=== PATIENT | male | born 1940 | race Caucasian/White ===

== ENCOUNTER 2016-07-04 01:56 | Emergency (ER) | payer OTHER ==
[~2016-07-04] VITALS: Ht 157.5 cm; Wt 108.4 kg
[~2016-07-04 01:56] MED LIST: ACETAMINOPHEN/H1 TAB PO; CARDIZEM CD 12120 MG PO; CIPRO500 M1 PO; COLACE100 MG PO; ELIQUIS5 M1 PO; ELIQUIS5 MG PO; ESCITALOPRAM OX20 MG PO; FENTANYL1 EAC3 TOP; FLOMAX0.4 M1 PO; FUROSEMIDE40 M1 PO; GLUCOSAMINE &1 EACH PO; HYDROCODONE/ACE1 TAB PO; LASIX20 MG PO; LEG CRAMP PO; LOSARTAN POTAS100 M1 PO; MELOXICAM7.5 M1 PO; MIRALAX17 GM PO; OXYCODONE-ACET1 EACH PO; PROSCAR5 M1 PO; SENNA CON/DOCUS1 TAB PO; SENNA S TABLET1 EACH PO; SPECTAZOLE0.1 %/15 G TOP; SPECTRAVITE SE1 EACH PO; VALIUM2 M1 PO
[2016-07-04 02:09] VITALS: BP 146/72
--- NOTE | 2016-07-04 02:24 | ED GENERAL ADULT ---
History of Present Illness General Chief Complaint: General Adult Stated Complaint: PER PT TWITCHING Source: patient Exam Limitations: no limitations Vital Signs & Intake/Output Vital Signs & Intake/Output Vital Signs Date Time Temp Pulse Resp B/P Pulse O2 O2 Flow FiO2 Ox Delivery Rate 07/04 0209 97.4 96 18 146/72 95 Room Air Allergies Coded Allergies: NO KNOWN ALLERGIES (08/11/14) Reconcile Medications Apixaban (Eliquis) 5 MG TABLET 1 TAB PO BID AFIB (Reported) PLEASE STOP TAKING ON Monday09/05/14 FOR PROCEDURE ON MONDAY , THEN RESUME ONCE CLEARED BY DR. DICKERSON. Ciprofloxacin HCl (Cipro) 500 MG TABLET 1 TAB PO BID uti Diltiazem Cd (Diltiazem ER) 120 MG CAP.ER.DEG 1 TAB PO DAILY Heart Health Escitalopram Oxalate 20 MG TABLET 1 TAB PO DAILY MENTAL HEALTH (Reported) Fentanyl 50 MCG/HOUR PATCH.TD72 1 PAT TOP Q3D PAIN (Reported) Fentanyl 50 MCG/HOUR PATCH.TD72 1 PAT TOP Q3D chronic pain three patches.... [id number] Finasteride 5 MG TABLET 1 TAB PO DAILY BPH (Reported) Furosemide 40 MG TABLET 1 TAB PO DAILY DIURETIC (Reported) Losartan Potassium 100 MG TABLET 1 TAB PO DAILY BP (Reported) Meloxicam 7.5 MG TABLET 1 TAB PO BID PRN ARTHRITIS (Reported) AT NIGHT OR DURING DAY NEEDED Multivitamin W/Iron, Minerals (Spectravite Senior) 1 EACH TABLET 1 TAB PO DAILY SUPPLEMENT (Reported) [id number] (Glucosamine & Chondroitin Plus) 1 TAB TAB 1,500 MG PO DAILY ARTHRITIS (Reported) WITH MSM Oxycodone HCl/Acetaminophen (Oxycodone-Acetaminophen 5-325) 1 EACH TABLET 1 TAB PO Q6H PRN PAIN (Reported) Sennosides/Docusate Sodium (Senna S Tablet) 1 EACH TABLET 1 TAB PO QPM PRN GI (Reported) TAMSULOSIN HCL (Tamsulosin Hydrochloride) 0.4 MG CAP.ER.24H 1 CAP PO DAILY BPH (Reported) Triage Note: PT TO TRIAGE C/O TWITCHING IN THE L LEG. DENIES INJURY, DENIES NUMBNESS/TINGLING. Triage Nurses Notes Reviewed? yes Onset: Gradual Duration: day(s): Timing: recent history Injury Environment: home Severity: mild, moderate Modifying Factors: Worsens With: other. Associated Symptoms: "I feel shakey and I can't sleep." HPI: 76-year-old gentleman with multiple medical problems and chronic pain presents with tremors and, "shaking all over." He states that he had been on a fentanyl 50 g patch chronically. His last patch was placed on his skin one week ago. He notes that 4 days ago is when he began his symptoms. He has tried to get his primary care doctor to give him a refill. However, there have been complications with his insurance company and various paperwork needed to approve the prescription. He has no fever chills chest pain shortness of breath. He states that he has not slept for 4 days. He is otherwise well and has no other concerns. Past History Travel History Traveled to [place] past 21 day No Medical History Any Pertinent Medical History? see below for history Neurological: NONE EENT: NONE Cardiovascular: AFIB, chronic venous insuff Respiratory: COPD Gastrointestinal: NONE Hepatic: NONE Renal: benign prost hyperplasia, hematuria, KIDNEY STONES Musculoskeletal: osteoarthritis Psychiatric: NONE Endocrine: NONE Blood Disorders: NONE Cancer(s): NONE BEATER HEAD/Reproductive: NONE History of MRSA: No History of VRE: No History of CDIFF: No Surgical History Surgical History: non-contributory Psychosocial History Who do you live with Significant Other Services at Home Nursing, Physical Therapy What is your primary language Faroese Tobacco Use: Never used ETOH Use: denies use Family History Family History, If Any: FATHER FH: emphysema MOTHER Bone cancer FH: breast cancer Hx Contributory? No Review of Systems Review of Systems Constitutional: Reports: no symptoms. EENTM: Reports: no symptoms. Respiratory: Reports: no symptoms. Cardiovascular: Reports: no symptoms. GI: Reports: no symptoms. Genitourinary: Reports: no symptoms. Musculoskeletal: Reports: no symptoms. Skin: Reports: no symptoms. Neurological/Psychological: Reports: no symptoms. Hematologic/Endocrine: Reports: no symptoms. Immunologic/Allergic: Reports: no symptoms. All Other Systems: Reviewed and Negative Physical Exam Physical Exam General Appearance: well developed/nourished, no apparent distress Head: atraumatic, normal appearance Eyes: Bilateral: normal appearance. Ears, Nose, Throat: normal pharynx, normal ENT inspection Neck: normal inspection, supple, full range of motion Respiratory: normal breath sounds, chest non-tender, no respiratory distress, quiet respiration, lungs clear Cardiovascular: regular rate/rhythm Gastrointestinal: normal bowel sounds, soft, non-tender Back: normal inspection Extremities: normal inspection, normal capillary refill Neurologic/Psych: no motor/sensory deficits, awake, alert, oriented x 3, mild symmetrical resting tremor of his upper extremities. Skin: intact, normal color, warm/dry Core Measures ACS in differential dx? No CVA/TIA Diagnosis: No Severe Sepsis Present: No Septic Shock Present: No Progress Differential Diagnoses I considered the following diagnoses in my evaluation of the patient: opioid withdrawal syndrome is most likely essential tremor vs other is also a possibility Plan of Care: Current Medications Sig/Kacie Start time Last Medication Dose Stop Time Status Admin Fentanyl Citrate 50 MCG Q72H 07/04 0245 AC (Duragesic) Initial ED EKG: none Departure Departure Disposition: HOME OR SELF CARE Condition: Stable Clinical Impression Primary Impression: Tremor Secondary Impressions: Opioid withdrawal Referrals: KIMBER PEREZ MD (PCP/Family) Departure Forms: Customer Survey General Discharge Information Prescriptions: Current Visit Scripts Fentanyl 1 PAT TOP Q3D #3 PAT three patches.... [id number] Critical Care Note Critical Care Note Critical Care Time: non-applicable
[2016-07-04] MEDS ORDERED: FENTANYL1 EAC3 TOP (02:36)
== END 2016-07-04 02:59 ==
LOC: ERH 01:56
DX: R25.1 Tremor, unspecified (principal); F11.23 Opioid dependence with withdrawal

== ENCOUNTER 2016-07-12 15:39 | Emergency (ER) | payer OTHER ==
[~2016-07-12] VITALS: Ht 157.5 cm; Wt 102.1 kg
[2016-07-12 15:46] VITALS: BP 113/65
--- NOTE | 2016-07-12 16:06 | ED GI/GU/ABDOMINAL COMPLAINT ---
See Addendum History of Present Illness General Chief Complaint: Male Genitourinary Problems Stated Complaint: "I THINK I HAVE A UTI" Source: patient, family, old records Exam Limitations: no limitations Vital Signs & Intake/Output Vital Signs & Intake/Output Vital Signs Date Time Temp Pulse Resp B/P Pulse O2 O2 Flow FiO2 Ox Delivery Rate 07/12 1546 97.8 104 20 113/65 98 Room Air ED Intake and Output 07/13 0000 07/12 1200 Intake Total Output Total Balance Patient 225 lb Weight Allergies Coded Allergies: NO KNOWN ALLERGIES (08/11/14) Reconcile Medications Apixaban (Eliquis) 5 MG TABLET 1 TAB PO BID AFIB (Reported) PLEASE STOP TAKING ON Monday09/05/14 FOR PROCEDURE ON MONDAY , THEN RESUME ONCE CLEARED BY DR. SANTIAGO. Ciprofloxacin HCl (Cipro) 500 MG TABLET 1 TAB PO BID uti Ciprofloxacin HCl (Cipro) 500 MG TABLET 1 TAB PO BID infection Diltiazem Cd (Diltiazem ER) 120 MG CAP.ER.DEG 1 TAB PO DAILY Heart Health Escitalopram Oxalate 20 MG TABLET 1 TAB PO DAILY MENTAL HEALTH (Reported) Fentanyl 50 MCG/HOUR PATCH.TD72 1 PAT TOP Q3D PAIN (Reported) Fentanyl 50 MCG/HOUR PATCH.TD72 1 PAT TOP Q3D chronic pain three patches.... [id number] Finasteride 5 MG TABLET 1 TAB PO DAILY BPH (Reported) Furosemide 40 MG TABLET 1 TAB PO DAILY DIURETIC (Reported) Losartan Potassium 100 MG TABLET 1 TAB PO DAILY BP (Reported) Meloxicam 7.5 MG TABLET 1 TAB PO BID PRN ARTHRITIS (Reported) AT NIGHT OR DURING DAY NEEDED Multivitamin W/Iron, Minerals (Spectravite Senior) 1 EACH TABLET 1 TAB PO DAILY SUPPLEMENT (Reported) [id number] (Glucosamine & Chondroitin Plus) 1 TAB TAB 1,500 MG PO DAILY ARTHRITIS (Reported) WITH MSM Oxycodone HCl/Acetaminophen (Oxycodone-Acetaminophen 5-325) 1 EACH TABLET 1 TAB PO Q6H PRN PAIN (Reported) Sennosides/Docusate Sodium (Senna S Tablet) 1 EACH TABLET 1 TAB PO QPM PRN GI (Reported) TAMSULOSIN HCL (Tamsulosin Hydrochloride) 0.4 MG CAP.ER.24H 1 CAP PO DAILY BPH (Reported) Triage Note: RECEIVED 76 YO MALE WITH HX OF UTI, C/O "I THINK I HAVE A UTI BECAUSE I AM URINATING BLOOD". PT DENIES ANY OTHER SYMPTOMS. Triage Nurses Notes Reviewed? yes HPI: Patient is a 76-year-old male presents complaining of hematuria. Hematuria onset this afternoon. Patient reports pain is 0 out of 10. No difficulty initiating urine stream. Patient had similar symptoms previously, was diagnosed with a urinary tract infection, placed on antibiotics and his hematuria improved. Patient takes Eliquis. Denies dysuria, urgency, frequency, abdominal pain, nausea, vomiting. (SLOANE SHAVER) Past History Travel History Traveled to [place] past 21 day No Medical History Any Pertinent Medical History? see below for history Neurological: NONE EENT: NONE Cardiovascular: AFIB, chronic venous insuff Respiratory: COPD Gastrointestinal: NONE Hepatic: NONE Renal: benign prost hyperplasia, hematuria, KIDNEY STONES Musculoskeletal: osteoarthritis Psychiatric: NONE Endocrine: NONE Blood Disorders: NONE Cancer(s): NONE EMERGENCY DEPARTMENT RN/Reproductive: NONE History of MRSA: No History of VRE: No History of CDIFF: No Surgical History Surgical History: non-contributory Psychosocial History Who do you live with Significant Other Services at Home Nursing, Physical Therapy What is your primary language Kyrgyz Tobacco Use: Quit >30 days ago Family History Family History, If Any: FATHER FH: emphysema MOTHER Bone cancer FH: breast cancer Hx Contributory? No (SLOANE SHAVER) Review of Systems Review of Systems Constitutional: Denies: chills, fever. EENTM: Reports: no symptoms. Respiratory: Denies: cough, short of breath. Cardiovascular: Reports: peripheral edema (chronic, unchanged). Denies: chest pain. GI: Denies: abdominal pain, nausea, vomiting. Genitourinary: Reports: see HPI, hematuria. Denies: dysuria, frequency, pain, urgency. Skin: Reports: no symptoms. Neurological/Psychological: Reports: no symptoms. Hematologic/Endocrine: Reports: see HPI, bruising. Immunologic/Allergic: Reports: no symptoms. (SLOANE SHAVER) Physical Exam Physical Exam General Appearance: well developed/nourished, alert, awake Head: atraumatic, normal appearance Eyes: Bilateral: normal appearance, PERRL, EOMI. Ears, Nose, Throat, Mouth: hearing grossly normal, moist mucous membrane Neck: normal inspection, supple, full range of motion Respiratory: normal breath sounds, no respiratory distress, lungs clear Cardiovascular: irregularly irregular (rate controlled) Gastrointestinal: soft, non-tender Back: normal inspection, normal range of motion, no CVA tenderness Extremities: 1+ bilateral lower extremity edema Neurologic/Psych: awake, alert, oriented x 3 Skin: warm/dry Core Measures ACS in differential dx? No Severe Sepsis Present: No Septic Shock Present: No (SLOANE SHAVER) Progress Differential Diagnosis: urethritis, UTI/pyelo, bladder polyp, bladder malignancy , renal colic Plan of Care: Orders Procedure Date/time Status Add-on Test (ER Only) 07/12 1614 Active CULTURE,URINE 07/12 1607 Active URINALYSIS 07/12 160 Complete Laboratory Tests 07/12/16 1607: Urinalysis LIGHT H, Urine Color BROWN H, Urine Clarity CLDY H, Urine pH 6.5, Ur Specific Henderson 1.020, Urine Protein >=300 H, Urine Ketones TRACE H, Urine Nitrite POS H, Urine Bilirubin NEG@ICTO, Urine Urobilinogen 1.0, Ur Leukocyte Esterase MOD H, Ur Microscopic SEDIMENT EXAMINED, Urine RBC PACKD H, Urine WBC 25-50 H, Ur Epithelial Cells FEW, Urine Bacteria MANY H, Urine Mucus MOD H, Urine Hemoglobin LARGE H, Urine Glucose NEG Microbiology 07/12 1607 URINE ROUT: Urine Culture - RECD Discussed with and seen by Dr. Godoy. Patient resting comfortably, no difficulty urinating. Labs and imaging deferred. Discussed importance of follow-up with urology for further evaluation. Patient to return to the emergency department if he develops pain, difficulty urinating, fevers, or worsening of symptoms. (SLOANE SHAVER) Initial ED EKG: none (SLOANE SHAVER) Departure Departure Time of Disposition: 1649 Disposition: HOME OR SELF CARE Condition: Stable Clinical Impression Primary Impression: Urinary tract infection Qualifiers: Urinary tract infection type: acute cystitis Hematuria presence: with hematuria Qualified Code: N30.01 - Acute cystitis with hematuria Secondary Impressions: Hematuria Referrals: KIMBER PEREZ MD (PCP/Family) LINDSAY SANTIAGO MD Additional Instructions: Follow-up with Dr. Santiago (urologist) for further evaluation. Call in the morning for appointment. Return to emergency department if difficulty urinating , abdominal pain, fevers, nausea, vomiting, or worsening of symptoms. Departure Forms: Customer Survey General Discharge Information Prescriptions: Current Visit Scripts Ciprofloxacin HCl (Cipro) 1 TAB PO BID #20 TAB (SLOANE SHAVER) PA/GARAGE DOOR TECHNICIAN Co-Sign Statement Statement: ED Attending supervision documentation- [X] I saw and evaluated the patient. I have also reviewed all the pertinent lab results and diagnostic results. I agree with the findings and the plan of care as documented in the PA's/GARAGE DOOR TECHNICIAN's documentation. [X] I have reviewed the ED Record and agree with the PA's/GARAGE DOOR TECHNICIAN's documentation. [] Additions or exceptions (if any) to the PAs/GARAGE DOOR TECHNICIAN's note and plan are summarized below: [] (JESSICA ESCOBAR,NIKOS)
[2016-07-12] MEDS ORDERED: CIPRO500 M1 PO (16:51)
== END 2016-07-12 16:56 ==
LOC: ERH 15:39
DX: N39.0 Urinary tract infection, site not specified (principal); R31.9 Hematuria, unspecified
CPT/HCPCS: 87184; 81001; 87086; 87147

== ENCOUNTER 2016-09-15 13:35 | Inpatient (IN) | payer OTHER ==
[~2016-09-15] VITALS: Ht 157.5 cm; Wt 99.3 kg
--- NOTE | 2016-09-15 13:43 | NUR ---
PT TO ED FOR INCREASED WEAKNESS STARTING THREE DAYS AGO, AND YESTERDAY AFTER TAKING "WATER PILLS" PT BECAME INCONTINENT WHICH IS NOT HIS BASELINE. +L LEG REDNESS, SWELLING AND HOT IN TRIAGE. DENIES TRAUMA OR BITE TO AREA, STARTED ONLY LAST NIGHT. REPORTS CHILLS AT HOME. AREA IS PAINFUL. DECREASED APPETITE. DENIES CP OR SOB.
[2016-09-15 14:10] LABS: ABSOLUTE BASOPHIL COUNT 0 /CUMM (0.0-0.2); ABSOLUTE EOSINOPHIL COUNT 0 /CUMM (0.0-0.7); ABSOLUTE GRANULOCYTE CT 8.2 /CUMM (1.4-6.5); ABSOLUTE LYMPH COUNT 1.4 /CUMM (1.2-3.4); ABSOLUTE MONOCYTE COUNT 1.2 /CUMM (0.10-0.60); BASOPHIL % 0.2 % (0.0-2.0); EOSINOPHIL % 0.2 % (0-5); GRANULOCYTE % 75.7 % (42.2-75.2); HEMATOCRIT 38.9 % (42-52); MEAN CORPUSCULAR HGB 31.9 PG (27.0-31.0); MEAN CORPUSCULAR VOLUME 93.8 FL (80.0-94.0); MEAN PLATELET VOLUME 7.2 FL (7.4-10.4); PLATELET COUNT 194 /CUMM (130-400); RBC DISTRIBUTION WIDTH 14.4 % (11.5-14.5); RED BLOOD CELL CT 4.15 /CUMM (4.70-6.10); WHITE BLOOD CELL COUNT 10.8 /CUMM (4.8-10.8)
--- NOTE | 2016-09-15 14:10 | NUR ---
PT TO ROOM 19 ON [address] AT BEDSIDE FOR EVAL
--- NOTE | 2016-09-15 14:18 | ED AMS/SEIZURE/WEAK/DIZZY ---
History of Present Illness General Chief Complaint: Lower Extremity Problems Stated Complaint: LEG SWELLING,WEAKNESS Source: patient, family, old records Exam Limitations: poor historian Allergies Coded Allergies: No Known Allergies (09/15/16) Reconcile Medications Apixaban (Eliquis) 5 MG TABLET 1 TAB PO BID AFIB (Reported) Diltiazem HCl (Diltiazem 24HR ER) 120 MG CAP.ER.24H 1 CAP PO DAILY HEART ( Reported) Escitalopram Oxalate 20 MG TABLET 1 TAB PO DAILY MENTAL HEALTH (Reported) Finasteride (Proscar) 5 MG TABLET 1 TAB PO DAILY BPH (Reported) Furosemide 40 MG TABLET 1 TAB PO DAILY DIURETIC (Reported) Glucosa Llamas 2KCL/Chondroitin Llamas (Glucosamine & Chondroitin Cap) 500 MG-400 MG CAPSULE 3 TAB PO DAILY PAIN (Reported) Losartan Potassium 100 MG TABLET 1 TAB PO DAILY BP (Reported) Meloxicam 7.5 MG TABLET 1 TAB PO DAILY PRN PAIN (Reported) Multivitamin W/Iron, Minerals (Spectravite Senior) 1 EACH TABLET 1 TAB PO DAILY SUPPLEMENT (Reported) Oxycodone HCl/Acetaminophen (Oxycodone-Acetaminophen 5-325) 1 EACH TABLET 1 TAB PO Q6H PRN PAIN (Reported) Sennosides/Docusate Sodium (Senna S Tablet) 8.6 MG-50 MG TABLET 1 TAB PO QPM CONSTIPATION (Reported) Tamsulosin HCl (Flomax) 0.4 MG CAP.ER.24H 1 CAP PO DAILY BPH (Reported) Triage Note: PT TO ED FOR INCREASED WEAKNESS STARTING THREE DAYS AGO, AND YESTERDAY AFTER TAKING "WATER PILLS" PT BECAME INCONTINENT WHICH IS NOT HIS BASELINE. +L LEG REDNESS, SWELLING AND HOT IN TRIAGE. DENIES TRAUMA OR BITE TO AREA, STARTED ONLY LAST NIGHT. REPORTS CHILLS AT HOME. AREA IS PAINFUL. DECREASED APPETITE. DENIES CP OR SOB. Triage Nurses Notes Reviewed? yes Onset: Abrupt Duration: day(s):, constant, continues in ED Timing: recent history No Modifying Factors: none HPI: 76-year-old male presents emergency room for multiple complaints. Patient reports that he has been feeling increasingly weak and fatigued recently or in the past few days. Mild cough. Denies any chest pain shortness of breath abdominal pain. Denies any headache. Denies any recent falls or trauma. Patient reports that he does walk normally but has been increasingly weak recently affecting his walking. (EVENS WOODWARD) Vital Signs & Intake/Output Vital Signs & Intake/Output Vital Signs Date Time Temp Pulse Resp B/P B/P Pulse O2 O2 Flow FiO2 Mean Ox Delivery Rate 09/15 1610 88 18 100/55 95 Room Air 09/15 1354 97.3 100 15 102/63 93 Room Air Room Air Past History Travel History Traveled to [place] past 21 day No Medical History Any Pertinent Medical History? see below for history Neurological: NONE EENT: NONE Cardiovascular: AFIB, chronic venous insuff Respiratory: COPD Gastrointestinal: NONE Hepatic: NONE Renal: benign prost hyperplasia, hematuria, KIDNEY STONES Musculoskeletal: osteoarthritis Psychiatric: NONE Endocrine: NONE Blood Disorders: NONE Cancer(s): NONE STAFF READINESS OFFICER/Reproductive: NONE History of MRSA: No History of VRE: No History of CDIFF: No Surgical History Surgical History: non-contributory Psychosocial History Who do you live with Significant Other Services at Home Nursing, Physical Therapy What is your primary language Sinhala Tobacco Use: Quit >30 days ago ETOH Use: denies use Illicit Drug Use: denies illicit drug use Family History Family History, If Any: FATHER FH: emphysema MOTHER Bone cancer FH: breast cancer Hx Contributory? No (EVENS WOODWARD) Review of Systems Review of Systems Constitutional: Reports: see HPI. EENTM: Reports: no symptoms. Respiratory: Reports: no symptoms. Cardiovascular: Reports: no symptoms. GI: Reports: no symptoms. Genitourinary: Reports: no symptoms. Musculoskeletal: Reports: no symptoms. Skin: Reports: see HPI. Neurological/Psychological: Reports: no symptoms. Hematologic/Endocrine: Reports: no symptoms. Immunologic/Allergic: Reports: no symptoms. All Other Systems: Reviewed and Negative (EVENS WOODWARD) Physical Exam Physical Exam General Appearance: well developed/nourished, alert, awake Head: atraumatic, normal appearance Eyes: Bilateral: normal appearance, EOMI. Ears, Nose, Throat: normal pharynx, normal ENT inspection, hearing grossly normal Neck: normal inspection Respiratory: normal breath sounds, no respiratory distress Cardiovascular: irregularly irregular Gastrointestinal: soft, non-tender Back: normal inspection Extremities: normal range of motion, erythema and large red patch and warmth to the left lower extremity Neurologic/Psych: awake, alert, oriented x 3, normal mood/affect Skin: intact, rash (see above) Core Measures ACS in differential dx? No CVA/TIA Diagnosis: No Severe Sepsis Present: No Septic Shock Present: No (EVENS WOODWARD) Progress Differential Diagnosis: arrythmia, anemia, benign positional vertigo, CVA/stroke , drug intoxication, encephalitis, electrolyte imbalance, GI bleed, hypoxia, meningitis, pneumonia, postural hypotension, presyncope, post-traumatic vertigo, sepsis, subarachnoid Hem., UTI/pyelo, vertebrobasilar insuff Diagnostic Imaging: Viewed by Me: CT Scan. Discussed w/RAD: CT Scan. Radiology Impression: SERVICE DATE: 09/15/16 EXAM TYPE: CAT - CT HEAD WO IV CONTRAST EXAMINATION: CT HEAD WITHOUT CONTRAST CLINICAL INFORMATION: Weakness. Right facial droop. COMPARISON: None. TECHNIQUE: Contiguous axial imaging was performed from the skull base to vertex without intravenous contrast. DLP: 619 mGy-cm. FINDINGS: There is no evidence of acute intracranial hemorrhage or territorial infarction. No abnormal mass effect or midline shift is seen. Schmidt to white matter differentiation is well preserved. No extra-axial fluid collections are identified. No hydrocephalus. Proportional prominence of the ventricles and sulcal spaces is consistent with mild volume loss. Patchy periventricular and deep white matter hypoattenuation is consistent with mild small vessel ischemic changes. No acute osseous or soft tissue abnormality. Likely an empty sella. The mastoid air cells and visualized portions of the paranasal sinuses are well aerated. IMPRESSION: No acute intracranial pathology. Mild volume loss and small vessel ischemic change. DICTATED BY: LEN SPANGLER MD DATE/TIME DICTATED:09/15/161505 ELECTRO MECHANICAL ASSEMBLER:VALERIA DATE/TIME TRANSCRIBED:09/15/161505, SERVICE DATE: 09/15/16 EXAM TYPE: RAD - XRY- PORTABLE CHEST XRAY EXAMINATION: XR PORTABLE CHEST CLINICAL INFORMATION: Cough. COMPARISON: Chest x-ray 09/01/2014 TECHNIQUE: Portable frontal view of the chest was obtained. 2:23 PM FINDINGS: Asymmetric elevation of left diaphragm compared to right. Lungs are clear. No pulmonary vascular congestion. No pleural effusion or pneumothorax. Cardiac and mediastinal contours are normal. There are vascular wall calcifications of thoracic aortic arch. IMPRESSION: No acute abnormality the chest. DICTATED BY: GUZMAN NATARAJAN MD DATE/TIME DICTATED:09/15/161456 ELECTRO MECHANICAL ASSEMBLER:VALERIA DATE/TIME TRANSCRIBED:09/15/161456 Initial ED EKG: rate (96), AFIB, nonspecific ST T wave chg (EEVNS WOODWARD) Plan of Care: Orders Procedure Date/time Status CBC WITHOUT DIFFERENTIAL 09/16 06 Active BASIC ELECTROLYTES PLUS BUN&CR 09/16 06 Active Heart Healthy Diet 09/15 D Active Pathway - chart 09/15 1700 Active Code Status 09/15 1700 Active BLOOD CULTURE 09/15 1621 Active Add-on Test (ER Only) 09/15 1547 Active CULTURE,URINE 09/15 1520 Active Add-on Test (ER Only) 09/15 1418 Active URINALYSIS 09/15 1418 Complete C-REACTIVE PROTEIN 09/15 1359 Complete TROPONIN LEVEL 09/15 1344 Complete COMPREHENSIVE METABOLIC PANEL 09/15 1344 Complete CBC WITHOUT DIFFERENTIAL 09/15 1344 Complete EKG 09/15 1344 Active Saline Lock 09/15 UNK Active House Staff 09/15 UNK Active Wound Care/Dressing 09/15 UNK Active VTE Mechanical Prophylaxis 09/15 UNK Active Vital Signs 09/15 UNK Active Elevate 09/15 UNK Active Activity/Ambulation 09/15 UNK Active Current Medications Sig/Kacie Start time Last Medication Dose Stop Time Status Admin Enoxaparin Sodium 40 MG DAILY 09/16 1000 UNVr (Lovenox) Sodium Chloride 1,000 ML SEE RATE 09/15 1700 UNVr (Normal Saline 0.9%) 09/16 0619 Sodium Chloride 1,000 ML ONCE ONE 09/15 1630 AC (Normal Saline 0.9%) 09/16 0229 Laboratory Tests 09/15/16 1520: Urinalysis LIGHT H, Urine Color YEL, Urine Clarity CLEAR, Urine pH 6.5, Ur Specific Thornton 1.015, Urine Protein TRACE H, Urine Ketones NEG, Urine Nitrite POS H, Urine Bilirubin NEG, Urine Urobilinogen 0.2, Ur Leukocyte Esterase MOD H, Ur Microscopic SEDIMENT EXAMINED, Urine RBC RARE, Urine WBC 10-15 H, Ur Epithelial Cells RARE, Urine Bacteria MANY H, Hyaline Casts RARE H, Urine Mucus MOD H, Urine Hemoglobin TRACE-LYSED H, Urine Glucose NEG 09/15/16 1359: Anion Gap 10, Estimated GFR > 60, BUN/Creatinine Ratio 18.8, Glucose 108 H, Calcium 8.6, Total Bilirubin 1.3, AST 19, ALT 32, Alkaline Phosphatase 87, Troponin I < 0.01, C-Reactive Prot, Quant 6.6 H, Total Protein 6.1 L, Albumin 3.6, Globulin 2.5, Albumin/Globulin Ratio 1.4, CBC w Diff NO MAN DIFF REQ, RBC 4.15 L, MCV 93.8, MCH 31.9 H, RDW 14.4, MPV 7.2 L, Gran % 75.7 H, Lymphocytes % 12.6 L, Monocytes % 11.3 H, Eosinophils % 0.2, Basophils % 0.2, Absolute Granulocytes 8.2 H, Absolute Lymphocytes 1.4, Absolute Monocytes 1.2 H, Absolute Eosinophils 0, Absolute Basophils 0, PUBS MCHC 34.0 Microbiology 09/15 1700 BLOOD: Blood Culture - RECD 09/15 1621 BLOOD: Blood Culture - ORD 09/15 1520 URINE ROUT: Urine Culture - RECD Departure Departure Disposition: STILL A PATIENT Condition: Stable Clinical Impression Primary Impression: Cellulitis of left lower extremity Secondary Impressions: Candidiasis of scrotum, Urinary tract infection Referrals: KIMBER PEREZ MD (PCP/Family) Departure Forms: Customer Survey General Discharge Information Admission Note Spoke With: BARRY ESCOBAR,LAURA Documentation of Exam: Documentation of any treatments & extenuating circumstances including Concerns Regarding Discharge (functional status, medication knowledge or non-compliance, living conditions, etc.) that warrant an admission rather than observation: Patient has a combination infection of cellulitis and UTI. Patient will require IV antibiotics. Gentle IV hydration. Serial blood work. Wound care consultation for groin. Case management consultation. Patient would do poorly as an outpatient. Blood pressure is borderline low. Frequent vital sign checks. (EVENS WOODWARD) PA/MOLD CHANGER Co-Sign Statement Statement: ED Attending supervision documentation- [X] I saw and evaluated the patient. I have also reviewed all the pertinent lab results and diagnostic results. I agree with the findings and the plan of care as documented in the PA's/MOLD CHANGER's documentation. [] I have reviewed the ED Record and agree with the PA's/MOLD CHANGER's documentation. [] Additions or exceptions (if any) to the PAs/MOLD CHANGER's note and plan are summarized below: [] (LIEN ESCOBAR,MARY BETH Salas)
--- NOTE | 2016-09-15 15:02 | RADIOLOGY REPORT ---
EXAMINATION: XR PORTABLE CHEST CLINICAL INFORMATION: Cough. COMPARISON: Chest x-ray 09/01/2014 TECHNIQUE: Portable frontal view of the chest was obtained. 2:23 PM FINDINGS: Asymmetric elevation of left diaphragm compared to right. Lungs are clear. No pulmonary vascular congestion. No pleural effusion or pneumothorax. Cardiac and mediastinal contours are normal. There are vascular wall calcifications of thoracic aortic arch. IMPRESSION: No acute abnormality the chest.
[2016-09-15] MEDS ORDERED: DILTIAZEM 24HR120 MG PO (15:08)
--- NOTE | 2016-09-15 15:13 | NUR ---
PT LYING ON STRETCHER, FAMILY FEEDING PT COOKIES (OK PER PA). URINAL LEFT WITH PT WHO STATES HE CANNOT GIVE A URINE SAMPLE "I DRAINED IT ALL OUT LAST NIGHT." AWARE THAT UA IS ORDERED. AWAITING RADIOLOGY RESULTS.
--- NOTE | 2016-09-15 15:13 | CT SCAN REPORT ---
EXAMINATION: CT HEAD WITHOUT CONTRAST CLINICAL INFORMATION: Weakness. Right facial droop. COMPARISON: None. TECHNIQUE: Contiguous axial imaging was performed from the skull base to vertex without intravenous contrast. DLP: 619 mGy-cm. FINDINGS: There is no evidence of acute intracranial hemorrhage or territorial infarction. No abnormal mass effect or midline shift is seen. Schmidt to white matter differentiation is well preserved. No extra-axial fluid collections are identified. No hydrocephalus. Proportional prominence of the ventricles and sulcal spaces is consistent with mild volume loss. Patchy periventricular and deep white matter hypoattenuation is consistent with mild small vessel ischemic changes. No acute osseous or soft tissue abnormality. Likely an empty sella. The mastoid air cells and visualized portions of the paranasal sinuses are well aerated. IMPRESSION: No acute intracranial pathology. Mild volume loss and small vessel ischemic change.
--- NOTE | 2016-09-15 15:23 | ULTRASOUND REPORT ---
EXAMINATION: US TRIPLEX LOWER EXTREMITY, LEFT CLINICAL INFORMATION: Left leg swelling, redness. COMPARISON: None TECHNIQUE: Color-flow triplex imaging with spectral analysis and compression Doppler were performed on the lower extremity. FINDINGS: Respiratory variation, normal compression and augmented flow are noted throughout the left lower extremity. The visualized common femoral vein, superficial femoral vein, profunda femoral vein, popliteal vein and midcalf peroneal and posterior tibial venous segments show no evidence of deep venous thrombosis. There is a complex 5.1 x 1.5 x 2.0 cm fluid collection in the medial popliteal fossa compatible with a Virgen's cyst. Note was made of kidney edema in the lower extremity. IMPRESSION: Normal triplex scan without evidence of deep venous thrombosis involving the lower extremity. 5.1 x 1.5 x 2.0 cm complex Virgen's cyst.
--- NOTE | 2016-09-15 15:51 | NUR ---
PT AMBULATED USING CANE INDEPENDENTLY 50 FEET WITH STEADY GAIT WITHOUT DIFFICULTY. RETURNED TO [facility], AWAITING DISPO, REPORTS LEFT LEG TENDER BUT NO OTHER COMPLAINTS.
--- NOTE | 2016-09-15 16:53 | History & Physical ---
KIMBERLY ESCOBAR,NOAH 09/15/16 3981: General Information and HPI MD Statement: I have seen and personally examined LINDSAY WANG and documented this H&P. The patient is a 76 year old M who presented with a patient stated chief complaint of []. Source of Information: patient, family, old records Exam Limitations: poor historian History of Present Illness: Patient is a 76-year-old male presented with chief complaints of generalized weakness since last 2 days. He told that because of Lasix,he had increased frequency of urination with incontinence. He also told that yesterday he was having discomfort in the left leg and today morning he started seeing redness on it. Patient denies fever, chills, sore throat, runny nose, recent changes in number on the pillows, dysuria, back pain, tingling and numbness in the legs, incontinence of stool, back pain. He claims that he feels congested most of the time and have dry cough with whitish mucus. Past medical history- Obstructive sleep apnea / Pickwickian syndrome Atrial fibrillation with controlled ventricular rate on Eliquis History of obstructive nephrolithiasis with hydronephrosis and left ureteral stent (2014) Morbid obesity BPH with multiple bladder diverticula Right inguinal hernia Osteoarthritis History of multiple surgeries including left shoulder, right knee, hernia Personal history -can walk with can and rolling walker. According to the cannot walk independently. He quit smoking many years ago, and occasionally drink alcohol. Family History - Father - Emphysema Allergies -NKDA Allergies/Medications Allergies: Coded Allergies: No Known Allergies (09/15/16) Home Med list Apixaban (Eliquis) 5 MG TABLET 1 TAB PO BID AFIB (Reported) Diltiazem HCl (Diltiazem 24HR ER) 120 MG CAP.ER.24H 1 CAP PO DAILY HEART ( Reported) Escitalopram Oxalate 20 MG TABLET 1 TAB PO DAILY MENTAL HEALTH (Reported) Finasteride (Proscar) 5 MG TABLET 1 TAB PO DAILY BPH (Reported) Furosemide 40 MG TABLET 1 TAB PO DAILY DIURETIC (Reported) Glucosa Llamas 2KCL/Chondroitin Llamas (Glucosamine & Chondroitin Cap) 500 MG-400 MG CAPSULE 3 TAB PO DAILY PAIN (Reported) Losartan Potassium 100 MG TABLET 1 TAB PO DAILY BP (Reported) Meloxicam 7.5 MG TABLET 1 TAB PO DAILY PRN PAIN (Reported) Multivitamin W/Iron, Minerals (Spectravite Senior) 1 EACH TABLET 1 TAB PO DAILY SUPPLEMENT (Reported) Oxycodone HCl/Acetaminophen (Oxycodone-Acetaminophen 5-325) 1 EACH TABLET 1 TAB PO Q6H PRN PAIN (Reported) Sennosides/Docusate Sodium (Senna S Tablet) 8.6 MG-50 MG TABLET 1 TAB PO QPM CONSTIPATION (Reported) Tamsulosin HCl (Flomax) 0.4 MG CAP.ER.24H 1 CAP PO DAILY BPH (Reported) Past History Travel History Traveled to [place] past 21 day No Medical History Neurological: NONE EENT: NONE Cardiovascular: AFIB, chronic venous insuff Respiratory: COPD Gastrointestinal: NONE Hepatic: NONE Renal: benign prost hyperplasia, hematuria, KIDNEY STONES Musculoskeletal: osteoarthritis Psychiatric: NONE Endocrine: NONE Blood Disorders: NONE Cancer(s): NONE BINDING NICKER/Reproductive: NONE History of MRSA: No History of VRE: No History of CDIFF: No Surgical History Surgical History: non-contributory Past Family/Social History Family History Relations & Conditions if any FATHER FH: emphysema MOTHER Bone cancer FH: breast cancer Psychosocial History Services at Home: Nursing, Physical Therapy ETOH Use: denies use Illicit Drug Use: denies illicit drug use Review of Systems Review of Systems Constitutional: Reports: malaise, weakness. Denies: chills, fever. Cardiovascular: Reports: edema. Denies: chest pain, orthopena, palpitations, peripheral edema. Respiratory: Reports: cough. Denies: wheezing. GI: Denies: abdominal pain, bloating, constipation, diarrhea, distention. Genitourinary: Reports: frequency. Denies: discharge, dysuria, hematuria. Musculoskeletal: Denies: back pain. Neurological/Psychological: Denies: cognitive dysfunction, weakness. Exam & Diagnostic Data Last 24 Hrs of Vital Signs/I&O Vital Signs Date Time Temp Pulse Resp B/P B/P Pulse O2 O2 Flow FiO2 Mean Ox Delivery Rate 09/15 192 97.9 71 18 115/56 09/15 1910 97.9 71 18 115/56 94 Room Air 09/15 1610 88 18 100/55 95 Room Air 09/15 1544 98.0 74 18 106/58 95 Room Air 09/15 1354 97.3 100 15 102/63 93 Room Air Room Air Intake & Output 09/15 1600 09/15 0800 09/15 0000 Intake Total 240 Output Total Balance 240 Intake, Oral 240 Patient 99.337 kg Weight Weight Reported by Patient Measurement Method Physical Exam General Appearance Alert, Oriented X3, Cooperative Skin redness and discoloration Assessment/Plan Assessment: Patient is a 76-year-old male presented with chief complaints of generalized weakness since last 2 days. He told that because of Lasix,he had increased frequency of urination with incontinence. He also told that yesterday he was having discomfort in the left leg and today morning he started seeing redness on it. Vital signs at the time of admission, temperature 97.8, pulse 100, respiratory rate 15, blood pressure 102/63, SPO2 93% on room air Chest x-ray -Asymmetric elevation of left diaphragm compared to right. CT scan of the head-Mild volume loss and small vessel ischemic change. Venous Doppler study - Normal triplex scan without evidence of deep venous thrombosis involving the lower extremity. 5.1 x 1.5 x 2.0 cm complex Virgen's cyst. Pertinent CRP -6.6, total protein-6.1,UA -urine nitrite positive, leukocyte esterase moderate, WBC 10-15, many bacteria 2015- Mild mitral insufficiency, mild LAD,left atrial appendage is trilobed with no evidence of thrombus. mild concentric hypertrophy and a normal ejection fraction. The right heart chambers are upper normal in size with mild tricuspid and pulmonic insufficiency, Grade II to III atheromatous plaque is present in the thoracicaorta. Plan - Cellulitis LLE * We will send blood culture, urine culture * Start patient on injection Unasyn 1.5 gm IV Q6 * Elevate the left leg * We will watch for fever * We'll follow the blood cultures UTI * Patient is having episodes of incontinence of urine with past history of urinary infection, nephrolithiasis, BPH and urinary retention, UA -UA -urine nitrite positive, leukocyte esterase moderate, WBC 10-15, many bacteria * We will continue injection, Unasyn * We will follow urine culture AF with controlled ventricular rate - * We will continue Eliquis and Cardizem CD SANDI - * We'll keep the patient on CPAP overnight Fungal infection on the skin/ tenia * We will put topical nystatin powder into the groin * If needed, then dermatological consultation BPH * We will continue finasteride and tamsulosin Diet -heart healthy diet DVT prophylaxis- ALP S/Eliquis CODE STATUS-full code As Ranked By This Provider Problem List: 1. Sleep apnea 2. COPD (chronic obstructive pulmonary disease) 3. Benign prostatic hypertrophy 4. Atrial fibrillation 5. Cellulitis of left lower extremity 6. Tinea Core Measures/Miscellaneous Acute Coronary Syndrome ACS Diagnosis: No Cerebrovascular Accident CVA/TIA Diagnosis: No Congestive Heart Failure CHF Diagnosis: No Venous Thromboembolism VTE Risk Factors: Age > 40, Obesity [facility] prophylaxis d/t: No contraindications No VTE Pharm Prophylaxis d/t: No contraindications VTE Diagnosis: No VTE Type: NONE VTE Confirmed by (Test): DUPLEX SCAN LOWER EXT Severe Sepsis Severe Sepsis Present: No Septic Shock Septic Shock Present: No Miscellaneous Documentation Attending Case Discussed With: LAURA REDDY MD Primary Care Physician: KIMBER PEREZ MD Patient sees these Specialists cardiology - Dr Tyson Level of Patient Care: General Medicine LAURA REDDY MD 09/15/16 1716: Attending MD Review Statement Attending Statement Attending MD Statement: examined this patient, discuss w/resident/PA/WEB INTERFACE DEVELOPER, agreed w/resident/PA/WEB INTERFACE DEVELOPER, discussed with family, reviewed EMR data (avail), discussed with nursing, reviewed images, amended to note Attending Assessment/Plan: 76-year-old male with past medical history significant for A. fib on liquids, had been tried on cardioversion with no success, history of COPD, history of chronic venous insufficiency, history of nephrolithiasis, BPH, history of left ESWL in the past, history of UTI. Presenting with left lower extremities erythema, fatigue as well as frequent urination. Patient also has some erythema on his groins. He said that he was feeling congested and just overall not feeling well from last few days. Last night late in the night into this morning he noticed that his left lower extremities was getting red. He denies any trauma. He did mention that he took his water pills last night as he was scheduled to take and then was urinating more than usual. He denies having any fevers. In the emergency room his lower externally Doppler was negative. Vital Signs Date Time Temp Pulse Resp B/P B/P Pulse O2 O2 Flow FiO2 Mean Ox Delivery Rate 09/15 1610 88 18 100/55 95 Room Air 09/15 1354 97.3 100 15 102/63 93 Room Air Room Air on exam; aox2, nad. cv; s1,s2, irregular. resp; clear abd; soft, nt, bs+ ext; 1+ edema b/l skin: + erythema on lle and + erythema on groin. Laboratory Tests 09/15 09/15 1520 1359 Chemistry Sodium (137 - 145 mmol/L) 136 L Potassium (3.5 - 5.1 mmol/L) 3.6 Chloride (98 - 107 mmol/L) 98 Carbon Dioxide (22 - 30 mmol/L) 27 Anion Gap (5 - 16) 10 BUN (9 - 20 mg/dL) 15 Creatinine (0.7 - 1.2 mg/dL) 0.8 Estimated GFR (>60 ml/min) > 60 BUN/Creatinine Ratio (7 - 25 %) 18.8 Glucose (65 - 99 mg/dL) 108 H Calcium (8.4 - 10.2 mg/dL) 8.6 Total Bilirubin (0.2 - 1.3 mg/dL) 1.3 AST (17 - 59 U/L) 19 ALT (21 - 72 U/L) 32 Alkaline Phosphatase (< 127 U/L) 87 Troponin I (<0.11 ng/ml) < 0.01 C-Reactive Prot, Quant (<1.0 mg/dL) 6.6 H Total Protein (6.3 - 8.2 g/dL) 6.1 L Albumin (3.5 - 5.0 g/dL) 3.6 Globulin (1.9 - 4.2 gm/dL) 2.5 Albumin/Globulin Ratio (1.1 - 2.2 %) 1.4 Hematology CBC w Diff NO MAN DIFF REQ WBC (4.8 - 10.8 /CUMM) 10.8 RBC (4.70 - 6.10 /CUMM) 4.15 L Hgb (14.0 - 18.0 G/DL) 13.2 L Hct (42 - 52 %) 38.9 L MCV (80.0 - 94.0 FL) 93.8 MCH (27.0 - 31.0 PG) 31.9 H RDW (11.5 - 14.5 %) 14.4 Plt Count (130 - 400 /CUMM) 194 MPV (7.4 - 10.4 FL) 7.2 L Gran % (42.2 - 75.2 %) 75.7 H Lymphocytes % (20.5 - 51.1 %) 12.6 L Monocytes % (1.7 - 9.3 %) 11.3 H Eosinophils % (0 - 5 %) 0.2 Basophils % (0.0 - 2.0 %) 0.2 Absolute Granulocytes (1.4 - 6.5 /CUMM) 8.2 H Absolute Lymphocytes (1.2 - 3.4 /CUMM) 1.4 Absolute Monocytes (0.10 - 0.60 /CUMM) 1.2 H Absolute Eosinophils (0.0 - 0.7 /CUMM) 0 Absolute Basophils (0.0 - 0.2 /CUMM) 0 PUBS MCHC (33.0 - 37.0 G/DL) 34.0 Urines Urinalysis LIGHT H Urine Color (YEL,AMB,STR) YEL Urine Clarity (CLEAR) CLEAR Urine pH (5.0 - 8.0) 6.5 Ur Specific [place] (1.001 - 1.035) 1.015 Urine Protein (NEG,<30 MG/DL) TRACE H Urine Ketones (NEG) NEG Urine Nitrite (NEG) POS H Urine Bilirubin (NEG) NEG Urine Urobilinogen (0.1 - 1.0 EU/dl) 0.2 Ur Leukocyte Esterase (NEG) MOD H Ur Microscopic SEDIMENT EXAMINED Urine RBC (0 - 5 /HPF) RARE Urine WBC (0 - 2 /HPF) 10-15 H Ur Epithelial Cells (NONE,FEW) RARE Urine Bacteria (NEG/NONE) MANY H Hyaline Casts (0/LPF) RARE H Urine Mucus (FEW,NONE) MOD H Urine Hemoglobin (NEG) TRACE-LYSED H Urine Glucose (N MG/DL) NEG All imaging reviewed. EKg>>> afib. A/P; 76-year-old male with past medical history significant for A. fib on liquids, had been tried on cardioversion with no success, history of COPD, history of chronic venous insufficiency, history of nephrolithiasis, BPH, history of left ESWL in the past, history of UTI admitted with left lower extremities cellulitis, possible UTI as well as fungal skin infection on bilateral groins. Patient will be admitted to general medicine floor. Blood cultures will be drawn. Urinalysis shows possibility of urinary tract infection, urine cultures will be drawn. Patient has history of nephrolithiasis and stenting in the past. He also underwent left ESWL in 2014. He had grown coagulase negative staph in the urine previously. He was given Unasyn in the emergency room which we can continue. We'll follow- up on the cultures and adjust antibiotics. Use topical Nystatin for fungal skin infection. Please confirm all of his medications and continue them. DVT prophylaxis: Eliquis. Full code. TOBIAS ALICIA 09/15/161914: Resident Review Statement Resident Statement: examined this patient, discussed with regulatory affairs intern, agreed with regulatory affairs intern, discussed with family, reviewed EMR data (avail) Other Findings: Mr. Krishna is a 76 with history of obstructive sleep apnea/pickwickian syndrome, atrial fibrillation on anticoagulation with Eliquis, nephrolithiasis and arthritis presented to emergency department with a chief complaint of weakness for 2 days, urinary frequency, and right lower extremity pain and redness. Patient reported that he was not feeling well over the last 2 days, he feels generalized weakness, with some chest congestion, productive cough of white sputum with no blood, he feels he has sinusitis especially in this time of the year. He is on Lasix which she takes every 2 days either 1 or 2 pounds has recommended by his fitting room associate, yesterday he talk to pills of Lasix and that caused tremendous frequency, he couldn't control his urination, he denies any burning sensation or change in the color of the urine, however started to feel pain in his left lower extremity, colicky in nature, 7/10 in severity, located in left lower extremity and behind left knee, today he started to notice redness, swelling, and hotness over the area. At his baseline he use a walker. Patient denies any chest pain, fever, chills, heart racing, abdominal pain, back pain, and there is no change in bowel habits. Vitals stable Examination as above Labs pertinent to CRP of 6.6 Urinalysis positive for nitrates and esterase and multiple WBC Chest x-ray: Unremarkable, head CT: Was no acute pathology, mild volume loss and small vessel ischemic changes Assessment: #Left lower extremity cellulitis #UTI #Generalized weakness which could be secondary to the infection, dehydration #History of A. fib on Eliquis, rate controlled Plan: * We'll admit the patient to general medicine floor * Patient was given IV Unasyn at ED, will continue for uti, and cellulitis * Blood and urine cx. was sent please f/u * Gentle hydration with IV NS * CBC, BEP at am * Nystatin for fungal infection * Will continue lasix from tomorrow Pain management pathway Eliquis for DVT ppx Full code
--- NOTE | 2016-09-15 16:58 | NUR ---
2 UNSUCCESSFUL ATTEMPTS FOR IV ACCESS. PT SEEN BY HOSPITALIST. HEART HEALTHY DIET ENTERED PER VERBAL ORDER FROM ATTENDING, DINNER TRAY ORDERED.
--- NOTE | 2016-09-15 17:28 | NUR ---
DINNER TRAY GIVEN. HOUSE STAFF AT BEDSIDE. ORDER FOR WET TO DRY DRESSING DISCUSSED WITH HOUSE STAFF PT HAS CELLULITIS AND FUNGAL GROIN RASH BUT NO OPEN AREAS; HOUSE STAFF STATING THEY ARE UNABLE TO CLARIFY THIS ORDER THEY HAVE NOT SEEN THE PT, STATING NOT TO APPLY DRESSING AT THIS TIME
--- NOTE | 2016-09-15 17:28 | NUR ---
BLOOD CULTURES DRAWN AND SENT TO LAB 2 SETS
--- NOTE | 2016-09-15 18:43 | PN- Student ---
Subjective Subjective: Medical Student H&P: CC: LLE swelling and weakness Limitations: patient poor historian HPI: Roberto Carlos Moore is a 76yo M with PMH of atrial fibrillation on Eliquis 5mg, chronic venous insufficiency, COPD, SANDI on CPAP, BPH, obstructive nephrolithiasis s/p left ureteral stent, and OA, who presents to the ED today with a 3 day history of LLE weakness. The patient noted edema of the LLE beginning yesterday, and when he awoke this morning the LLE was erythematous and warm. He noted a few areas of circular scaly rashes, which he states he often has and has previously been evaluated and given anti-fungal creams for. He has significant pain, rating as a 7/10. Additionally, the patient is non-compliant with his Lasix 40mg PO daily, stating he takes "one to two pills every few days, just when I need it." After taking 2 pills of Lasix yesterday, the patient began experiencing increased urinary frequency and had multiple episodes of urinary incontinence. He also endorses fatigue, mild cough productive of whitish sputum, congestion, and sinusitis over the past few days. He denies fever, chills, falls, trauma, insect or animal bites, CP, SOB, insomnia, orthopnea, PND, abdominal pain, or change in bowel habits. PMH: atrial fibrillation, chronic venous insufficiency, COPD, SANDI on CPAP, BPH, hematuria, obstructive nephrolithiasis s/p left ureteral stent, OA PSH: left ureteral stent, right knee, left shoulder, right ulnar nerve, hernia repair (patient is poor historian) Home Meds: * Eliquis 5mg BID * Cardizem 24 HR ER 120mg daily * Lexapro 20mg daily * Finasteride 5mg daily * Lasix 40mg daily * Glucosamine/Chondroitin 500mg/400mg TID * Losartan 100mg * Meloxicam 7.5mg PRN * Multivitamin and Iron 1 tab daily * Oxycodone-Acetaminophen 5mg - 325mg q6h PRN * Senna S 8.6mg - 50mg daily * Tamsulosin 0.4mg daily Social History: lives at home with SO. Has 2 sons and 1 daughter. Former tobacco smoker, quit "many years ago." Occasionally drinks a single beer. Denies illicit drug use. Walks with cane at home, but is fairly independent. Has home nursing and PT help. Family History: * mother: . Stage 4 cancer (breast and bone) * Father: . Emphysema * Daughter: "many illnesses." ROS: General: endorses fatigue. Denies fever, chills. HEENT: endorses headache, nasal congestion, slightly sore throat. Denies vision changes, ear pain, nasal discharge Neck: reports no symptoms CV: reports no symptoms Pulmonary: endorses mild cough and white sputum. denies SOB, PND GI: endorses decreased appetite and poor PO intake. Denies change in bowel habits, N/V : endorses increased frequency, incontinence. MSK: endorses some arthralgias Integument: endorses multiple rashes Psych: reports no symptoms Current Medications Sig/Kacie Start time Last Medication Dose Route Stop Time Status Admin Ampicillin Sodium/ 1,500 MG Q6 09/15 2359 AC Sulbactam Sodium IV Sodium Chloride 100 ML Ampicillin Sodium/ 0 .STK-MED ONE 09/15 1738 DC Sulbactam Sodium .ROUTE Ampicillin Sodium/ 3,000 MG ONCE ONE 09/15 1630 DC 09/15 Sulbactam Sodium IV 09/15 1659 1738 Sodium Chloride 100 ML Apixaban 5 MG BID 09/15 2200 AC PO Diltiazem HCl 120 MG DAILY 09/16 1000 AC PO Enoxaparin Sodium 40 MG DAILY 09/16 1000 CAN SC Escitalopram Oxalate 10 MG DAILY 09/16 1000 AC PO Finasteride 5 MG DAILY 09/16 1000 AC PO Losartan Potassium 100 MG DAILY 09/15 1738 AC PO Multivitamins 1 TAB DAILY 09/16 1000 AC PO Oxycodone/ 1 TAB Q6H PRN 09/15 1745 AC Acetaminophen PO Senna/Docusate Sodium 1 TAB QPM 09/15 2200 AC PO Sodium Chloride 1,000 ML Q13H 09/15 1700 AC IV 09/16 0559 Sodium Chloride 1,000 ML ONCE ONE 09/15 1630 AC 09/15 IV 09/16 0229 1827 Tamsulosin HCl 0.4 MG DAILY 09/16 1000 AC PO Objective Objective: Vital Signs Date Time Temp Pulse Resp B/P B/P Pulse O2 O2 Flow FiO2 Mean Ox Delivery Rate 09/15 1610 88 18 100/55 95 Room Air 09/15 1544 98.0 74 18 106/58 95 Room Air 09/15 1354 97.3 100 15 102/63 93 Room Air Room Air Intake & Output 09/15 1600 09/15 0800 09/15 0000 Intake Total 240 Output Total Balance 240 Intake, Oral 240 Patient 219 lb Weight Weight Reported by Patient Measurement Method EKG: atrial fibrillation, no significant changes from previous EKG General: A&O x3, NAD. Obese elderly male HEENT: atraumatic. EOMI. moist mucosa Neck: supple without adenopathy CV: irregularly irregular rhythm, no murmurs Pulmonary: CTA GI: abdomen soft, non tender. bowel sounds positive Extremities: LLE is erythematous, warm, 1+ edema; multiple areas of scaly circular rashes within erythematous areas; areas of excoriation on posterior thigh. RLE with 1+ edema, normal color. Integument: Scaly circular rashes on LLE within areas of more acute erythema and edema. Scattered bruising over arms. Skin breakdown and probable yeast infection under abdominal panniculus and in groin folds. Psych: Pleasant and cooperative Results Results: Laboratory Tests 09/15/16 1520: Urinalysis LIGHT H, Urine Color YEL, Urine Clarity CLEAR, Urine pH 6.5, Ur Specific Equality 1.015, Urine Protein TRACE H, Urine Ketones NEG, Urine Nitrite POS H, Urine Bilirubin NEG, Urine Urobilinogen 0.2, Ur Leukocyte Esterase MOD H, Ur Microscopic SEDIMENT EXAMINED, Urine RBC RARE, Urine WBC 10-15 H, Ur Epithelial Cells RARE, Urine Bacteria MANY H, Hyaline Casts RARE H, Urine Mucus MOD H, Urine Hemoglobin TRACE-LYSED H, Urine Glucose NEG 09/15/16 1359: Anion Gap 10, Estimated GFR > 60, BUN/Creatinine Ratio 18.8, Glucose 108 H, Calcium 8.6, Total Bilirubin 1.3, AST 19, ALT 32, Alkaline Phosphatase 87, Troponin I < 0.01, C-Reactive Prot, Quant 6.6 H, Total Protein 6.1 L, Albumin 3.6, Globulin 2.5, Albumin/Globulin Ratio 1.4, CBC w Diff NO MAN DIFF REQ, RBC 4.15 L, MCV 93.8, MCH 31.9 H, RDW 14.4, MPV 7.2 L, Gran % 75.7 H, Lymphocytes % 12.6 L, Monocytes % 11.3 H, Eosinophils % 0.2, Basophils % 0.2, Absolute Granulocytes 8.2 H, Absolute Lymphocytes 1.4, Absolute Monocytes 1.2 H, Absolute Eosinophils 0, Absolute Basophils 0, PUBS MCHC 34.0 Microbiology 09/15 1718 BLOOD: Blood Culture - RECD 09/15 1700 BLOOD: Blood Culture - RECD 09/15 1520 URINE ROUT: Urine Culture - RECD 09/15/16 CXR: FINDINGS: Asymmetric elevation of left diaphragm compared to right. Lungs are clear. No pulmonary vascular congestion. No pleural effusion or pneumothorax. Cardiac and mediastinal contours are normal. There are vascular wall calcifications of thoracic aortic arch. IMPRESSION: No acute abnormality the chest. 09/15/[address]: IMPRESSION: No acute intracranial pathology. Mild volume loss and small vessel ischemic change. 09/15/16 Venous US of LLE: IMPRESSION: Normal triplex scan without evidence of deep venous thrombosis involving the lower extremity. 5.1 x 1.5 x 2.0 cm complex Virgen's cyst. Assessment/Plan Assessment: Roberto Carlos Moore is a 76yo M with PMH of atrial fibrillation on Eliquis 5mg, chronic venous insufficiency, COPD, SANDI on CPAP, BPH, obstructive nephrolithiasis s/p left ureteral stent, and OA, who presents to the ED today with a 3 day history of LLE weakness, and 1 day history of edema and erythema. Given presentation and exam findings, the patient most likely has an acute cellulitis. Problem List: 1. Cellulitis LLE 2. Probable Fungal infection 3. UA suggestive of UTI 4. Atrial Fibrillation 5. COPD 6. SANDI on nocturnal CPAP 7. BPH 8. Obstructive Nephrolithiasis s/p left ureteral stent 9. OA Plan: Cellulitis of LLE: LLE is edematous, erythematous, and warm without any obvious point of injury. Given rapid onsent and physical exam findings, combined with no evidence of DVT and normal appearance of RLE, most likely cellulitis. Is currently afebrile and without leukocytosis. * Admit to general medicine * Follow up Blood Cx x2 * Received Unasyn in ED, will continue pending further microbiology * Monitor for spread, fever, leukocytosis * Daily CBC while inpatient Fungal Infection: areas of scaly circular rashes throughout areas of erythema on LLE, as well as erythema and breakdown under abdominal panniculus and in groin. Patient states he sometimes gets these areas and has previously been evaluated for this. He has anti-fungal cream he occasionally uses. * Keep affected areas clean and dry at all times * Topical Nystatin powder to affected areas UA suggestive of UTI: many bacteria, positive nitrite, and moderate leukocyte esterase on UA suggesting UTI. Patient had noticed an increased urinary frequency recently. * Follow up Urine Cx * Continue antibiotic therapy as is, pending C&S * Rehydrate with NS at 75cc/hr Atrial Fibrillation: sees Dr. Tyson as outpatient. Is on Eliquis 5mg BID, Cardizem ER 120mg daily. * Continue outpatient regimen * Consider cardiology consult COPD: patient is a former smoker, states he has COPD. He states he has never seen a visual merchandising coordinator. SpO2 on room air is currently 93% * Supplemental oxygen as necessary to maintain SpO2 >92% * Consider pulmonology consult * Recommend pulmonology appointment as outpatient to maximize care SANDI on CPAP: patient had sleep study "several years ago." Uses CPAP at night without issue. * Continue CPAP at night * Pulmonology as outpatient as above BPH: has not followed with his urologist in several years. Is taking Finasteride 5mg daily, Tamsulosin 0.4mg daily. * Continue outpatient regimen * Encourage pt to follow up with urologist upon discharge Nephrolithiasis s/p left ureteral stent: Obstructive nephrolithiasis with failed ESWL in 2014, resulting in left ureteral stent. Is currently not following up with nephrology/urology as recommended. * Encourage pt to follow up with appropriate specialists upon discharge OA: has multiple arthralgias with history of multiple MSK surgeries. Has not seen a telecom specialist. Is taking Glucosamine/Chondroitin 500mg/400mg TID, Meloxicam 7.5mg PRN, Oxycodone-Acetaminophen 5mg- 325mg q6h PRN. * Continue outpatient regimen * Encourage followup with appropriate specialties upon discharge Other outpatient medicines to continue: Lexapro 20mg daily, Losartan 100mg daily with hold parameters, multivitamin and iron supplement 1 tab daily, Senna S 8.6mg-50mg daily. Code Status: Full DVT prophylaxis: Eliquis Diet: Hapara
--- NOTE | 2016-09-15 18:52 | NUR ---
PT HAS A BED 230-1
[2016-09-15 19:10] VITALS: BP 115/56
--- NOTE | 2016-09-15 20:26 | NUR ---
PT UPTO FLOOR AT 1999. PT A/O X3. PT ON RA. OOB W CANE W STEADY GAIT. LLE RED WARM AND OUTLINED WITH SKLIN MARKER. + PP. CALL EMMANUEL USE INSTRUCTED WILL MONITOR
[2016-09-15 22:29] VITALS: BP 110/60
[2016-09-16 06:59] VITALS: BP 118/62
[2016-09-16 08:10] LABS: ABSOLUTE BASOPHIL COUNT 0 /CUMM (0.0-0.2); ABSOLUTE EOSINOPHIL COUNT 0.1 /CUMM (0.0-0.7); ABSOLUTE GRANULOCYTE CT 5.2 /CUMM (1.4-6.5); ABSOLUTE MONOCYTE COUNT 1.3 /CUMM (0.10-0.60); BASOPHIL % 0.4 % (0.0-2.0); EOSINOPHIL % 1.4 % (0-5); GRANULOCYTE % 59.5 % (42.2-75.2); HEMATOCRIT 37.8 % (42-52); MEAN CORPUSCULAR HGB 31.6 PG (27.0-31.0); MEAN CORPUSCULAR HGB CONC 33.3 G/DL (33.0-37.0); MEAN CORPUSCULAR VOLUME 94.8 FL (80.0-94.0); PLATELET COUNT 166 /CUMM (130-400); RBC DISTRIBUTION WIDTH 15.3 % (11.5-14.5); RED BLOOD CELL CT 3.99 /CUMM (4.70-6.10); WHITE BLOOD CELL COUNT 8.7 /CUMM (4.8-10.8)
--- NOTE | 2016-09-16 08:17 | PN- Student ---
Subjective Subjective: Medical Student Daily Progress Note: Roberto Carlos Moore is a 76yoM with PMH significant for atrial fibrillation on Eliquis, COPD and SANDI on CPAP, obstructive nephrolithiasis s/p left ureteral stent, and OA who was admitted on 09/15/16 for cellulitis of LLE. Pain scores over the past 24 hours: 8, 7, 5, 5, 4, 3 There were no overnight events. The patient states he slept well with his CPAP. He has minimal resting LLE pain, while it is 5/10 severity when moving. He feels he is breathing well. His cough is unchanged. His appetite and PO intake have improved, and he is currently awaiting his breakfast. He feels that his groin/ abdominal panniculus are improved with Nystatin administration. He denies difficulty urinating and painful urination. He denies any headache, vision changes, CP, shortness of breath, abdominal pain, nausea or vomiting. His daughter is in the room with him and has many questions regarding his current condition and care. With the patient's permission, I briefly discussed reasons why the patient was admitted and how the attending will make care decisions during this hospital stay. Current Medications Sig/Kacie Start time Last Medication Dose Route Stop Time Status Admin Ampicillin Sodium/ 1,500 MG Q6 09/15 2359 AC 09/16 Sulbactam Sodium IV 0519 Sodium Chloride 100 ML Ampicillin Sodium/ 0 .STK-MED ONE 09/15 1738 DC Sulbactam Sodium .ROUTE Ampicillin Sodium/ 3,000 MG ONCE ONE 09/15 1630 DC 09/15 Sulbactam Sodium IV 09/15 1659 1738 Sodium Chloride 100 ML Apixaban 5 MG BID 09/15 2200 AC 09/15 PO 2114 Diltiazem HCl 120 MG DAILY 09/16 1000 AC PO Enoxaparin Sodium 40 MG DAILY 09/16 1000 CAN SC Escitalopram Oxalate 10 MG DAILY 09/16 1000 AC PO Finasteride 5 MG DAILY 09/16 1000 AC PO Furosemide 40 MG DAILY 09/16 1000 AC PO Ibuprofen 600 MG Q6P PRN 09/15 2000 AC PO Losartan Potassium 0 .STK-MED ONE 09/15 1921 DC PO Losartan Potassium 100 MG DAILY 09/15 1738 AC 09/15 PO 1927 Melatonin 5 MG AT BEDTIME 09/15 2330 AC 09/16 PO 0129 Multivitamins 1 TAB DAILY 09/16 1000 AC PO Nystatin 1 KERRI Q12 09/15 2200 CAN TOP Nystatin 1 KERRI BID 09/15 2200 AC 09/15 TOP 2115 Oxycodone/ 1 TAB Q6H PRN 09/15 1745 AC 09/15 Acetaminophen PO 2006 Senna/Docusate Sodium 1 TAB QPM 09/15 2200 AC PO Sodium Chloride 1,000 ML Q13H 09/15 1700 DC 09/15 IV 09/16 0559 1929 Sodium Chloride 1,000 ML ONCE ONE 09/15 1630 DC 09/15 IV 09/16 0229 1827 Tamsulosin HCl 0.4 MG DAILY 09/16 1000 AC PO Objective Objective: Vital Signs Date Time Temp Pulse Resp B/P B/P Pulse O2 O2 Flow FiO2 Mean Ox Delivery Rate 09/16 0659 98.9 80 22 118/62 91 Room Air 09/16 0016 76 95 09/15 2229 99.3 82 20 110/60 92 Room Air 09/15 1927 97.9 71 18 115/56 09/15 1910 97.9 71 18 115/56 94 Room Air 09/15 1610 88 18 100/55 95 Room Air 09/15 1544 98.0 74 18 106/58 95 Room Air 09/15 1354 97.3 100 15 102/63 93 Room Air Room Air Intake & Output 09/16 1600 09/16 0800 09/16 0000 Intake Total 325 Output Total 700 100 Balance -700 225 Intake, IV 75 Intake, Oral 250 Number 1 Bowel Movements Output, Urine 700 100 Patient 219 lb Weight Weight Reported by Patient Measurement Method General: A&O x3, comfortable, obese HEENT: atraumatic. moist mucosa. EOMI CV: irregularly irregular rhythm without murmur Pulmonary: normal breath sounds with rare, soft expiratory wheezing Abdomen: soft, non-tender. bowel sounds present Extremities: LLE appearance unchanged from yesterday. All distal pulses palpable Integument: area of breakdown under abdominal panniculus/groin improved since yesterday, is now dry. Nystatin powder evident. Results Results: Laboratory Tests 09/16/16 0640: Anion Gap 8, Estimated GFR > 60, BUN/Creatinine Ratio 27.1 H, CBC w Diff NO MAN DIFF REQ, RBC 3.99 L, MCV 94.8 H, MCH 31.6 H, RDW 15.3 H, MPV 8.0, Gran % 59.5, Lymphocytes % 23.3, Monocytes % 15.4 H, Eosinophils % 1.4, Basophils % 0.4, Absolute Granulocytes 5.2, Absolute Lymphocytes 2.0, Absolute Monocytes 1.3 H, Absolute Eosinophils 0.1, Absolute Basophils 0, PUBS MCHC 33.3 Microbiology 09/15 1718 BLOOD: Blood Culture - RECD 09/15 1700 BLOOD: Blood Culture - RECD 09/15 1520 URINE ROUT: Urine Culture - RECD Assessment/Plan Assessment: Roberto Carlos Moore is a 76yo M with PMH of atrial fibrillation on Eliquis, COPD and SANDI on CPAP, obstructive nephrolithiasis s/p left ureteral stent, and OA, who was admitted on 09/15/16 for cellulitis of LLE Problem List: 1. Cellulitis LLE 2. Probable Fungal infection 3. UA suggestive of UTI 4. Atrial Fibrillation 5. COPD 6. SANDI on nocturnal CPAP 7. BPH 8. Obstructive Nephrolithiasis s/p left ureteral stent 9. OA Plan: Cellulitis of LLE: Doppler US negative for DVT. Patient remains afebrile and without leukocytosis. Receiving Unasyn 1.5g IV q6h. Blood Cx pending * Follow up Blood Cx x2 * Continue Unasyn * Monitor for spread, fever, leukocytosis * Daily CBC while inpatient Fungal Infections: areas of scaly circular rashes consistent with Tinea throughout areas of erythema on LLE, as well as erythema and breakdown consistent with Candidiasis under abdominal panniculus and in groin. Patient states he sometimes gets these areas of Tinea and Candidiasis, and has previously been evaluated for this. He has anti-fungal cream he occasionally uses. * Keep affected areas clean and dry at all times * Topical Nystatin powder to areas of Candidiasis * Topical anti-fungal creams for areas of Tinea UA suggestive of UTI: many bacteria, positive nitrite, and moderate leukocyte esterase on UA suggesting UTI. Has PMH of recurrent UTI and obstructive nephrolithiasis. * Follow up Urine Cx * Continue antibiotic therapy as is, pending C&S * CT abdomen if urine cx is positive Atrial Fibrillation: sees Dr. Tyson as outpatient. Is on Eliquis 5mg BID, Cardizem ER 120mg daily. * Continue outpatient regimen * Follow with Dr. Tyson as scheduled COPD: patient is a former smoker, states he has COPD. He states he has never seen a labor arbitrator. * Supplemental oxygen as necessary to maintain SpO2 >90% * Consider pulmonology consult * Recommend pulmonology appointment as outpatient to maximize care SANDI on CPAP: patient had sleep study "several years ago." Uses CPAP at night without issue. * Continue CPAP at night * Pulmonology as outpatient as above BPH: has not followed with his urologist in several years. Is taking Finasteride 5mg daily, Tamsulosin 0.4mg daily. * Continue outpatient regimen * Encourage pt to follow up with urologist upon discharge Nephrolithiasis s/p left ureteral stent: Obstructive nephrolithiasis with failed ESWL in 2014, resulting in left ureteral stent. Is currently not following up with nephrology/urology as recommended. * Urine C&S pending * CT abdomen if urine cx is positive * Encourage pt to follow up with appropriate specialists upon discharge OA: has multiple arthralgias with history of multiple MSK surgeries. Has not seen a workshop manager. Is taking Glucosamine/Chondroitin 500mg/400mg TID, Meloxicam 7.5mg PRN, Oxycodone-Acetaminophen 5mg- 325mg q6h PRN. * Continue outpatient regimen * Encourage followup with appropriate specialties upon discharge Continue remaining outpatient regimen: Lexapro 20mg daily, Losartan 100mg daily, multivitamin and iron supplement 1 tab daily, Senna S 8.6mg-50mg daily. Code Status: Full DVT Prophylaxis: Eliquis 5mg BID Diet: [employer]
--- NOTE | 2016-09-16 11:03 | PN- Housestaff ---
KIMBERLY ESCOBAR,NOAH 09/16/16 1103: Subjective Follow-up For: Left leg cellulitis UTI Complaints: no complaints Subjective: Patient is seen and examined at the bedside. He has erythema on the left lower leg, which is similar, as before. Patient is feeling much improvement. Review of Systems Constitutional: Denies: no symptoms. Comments: Patient denies for any active complaints. Objective Last 24 Hrs of Vital Signs/I&O Vital Signs Date Time Temp Pulse Resp B/P B/P Pulse O2 O2 Flow FiO2 Mean Ox Delivery Rate 09/16 1513 99.3 83 18 112/64 94 Room Air 09/16 0914 80 120/64 09/16 0914 80 120/64 09/16 0851 Room Air Room Air 09/16 0849 95 Room Air Room Air 09/16 0659 98.9 80 22 118/62 91 Room Air 09/16 0016 76 95 09/15 2229 99.3 82 20 110/60 92 Room Air 09/15 1927 97.9 71 18 115/56 09/15 1910 97.9 71 18 115/56 94 Room Air Intake & Output 09/16 1600 09/16 0800 09/16 0000 Intake Total 160 325 Output Total 840 700 100 Balance -680 -700 225 Intake, IV 110 75 Intake, Oral 50 250 Number 1 Bowel Movements Output, Urine 840 700 100 Patient 99.337 kg Weight Weight Reported by Patient Measurement Method Physical Exam General Appearance: Alert, Oriented X3, Cooperative, No Acute Distress Cardiovascular: Normal S1, Normal S2 Lungs: Clear to Auscultation, Normal Air Movement Abdomen: Soft, distended Extremities: edema left side of the leg Current Medications: Current Medications Sig/Kacie Start time Last Medication Dose Route Stop Time Status Admin Ampicillin Sodium/ 1,500 MG Q6 09/15 2359 AC 09/16 Sulbactam Sodium IV 1154 Sodium Chloride 100 ML Ampicillin Sodium/ 0 .STK-MED ONE 09/15 1738 DC Sulbactam Sodium .ROUTE Apixaban 5 MG BID 09/15 2200 AC 09/16 PO 912 Diltiazem HCl 120 MG DAILY 09/16 1000 AC 09/16 PO 912 Enoxaparin Sodium 40 MG DAILY 09/16 1000 CAN SC Escitalopram Oxalate 10 MG DAILY 09/16 1000 AC 09/16 PO 912 Finasteride 5 MG DAILY 09/16 1000 AC 09/16 PO 0913 Furosemide 40 MG DAILY 09/16 1000 AC 09/16 PO 0913 Ibuprofen 600 MG Q6P PRN 09/15 2000 AC PO Losartan Potassium 0 .STK-MED ONE 09/15 1921 DC PO Losartan Potassium 100 MG DAILY 09/15 1738 AC 09/16 PO 0914 Melatonin 5 MG AT BEDTIME 09/15 2330 AC 09/16 PO 0129 Multivitamins 1 TAB DAILY 09/16 1000 AC 09/16 PO 0914 Nystatin 1 KERRI Q12 09/15 2200 CAN TOP Nystatin 1 KERRI BID 09/15 2200 AC 09/16 TOP 0915 Oxycodone/ 1 TAB Q6H PRN 09/15 1745 AC 09/16 Acetaminophen PO 1551 Patient Medication 1 ED .STK-MED ONE 09/16 1401 DC Teaching ED 09/16 1402 Senna/Docusate Sodium 1 TAB QPM 09/15 2200 AC PO Sodium Chloride 1,000 ML Q13H 09/15 1700 DC 09/15 IV 09/16 0559 1929 Sodium Chloride 1,000 ML ONCE ONE 09/15 1630 DC 09/15 IV 09/16 0229 1827 Tamsulosin HCl 0.4 MG DAILY 09/16 1000 AC 09/16 PO 0914 Last 24 Hrs of Lab/Joseph Results Last 24 Hrs of Labs/Mics: Laboratory Tests 09/16/16 0640: Anion Gap 8, Estimated GFR > 60, BUN/Creatinine Ratio 27.1 H, CBC w Diff NO MAN DIFF REQ, RBC 3.99 L, MCV 94.8 H, MCH 31.6 H, RDW 15.3 H, MPV 8.0, Gran % 59.5, Lymphocytes % 23.3, Monocytes % 15.4 H, Eosinophils % 1.4, Basophils % 0.4, Absolute Granulocytes 5.2, Absolute Lymphocytes 2.0, Absolute Monocytes 1.3 H, Absolute Eosinophils 0.1, Absolute Basophils 0, PUBS MCHC 33.3 Microbiology 09/15 1718 BLOOD: Blood Culture - RES Assessment/Plan Assessment: Patient is a 76-year-old male presented with chief complaints of generalized weakness since last 2 days. He told that because of Lasix,he had increased frequency of urination with incontinence. He also told that yesterday he was having discomfort in the left leg and today morning he started seeing redness on it. Vital signs at the time of admission - temperature 99.3, pulse 80, respiratory 18, blood pressure 112/64, SPO2 94% on room air. Plan - Cellulitis LLE * Follow-up blood culture, urine culture didn't show any growth of bacteria * Continue injection Unasyn 1.5 gm IV Q6 * Elevate the left leg * We will watch for fever * Physical therapy for STR placement. UTI * Patient is having episodes of incontinence of urine with past history of urinary infection, nephrolithiasis, BPH and urinary retention. UA - urine nitrite positive, leukocyte esterase moderate, WBC 10-15, many bacteria * We will continue inj Unasyn. * Till now urine culture does not show any growth of bacteria. AF with controlled ventricular rate * We will continue Eliquis and Cardizem CD SANDI * We'll keep the patient on CPAP overnight Fungal infection on the skin/ tenia * We will put topical nystatin powder into the groin * If needed, then dermatological consultation BPH * We will continue finasteride and tamsulosin Diet -heart healthy diet DVT prophylaxis- ALP S/Eliquis CODE STATUS-full code Problem List: 1. Sleep apnea 2. Benign prostatic hypertrophy 3. Atrial fibrillation 4. Urinary tract infection 5. Cellulitis of left lower extremity 6. Tinea Pain Ratin Pain Location: Left lower leg Pain Goal: Remain pain free Pain Plan: [id number] Tomorrow's Labs & Rationales: CBC, BEP DVT/Prophylaxis: mechanical, pharmacological JOSUE CARBAJAL 09/16/16 1112: Attending MD Review Statement Attending Statement Attending MD Statement: examined this patient, discuss w/resident/PA/ELECTRONIC DATA INTERCHANGE SPECIALIST, agreed w/resident/PA/ELECTRONIC DATA INTERCHANGE SPECIALIST, discussed with family, reviewed EMR data (avail), discussed with nursing, discussed with case mgmt, reviewed images, amended to note Attending Assessment/Plan: Assessment #Left lower extremity cellulitis #possible UTI #Generalized weakness which could be secondary to the infection, dehydration #History of A. fib on Eliquis, rate controlled #BPH #nephrolithiasis #SANDI with CPAP at night Plan: admitted to inpatient medical services c/w abx, will continue for possible uti, and cellulitis Blood and urine cx f/u. Gentle hydration with IV NS Nystatin for fungal infection Pain management pathway Eliquis for DVT ppx Full code
[2016-09-16 15:13] VITALS: BP 112/64
[2016-09-16 22:43] VITALS: BP 116/60
[2016-09-17 07:05] VITALS: BP 110/54
[2016-09-17 08:32] LABS: ABSOLUTE BASOPHIL COUNT 0 /CUMM (0.0-0.2); ABSOLUTE EOSINOPHIL COUNT 0.2 /CUMM (0.0-0.7); ABSOLUTE GRANULOCYTE CT 5.1 /CUMM (1.4-6.5); ABSOLUTE LYMPH COUNT 1.9 /CUMM (1.2-3.4); ABSOLUTE MONOCYTE COUNT 1.1 /CUMM (0.10-0.60); BASOPHIL % 0.2 % (0.0-2.0); EOSINOPHIL % 2.3 % (0-5); GRANULOCYTE % 61.8 % (42.2-75.2); HEMATOCRIT 35.5 % (42-52); MEAN CORPUSCULAR HGB 31.9 PG (27.0-31.0); MEAN CORPUSCULAR HGB CONC 33.4 G/DL (33.0-37.0); MEAN CORPUSCULAR VOLUME 95.6 FL (80.0-94.0); MEAN PLATELET VOLUME 7.8 FL (7.4-10.4); PLATELET COUNT 174 /CUMM (130-400); RBC DISTRIBUTION WIDTH 14.8 % (11.5-14.5); RED BLOOD CELL CT 3.72 /CUMM (4.70-6.10); WHITE BLOOD CELL COUNT 8.3 /CUMM (4.8-10.8)
--- NOTE | 2016-09-17 08:43 | PN- Housestaff ---
FILOMENA WANG 09/17/16 0843: Subjective Follow-up For: LEFT leg cellulitis Complaints: no complaints Subjective: Patient was seen and examined this morning. he is alert, awake and oriented to time place and person. No acute events noticed overnight. He reports his left leg swelling, redness, pain improved this morning. He is feeling much comfortable today. He offers no other complaints. He feels he is ready to go home. Vitals were stable this morning. Afebrile, heart rate 65, blood pressure 110/54 , saturating at 93 on room air. Review of Systems Constitutional: Denies: chills, diaphoresis, fever, malaise. Objective Last 24 Hrs of Vital Signs/I&O Vital Signs Date Time Temp Pulse Resp B/P B/P Pulse O2 O2 Flow FiO2 Mean Ox Delivery Rate 09/17 0905 65 110/54 09/17 0904 65 100/54 09/17 0705 97.8 65 20 110/54 93 Room Air 09/17 0000 CPAP 09/16 2311 76 96 09/16 2243 98.8 70 22 116/60 93 Room Air 09/16 1513 99.3 83 18 112/64 94 Room Air Intake & Output 09/17 1600 09/17 0800 09/17 0000 Intake Total 640 1620 Output Total 200 900 Balance 440 720 Intake, IV 280 120 Intake, Oral 360 1500 Output, Urine 200 900 Physical Exam General Appearance: Alert, Oriented X3, Cooperative, No Acute Distress Skin: No Rashes, No Breakdown, LLE SWELLING, REDNESS SUBSIDED HEENT: Atraumatic, PERRLA, EOMI Neck: Supple, No JVD Lymphatic: Cervical nl Cardiovascular: Regular Rate, Normal S1, Normal S2 Lungs: Normal Air Movement Abdomen: Normal Bowel Sounds, Soft, No Tenderness Neurological: Normal Speech, Strength at 5/5 X4 Ext, Sensation Intact Extremities: No Clubbing, No Cyanosis, No Edema Vascular: Pulses Symmetrical Current Medications: Current Medications Sig/Kacie Start time Last Medication Dose Route Stop Time Status Admin Ampicillin Sodium/ 1,500 MG Q6 09/15 2359 AC 09/17 Sulbactam Sodium IV 0457 Sodium Chloride 100 ML Apixaban 5 MG BID 09/15 2200 AC 09/17 PO 09 Diltiazem HCl 120 MG DAILY 09/16 1000 AC 09/17 PO 0904 Escitalopram Oxalate 10 MG DAILY 09/16 1000 AC 09/17 PO 0905 Finasteride 5 MG DAILY 09/16 1000 AC 09/17 PO 0905 Furosemide 40 MG DAILY 09/16 1000 AC 09/17 PO 0905 Ibuprofen 600 MG Q6P PRN 09/15 2000 AC PO Losartan Potassium 100 MG DAILY 09/15 1738 AC 09/17 PO 0904 Melatonin 5 MG AT BEDTIME 09/15 2330 AC 09/16 PO 2240 Multivitamins 1 TAB DAILY 09/16 1000 AC 09/17 PO 0905 Nystatin 1 KERRI BID 09/15 2200 AC 09/16 TOP 2109 Oxycodone/ 1 TAB Q6H PRN 09/15 1745 AC 09/17 Acetaminophen PO 0457 Patient Medication 1 ED .STK-MED ONE 09/16 1401 DC Teaching ED 09/16 1402 Ramelteon 8 MG ONCE ONE 09/17 0115 DC PO 09/17 0116 Senna/Docusate Sodium 1 TAB QPM 09/15 220 AC PO Tamsulosin HCl 0.4 MG DAILY 09/16 1000 AC 09/17 PO 0905 Last 24 Hrs of Lab/Joseph Results Last 24 Hrs of Labs/Mics: Laboratory Tests 09/17/16 0645: Anion Gap 8, Estimated GFR > 60, BUN/Creatinine Ratio 34.3 H, CBC w Diff NO MAN DIFF REQ, RBC 3.72 L, MCV 95.6 H, MCH 31.9 H, RDW 14.8 H, MPV 7.8, Gran % 61.8, Lymphocytes % 22.4, Monocytes % 13.3 H, Eosinophils % 2.3, Basophils % 0.2, Absolute Granulocytes 5.1, Absolute Lymphocytes 1.9, Absolute Monocytes 1.1 H, Absolute Eosinophils 0.2, Absolute Basophils 0, PUBS MCHC 33.4 Assessment/Plan Assessment: Patient is a 76-year-old male presented with chief complaints of generalized weakness since last 2 days. He told that because of Lasix,he had increased frequency of urination with incontinence. He also told that yesterday he was having discomfort in the left leg and today morning he started seeing redness on it. Vital signs at the time of admission - temperature 99.3, pulse 80, respiratory 18, blood pressure 112/64, SPO2 94% on room air. Plan - Cellulitis LLE * Follow-up blood culture, urine culture didn't show any growth of bacteria * ContinueD injection Unasyn 1.5 gm IV Q6 * Elevate the left leg * We will watch for fever * Physical therapy - HE CAN GO HOME, NO NEED OF STR * We will discharge him on Augmentin for 7 more days to complete course for cellulitis UTI * Patient is having episodes of incontinence of urine with past history of urinary infection, nephrolithiasis, BPH and urinary retention. UA - urine nitrite positive, leukocyte esterase moderate, WBC 10-15, many bacteria * We will continue inj Unasyn. * Till now urine culture does not show any growth of bacteria. AF with controlled ventricular rate * We will continue Eliquis and Cardizem CD SANDI * We'll keep the patient on CPAP overnight * Fungal infection on the skin/ tenia * We will put topical nystatin powder into the groin * If needed, then dermatological consultation BPH * We will continue finasteride and tamsulosin Diet -heart healthy diet DVT prophylaxis- ALP S/Eliquis CODE STATUS-full code Problem List: 1. Cellulitis of left lower extremity Pain Ratin Pain Location: NONE Pain Goal: Remain pain free Pain Plan: TYLINOL PERCOCTE Tomorrow's Labs & Rationales: NONE SOLOMON,JOSUE 09/17/16 1000: Attending MD Review Statement Attending Statement Attending MD Statement: examined this patient, discuss w/resident/PA/SURGICAL DEVICE SALES REPRESENTATIVE, agreed w/resident/PA/SURGICAL DEVICE SALES REPRESENTATIVE, discussed with family, reviewed EMR data (avail), discussed with nursing, discussed with case mgmt, reviewed images, amended to note Attending Assessment/Plan: Assessment #Left lower extremity cellulitis #possible UTI #Generalized weakness which could be secondary to the infection, dehydration #History of A. fib on Eliquis, rate controlled #BPH #nephrolithiasis #SANDI with CPAP at night Plan: admitted to inpatient medical services c/w abx, change to PO at d/c, will continue for possible uti, and cellulitis Blood and urine cx negative so far. Gentle hydration with IV NS Nystatin for fungal infection Pain management pathway PT eval for dc planning Eliquis for DVT ppx Full code anticipate dc soon at home with baseline funcitonal mobility
[2016-09-17 09:05] VITALS: BP 110/54
[2016-09-17] MEDS ORDERED: AUGMENTIN 875-1 EACH PO (10:42)
--- NOTE | 2016-09-17 10:44 | Patient Discharge Instructions ---
Discharge Instructions General Discharge Information You were seen/treated for: Left leg cellulitis You had these procedures: None Watch for these problems: Worsening redness, swelling, pain of right leg associated with fever, chills Special Instructions: Please follow-up with your primary care doctor in 1 week Diet Continue normal diet: Yes Activity Full Activity/No Limits: Yes Acute Coronary Syndrome Inclusion Criteria At DC or during hospital stay patient has or had the following: ACS DIAGNOSIS No Discharge Core Measures Meds if any: Prescribed or Continued at Discharge Meds if any: NOT Prescribed or Continued at Discharge Congestive Heart Failure Inclusion Criteria At DC or during hospital stay patient has or had the following: CHF DIAGNOSIS No Discharge Core Measures Meds if any: Prescribed or Continued at Discharge Meds if any: NOT Prescribed or Continued at Discharge Cerebrovascular accident Inclusion Criteria At DC or during hospital stay patient has or had the following: CVA/TIA Diagnosis No Discharge Core Measures Meds if any: Prescribed or Continued at Discharge Meds if any: NOT Prescribed or Continued at Discharge Venous thromboembolism Inclusion Criteria VTE Diagnosis No VTE Type NONE VTE Confirmed by (Test) NONE Discharge Core Measures - Per Current guidelines, there needs to be overlap - treatment for the first 5 days of Warfarin therapy. - If discharged on Warfarin prior to 5 days of - overlap therapy, the patient will need to be - assessed for post discharge needs including - *Post discharge parental anticoagulation - *Warfarin and/or parental anticoagulation education - *Follow up date to check INR post discharge At least 5 days overlap therapy as Inpatient No Meds if any: Prescribed or Continued at Discharge Note: Overlap Therapy is Warfarin and Anticoagulant Meds if any: NOT Prescribed or Continued at Discharge
--- NOTE | 2016-10-04 18:33 | Discharge Summary ---
Visit Information Visit Dates Admission Date: 09/15/16 Discharge Date: 09/17/16 Hospital Course Course Attending Physician: JOSUE CARBAJAL MD Primary Care Physician: ANA ESCOBAR,[facility] Course: Patient is a 76-year-old male was presented with chief complaints of generalized weakness for 2 days, increased frequency of urination, redness, swelling and tenderness in the left leg. Vital signs at the time of admission, temperature 97.8, pulse 100, respiratory rate 15, blood pressure 102/63, SPO2 93% on room air Pertinent labs CRP -6.6, total protein-6.1,UA -urine nitrite positive, leukocyteesterase moderate, WBC 10-15, many bacteria Cellulitis LLE We admitted the patient to general medical floor and started him on injection Unasyn 1.5 gm IV Q6. Venous Doppler study was negative for evidence of DVT.Follow-up blood cultures and urine cultures were negative. Patient responded well to antibiotic. So we discharged him on Augmentin 875 milligrams by mouth twice a day for total 10 days. We also advised him to elevate the leg, and follow-up with the PCP within a week of discharge. UTI Patient was complaining of urinary frequency, an episode of urinary incontinence. UA showed urine nitrite positive, leukocyte esterase moderate, WBC 10-15, many bacteria We treated with antibiotics. Follow-up urine culture was negative. We advised him to follow-up with PCP. Allergies: Coded Allergies: No Known Allergies (09/15/16) Significant Procedures: Chest x-ray -Asymmetric elevation of left diaphragm compared to right. CT scan of the head-Mild volume loss and small vessel ischemic change. Venous Doppler study - Normal triplex scan without evidence of deep venous thrombosis involving the lower extremity. 5.1 x 1.5 x 2.0 cm complex Virgen's cys Disposition Summary Disposition Principal Diagnosis: Left lower extremity cellulitis UTI Additional Diagnosis: Obstructive sleep apnea / Pickwickian syndrome Atrial fibrillation with controlled ventricular rate on Eliquis History of obstructive nephrolithiasis with hydronephrosis and left ureteral stent (2014) Morbid obesity BPH with multiple bladder diverticula Right inguinal hernia Osteoarthritis History of multiple surgeries including left shoulder, right knee, hernia Discharge Disposition: home or self care Discharge Instructions General Discharge Information Code Status: Full Code Patient's Diet: Heart healthy diet Patient's Activity: As tolerated Follow-Up Instructions/Appts: Please follow-up with your primary care provider within a week of discharge. Medications at Discharge Discharge Medications: Continue taking these medications: Meloxicam (Meloxicam) 7.5 MG TABLET 1 Tablet ORAL DAILY as needed for PAIN Comments: NOT GIVEN IN HOSPITAL Finasteride (Proscar) 5 MG TABLET 1 Tablet ORAL DAILY Comments: Last Taken:09/17/16 Time:0905 AM Tamsulosin HCl (Flomax) 0.4 MG CAP.ER.24H 1 Capsule ORAL DAILY Comments: Last Taken: 09/17/16 Time:0905 AM Glucosa Llamas 2KCL/Chondroitin Llamas (Glucosamine & Chondroitin Cap) 500 MG-400 MG CAPSULE 3 Tablet ORAL DAILY Comments: NOT GIVEN IN HOSPITAL Apixaban (Eliquis) 5 MG TABLET 1 Tablet ORAL TWICE DAILY Comments: Last Taken:09/17/16 Time:0905 AM Sennosides/Docusate Sodium (Senna S Tablet) 8.6 MG-50 MG TABLET 1 Tablet ORAL Every night Comments: PER PT NOT GIVEN IN HOSPITAL Furosemide (Furosemide) 40 MG TABLET 1 Tablet ORAL DAILY Qty = 90 Comments: PER PT Last Taken:09/17/16 Time:0905 AM Escitalopram Oxalate (Escitalopram Oxalate) 20 MG TABLET 1 Tablet ORAL DAILY Qty = 90 Comments: PER PT Last Taken: 09/17/16 Time:0905AM Oxycodone HCl/Acetaminophen (Oxycodone-Acetaminophen 5-325) 1 EACH TABLET 1 Tablet ORAL Q6H as needed for PAIN Qty = 120 Comments: PER PT Last Taken:09/17/16 Time:1108 AM Multivitamin W/Iron, Minerals (Spectravite Senior) 1 EACH TABLET 1 Tablet ORAL DAILY Comments: PER PT Last Taken:09/17/16 Time:0905 AM Losartan Potassium (Losartan Potassium) 100 MG TABLET 1 Tablet ORAL DAILY Qty = 90 Comments: PER PT Last Taken:09/17/16 Time:0904 AM Diltiazem HCl (Diltiazem 24HR ER) 120 MG CAP.ER.24H 1 Capsule ORAL DAILY Comments: Last Taken:09/17/16 Time:0904 AM Start taking the following new medications: Amoxicillin/Potassium Clav (Augmentin 875-125 Tablet) 875 MG-125 MG TABLET 1 Tablet ORAL TWICE DAILY Qty = 14 No Refills Copies To: ANA ESCOBAR,KIMBER Attending MD Review Statement Documenting Attending: SOLOMON ESCOBAR,JOSUE
== END 2016-09-17 14:58 | DRG 603 ==
LOC: ERH 13:35 → ERHI 17:32 → 2NA 17:32 → ENRESERV 18:43 → ENTRNSPT 19:38 → 2NA 20:00 → CMPTRNSPT 09-16 07:29 → ENPENDDIS 09-17 11:48 → 2NA 09-17 14:58
PROVIDERS: Emergency Medicine; Student in an Organized Health Care Education/Training Program; ADMIT Hospitalist
DX: L03.116 Cellulitis of left lower limb (principal); B37.89 Other sites of candidiasis; I48.91 Unspecified atrial fibrillation; Z68.41 Body mass index [BMI] 40.0-44.9, adult; E66.01 Morbid (severe) obesity due to excess calories; N39.0 Urinary tract infection, site not specified; N40.0 Benign prostatic hyperplasia without lower urinary tract symptoms; G47.33 Obstructive sleep apnea (adult) (pediatric); B35.9 Dermatophytosis, unspecified; Z79.01 Long term (current) use of anticoagulants
CPT/HCPCS: 2NASP; 81001; 82436; 87040; 87086; 93005; 93010; 97161-GP; 97530-GO; J3490

== ENCOUNTER → 2017-04-19 | Day surgery (SDC) | payer OTHER ==
[~2017-04-19] VITALS: Ht 157.5 cm; Wt 107.0 kg
[~2017-04-19] MED LIST changes: +ACETAMINOPHEN500 M4 PO; +AUGMENTIN 875-1 EACH PO; +BUMETANIDE2 M1 PO; +DILTIAZEM 24HR120 MG PO; +IBUPROFEN400 M1 PO; +NYSTOP60 GM; +OXYCODONE HCL5 M1 PO; +OXYCODONE HCL5 M2 PO; +SULFAMETHOXAZO1 EAC1 PO; +VICODIN 5-3001 EACH PO
--- NOTE | 2017-04-19 11:18 | Operative Report ---
Operative/Inv Procedure Report Surgery Date: 04/19/17 Name of Procedure: Incision and drainage and washout of left leg wound Pre-Operative Diagnosis: infected left leg wound Post-Operative Diagnosis: same Estimated Blood Loss: scant Surgeon/Brine Purifier: Eyal Haley MD Anesthesia: moderate sedation Operative/Procedure Note Note: patient is a 77-year-old man with history of chronic venous insufficiency and nonhealing left leg wound. He was followed at the wound center yesterday at which time he reported high fever. A small pinhole was found on his left leg away from his own 2 wounds. This pinhole was draining purulent material. The patient was scheduled for an I&D and washout in the OR. Patient was taken to the operating room and placed supine on the table. A timeout was called according to protocol. After satisfactory induction of sedation, the patient was prepped and draped in standard surgical fashion. Using 1% lidocaine, the skin around the drainage site at on the left leg was infiltrated. An elliptical incision was made with 15 blade. The incision was carried down through the subcutaneous tissue and fascia. The opening of this track was dilated. Using a pulse lavage, all wounds were copiously irrigated with sterile solution. A packing gauze was then placed and tracked up in the 3 wounds. Sterile dressing was applied. The count at the end of the case was correct. After awakening, the patient was taken to the PACU in stable condition.
== END ==
LOC: STS 04:41
DX: L97.929 Non-pressure chronic ulcer of unspecified part of left lower leg with unspecified severity (principal); I87.2 Venous insufficiency (chronic) (peripheral); I48.2 Chronic atrial fibrillation; I10 Essential (primary) hypertension; J44.9 Chronic obstructive pulmonary disease, unspecified; Z87.891 Personal history of nicotine dependence; Z79.01 Long term (current) use of anticoagulants
CPT/HCPCS: 87070; 87075; 87184; 87147; J2250

== ENCOUNTER 2017-04-21 11:03 | Inpatient (IN) | payer OTHER ==
[~2017-04-21] VITALS: Ht 157.5 cm; Wt 101.6 kg
[~2017-04-21 11:03] MED LIST changes: -NYSTOP60 GM; -SULFAMETHOXAZO1 EAC1 PO; -VICODIN 5-3001 EACH PO
--- NOTE | 2017-04-21 11:14 | ED GENERAL ADULT ---
History of Present Illness General Chief Complaint: Nausea, Vomiting, Diarrhea Stated Complaint: SIRIA DIARRHEA Source: patient, family, old records Exam Limitations: no limitations Allergies Coded Allergies: No Known Allergies (03/11/17) Reconcile Medications Apixaban (Eliquis) 5 MG TABLET 1 TAB PO BID AFIB (Reported) Bumetanide 2 MG TABLET 1 TAB PO DAILY fluid (Reported) Diltiazem HCl (Diltiazem 24HR ER) 120 MG CAP.ER.24H 1 CAP PO DAILY HEART ( Reported) Escitalopram Oxalate 20 MG TABLET 1 TAB PO DAILY MENTAL HEALTH (Reported) Finasteride (Proscar) 5 MG TABLET 1 TAB PO DAILY BPH (Reported) Glucosa Llamas 2KCL/Chondroitin Llamas (Glucosamine & Chondroitin Cap) 500 MG-400 MG CAPSULE 3 TAB PO DAILY PAIN (Reported) Hydrocodone/Acetaminophen (Vicodin 5-300 MG Tablet) 5 MG-300 MG TABLET 1 TAB PO Q4-6 PRN PAIN (Reported) Losartan Potassium 100 MG TABLET 1 TAB PO DAILY BP (Reported) Meloxicam 7.5 MG TABLET 1 TAB PO DAILY PRN PAIN (Reported) Multivitamin W/Iron, Minerals (Spectravite Senior) 1 EACH TABLET 1 TAB PO DAILY SUPPLEMENT (Reported) Nystatin (Nystop) 100,000 UNIT/GRAM POWDER RASH (Reported) Oxycodone HCl 5 MG CAPSULE 1 CAP PO Q6P pain (Reported) Sulfamethoxazole/Trimethoprim (Sulfamethoxazole-Tmp Ds Tablet) 800 MG-160 MG TABLET 1 TAB PO BID BACTERIAL WOULD INFECTION (Reported) Triage Note: 77 Y/O MALE SIRIA FROM HOME FOR EVAL OF DIARRHEA SINCE APPROX 9PM LAST EVENING. PER EMS, PT RECENTLY HAD "WOUNDS DRAINED ON L LOWER EXTREMITY". STATE HE WAS PLACED ON BACTRIM "YESTERDAY AND THEN STARTED WITH DIARRHEA". PT STATES THE VISITING NURSES RE DRESSED HIS WOUND TODAY AND ADVISED HIM TO GO TO ED FOR EVAL. CALEB BLACK INTO EVAL ON ARRIVAL TO ED Triage Nurses Notes Reviewed? yes Onset: Abrupt Duration: day(s): (2), changing over time, continues in ED Timing: single episode today Injury Environment: home Severity: moderate, severe No Modifying Factors: none HPI: 77-year-old male past medical history of COPD, CHF, atrial fibrillation, chronic left lower extremity wound brought in by ambulance for evaluation of weakness, dizziness, diarrhea and redness pain and rash in his groin and skin folds. Patient states that he had a washout of his left lower extremity wound several days ago. The cultures came back with staph and strep and patient was placed on Bactrim. He took his first dose yesterday and immediately afterward started having diarrhea. He states that he had several episodes of diarrhea and began feeling weak dizzy had decreased appetite. He states that he became incontinent of urine. He states that because of all the wetness in his groin and skin folds he started noticing a painful red rash. The rash is located in his groin skin folds and is very painful. He has been taking Vicodin for this without significant improvement. He has not been eating or drinking much. No chest pain shortness of breath or fevers. He did not take any Bactrim today. No melena or bright red blood per rectum. (Jose Luis Zavala) Vital Signs & Intake/Output Vital Signs & Intake/Output Vital Signs Date Time Temp Pulse Resp B/P B/P Pulse O2 O2 Flow FiO2 Mean Ox Delivery Rate 04/21 1339 98.1 105 18 109/59 93 Room Air 04/21 1110 99.2 121 18 108/58 95 Room Air (Cecille ESCOBAR,Rl Odell) Past History Travel History Traveled to [place] past 21 day No Medical History Any Pertinent Medical History? see below for history Neurological: NONE EENT: NONE Cardiovascular: AFIB, CHF, chronic venous insuff, hypertension Respiratory: COPD, obstructive sleep apnea Gastrointestinal: NONE Hepatic: NONE Renal: benign prost hyperplasia, hematuria, KIDNEY STONES Musculoskeletal: osteoarthritis Psychiatric: NONE Endocrine: NONE Blood Disorders: NONE Cancer(s): NONE CONSTRUCTION EXECUTIVE/Reproductive: NONE History of MRSA: No History of VRE: No History of CDIFF: No Surgical History Surgical History: RT KNEE SX HERNIA REPAIR ROTATOR CUFF LEFT KIDNEY STONE REMOVED LIGAMENT REPAIR BILAT ARM ULNAR NERVE SX Psychosocial History Who do you live with Significant Other What is your primary language Frisian Tobacco Use: Quit >30 days ago Family History Family History, If Any: FATHER FH: emphysema MOTHER Bone cancer FH: breast cancer Hx Contributory? No (Jose Luis Zavala) Review of Systems Review of Systems Constitutional: Reports: malaise, weakness. EENTM: Reports: no symptoms. Respiratory: Reports: no symptoms. Cardiovascular: Reports: no symptoms. GI: Reports: see HPI, diarrhea. Genitourinary: Reports: no symptoms. Musculoskeletal: Reports: no symptoms. Skin: Reports: see HPI, erythema, rash. Neurological/Psychological: Reports: no symptoms. Hematologic/Endocrine: Reports: no symptoms. Immunologic/Allergic: Reports: no symptoms. All Other Systems: Reviewed and Negative (Jose Luis Zavala) Physical Exam Physical Exam General Appearance: well developed/nourished, no apparent distress, alert, awake , lethargic Head: atraumatic, normal appearance Eyes: Bilateral: normal appearance, PERRL, EOMI. Ears, Nose, Throat: normal pharynx, normal ENT inspection, hearing grossly normal Neck: normal inspection, supple, full range of motion, NO jvd Respiratory: normal breath sounds, chest non-tender, no respiratory distress, lungs clear Cardiovascular: normal peripheral pulses, tachycardia Peripheral Pulses: 2+ radial (R), 2+ radial (L) Gastrointestinal: normal bowel sounds, soft, non-tender, no organomegaly, THERE IS A BEEFY RED WELL DEMARCATED RASH IN THE SKIN FOLDS OF THE PANNUS AND GROIN. tHERE IS THICK WHITE DISCHARGE PRESENT. tHE AREA IS VERY TENDER TO PALPATION AND MOIST. Rectal: THERE IS BEEFY RED ERYTHEMATOUS RASH IN THE SKIN FOLDS OF THE PERIANAL AREA Back: normal inspection, normal range of motion, no vertebral tenderness Extremities: normal range of motion, THE LEFT LOWER EXTREMITY IS SWOLLEN WHEN COMPARED TO THE RIGHT. tHERE IS A CHRONIC WOUND ON THE LEFT LOWER EXTREMITY WITH 3 ULCERATED LESIONS. tHERE IS REALLY DISCHARGE COMING FROM THESE PACKING IS IN PLACE. tHERE IS SOME SURROUNDING ERYTHEMA AND WARMTH. nEUROVASCULAR SUPPLY IS INTACT. pATIENT IS ABLE TO MOVE it IS EQUALLY Neurologic/Psych: no motor/sensory deficits, awake, alert, oriented x 3 Skin: intact, normal color, warm/dry, rash (SEE ABDOMINAL EXAM) Lymphatic: no anterior cervical ashli Core Measures ACS in differential dx? No CVA/TIA Diagnosis: No Sepsis Present: No Sepsis Focused Exam Completed? No (Jose Luis Zavala) Progress Differential Diagnoses I considered the following diagnoses in my evaluation of the patient: [ Cellulitis, tinea, C. difficile, medication reaction, electrolyte abnormality, dehydration, sepsis, pneumonia, UTI] Diagnostic Imaging: Viewed by Me: Radiology Read. Discussed w/RAD: Radiology Read. CXR Impression: PATIENT: LINDSAY WANG PRESENT AGE : 77 PATIENT ACCOUNT NO: [id number] : 38 LOCATION: [facility] ORDERING PHYSICIAN: Jose Luis ELLIS SERVICE DATE: 04/21/17-1252 EXAM TYPE: RAD - XRY- PORTABLE CHEST XRAY EXAMINATION: XR PORTABLE CHEST CLINICAL INFORMATION: Weakness and leukocytosis. COMPARISON: 03/11/2017. TECHNIQUE: Portable frontal view of the chest was obtained. FINDINGS: The cardiomediastinal silhouette is stable. There is tortuosity of the thoracic aorta with mild calcification at the knob. The heart size is top normal for technique. There is stable mild elevation of the left hemidiaphragm and stable mild blunting of the left costophrenic angle. The lungs are clear accounting for poor visualization of the left retrocardiac region due to technique. There is no evidence of pulmonary edema. No developing consolidation. No new pleural effusion or pneumothorax. The spine is not well visualized due to technique. No acute osseous abnormalities are depicted. IMPRESSION: No convincing interval change from 03/11/2017, accounting for differences in technique. There is mild blunting of the left costophrenic angle. DICTATED BY: Abelardo Bradford MD DATE/TIME DICTATED:04/21/171439 TOOLMAKER GRADE THREE:VALERIA DATE/TIME TRANSCRIBED:04/21/171439 CONFIDENTIAL, DO NOT COPY WITHOUT APPROPRIATE AUTHORIZATION. Initial ED EKG: ATRIAL FIBRILLATION RATE 98, PREMATURE VENTRICULAR CONTRACTION, LOW VOLTAGE THROUGHOUT, CONSIDER ANTERIOR SEPTAL INFARCT Comments: Ultrasound of the lower extremities done last month PATIENT: LINDSAY WANG PRESENT AGE: 76 PATIENT ACCOUNT NO: [id number] : 38 LOCATION: B ORDERING PHYSICIAN: Stacy Becker MD SERVICE DATE: 03/13/17- EXAM TYPE: US - US-EXT BILAT VENOUS DOPPLER EXAMINATION: US TRIPLEX OF LOWER EXTREMITIES, BILATERAL CLINICAL INFORMATION: Bilateral lower extremity pain and left lower extremity edema, swelling, tenderness and erythema. COMPARISON: Venous ultrasound dated 09/15/2016. TECHNIQUE: Color-flow triplex imaging with spectral analysis and compression Doppler were performed on the lower extremities. FINDINGS: Respiratory variation, normal compression and augmented flow are noted throughout the lower extremities. The visualized common femoral vein, proximal greater saphenous vein, femoral vein, profunda femoral vein, popliteal vein and midcalf peroneal and posterior tibial venous segments show no evidence of deep venous thrombosis. There is a right popliteal fossa 4.1 x 2.3 x 3.7 cm Virgen's cyst. IMPRESSION: 1. No ultrasound evidence of deep venous thrombosis involving the lower extremities. 2. A right popliteal fossa Virgen's cyst is seen. DICTATED BY: Marcus Lee MD DATE/TIME DICTATED:03/13/171725 TOOLMAKER GRADE THREE:VALERIA DATE/TIME TRANSCRIBED:03/13/171725 CONFIDENTIAL, DO NOT COPY WITHOUT APPROPRIATE AUTHORIZATION. (Yung ELLIS,Jose Luis) Differential Diagnoses I considered the following diagnoses in my evaluation of the patient: Plan of Care: Orders Procedure Date/time Status Heart Healthy Diet 04/21 D Active Add-on Test (ER Only) 04/21 1410 Active CULTURE,URINE 04/21 1315 Active PARTIAL THROMBOPLASTIN TIME 04/21 1120 Active PROTHROMBIN TIME 04/21 1120 Active CULTURE,STOOL 04/21 1115 Active OVA AND PARASITE ANTIGENS 04/21 111 Active C.DIFFICILE 04/21 1115 Active BLOOD CULTURE 04/21 1114 Active URINALYSIS 04/21 1114 Complete TROPONIN LEVEL 04/21 1114 Complete MAGNESIUM 04/21 1114 Complete LACTIC ACID 04/21 1114 Complete COMPREHENSIVE METABOLIC PANEL 04/21 1114 Complete CBC WITHOUT DIFFERENTIAL 04/21 1114 Complete EKG 04/21 1114 Active Current Medications Sig/Kacie Start time Last Medication Dose Stop Time Status Admin Vancomycin HCl 1,000 MG ONCE ONE 04/21 1545 UNir Sodium Chloride 250 ML 04/21 1644 (Normal Saline 0.9%) Laboratory Tests 04/21/17 1414: Lactic Acid Cancelled 04/21/17 1315: Urinalysis LIGHT H, Urine Color MARY, Urine Clarity HAZY H, Urine pH 6.0, Ur Specific [place] 1.020, Urine Protein 30 H, Urine Ketones TRACE H, Urine Nitrite NEG, Urine Bilirubin NEG@ICTO, Urine Urobilinogen 1.0, Ur Leukocyte Esterase SMALL H, Ur Microscopic SEDIMENT EXAMINED, Urine RBC 50-75 H, Urine WBC 10-15 H, Ur Epithelial Cells FEW, Urine Bacteria MOD H, Hyaline Casts 5-10 H, Granular Casts FEW H, Urine Mucus FEW, Urine Hemoglobin MOD H, Urine Glucose NEG 04/21/17 1125: Anion Gap 10, Estimated GFR > 60, BUN/Creatinine Ratio 15.0, Glucose 142 H, Lactic Acid 1.4, Calcium 8.5, Magnesium 1.7, Total Bilirubin 0.9, AST 19, ALT 27 , Alkaline Phosphatase 80, Troponin I < 0.01, Total Protein 5.6 L, Albumin 2.9 L, Globulin 2.7, Albumin/Globulin Ratio 1.1, CBC w Diff MAN DIFF ORDERED, RBC 3.67 L, MCV 92.8, MCH 31.5 H, RDW 14.5, MPV 7.4, Gran % 87.7 H, Lymphocytes % 6.0 L, Monocytes % 6.0, Eosinophils % 0.2, Basophils % 0.1, Absolute Granulocytes 20.0 H, Segmented Neutrophils 80 H, Band Neutrophils 5, Absolute Lymphocytes 1.4, Lymphocytes 9 L, Monocytes 6, Absolute Monocytes 1.4 H, Absolute Eosinophils 0, Absolute Basophils 0, Platelet Estimate ADEQUATE, Normocytic RBCs VERIFIED, Polychromasia 1+, Hypochromic-Microcytic 1+, PUBS MCHC 34.0, Fld Total RBCs Counted 100 Microbiology 04/21 1315 URINE ROUT: Urine Culture - RECD 04/21 1225 BLOOD: Blood Culture - CAN Cancelled: Quantity not sufficient for Aerobic blood culture bottle. 04/21 1215 BLOOD: Blood Culture - RECD 04/21 1115 STOOL: Cryptosporidium Antigen - ORD 04/21 111 STOOL: Giardia Antigen (LORNEE) - ORD 04/21 111 STOOL: Clostridium difficile Toxin A & B - ORD 04/21 111 STOOL: Stool Culture - ORD Patient seen and evaluated. He was started on Bactrim yesterday and then immediately started having diarrhea weakness fatigue decreased appetite. He also appears to have a fungal infection in the skin folds of his groin and abdomen. There may also be a secondary bacterial infection here. He has a chronic nonhealing wound on the left lower extremity which appears worse from the previous exam. Patient initially was tachycardic to the 120s and per EMS was hypotensive to 90s over 50s. He was given a fluid bolus and his tachycardia and blood pressure improved significantly. Patient has an elevated white blood cell count of 22,000. This may be due to cellulitis versus tinea versus C. difficile. Stool cultures and blood cultures ordered. Patient had a negative ultrasound of the left lower extremity last month. Spoke with patient's vascular surgeon at. He recommends admitting the patient for IV antibiotics stool cultures. Spoke with case management and patient is cleared for observation. Patient will require gentle IV hydration, IV antibiotics, wound care consult, serial white blood counts (Jose Luis Zavala) (Rl Oden MD) Departure Departure Disposition: STILL A PATIENT Condition: Stable Clinical Impression Primary Impression: Leukocytosis Qualifiers: Leukocytosis type: unspecified Qualified Code: D72.829 - Elevated white blood cell count, unspecified Secondary Impressions: Tinea cruris, Weakness Referrals: Addie Arrington MD (PCP/Family) Departure Forms: Customer Survey General Discharge Information Observation Note Spoke With: Suly ESCOBAR,Robin Physician Advisor Notified: RENA ESCOBAR,JOSH Saab Place Patient In: Non-ED OBS Care Area Rationale for Observation: My rational for observation is as follows [patient was hypotensive and tachycardic and dehydrated on arrival. He did respond to fluids. He is having diarrhea after antibiotics she needs to be ruled out for C. difficile. He has an elevated white blood count of 22,000. He will require IV antibiotics, gentle IV hydration, serial labs, wound care consult, vascular consult, telemetry monitoring and follow-up cultures]. (Jose Luis Zavala) PA/IN STORE BANKER Co-Sign Statement Statement: ED Attending supervision documentation- [X] I saw and evaluated the patient. I have also reviewed all the pertinent lab results and diagnostic results. I agree with the findings and the plan of care as documented in the PA's/IN STORE BANKER's documentation. Patient presents for evaluation of a pressure ulcer of the leg. During her ED evaluation it was also noted the patient has a rash in the intertriginous folds of the abdomen. The patient's leg ulceration appears chronic without secondary cellulitis and the abdominal rash is consistent with tenia corpora. [] I have reviewed the ED Record and agree with the PA's/IN STORE BANKER's documentation. [] Additions or exceptions (if any) to the PAs/IN STORE BANKER's note and plan are summarized below: [] (Cecille ESCOBAR,Rl Odell) Critical Care Note Critical Care Note Critical Care Time: non-applicable (Jose Luis Zavala)
[2017-04-21 11:36] LABS: ABSOLUTE BASOPHIL COUNT 0 /CUMM (0.0-0.2); ABSOLUTE EOSINOPHIL COUNT 0 /CUMM (0.0-0.7); ABSOLUTE LYMPH COUNT 1.4 /CUMM (1.2-3.4); ABSOLUTE MONOCYTE COUNT 1.4 /CUMM (0.10-0.60); BASOPHIL % 0.1 % (0.0-2.0); EOSINOPHIL % 0.2 % (0-5); GRANULOCYTE % 87.7 % (42.2-75.2); MEAN CORPUSCULAR HGB 31.5 PG (27.0-31.0); MEAN CORPUSCULAR VOLUME 92.8 FL (80.0-94.0); MEAN PLATELET VOLUME 7.4 FL (7.4-10.4); PLATELET COUNT 269 /CUMM (130-400); RBC DISTRIBUTION WIDTH 14.5 % (11.5-14.5); RED BLOOD CELL CT 3.67 /CUMM (4.70-6.10); WHITE BLOOD CELL COUNT 22.8 /CUMM (4.8-10.8)
[2017-04-21] MEDS ORDERED: NYSTOP60 GM (12:04)
[2017-04-21] MEDS ORDERED: VICODIN 5-3001 EACH PO (12:05)
--- NOTE | 2017-04-21 14:47 | RADIOLOGY REPORT ---
EXAMINATION: XR PORTABLE CHEST CLINICAL INFORMATION: Weakness and leukocytosis. COMPARISON: 03/11/2017. TECHNIQUE: Portable frontal view of the chest was obtained. FINDINGS: The cardiomediastinal silhouette is stable. There is tortuosity of the thoracic aorta with mild calcification at the knob. The heart size is top normal for technique. There is stable mild elevation of the left hemidiaphragm and stable mild blunting of the left costophrenic angle. The lungs are clear accounting for poor visualization of the left retrocardiac region due to technique. There is no evidence of pulmonary edema. No developing consolidation. No new pleural effusion or pneumothorax. The spine is not well visualized due to technique. No acute osseous abnormalities are depicted. IMPRESSION: No convincing interval change from 03/11/2017, accounting for differences in technique. There is mild blunting of the left costophrenic angle.
--- NOTE | 2017-04-21 16:44 | History & Physical ---
Kassandra Green MD 04/21/17 8008: General Information and HPI MD Statement: I have seen and personally examined LINDSAY WANG and documented this H&P. The patient is a 77 year old M who presented with a patient stated chief complaint of left leg wound and diarrhea/loss of appetite of one day duration. Source of Information: patient, family, old records Exam Limitations: no limitations History of Present Illness: This is a 77-year-old man with a past medical history of SANDI on CPAP, CHF, A. fib, osteoarthritis, chronic bilateral lower extremity edema that presents to us by ambulance for evaluation and treatment of a recurrent cellulitis of the left leg and 1 days history of diarrhea, weakness, dizziness, and anorexia. According to the patient his lower extremity wound began about 2 months ago. At that time he was admitted to [facility] for cellulitis and was treated with antibiotic therapy. He was ultimately found to have an abscess which was drained at the bedside by Dr. Lockwood and then was discharged on a 10 day course of Augmentin. He states that about 6 days later the pain in the leg returned and worsened which required another visit to the ED. The patient states that he has a visiting nurse that changes dressing of the wound daily and visits to the wound center where he saw Dr. Haley for treatment. However the patient had persistent drainage from the wound and required incision and drainage in the OR 2 days ago. Cultures were positive for staph aureus and strep to the patient was started on Bactrim. He states that last night he took his first dose. Soon after the patient had 2 bouts of diarrhea that continued into today. He also notes that he had chills and a fever of 102. The patient's said that she gave him an unknown pain medicine at that time. The patient has had the leg bandages changed every day since the surgery. The patient also states that he has groin redness that is non-itchy but does sting for the past 2 weeks. His said that they put nystatin powder on it before coming in. The patient is usually independent in his activities of daily living and normally walks with either a walker or cane. He has no recent falls, loss of consciousness, injuries. The patient has no known allergies. The daughter states that she has an allergy to sulfa drugs so questions if the patient's diarrhea was in response to the Bactrim. The patient has a history of cigar and cigarette smoking for "many years". He denies alcohol or drug use. The patient sees Yonatan Arrington MD as his PCP and Dr. Tyson as his copra sampler. Surgical history aside from the incision and drainage is noncontributory. Allergies/Medications Allergies: Coded Allergies: No Known Allergies (03/11/17) Home Med list Apixaban (Eliquis) 5 MG TABLET 1 TAB PO BID AFIB (Reported) Bumetanide 2 MG TABLET 1 TAB PO DAILY fluid (Reported) Diltiazem HCl (Diltiazem 24HR ER) 120 MG CAP.ER.24H 1 CAP PO DAILY HEART ( Reported) Escitalopram Oxalate 20 MG TABLET 1 TAB PO DAILY MENTAL HEALTH (Reported) Finasteride (Proscar) 5 MG TABLET 1 TAB PO DAILY BPH (Reported) Glucosa Llam[place] 2KCL/Chondroitin Llamas (Glucosamine & Chondroitin Cap) 500 MG-400 MG CAPSULE 3 TAB PO DAILY PAIN (Reported) Hydrocodone/Acetaminophen (Vicodin 5-300 MG Tablet) 5 MG-300 MG TABLET 1 TAB PO Q4-6 PRN PAIN (Reported) Losartan Potassium 100 MG TABLET 1 TAB PO DAILY BP (Reported) Meloxicam 7.5 MG TABLET 1 TAB PO DAILY PRN PAIN (Reported) Multivitamin W/Iron, Minerals (Spectravite Senior) 1 EACH TABLET 1 TAB PO DAILY SUPPLEMENT (Reported) Nystatin (Nystop) 100,000 UNIT/GRAM POWDER RASH (Reported) Oxycodone HCl 5 MG CAPSULE 1 CAP PO Q6P pain (Reported) Sulfamethoxazole/Trimethoprim (Sulfamethoxazole-Tmp Ds Tablet) 800 MG-160 MG TABLET 1 TAB PO BID BACTERIAL WOULD INFECTION (Reported) Past History Travel History Traveled to [place] past 21 day No Medical History Neurological: NONE EENT: NONE Cardiovascular: AFIB, CHF, chronic venous insuff, hypertension Respiratory: COPD, obstructive sleep apnea Gastrointestinal: NONE Hepatic: NONE Renal: benign prost hyperplasia, hematuria, KIDNEY STONES Musculoskeletal: osteoarthritis Psychiatric: NONE Endocrine: NONE Blood Disorders: NONE Cancer(s): NONE HYDRAULIC TECHNICIAN/Reproductive: NONE History of MRSA: No History of VRE: No History of CDIFF: No Influenza Vaccine: 03/23/17 Surgical History Surgical History: RT KNEE SX HERNIA REPAIR ROTATOR CUFF LEFT KIDNEY STONE REMOVED LIGAMENT REPAIR BILAT ARM ULNAR NERVE SX Past Family/Social History Family History Relations & Conditions if any FATHER FH: emphysema MOTHER Bone cancer FH: breast cancer Review of Systems Review of Systems Constitutional: Reports: weakness. EENTM: Reports: no symptoms. Cardiovascular: Reports: no symptoms. Respiratory: Reports: no symptoms. GI: Reports: see HPI, diarrhea, nausea. Genitourinary: Reports: no symptoms. Musculoskeletal: Reports: see HPI. Skin: Reports: see HPI. Neurological/Psychological: Reports: no symptoms. Hematologic/Endocrine: Reports: no symptoms. Immunologic/Allergic: Reports: no symptoms. All Other Systems: Reviewed and Negative Exam & Diagnostic Data Last 24 Hrs of Vital Signs/I&O Vital Signs Date Time Temp Pulse Resp B/P B/P Pulse O2 O2 Flow FiO2 Mean Ox Delivery Rate 04/21 1339 98.1 105 18 109/59 93 Room Air 04/21 1110 99.2 121 18 108/58 95 Room Air Intake & Output 04/21 1600 04/21 0800 04/21 0000 Intake Total Output Total Balance Patient 226 lb Weight Weight Reported by Patient Measurement Method Physical Exam General Appearance Alert, Oriented X3, Cooperative, No Acute Distress Skin Patient has left lower leg lesions with purulent drainage. There are 3 1- centimeter wounds with surrounding erythema, edema, chronic venous stasis changes. The wounds are packed yet still draining. Skin Temp/Moisture Exam: Warm/Dry Sepsis Skin Exam (color): Normal for Ethnicity HEENT Atraumatic, PERRLA, EOMI, Mucous Membr. moist/pink Neck Supple, No JVD Cardiovascular Normal S1, Normal S2, No Murmurs Lungs Clear to Auscultation, Normal Air Movement Abdomen Normal Bowel Sounds, Soft, No Tenderness Neurological Normal Speech Extremities No Clubbing, No Cyanosis, Normal Pulses Vascular Normal Pulses, Pulses Symmetrical Sepsis Peripheral Pulse Location: Radial Sepsis Peripheral Pulse Exam: Normal Sepsis Cap Refill Exam: <2 Sec Reproductive (MALE) red groin rash Last 24 Hrs of Labs/Joseph: Laboratory Tests 04/21/17 1414: Lactic Acid Cancelled 04/21/17 1315: Urinalysis LIGHT H, Urine Color MARY, Urine Clarity HAZY H, Urine pH 6.0, Ur Specific [place] 1.020, Urine Protein 30 H, Urine Ketones TRACE H, Urine Nitrite NEG, Urine Bilirubin NEG@ICTO, Urine Urobilinogen 1.0, Ur Leukocyte Esterase SMALL H, Ur Microscopic SEDIMENT EXAMINED, Urine RBC 50-75 H, Urine WBC 10-15 H, Ur Epithelial Cells FEW, Urine Bacteria MOD H, Hyaline Casts 5-10 H, Granular Casts FEW H, Urine Mucus FEW, Urine Hemoglobin MOD H, Urine Glucose NEG 04/21/17 1125: Anion Gap 10, Estimated GFR > 60, BUN/Creatinine Ratio 15.0, Glucose 142 H, Lactic Acid 1.4, Calcium 8.5, Magnesium 1.7, Total Bilirubin 0.9, AST 19, ALT 27 , Alkaline Phosphatase 80, Troponin I < 0.01, Total Protein 5.6 L, Albumin 2.9 L, Globulin 2.7, Albumin/Globulin Ratio 1.1, CBC w Diff MAN DIFF ORDERED, RBC 3.67 L, MCV 92.8, MCH 31.5 H, RDW 14.5, MPV 7.4, Gran % 87.7 H, Lymphocytes % 6.0 L, Monocytes % 6.0, Eosinophils % 0.2, Basophils % 0.1, Absolute Granulocytes 20.0 H, Segmented Neutrophils 80 H, Band Neutrophils 5, Absolute Lymphocytes 1.4, Lymphocytes 9 L, Monocytes 6, Absolute Monocytes 1.4 H, Absolute Eosinophils 0, Absolute Basophils 0, Platelet Estimate ADEQUATE, Normocytic RBCs VERIFIED, Polychromasia 1+, Hypochromic-Microcytic 1+, PUBS MCHC 34.0, Fld Total RBCs Counted 100 Microbiology 04/21 1315 URINE ROUT: Urine Culture - RECD 04/21 1225 BLOOD: Blood Culture - CAN Cancelled: Quantity not sufficient for Aerobic blood culture bottle. 04/21 1215 BLOOD: Blood Culture - RECD 04/21 111 STOOL: Cryptosporidium Antigen - ORD 04/21 111 STOOL: Giardia Antigen (JOSEPH) - ORD 04/21 111 STOOL: Clostridium difficile Toxin A & B - ORD 04/21 111 STOOL: Stool Culture - ORD Assessment/Plan Assessment: Assessment This is a 77-year-old male with a past medical history of SANDI on CPAP, CHF, A. fib, peripheral vascular disease, recurring left extremity cellulitis that presents to us with 1 days history of weakness, nausea, diarrhea and left leg open wound with purulent drainage. The patient recently had incision and drainage and was started on Bactrim after OR cultures returned positive for strep and staph. The patient took his first dose of Bactrim last night. Following this he had 2 bouts of diarrhea that continued into the morning, weakness, dizziness, nausea. The patient has also had a two-week history of burning groin rash. According to the patient's , he also had chills and a fever of 102 last night. ED temperature was 99.2, street of 121, respiratory rate 18, blood pressure 108/ 58, 95% oxygen saturation on room air. EKG showed a rate of 98 with atrial fibrillation and QTC of 476. WBC count was 22.8, hemoglobin 11.6, lactic acid 1.4. Urinalysis was positive for moderate bacteria, 10-15 WBCs, 50-75 RBCs, small leukocyte esterase. Patient's urine was noted to be very dark. His physical exam revealed erythematous groin rash, left lower extremity edema, venous stasis changes, and 31 cm open wounds with purulent drainage. Chest x- ray was clear. Anselmo Macdonald MD from infectious disease and Dr. Haley from vascular surgery were made aware. He believes that this is stemming from cellulitis and is less likely a vascular issue. We will admit the patient to telemetry for evaluation and treatment with monitoring of his atrial fibrillation. Plan Lower extremity draining wounds -Surgical PA to see the patient -Wound consult with Dr. Osuna -Doppler lower extremities -Start patient on vancomycin -Isolate for potential MRSA -Wound cultures and blood cultures -If cultures negative can switch to Unasyn -Podiatry consult A. fib -Continue patient on Eliquis -Continue patient on diltiazem Obstructive sleep apnea -Start patient on CPAP -Pulse ox Groin erythema -Start patient on clotrimazole Evidence of urinary tract infection on UA -Urine culture -Patient has no symptoms so monitor off antibiotics Hypotension secondary to diarrhea and decreased by mouth intake -Start patient on IV fluids at a rate of 100 mL per hour Diarrhea -Stool culture, C. difficile, Giardia, cryptosporidium antigen DVT prophylaxis with Eliquis Pain pathway Full code Heart Healthy diet As Ranked By This Provider Problem List: 1. Atrial fibrillation 2. Open wound of left lower extremity 3. PVD (peripheral vascular disease) 4. Cellulitis 5. Candidiasis of scrotum Core Measures/Misc (01/08) Acute Coronary Syndrome ACS Diagnosis: No Congestive Heart Failure Congestive Heart Failure Diagnosis No Cerebrovascular Accident CVA/TIA Diagnosis: No VTE (View Protocol) VTE Risk Factors Acute Medical Illness No Mechanical VTE Prophylaxis d/t Surgical Contraindication No VTE Pharm Prophylaxis d/t NA PharmProphylax ordered Sepsis (View protocol) Sepsis Present: Yes Robin Tubbs 04/21/17 1646: Attending MD Review Statement Attending Statement Attending MD Statement: examined this patient, discuss w/resident/PA/BOAT CANVAS MAKER AND INSTALLER, agreed w/resident/PA/BOAT CANVAS MAKER AND INSTALLER, discussed with family, reviewed EMR data (avail), discussed with nursing, discussed with case mgmt, reviewed images, amended to note Attending Assessment/Plan: 77-year-old male past medical history of COPD, CHF, atrial fibrillation, chronic left lower extremity wound brought in by ambulance for evaluation of weakness, dizziness, diarrhea and redness pain and rash in his groin and skin folds after recently started on bactrim and had wash out on his left lower extremity. Labs wbc 22.8 hb 11.6 Na 135 Cr 0.6 Glu 142 VITALS on arrival temp 99.2 HR 121 BP 108/58 95 RA. Imaging Chest xray no acute abnormality. Patient placed in observation telemetry monitoring for sepsis 2/2 left lower extremity cellulitis and uncontrolled afib with initial epsiode of hypotension responsive to fluids. Patient to be started on iv vancomycin, IVF, obtain blood cultures x 2 sets, LA normal on admission. Consult ID, Podiatry. MRI if ok with ID. c/w eliquis and cardizem. Monitor CBC and bmp. Hold bp meds/diuretics. Resume when able. gi/dvt prophyalxis full code. Sugar ESCOBAR,Heather 04/21/17 8430: Resident Review Statement Resident Statement: examined this patient, discussed with project internship, agreed with project internship, discussed with family, discussed with nursing Other Findings: Patient is a 77-year-old male presented with chief complaints of recurrent cellulitis x 6 months, pain, redness, rash in the groin since last 2 weeks, with generalized weakness, dizziness, diarrhea, since one day. According to the patient, he is having history of cellulitis in his left leg since last 5-6 months. He was admitted off and on for it. Around 3-4 weeks ago ( Mar) he had incision and drainage of LLE wound in the hospital followed by treatment with antibiotic for total 10 days. despite of that, his wound was draining puslike secretions. So he again had debridement and drainage on April 19. Afterwards he started feeling generalized weakness, anorexia and nausea. He also had episodes of high-grade fever, in between which was measured one time as around 103 at home. He discuss it with Dr. Haley and with Dr Renae MD any he was advised to have tab Bactrim because his cultures were growing staph/strep. After taking the Bactrim (2 doses) he started having diarrhea. He had 2 episodes of diarrhea today, but denies for any blood in the stool. He felt very weak, so daughter called 911 and brought to [place] ED. Past medical history - Atrial fibrillation on Eliquis Hypertension ?COPD, SANDI on CPAP Chronic venous insufficiency CHF on bumetanide BPH Nephrolithiasis with hematuria (2014) Osteoarthritis Family history- father with emphysema, mother with breast and bone cancer. ED course -vital signs temperature 99.2, pulse 121, respiratory rate 18, blood pressure 108/58, SPO2 95% on room air. His initial blood pressure was 90/50 and he was given IV fluid boluses , which improved his blood pressure and tachycardia. Blood workup showed hemoglobin 11.6, hematocrit 34.0, platelet count 269, WBC of 22,800, granulocyte 87.7, band cells 5, sodium 135, potassium 3.5, BUN 9, creatinine 0.6, glucose 142, lactic acid 1.4, calcium 8.5, magnesium 1.7, AST 19, ALT 27, troponin less than 0.01, albumin 2.9, urinalysis shows RBC 50-75, WBC 10-15, bacteria moderate, hyaline casts 5-10. Chest x-ray showed mild elevation of left hemidiaphragm and is stable mild blunting of left costophrenic angle. He was given 1 gram of vancomycin. Assessment and plan - Patient is a 77-year-old male with past medical history of atrial fibrillation, on Eliquis, obstructive sleep apnea on CPAP, nephrolithiasis, BPH, osteoarthritis, history of CHF on diuretics, presented with chief complaints of chronic left lower extremity edema, complicated by recurrent cellulitis since last 4 or 5 months. Last admission was 03/27/2017, CT of left lower extremity did not show any collection. Treated by I&D and Unasyn and discharged on Augmentin for 10 days. His wound was having continuous drainage. So patient underwent I&D by Dr. bains on April 19. Afterwards he started having nausea, anorexia, and mild grade fever. So he was given tablet Bactrim on 04/20/2017. After using the antibiotic, he started having abdominal cramps and diarrhea, but denies for any bloody bowel movement, so he is here. On examination, he had left lower leg edema, erythema along with 3 sinus tract on left front, medial and backside of the laguna, which were draining purulent secretions. Pulses were palpable. He also had bilateral groin erythema. On ED, initially had low blood pressure but responded to IV fluids. Blood count showed WBC 22,800 with [address] Macdonald advised for effective drainage and cover for MRSA and group A strept by giving IV vancomycin. Discussed with Dr. Houston, advised for conservative management including wound care. He does not think it is a vascular insufficiency. Patient also had diarrhea after taking the Bactrim so we'll follow the C. difficile culture.For Bilateral groin infection, we will use topical antifungal therapy. Sepsis secondary to left lower extremity cellulitis - * We will admit the patient to telemetry floor * Continue cardiac monitoring * Normal saline 100 mL per hour * Strict intake output charting * Follow-up as cultures/urine culture/C. difficile/Giardia and Cryptosporidium mention * Discussed with Dr. Macdonald, advised to start patient on inj vancomycin and follow the culture and sensitivity results. If culture showed MRSA, then continue vancomycin if cultures show MSSA than start the patient on Unasyn and stop the vancomycin. * We'll start patient on injection vancomycin 1.5 milligrams per day. * Follow-up with Dopplers of both lower extremity * Follow-up with vascular surgery - discussed with Dr. Bains over the over the phone, he advised for daily wound dressing, wound care consult, conservative management. * Follow podiatry consult * Follow wound care notes Tinea cruris * We will use topical clotrimazole Atrial fibrillation with controlled ventricular rate on Eliquis * We'll continue tab Eliquis 5 mgs twice a day * We'll continue tab diltiazem 30 mgs 6 hourly. * Watch for the bleeding SANDI - CPAP DVT prophylaxis -Eliquis Diet-heart healthy diet CODE STATUS-full code
--- NOTE | 2017-04-21 17:56 | Cons- Infect Disease ---
General Information and HPI Consulting Request Date of Consult: 04/21/17 Requested By: Robin Tubbs MD Reason for Consult: Cellulitis/abscess left leg Source of Information: patient, family, old records History of Present Illness: This is a 77-year-old man with a history of atrial fibrillation, maintained on Eliquis, COPD, obstructive sleep apnea, nephrolithiasis, BPH, osteoarthritis, chronic bilateral lower extremity edema, with recurrent cellulitis of the left leg over the past 6 months, most recently 3-1/2 weeks prior to admission, at which time he was found to have a leukocytosis, with a CT of the left lower extremity negative for any collection but with an I&D of an abscess at the bedside by Vascular surgery, with no culture sent, treated with Unasyn with overall improvement and with a decrease in his white blood cell count, discharged on Augmentin to complete a 10 day course of antibiotics, with persistent drainage from the wound, but with minimal pain, edema and erythema, status post an I&D in the OR 2 days prior to admission, begun on Bactrim one day prior to admission based on the preliminary OR cultures positive for Staph aureus and Group A strep, admitted today after presenting to the emergency room with diarrhea after taking the Bactrim, left groin erythema and rash, generalized weakness and persistent purulent drainage from the left leg. On arrival in the emergency room he was afebrile. Laboratory data revealed a white blood cell count of 23,000 with 80 segs and 5 bands, BUN/creatinine 9 and 0.6, with normal liver enzymes. Urinalysis 50-75 RBCs/10-15 WBCs. Chest x-ray was negative for any acute process. He was given 1 dose of Vancomycin in the emergency room. Allergies/Medications Allergies: Coded Allergies: No Known Allergies (03/11/17) Home Med List: Apixaban (Eliquis) 5 MG TABLET 1 TAB PO BID AFIB (Reported) Bumetanide 2 MG TABLET 1 TAB PO DAILY fluid (Reported) Diltiazem HCl (Diltiazem 24HR ER) 120 MG CAP.ER.24H 1 CAP PO DAILY HEART ( Reported) Escitalopram Oxalate 20 MG TABLET 1 TAB PO DAILY MENTAL HEALTH (Reported) Finasteride (Proscar) 5 MG TABLET 1 TAB PO DAILY BPH (Reported) Glucosa Llamas 2KCL/Chondroitin Llamas (Glucosamine & Chondroitin Cap) 500 MG-400 MG CAPSULE 3 TAB PO DAILY PAIN (Reported) Hydrocodone/Acetaminophen (Vicodin 5-300 MG Tablet) 5 MG-300 MG TABLET 1 TAB PO Q4-6 PRN PAIN (Reported) Losartan Potassium 100 MG TABLET 1 TAB PO DAILY BP (Reported) Meloxicam 7.5 MG TABLET 1 TAB PO DAILY PRN PAIN (Reported) Multivitamin W/Iron, Minerals (Spectravite Senior) 1 EACH TABLET 1 TAB PO DAILY SUPPLEMENT (Reported) Nystatin (Nystop) 100,000 UNIT/GRAM POWDER RASH (Reported) Oxycodone HCl 5 MG CAPSULE 1 CAP PO Q6P pain (Reported) Sulfamethoxazole/Trimethoprim (Sulfamethoxazole-Tmp Ds Tablet) 800 MG-160 MG TABLET 1 TAB PO BID BACTERIAL WOULD INFECTION (Reported) Past History Travel History Traveled to [place] past 21 day No Medical History Neurological: NONE EENT: NONE Cardiovascular: AFIB, CHF, chronic venous insuff, hypertension Respiratory: COPD, obstructive sleep apnea Gastrointestinal: NONE Hepatic: NONE Renal: benign prost hyperplasia, nephrolithiasis, KIDNEY STONES Musculoskeletal: osteoarthritis Psychiatric: NONE Endocrine: NONE Blood Disorders: NONE Cancer(s): NONE 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 Respiratory: Reports: cough. Denies: short of breath. GI: Reports: diarrhea. Denies: abdominal pain, nausea. Genitourinary: Denies: no symptoms (incontinence). All Other Systems: Reviewed and Negative Exam & Diagnostic Data Last 24 Hrs of Vital Signs/I&O Vital Signs Date Time Temp Pulse Resp B/P B/P Pulse O2 O2 Flow FiO2 Mean Ox Delivery Rate 04/21 1339 98.1 105 18 109/59 93 Room Air 04/21 1110 99.2 121 18 108/58 95 Room Air Intake & Output 04/21 1600 04/21 0800 04/21 0000 Intake Total Output Total Balance Patient 226 lb Weight Weight Reported by Patient Measurement Method Physical Exam Other Physical Findings: Afebrile. He is awake and alert, weak appearing, but in no acute distress. Skin reveals candidal rash in the groin, left greater than right. HEENT dry oral mucosa. Neck is supple with no adenopathy. Lungs decreased breath sounds bilaterally. Heart regular rhythm with no murmur. Abdomen is soft, nontender with positive bowel sounds. Back no CVA tenderness. Extremities left leg with mild erythema and edema, mildly tender to palpation, with purulent drainage from several of his wounds; right leg mild tenderness on palpation. Neuro is without focality. candidal rash in the groin, left greater than right, and involving the penile shaft. Last 24 Hours of Lab Results: Laboratory Tests 04/21 04/21 1414 1315 Chemistry Lactic Acid Cancelled Urines Urinalysis LIGHT H Urine Color (YEL,AMB,STR) MARY Urine Clarity (CLEAR) HAZY H Urine pH (5.0 - 8.0) 6.0 Ur Specific [place] (1.001 - 1.035) 1.020 Urine Protein (NEG,<30 MG/DL) 30 H Urine Ketones (NEG) TRACE H Urine Nitrite (NEG) NEG Urine Bilirubin (NEG) NEG@ICTO Urine Urobilinogen (0.1 - 1.0 EU/dl) 1.0 Ur Leukocyte Esterase (NEG) SMALL H Ur Microscopic SEDIMENT EXAMINED Urine RBC (0 - 5 /HPF) 50-75 H Urine WBC (0 - 2 /HPF) 10-15 H Ur Epithelial Cells (NONE,FEW) FEW Urine Bacteria (NEG/NONE) MOD H Hyaline Casts (0/LPF) 5-10 H Granular Casts (NONE /LPF) FEW H Urine Mucus (FEW,NONE) FEW Urine Hemoglobin (NEG) MOD H Urine Glucose (N MG/DL) NEG 04/21 1125 Chemistry Sodium (137 - 145 mmol/L) 135 L Potassium (3.5 - 5.1 mmol/L) 3.5 Chloride (98 - 107 mmol/L) 98 Carbon Dioxide (22 - 30 mmol/L) 27 Anion Gap (5 - 16) 10 BUN (9 - 20 mg/dL) 9 Creatinine (0.7 - 1.2 mg/dL) 0.6 L Estimated GFR (>60 ml/min) > 60 BUN/Creatinine Ratio (7 - 25 %) 15.0 Glucose (65 - 99 mg/dL) 142 H Lactic Acid (0.7 - 2.1 mmol/L) 1.4 Calcium (8.4 - 10.2 mg/dL) 8.5 Magnesium (1.6 - 2.3 mg/dL) 1.7 Total Bilirubin (0.2 - 1.3 mg/dL) 0.9 AST (17 - 59 U/L) 19 ALT (21 - 72 U/L) 27 Alkaline Phosphatase (< 127 U/L) 80 Troponin I (<0.11 ng/ml) < 0.01 Total Protein (6.3 - 8.2 g/dL) 5.6 L Albumin (3.5 - 5.0 g/dL) 2.9 L Globulin (1.9 - 4.2 gm/dL) 2.7 Albumin/Globulin Ratio (1.1 - 2.2 %) 1.1 Hematology CBC w Diff MAN DIFF ORDERED WBC (4.8 - 10.8 /CUMM) 22.8 H RBC (4.70 - 6.10 /CUMM) 3.67 L Hgb (14.0 - 18.0 G/DL) 11.6 L Hct (42 - 52 %) 34.0 L MCV (80.0 - 94.0 FL) 92.8 MCH (27.0 - 31.0 PG) 31.5 H RDW (11.5 - 14.5 %) 14.5 Plt Count (130 - 400 /CUMM) 269 MPV (7.4 - 10.4 FL) 7.4 Gran % (42.2 - 75.2 %) 87.7 H Lymphocytes % (20.5 - 51.1 %) 6.0 L Monocytes % (1.7 - 9.3 %) 6.0 Eosinophils % (0 - 5 %) 0.2 Basophils % (0.0 - 2.0 %) 0.1 Absolute Granulocytes (1.4 - 6.5 /CUMM) 20.0 H Segmented Neutrophils (42.2 - 75.2 %) 80 H Band Neutrophils (0.0 - 5.0 %) 5 Absolute Lymphocytes (1.2 - 3.4 /CUMM) 1.4 Lymphocytes (20.5 - 51.1 %) 9 L Monocytes (1.7 - 9.3 %) 6 Absolute Monocytes (0.10 - 0.60 /CUMM) 1.4 H Absolute Eosinophils (0.0 - 0.7 /CUMM) 0 Absolute Basophils (0.0 - 0.2 /CUMM) 0 Platelet Estimate (ADEQUATE) ADEQUATE Normocytic RBCs VERIFIED Polychromasia 1+ Hypochromic-Microcytic 1+ PUBS MCHC (33.0 - 37.0 G/DL) 34.0 Other Body Source Fld Total RBCs Counted (%) 100 Last 24 Hours of Joseph Results: Blood culture April 21 pending Urine culture April 21 pending Diagnostic Data Recent Imaging Findings: Chest x-ray April 21 negative for any acute process Assessment/Plan Assessment/Plan Impression: This is a 77-year-old man with a history of atrial fibrillation, maintained on Eliquis, COPD, obstructive sleep apnea, nephrolithiasis, BPH, osteoarthritis, chronic bilateral lower extremity edema, with recurrent cellulitis of the left leg over the past 6 months, most recently 3-1/2 weeks prior to admission, at which time he was found to have an abscess that was I&D'ed at the bedside, discharged on Augmentin to complete a 10 day course of antibiotics, with persistent drainage from the left leg wounds, status post an I&D in the OR 2 days prior to admission, with preliminary cultures positive for Staph aureus and Group A strep, for which he was begun on Bactrim one day prior to admission, admitted today after presenting to the emergency room with diarrhea after taking the Bactrim, left groin erythema and rash, generalized weakness and persistent purulent drainage from the left leg wounds, found to be afebrile with a leukocytosis and with purulent drainage expressed from his left leg wounds. It appears that he has a residual collection within the left leg and feel that he will require more effective drainage in order to resolve this infection. He will need to be covered for possible MRSA and Group A strep pending final cultures. The left groin and penile rash is suggestive of Emperatriz and this will also need to be treated. The diarrhea could be secondary to C. difficile, given his recent antibiotics, and this will need to be ruled out. Of note he does complain of urinary incontinence, which has been a chronic problem, and he will require further evaluation for this at some point. Suggestion: 1. Contact isolation for possible MRSA 2. Vascular Surgery evaluation for more effective drainage of his left leg wounds 3. Consider ultrasound or CT of the left leg pending above 4. Blood cultures 2 5. Stool for C. difficile 6. Consider Dopplers of both lower extremities 7. Follow-up final OR cultures from April 19 8. Topical antifungal therapy to his groin and penile shaft 9. Continue Vancomycin at a dose of 1.5 grams IV every 24 hours pending above Jannet Fish MD will be covering until April 25 Consult Acknowledgment - Thank you for your consult request.
--- NOTE | 2017-04-21 20:54 | Cons- Vascular Surgery ---
General Information and HPI Consulting Request Date of Consult: 04/21/17 Requested By: Reason for Consult: left lower extremity draining wounds, leukocytosis Source of Information: patient, old records Exam Limitations: confusion, poor historian History of Present Illness: This 77-year-old man with hx of afib on eliquis, copd, cayden, nephrolithiasis, bph , osteoarthritis, chronic venous stasis of bilateral legs, with presents with recurrent cellulitis of the left leg with ongoing drainage from multiple open wounds of his left lower leg s/p I&D by in the OR 04/19/17 (2 days ago) for infected left leg wounds, with OR cultures growing staph aureus and beta strep group A. He started taking bactrim one day prior to admission based on the OR cultures, and has since developed diarrhea. He also reports generalized weakness and ongoing drainage of his lower extremity wounds. VNA has been doing packing changes daily. He was given 1 dose of Vancomycin in the emergency room. has been made aware of the patient's presentation, and pictures were sent to him as well. Allergies/Medications Allergies: Coded Allergies: No Known Allergies (03/11/17) Home Med List: Apixaban (Eliquis) 5 MG TABLET 1 TAB PO BID AFIB (Reported) Bumetanide 2 MG TABLET 1 TAB PO DAILY fluid (Reported) Diltiazem HCl (Diltiazem 24HR ER) 120 MG CAP.ER.24H 1 CAP PO DAILY HEART ( Reported) Escitalopram Oxalate 20 MG TABLET 1 TAB PO DAILY MENTAL HEALTH (Reported) Finasteride (Proscar) 5 MG TABLET 1 TAB PO DAILY BPH (Reported) Glucosa Llamas 2KCL/Chondroitin Llamas (Glucosamine & Chondroitin Cap) 500 MG-400 MG CAPSULE 3 TAB PO DAILY PAIN (Reported) Hydrocodone/Acetaminophen (Vicodin 5-300 MG Tablet) 5 MG-300 MG TABLET 1 TAB PO Q4-6 PRN PAIN (Reported) Losartan Potassium 100 MG TABLET 1 TAB PO DAILY BP (Reported) Meloxicam 7.5 MG TABLET 1 TAB PO DAILY PRN PAIN (Reported) Multivitamin W/Iron, Minerals (Spectravite Senior) 1 EACH TABLET 1 TAB PO DAILY SUPPLEMENT (Reported) Nystatin (Nystop) 100,000 UNIT/GRAM POWDER RASH (Reported) Oxycodone HCl 5 MG CAPSULE 1 CAP PO Q6P pain (Reported) Sulfamethoxazole/Trimethoprim (Sulfamethoxazole-Tmp Ds Tablet) 800 MG-160 MG TABLET 1 TAB PO BID BACTERIAL WOULD INFECTION (Reported) Current Medications: Current Medications Sig/Kacie Start time Last Medication Dose Route Stop Time Status Admin Acetaminophen 0 .STK-MED ONE 04/21 1139 DC IV Acetaminophen 1,000 MG ONCE ONE 04/21 1115 DC 04/21 N/A 1 UNIT IV 04/21 1129 1150 Apixaban 5 MG BID 04/21 2200 AC PO Clotrimazole 1 KERRI BID 04/21 2200 AC TOP Diltiazem HCl 30 MG Q6 04/21 1800 AC 04/21 PO 1953 Finasteride 5 MG DAILY 04/21 1714 AC 04/21 PO 1953 Nystatin 1 KERRI ONCE ONE 04/21 1115 DC 04/21 TOP 04/21 1116 1150 Oxycodone HCl 0 .STK-MED ONE 04/21 1801 DC PO Oxycodone HCl 5 MG ONCE ONE 04/21 1730 DC 04/21 PO 04/21 1731 1810 Sodium Chloride 1,000 ML Q10H 04/21 1715 AC IV Sodium Chloride 1,000 ML BOLUS ONE 04/21 1115 DC 04/21 IV 04/21 1214 1130 Vancomycin HCl 1,500 MG DAILY@1800 04/22 1800 AC Sodium Chloride 250 ML IV Vancomycin HCl 1,000 MG DAILY 04/22 1000 CAN Sodium Chloride 250 ML IV Vancomycin HCl 500 MG ONE ONE 04/21 1930 DC Sodium Chloride 250 ML IV 04/21 2029 Vancomycin HCl 1,000 MG ONCE ONE 04/21 1545 DC 04/21 Sodium Chloride 250 ML IV 04/21 1644 1810 Past History Medical History Neurological: NONE EENT: NONE Cardiovascular: AFIB, CHF, chronic venous insuff, hypertension Respiratory: COPD, obstructive sleep apnea Gastrointestinal: NONE Hepatic: NONE Renal: benign prost hyperplasia, nephrolithiasis, KIDNEY STONES Musculoskeletal: osteoarthritis Psychiatric: NONE Endocrine: NONE Blood Disorders: NONE Cancer(s): NONE 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 Surgical History Pertinent Surgical History: RT KNEE SX HERNIA REPAIR ROTATOR CUFF LEFT KIDNEY STONE REMOVED LIGAMENT REPAIR BILAT ARM ULNAR NERVE SX Family History Relations & Conditions If Any: FATHER FH: emphysema MOTHER Bone cancer FH: breast cancer Review of Systems Review of Systems: admits: generalized weakness, diarrhea, ongoing drainage from left lower extremity wounds Exam & Diagnostic Data Vital Signs and I&O Vital Signs Date Time Temp Pulse Resp B/P B/P Pulse O2 O2 Flow FiO2 Mean Ox Delivery Rate 04/21 2024 97.8 95 18 127/67 96 Room Air Room Air 04/21 195 98.8 102 18 127/67 04/21 1550 98.8 102 18 112/60 95 Room Air Room Air 04/21 1339 98.1 105 18 109/59 93 Room Air 04/21 1110 99.2 121 18 108/58 95 Room Air Intake & Output 04/21 1600 04/21 0800 04/21 0000 04/20 1600 04/20 0800 04/20 0000 Intake Total Output Total Balance Patient 226 lb Weight Weight Reported by Patient Measurement Method Physical Exam: General - alert & oriented. comfortable. no acute distress. Extremities - left lower extremity dressing removed. pitting edema present, left lower leg. erythema and induration present surrounding the three open draining areas. 1/4" packing removed, with evidence of a pooling yellow fluid. no air appreciated in the subcutaneous tissue. the two open wounds on the anterior surface of the leg was repacked, both tracking several centimeters. lower extremities warm bilaterally. with palpable pulses b/l. Last 24 Hours of Labs: Laboratory Tests 04/21 04/21 1414 1315 Chemistry Lactic Acid Cancelled Urines Urinalysis LIGHT H Urine Color (YEL,AMB,STR) MARY Urine Clarity (CLEAR) HAZY H Urine pH (5.0 - 8.0) 6.0 Ur Specific [place] (1.001 - 1.035) 1.020 Urine Protein (NEG,<30 MG/DL) 30 H Urine Ketones (NEG) TRACE H Urine Nitrite (NEG) NEG Urine Bilirubin (NEG) NEG@ICTO Urine Urobilinogen (0.1 - 1.0 EU/dl) 1.0 Ur Leukocyte Esterase (NEG) SMALL H Ur Microscopic SEDIMENT EXAMINED Urine RBC (0 - 5 /HPF) 50-75 H Urine WBC (0 - 2 /HPF) 10-15 H Ur Epithelial Cells (NONE,FEW) FEW Urine Bacteria (NEG/NONE) MOD H Hyaline Casts (0/LPF) 5-10 H Granular Casts (NONE /LPF) FEW H Urine Mucus (FEW,NONE) FEW Urine Hemoglobin (NEG) MOD H Urine Glucose (N MG/DL) NEG 12/29 1125 Chemistry Sodium (137 - 145 mmol/L) 135 L Potassium (3.5 - 5.1 mmol/L) 3.5 Chloride (98 - 107 mmol/L) 98 Carbon Dioxide (22 - 30 mmol/L) 27 Anion Gap (5 - 16) 10 BUN (9 - 20 mg/dL) 9 Creatinine (0.7 - 1.2 mg/dL) 0.6 L Estimated GFR (>60 ml/min) > 60 BUN/Creatinine Ratio (7 - 25 %) 15.0 Glucose (65 - 99 mg/dL) 142 H Lactic Acid (0.7 - 2.1 mmol/L) 1.4 Calcium (8.4 - 10.2 mg/dL) 8.5 Magnesium (1.6 - 2.3 mg/dL) 1.7 Total Bilirubin (0.2 - 1.3 mg/dL) 0.9 AST (17 - 59 U/L) 19 ALT (21 - 72 U/L) 27 Alkaline Phosphatase (< 127 U/L) 80 Troponin I (<0.11 ng/ml) < 0.01 Total Protein (6.3 - 8.2 g/dL) 5.6 L Albumin (3.5 - 5.0 g/dL) 2.9 L Globulin (1.9 - 4.2 gm/dL) 2.7 Albumin/Globulin Ratio (1.1 - 2.2 %) 1.1 Hematology CBC w Diff MAN DIFF ORDERED WBC (4.8 - 10.8 /CUMM) 22.8 H RBC (4.70 - 6.10 /CUMM) 3.67 L Hgb (14.0 - 18.0 G/DL) 11.6 L Hct (42 - 52 %) 34.0 L MCV (80.0 - 94.0 FL) 92.8 MCH (27.0 - 31.0 PG) 31.5 H RDW (11.5 - 14.5 %) 14.5 Plt Count (130 - 400 /CUMM) 269 MPV (7.4 - 10.4 FL) 7.4 Gran % (42.2 - 75.2 %) 87.7 H Lymphocytes % (20.5 - 51.1 %) 6.0 L Monocytes % (1.7 - 9.3 %) 6.0 Eosinophils % (0 - 5 %) 0.2 Basophils % (0.0 - 2.0 %) 0.1 Absolute Granulocytes (1.4 - 6.5 /CUMM) 20.0 H Segmented Neutrophils (42.2 - 75.2 %) 80 H Band Neutrophils (0.0 - 5.0 %) 5 Absolute Lymphocytes (1.2 - 3.4 /CUMM) 1.4 Lymphocytes (20.5 - 51.1 %) 9 L Monocytes (1.7 - 9.3 %) 6 Absolute Monocytes (0.10 - 0.60 /CUMM) 1.4 H Absolute Eosinophils (0.0 - 0.7 /CUMM) 0 Absolute Basophils (0.0 - 0.2 /CUMM) 0 Platelet Estimate (ADEQUATE) ADEQUATE Normocytic RBCs VERIFIED Polychromasia 1+ Hypochromic-Microcytic 1+ PUBS MCHC (33.0 - 37.0 G/DL) 34.0 Other Body Source Fld Total RBCs Counted (%) 100 Assessment/Plan Assessment/Plan This 77-year-old man with hx of afib on eliquis, copd, cayden, nephrolithiasis, bph , osteoarthritis, chronic venous stasis of bilateral legs, with presents with recurrent cellulitis of the left leg with ongoing drainage from multiple open wounds of his left lower leg s/p I&D by 2 days ago (04/19/17), who presents with generalized weakness, diarrhea since starting bactrim, and ongoing draining wounds requiring daily packing, left lower leg recommend CT without contrast of the left leg to rule out collection requiring further I&D f/u OR cxs, and obtain blood cxs x 2 send stool for cdiff iv vanco as per ID recommendations daily wound care, with packing of the open areas along the left lower anterior [place] continue elevation of the leg avoid compression stocking of the left leg currently. possible future unna boot discussed above with Consult Acknowledgment - Thank you for your consult request.
[2017-04-21 21:28] VITALS: BP 120/68
--- NOTE | 2017-04-21 23:17 | ULTRASOUND REPORT ---
US TRIPLEX OF LOWER EXTREMITIES, BILATERAL CLINICAL INFORMATION: Recurrent cellulitis. COMPARISON: Lower extremity Doppler ultrasound March 13, 2017. TECHNIQUE: Color-flow triplex imaging with spectral analysis and compression Doppler were performed on the lower extremities. FINDINGS: Respiratory variation, normal compression and augmented flow are noted throughout the lower extremities. The visualized common femoral vein, superficial femoral vein, profunda femoral vein, popliteal vein and midcalf peroneal and posterior tibial venous segments show no evidence of deep venous thrombosis. There is a right popliteal fossa Virgen's cyst measuring up to 3.7 x 1.9 x 2.4 cm, slightly smaller than on the March 13, 2017 exam. IMPRESSION: - There is no evidence of deep venous thrombosis involving the lower extremities. - There is a right popliteal fossa Virgen's cyst measuring up to 3.7 x 1.9 x 2.4 cm, slightly smaller than on the March 13, 2017 exam.
[2017-04-22 06:33] VITALS: BP 150/90
--- NOTE | 2017-04-22 10:07 | PN- Housestaff ---
Darcie ESCOBAR,Rafiq 04/22/17 1006: Subjective Follow-up For: Left leg cellulitis Complaints: CHRONIC KNEE PAIN Tele-Events Since Last Visit: Atrial fibrillation, heart rate ranging from 79-115, PVCs/couplet at 0600, 3 beats V. tach at 0244. Subjective: I followed up and examined the patient today. Is resting comfortably in bed, not in distress, and had an uneventful night. His only complaint is his chronic knee pain for which he takes oxycodone every 4-6 hours. His leg is just the same, except that it is not causing him any more distress. Review of Systems Constitutional: Reports: no symptoms. Objective Last 24 Hrs of Vital Signs/I&O Vital Signs Date Time Temp Pulse Resp B/P B/P Pulse O2 O2 Flow FiO2 Mean Ox Delivery Rate 04/22 0633 97.6 93 20 150/90 97 CPAP 04/22 0550 97.6 122 140/92 04/22 0117 81 94 04/22 0005 93 120/68 04/22 0000 CPAP 04/21 2321 93 96 04/21 2128 98.2 112 20 120/68 95 Room Air 04/21 2024 97.8 95 18 127/67 96 Room Air Room Air 04/21 1954 98.8 102 18 127/67 04/21 1550 98.8 102 18 112/60 95 Room Air Room Air 04/21 1339 98.1 105 18 109/59 93 Room Air 04/21 1110 99.2 121 18 108/58 95 Room Air Intake & Output 04/22 1600 04/22 0800 04/22 0000 Intake Total 900 160 Output Total 80 200 Balance 820 -40 Intake, IV 800 Intake, Oral 100 160 Output, Urine 80 200 Patient 102.058 kg Weight Weight Reported by Patient Measurement Method Physical Exam General Appearance: Alert, Oriented X3, Cooperative, No Acute Distress Other Physical Findings: Head: Normocephalic, atraumatic Eyes: Pupils normal in size, regular, reacting to light and accommodation, EOM normal Ears: B/l normal on inspection Throat/mouth: Moist mucosa Neck: Supple, full range of motion Heart: Irregular rate, irregular rhythm Lung: Normal breath sound bilaterally Added sound not heard Abd: Soft, non-tender, no distention appreciated Back: Normal range of motion Extremities: Normal knee exam bilaterally, no pedal edema, Distal neurovascular intact Neurologic: Alert, oriented x3, Cranial exam grossly intact, Speech is clear and coherent Skin: Warm and weeping lesions as mentioned yesterday, well dressed today. Chronic venous static changes noted. Current Medications: Current Medications Sig/Kacie Start time Last Medication Dose Route Stop Time Status Admin Acetaminophen 975 MG Q8P PRN 04/21 2230 AC 04/21 PO 2238 Acetaminophen 0 .STK-MED ONE 04/21 1139 DC IV Acetaminophen 1,000 MG ONCE ONE 04/21 1115 DC 04/21 N/A 1 UNIT IV 04/21 1129 1150 Apixaban 5 MG BID 04/21 2200 AC 04/21 PO 2235 Clotrimazole 1 KERRI BID 04/21 2200 AC 04/21 TOP 2235 Diltiazem HCl 30 MG Q6 04/21 1800 AC 04/22 PO 0550 Finasteride 5 MG DAILY 04/21 1714 AC 04/21 PO 1954 Melatonin 10 MG AT BEDTIME 04/21 2230 AC 04/21 PO 2238 Nystatin 1 KERRI ONCE ONE 04/21 1115 DC 04/21 TOP 04/21 1116 1150 Oxycodone HCl 0 .STK-MED ONE 04/21 1801 DC PO Oxycodone HCl 5 MG ONCE ONE 04/21 1730 DC 04/21 PO 04/21 1731 1810 Sodium Chloride 1,000 ML Q10H 04/21 1715 AC 04/21 IV 2229 Sodium Chloride 1,000 ML BOLUS ONE 04/21 1115 DC 04/21 IV 04/21 1214 1130 Vancomycin HCl 1,500 MG DAILY@1800 04/22 1800 AC Sodium Chloride 250 ML IV Vancomycin HCl 1,000 MG DAILY 04/22 1000 CAN Sodium Chloride 250 ML IV Vancomycin HCl 500 MG ONE ONE 04/21 1930 DC 04/21 Sodium Chloride 250 ML IV 04/21 2029 2237 Vancomycin HCl 1,000 MG ONCE ONE 04/21 1545 DC 04/21 Sodium Chloride 250 ML IV 04/21 1644 1810 Last 24 Hrs of Lab/Joseph Results Last 24 Hrs of Labs/Mics: Laboratory Tests 04/21/17 1414: Lactic Acid Cancelled 04/21/17 1315: Urinalysis LIGHT H, Urine Color MARY, Urine Clarity HAZY H, Urine pH 6.0, Ur Specific [place] 1.020, Urine Protein 30 H, Urine Ketones TRACE H, Urine Nitrite NEG, Urine Bilirubin NEG@ICTO, Urine Urobilinogen 1.0, Ur Leukocyte Esterase SMALL H, Ur Microscopic SEDIMENT EXAMINED, Urine RBC 50-75 H, Urine WBC 10-15 H, Ur Epithelial Cells FEW, Urine Bacteria MOD H, Hyaline Casts 5-10 H, Granular Casts FEW H, Urine Mucus FEW, Urine Hemoglobin MOD H, Urine Glucose NEG 04/21/17 1125: Anion Gap 10, Estimated GFR > 60, BUN/Creatinine Ratio 15.0, Glucose 142 H, Lactic Acid 1.4, Calcium 8.5, Magnesium 1.7, Total Bilirubin 0.9, AST 19, ALT 27 , Alkaline Phosphatase 80, Troponin I < 0.01, Total Protein 5.6 L, Albumin 2.9 L, Globulin 2.7, Albumin/Globulin Ratio 1.1, PT Cancelled, INR Cancelled, APTT Cancelled, CBC w Diff MAN DIFF ORDERED, RBC 3.67 L, MCV 92.8, MCH 31.5 H, RDW 14.5, MPV 7.4, Gran % 87.7 H, Lymphocytes % 6.0 L, Monocytes % 6.0, Eosinophils % 0.2, Basophils % 0.1, Absolute Granulocytes 20.0 H, Segmented Neutrophils 80 H, Band Neutrophils 5, Absolute Lymphocytes 1.4, Lymphocytes 9 L, Monocytes 6, Absolute Monocytes 1.4 H, Absolute Eosinophils 0, Absolute Basophils 0, Platelet Estimate ADEQUATE, Normocytic RBCs VERIFIED, Polychromasia 1+, Hypochromic-Microcytic 1+, PUBS MCHC 34.0, Fld Total RBCs Counted 100 Microbiology 04/21 2045 STOOL: Cryptosporidium Antigen - ORD 04/21 2045 STOOL: Giardia Antigen (JOSEPH) - ORD 04/21 2045 STOOL: Clostridium difficile Toxin A & B - RECD 04/21 2045 STOOL: Stool Culture - RECD 04/21 1315 URINE ROUT: Urine Culture - RECD 04/21 1225 BLOOD: Blood Culture - CAN Cancelled: Quantity not sufficient for Aerobic blood culture bottle. 04/21 121 BLOOD: Blood Culture - RECD Assessment/Plan Assessment: 77-year-old male with pmh of CHF, A. fib, SANDI on CPAP, osteoarthritis, chronic bilateral lower extremity edema presented with chief complaints of recurrent cellulitis, with generalized weakness, dizziness and diarrhea following a recent antibiotic exposure. He is currently being managed in the telemetry unit for the following issues: - Left leg cellulitis: He had a recent I&D, and culture is growing Staph aureus. Currently awaiting final culture report: MRSA (vancomycin) vs MSSA (unasyn) for abx. - CT left leg for possible more collection. In case of collection, he will need further debridement. - Possibility of osteomyelitis is also there, thus will be checking ESR too, beside the CT scan. - Pain management: oxycodone changed to q4-6P from q6P hr - holding off bumex due to low BP for now, need tor estart christin - continued escitalopram - Tinea cruris treatment with antifungal. - Continue Diltiazem and Eliquis for afib. - Continue CPAP for SANDI. Full code. Heart heathy diet. DVT ppx: Eliquis. Problem List: 1. Cellulitis 2. Tinea cruris Pain Ratin Pain Location: knees b/l Pain Goal: Pain 4 or less Pain Plan: oxycodone freq changed today, prn Tomorrow's Labs & Rationales: CBC, BEP, ESR Asha ESCOBAR,Radha 04/22/17 1243: Attending MD Review Statement Attending Statement Attending MD Statement: examined this patient, discuss w/resident/PA/SEASONER HAND, agreed w/resident/PA/SEASONER HAND, reviewed EMR data (avail), discussed with nursing, reviewed images Attending Assessment/Plan: 77-year-old male multiple medical problems including COPD, obstructive sleep apnea, A. fib on Eliquis who is here status post IND of his lower extremity lesion and the cultures are growing staph. He has a purulent cellulitis and we have him on IV Vanco per ID. Surgical notes are noted and will get a CT without contrast to make sure there is no residual fluid collection to drain. His Bumex is on hold and we hydrated him overnight for sepsis given his white count of 22, 000 and his borderline blood pressure. We'll follow that closely.
--- NOTE | 2017-04-22 12:21 | PN- Infect Dx ---
Subjective Subjective: No fever; mild discomfort L LE. Less diarrhea (2 BM today). Review of Systems Comments: 12 points reviewed as noted, otherwise negative. Objective Last 24 Hrs of Vital Signs/I&O Vital Signs Date Time Temp Pulse Resp B/P B/P Pulse O2 O2 Flow FiO2 Mean Ox Delivery Rate 04/22 0633 97.6 93 20 150/90 97 CPAP 04/22 0550 97.6 122 140/92 04/22 0117 81 94 04/22 0005 93 120/68 04/22 0000 CPAP 04/21 2321 93 96 04/21 2128 98.2 112 20 120/68 95 Room Air 04/21 2024 97.8 95 18 127/67 96 Room Air Room Air 04/21 1954 98.8 102 18 127/67 04/21 1550 98.8 102 18 112/60 95 Room Air Room Air 04/21 1339 98.1 105 18 109/59 93 Room Air Intake & Output 04/22 1600 04/22 0800 04/22 0000 Intake Total 900 160 Output Total 80 200 Balance 820 -40 Intake, IV 800 Intake, Oral 100 160 Output, Urine 80 200 Patient 225 lb Weight Weight Reported by Patient Measurement Method Physical Exam Other Physical Findings: Afebrile. He is awake and alert, weak appearing, but in no acute distress. Skin reveals candidal rash in the groin, left greater than right. HEENT dry oral mucosa. Neck is supple with no adenopathy. Lungs decreased breath sounds bilateral bases. Heart regular rhythm. Abdomen is soft, nontender with positive bowel sounds. Back no CVA tenderness. Extremities left leg with mild erythema and edema, mildly tender to palpation, with purulent drainage from several of his wounds; right leg mild tenderness on palpation. Neuro is without focality. candidal rash in the groin, left greater than right. Results Last 24 Hours of Lab Results: Laboratory Tests 04/22 04/21 1013 1414 Chemistry Sodium Cancelled Potassium Cancelled Chloride Cancelled Carbon Dioxide Cancelled Anion Gap Cancelled BUN Cancelled Creatinine Cancelled BUN/Creatinine Ratio Cancelled Lactic Acid Cancelled Hematology CBC w Diff Cancelled WBC Cancelled RBC Cancelled Hgb Cancelled Hct Cancelled MCV Cancelled MCH Cancelled RDW Cancelled Plt Count Cancelled MPV Cancelled PUBS MCHC Cancelled 04/21 1315 Urines Urinalysis LIGHT H Urine Color (YEL,AMB,STR) MARY Urine Clarity (CLEAR) HAZY H Urine pH (5.0 - 8.0) 6.0 Ur Specific [place] (1.001 - 1.035) 1.020 Urine Protein (NEG,<30 MG/DL) 30 H Urine Ketones (NEG) TRACE H Urine Nitrite (NEG) NEG Urine Bilirubin (NEG) NEG@ICTO Urine Urobilinogen (0.1 - 1.0 EU/dl) 1.0 Ur Leukocyte Esterase (NEG) SMALL H Ur Microscopic SEDIMENT EXAMINED Urine RBC (0 - 5 /HPF) 50-75 H Urine WBC (0 - 2 /HPF) 10-15 H Ur Epithelial Cells (NONE,FEW) FEW Urine Bacteria (NEG/NONE) MOD H Hyaline Casts (0/LPF) 5-10 H Granular Casts (NONE /LPF) FEW H Urine Mucus (FEW,NONE) FEW Urine Hemoglobin (NEG) MOD H Urine Glucose (N MG/DL) NEG Last 24 Hours of Joseph Results: SPEC #: [id number] HU: 04/21/17 STATUS: WKST RECD: 04/21/[address]: Jose Luis Zavala SOURCE: BLOOD ENTR: 04/21/[address] [facility] [address]: Addie Arrington MD SPDESC: 1ST/VENOUS ORDERED: BLOOD CULTURE Procedure Result BLOOD CULTURE PENDING Recent Imaging Studies: CLINICAL INFORMATION: Weakness and leukocytosis. COMPARISON: 03/11/2017. TECHNIQUE: Portable frontal view of the chest was obtained. FINDINGS: The cardiomediastinal silhouette is stable. There is tortuosity of the thoracic aorta with mild calcification at the knob. The heart size is top normal for technique. There is stable mild elevation of the left hemidiaphragm and stable mild blunting of the left costophrenic angle. The lungs are clear accounting for poor visualization of the left retrocardiac region due to technique. There is no evidence of pulmonary edema. No developing consolidation. No new pleural effusion or pneumothorax. The spine is not well visualized due to technique. No acute osseous abnormalities are depicted. IMPRESSION: No convincing interval change from 03/11/2017, accounting for differences in technique. There is mild blunting of the left costophrenic angle. DICTATED BY: Abelardo Bradford MD DATE/TIME DICTATED:04/21/171439 PURCHASER:VALERIA DATE/TIME TRANSCRIBED:04/21/171439 CONFIDENTIAL, DO NOT COPY WITHOUT APPROPRIATE AUTHORIZATION. Assessment/Plan Impression: 77-year-old man with a history of atrial fibrillation, COPD, obstructive sleep apnea, nephrolithiasis, BPH, osteoarthritis, chronic bilateral lower extremity edema, with recurrent cellulitis of the left leg over the past 6 months, L LE abscess s/p I&D in the OR, most recently 2 days prior to admission, with preliminary cultures positive for Staph aureus and Strep group A, admitted 04/21 after presenting to the emergency room with weakness/diarrhea after taking the Bactrim. Currently diarrhea improving; remains afebrile. Severe leukocytosis on admission. L LE skin and soft tissue infection (CT L LE to r/o residual collection per vasc sx). As wound cx form 04/19 + s. aureus (possible MRSA and Group A strep) pending final cultures treated empirically w/ iv vancomycin D #2. The left groin and penile rash is suggestive of Emperatriz intertrigo. Abx associated diarrhea; r/o C. difficile infection. Suggestion: 1. Contact isolation for possible MRSA; local wound care per sx 2. Stool for C. difficile. Trend CBC, BMP, call if fever/hypotension. 3. Follow-up final OR cultures from April 19 4. Topical antifungal therapy to his groin and penile shaft x 14-21 d 5. Continue Vancomycin at a dose of 1.5 grams IV every 24 hours pending above; vancomycin trough 04/24.
[2017-04-22 14:06] VITALS: BP 146/82
[2017-04-22 15:13] LABS: ABSOLUTE BASOPHIL COUNT 0 /CUMM (0.0-0.2); ABSOLUTE EOSINOPHIL COUNT 0.3 /CUMM (0.0-0.7); ABSOLUTE GRANULOCYTE CT 14.9 /CUMM (1.4-6.5); ABSOLUTE MONOCYTE COUNT 0.8 /CUMM (0.10-0.60); BASOPHIL % 0 % (0.0-2.0); EOSINOPHIL % 1.4 % (0-5); GRANULOCYTE % 82.7 % (42.2-75.2); MEAN CORPUSCULAR HGB 31.5 PG (27.0-31.0); MEAN CORPUSCULAR HGB CONC 33.3 G/DL (33.0-37.0); MEAN CORPUSCULAR VOLUME 94.7 FL (80.0-94.0); PLATELET COUNT 288 /CUMM (130-400); RBC DISTRIBUTION WIDTH 15.1 % (11.5-14.5); RED BLOOD CELL CT 3.49 /CUMM (4.70-6.10)
--- NOTE | 2017-04-22 18:55 | PN- Vascular Surgery ---
Subjective Subjective: pt with some pain in LLE, feeling a bit better. no infectious symptoms. Objective Vital Signs and I&Os Vital Signs Date Time Temp Pulse Resp B/P B/P Pulse O2 O2 Flow FiO2 Mean Ox Delivery Rate 04/22 1714 98 130/72 04/22 1406 98.8 113 20 146/82 96 Room Air 04/22 1337 146/82 04/22 1336 113 146/82 04/22 0633 97.6 93 20 150/90 97 CPAP 04/22 0550 97.6 122 140/92 04/22 0117 81 94 04/22 0005 93 120/68 04/22 0000 CPAP 04/21 2321 93 96 04/21 2128 98.2 112 20 120/68 95 Room Air 04/21 2024 97.8 95 18 127/67 96 Room Air Room Air 04/21 195 98.8 102 18 127/67 Intake & Output 04/22 1600 04/22 0800 04/22 0000 04/21 1600 04/21 0800 04/21 0000 Intake Total 1200 900 160 Output Total 350 80 200 Balance 850 820 -40 Intake, IV 600 800 Intake, Oral 600 100 160 Number 5 Bowel Movements Output, Urine 350 80 200 Patient 225 lb 226 lb Weight Weight Reported by Patient Reported by Patient Measurement Method Physical Exam: wdwn, aox3, nad LLE- dressing changed, packing removed. small amount of thin purulent dc able to be expressed from the most anterior lower leg wounds. erythema and warmth and swelling has improved. no collection noted on exam, no abscess. no gas, no crepitus most posterior wound healing by secondary intent with granulation tissue present , no discharge. wound was repacked with iodaform gauze, kerlex, christel wrap. leg/foot:nvi. Results Last 48 Hours of Labs: Laboratory Tests 04/22 04/22 04/21 1440 1013 1414 Chemistry Sodium (137 - 145 mmol/L) 140 Cancelled Potassium (3.5 - 5.1 mmol/L) 3.3 L Cancelled Chloride (98 - 107 mmol/L) 104 Cancelled Carbon Dioxide (22 - 30 mmol/L) 23 Cancelled Anion Gap (5 - 16) 12 Cancelled BUN (9 - 20 mg/dL) 12 Cancelled Creatinine (0.7 - 1.2 mg/dL) 0.6 L Cancelled Estimated GFR (>60 ml/min) > 60 BUN/Creatinine Ratio (7 - 25 %) 20.0 Cancelled Lactic Acid Cancelled Hematology CBC w Diff NO MAN DIFF REQ Cancelled WBC (4.8 - 10.8 /CUMM) 18.0 H Cancelled RBC (4.70 - 6.10 /CUMM) 3.49 L Cancelled Hgb (14.0 - 18.0 G/DL) 11.0 L Cancelled Hct (42 - 52 %) 33.0 L Cancelled MCV (80.0 - 94.0 FL) 94.7 H Cancelled MCH (27.0 - 31.0 PG) 31.5 H Cancelled RDW (11.5 - 14.5 %) 15.1 H Cancelled Plt Count (130 - 400 /CUMM) 288 Cancelled MPV (7.4 - 10.4 FL) 8.0 Cancelled Gran % (42.2 - 75.2 %) 82.7 H Lymphocytes % (20.5 - 51.1 %) 11.4 L Monocytes % (1.7 - 9.3 %) 4.5 Eosinophils % (0 - 5 %) 1.4 Basophils % (0.0 - 2.0 %) 0 Absolute Granulocytes (1.4 - 6.5 /CUMM) 14.9 H Absolute Lymphocytes (1.2 - 3.4 /CUMM) 2.0 Absolute Monocytes (0.10 - 0.60 /CUMM) 0.8 H Absolute Eosinophils (0.0 - 0.7 /CUMM) 0.3 Absolute Basophils (0.0 - 0.2 /CUMM) 0 PUBS MCHC (33.0 - 37.0 G/DL) 33.3 Cancelled 04/21 04/21 1315 1125 Chemistry Sodium (137 - 145 mmol/L) 135 L Potassium (3.5 - 5.1 mmol/L) 3.5 Chloride (98 - 107 mmol/L) 98 Carbon Dioxide (22 - 30 mmol/L) 27 Anion Gap (5 - 16) 10 BUN (9 - 20 mg/dL) 9 Creatinine (0.7 - 1.2 mg/dL) 0.6 L Estimated GFR (>60 ml/min) > 60 BUN/Creatinine Ratio (7 - 25 %) 15.0 Glucose (65 - 99 mg/dL) 142 H Lactic Acid (0.7 - 2.1 mmol/L) 1.4 Calcium (8.4 - 10.2 mg/dL) 8.5 Magnesium (1.6 - 2.3 mg/dL) 1.7 Total Bilirubin (0.2 - 1.3 mg/dL) 0.9 AST (17 - 59 U/L) 19 ALT (21 - 72 U/L) 27 Alkaline Phosphatase (< 127 U/L) 80 Troponin I (<0.11 ng/ml) < 0.01 Total Protein (6.3 - 8.2 g/dL) 5.6 L Albumin (3.5 - 5.0 g/dL) 2.9 L Globulin (1.9 - 4.2 gm/dL) 2.7 Albumin/Globulin Ratio (1.1 - 2.2 %) 1.1 Coagulation PT Cancelled INR Cancelled APTT Cancelled Hematology CBC w Diff MAN DIFF ORDERED WBC (4.8 - 10.8 /CUMM) 22.8 H RBC (4.70 - 6.10 /CUMM) 3.67 L Hgb (14.0 - 18.0 G/DL) 11.6 L Hct (42 - 52 %) 34.0 L MCV (80.0 - 94.0 FL) 92.8 MCH (27.0 - 31.0 PG) 31.5 H RDW (11.5 - 14.5 %) 14.5 Plt Count (130 - 400 /CUMM) 269 MPV (7.4 - 10.4 FL) 7.4 Gran % (42.2 - 75.2 %) 87.7 H Lymphocytes % (20.5 - 51.1 %) 6.0 L Monocytes % (1.7 - 9.3 %) 6.0 Eosinophils % (0 - 5 %) 0.2 Basophils % (0.0 - 2.0 %) 0.1 Absolute Granulocytes (1.4 - 6.5 /CUMM) 20.0 H Segmented Neutrophils (42.2 - 75.2 %) 80 H Band Neutrophils (0.0 - 5.0 %) 5 Absolute Lymphocytes (1.2 - 3.4 /CUMM) 1.4 Lymphocytes (20.5 - 51.1 %) 9 L Monocytes (1.7 - 9.3 %) 6 Absolute Monocytes (0.10 - 0.60 /CUMM) 1.4 H Absolute Eosinophils (0.0 - 0.7 /CUMM) 0 Absolute Basophils (0.0 - 0.2 /CUMM) 0 Platelet Estimate (ADEQUATE) ADEQUATE Normocytic RBCs VERIFIED Polychromasia 1+ Hypochromic-Microcytic 1+ PUBS MCHC (33.0 - 37.0 G/DL) 34.0 Other Body Source Fld Total RBCs Counted (%) 100 Urines Urinalysis LIGHT H Urine Color (YEL,AMB,STR) MARY Urine Clarity (CLEAR) HAZY H Urine pH (5.0 - 8.0) 6.0 Ur Specific [place] (1.001 - 1.035) 1.020 Urine Protein (NEG,<30 MG/DL) 30 H Urine Ketones (NEG) TRACE H Urine Nitrite (NEG) NEG Urine Bilirubin (NEG) NEG@ICTO Urine Urobilinogen (0.1 - 1.0 EU/dl) 1.0 Ur Leukocyte Esterase (NEG) SMALL H Ur Microscopic SEDIMENT EXAMINED Urine RBC (0 - 5 /HPF) 50-75 H Urine WBC (0 - 2 /HPF) 10-15 H Ur Epithelial Cells (NONE,FEW) FEW Urine Bacteria (NEG/NONE) MOD H Hyaline Casts (0/LPF) 5-10 H Granular Casts (NONE /LPF) FEW H Urine Mucus (FEW,NONE) FEW Urine Hemoglobin (NEG) MOD H Urine Glucose (N MG/DL) NEG Assessment/Plan Assessment/Plan LLE cellulitis, abscess sp multiple site I and D's cont packing daily to 2 anterior lower leg wounds compression wrap, elevate abx per primary team. awaiting official CT results of the LLE however, no further surgical debridement needed at this point based on clinical exam. norris Velasquez will follow.
[2017-04-22 22:40] VITALS: BP 128/76
[2017-04-23 06:43] VITALS: BP 120/60
--- NOTE | 2017-04-23 08:23 | PN- Housestaff ---
Sandy ESCOBAR,[facility] 04/23/17 0822: Subjective Follow-up For: Left leg cellulitis Tele-Events Since Last Visit: atrial fibrilliation with heart rate 64-97. No overnight events. Subjective: Patient was seen and examined at bedside. He reports doing well, no active complaints. He feels upset as he does not know the results of his CAT scan. He was told the results are pending and he will be informed once they are available. Review of Systems Constitutional: Reports: no symptoms. Objective Last 24 Hrs of Vital Signs/I&O Vital Signs Date Time Temp Pulse Resp B/P B/P Pulse O2 O2 Flow FiO2 Mean Ox Delivery Rate 04/23 0643 98.3 83 20 120/60 94 Room Air 04/23 0515 101 120/78 04/23 0032 77 96 04/23 0007 88 110/80 04/22 2240 98.6 93 20 128/76 96 Room Air 04/22 1714 98 130/72 04/22 1406 98.8 113 20 146/82 96 Room Air 04/22 1337 146/82 04/22 1336 113 146/82 Intake & Output 04/23 1600 04/23 0800 04/23 0000 Intake Total 120 680 Output Total 450 Balance -330 680 Intake, Oral 120 680 Number 1 Bowel Movements Output, Urine 450 Physical Exam General Appearance: Alert, Oriented X3, Cooperative, No Acute Distress Skin: No Rashes, No Breakdown Skin Temp/Moisture Exam: Warm/Dry Sepsis Skin Exam (color): Normal for Ethnicity HEENT: Atraumatic Cardiovascular: Normal S1, Normal S2, No Murmurs, irregular Lungs: Clear to Auscultation, Normal Air Movement Abdomen: Soft, No Tenderness Neurological: Normal Speech Extremities: left leg wrapped with christel bandages. b/l lower extremity edema Assessment/Plan Assessment: 77-year-old male with pmh of CHF, A. fib, SANDI on CPAP, osteoarthritis, chronic bilateral lower extremity edema presented with chief complaints of recurrent cellulitis, with generalized weakness, dizziness and diarrhea following a recent antibiotic exposure. He is currently being managed in the telemetry unit for the following issues: - Left leg cellulitis: He had a recent I&D, and culture is growing Staph aureus. - Vancomycin has been discontinued - started on IV Cefazolin 1g q8. - New skin ulcerations in the medial and posteromedial mid to lower calf. - CT scan does not show any radiographic evidence of osteomyelitis. - Pain management: oxycodone changed to q4-6P from q6P hr - Bumex has been restarted as blood pressure has been stable. - continued escitalopram - Tinea cruris treatment with antifungal. - Continue Diltiazem and Eliquis for afib. - Continue CPAP for SANDI. Full code. Heart heathy diet. DVT ppx: Eliquis. Problem List: 1. Weakness Pain Ratin Pain Location: none Pain Goal: Remain pain free Pain Plan: none Tomorrow's Labs & Rationales: CBC, BEP Asha ESCOBAR,Radha 04/23/17 1126: Attending MD Review Statement Attending Statement Attending MD Statement: examined this patient, discuss w/resident/PA/PRODUCT SUPPORT CONSULTANT, agreed w/resident/PA/PRODUCT SUPPORT CONSULTANT, reviewed EMR data (avail), discussed with nursing, reviewed images Attending Assessment/Plan: CT of the lower extremity was done, results are pending. 77-year-old with multiple medical problems including A. fib, chronic congestive heart failure, obstructive sleep apnea who is here with an acute purulent cellulitis of the left lower extremity with staph. We have him on IV vancomycin per ID and we are making sure there is no more abscess left to drain. White count has come down from 22-14. We'll need to restart his diuretic and follow up on the CT.
[2017-04-23 08:34] LABS: ABSOLUTE BASOPHIL COUNT 0 /CUMM (0.0-0.2); ABSOLUTE EOSINOPHIL COUNT 0.4 /CUMM (0.0-0.7); ABSOLUTE GRANULOCYTE CT 10.8 /CUMM (1.4-6.5); ABSOLUTE LYMPH COUNT 2.2 /CUMM (1.2-3.4); ABSOLUTE MONOCYTE COUNT 0.9 /CUMM (0.10-0.60); BASOPHIL % 0.3 % (0.0-2.0); EOSINOPHIL % 3.1 % (0-5); HEMATOCRIT 31.1 % (42-52); MEAN CORPUSCULAR HGB 31.2 PG (27.0-31.0); MEAN CORPUSCULAR HGB CONC 33.1 G/DL (33.0-37.0); MEAN CORPUSCULAR VOLUME 94.3 FL (80.0-94.0); MEAN PLATELET VOLUME 7.9 FL (7.4-10.4); PLATELET COUNT 306 /CUMM (130-400); RBC DISTRIBUTION WIDTH 14.7 % (11.5-14.5); WHITE BLOOD CELL COUNT 14.4 /CUMM (4.8-10.8)
--- NOTE | 2017-04-23 10:05 | Event Note ---
Event Note Event Note: I was consulted yesterday evening to evaluate this patient for her left lower extremity cellulitis and possible osteomyelitis. After review of the chart and discussion with the patient and his family, it appears the patient already has surgical follow-up the infection in his left leg, and has documented follow-up from a physician's assistance during this admission. I recommend for the purposes of continuity of care, and because tibial osteomyelitis is outside of the legal scope of practice for podiatry and this state, that the patient continue follow-up with vascular surgery team. I had available for further discussion on the matter via cell phone at [phone].
--- NOTE | 2017-04-23 11:12 | CT SCAN REPORT ---
EXAMINATION: CT LOWER EXTREMITY WITHOUT CONTRAST, LEFT CLINICAL INFORMATION: Left lower limb cellulitis. Presumptive diagnosis: Purulent cellulitis. COMPARISON: CT of the left lower leg 03/27/2017. TECHNIQUE: Helical scanning was performed of the left lower leg from knee to ankle with submillimeter collimation in the axial plane with multiplanar 2-D reconstructions. DLP: 1326.42 mGy-cm FINDINGS: Diffuse subcutaneous edema is again noted. There are 2 new areas of skin ulceration in the medial and posteromedial aspect of the mid lower leg extending toward the distal lower leg. These measure 0.9 cm AP and 0.8 cm craniocaudal medially, and 0.9 cm AP and 1.1 cm craniocaudal posteromedially. These ulcers appear to communicate with a tract of bubbles of air and some higher density material measuring 2.5 x 0.8 x 4.1 cm (CC x TRV x AP). It is unclear what this represents but could represent gauze material packed into a wound. Clinical correlation is recommended. There is a small amount of fluid surrounding this air and higher density material. Some air extends more posteriorly to a third area of skin irregularity and possible ulceration. Moderate to severe tricompartmental osteoarthritis of the left knee is again noted. A small to moderate joint effusion is not significantly changed. 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 IMPRESSION: 1. New skin ulcerations in the medial and posteromedial mid to lower calf. This communicates with a subcutaneous tract that contains air and some higher density material. The higher density material is of uncertain etiology but could represent packing material. Correlate clinically. 2. Diffuse subcutaneous edema. 3. No radiographic evidence of osteomyelitis. 4. Unchanged moderate to severe osteoarthritis of the left knee and Virgen's cyst with multiple loose bodies.
--- NOTE | 2017-04-23 11:56 | PN- Infect Dx ---
Subjective Subjective: No fever, abd pain or diarrhea today. Decreased discomfort L LE. Review of Systems Comments: 12 points reviewed as noted, otherwise negative. Objective Last 24 Hrs of Vital Signs/I&O Vital Signs Date Time Temp Pulse Resp B/P B/P Pulse O2 O2 Flow FiO2 Mean Ox Delivery Rate 04/23 0643 98.3 83 20 120/60 94 Room Air 04/23 0515 101 120/78 04/23 0032 77 96 04/23 0007 88 110/80 04/22 2240 98.6 93 20 128/76 96 Room Air 04/22 1714 98 130/72 04/22 1406 98.8 113 20 146/82 96 Room Air 04/22 1337 146/82 04/22 1336 113 146/82 Intake & Output 04/23 1600 04/23 0800 04/23 0000 Intake Total 120 680 Output Total 450 Balance -330 680 Intake, Oral 120 680 Number 1 Bowel Movements Output, Urine 450 Physical Exam Other Physical Findings: Afebrile. He is awake and alert, weak appearing, but in no acute distress. Skin reveals candidal rash in the groin, left greater than right. HEENT dry oral mucosa. Neck is supple with no adenopathy. Lungs decreased breath sounds bilateral bases. Heart regular rhythm. Abdomen is soft, nontender with positive bowel sounds. Back no CVA tenderness. Extremities left leg with mild erythema and edema, mildly tender to palpation, with packing/dressing in place. Neuro is without focality, A&O x3. candidal rash in the groin Results Last 24 Hours of Lab Results: Laboratory Tests 04/23 04/22 0644 1440 Chemistry Sodium (137 - 145 mmol/L) 138 140 Potassium (3.5 - 5.1 mmol/L) 3.5 3.3 L Chloride (98 - 107 mmol/L) 105 104 Carbon Dioxide (22 - 30 mmol/L) 25 23 Anion Gap (5 - 16) 8 12 BUN (9 - 20 mg/dL) 11 12 Creatinine (0.7 - 1.2 mg/dL) 0.6 L 0.6 L Estimated GFR (>60 ml/min) > 60 > 60 BUN/Creatinine Ratio (7 - 25 %) 18.3 20.0 Magnesium (1.6 - 2.3 mg/dL) 1.8 Hematology CBC w Diff NO MAN DIFF REQ NO MAN DIFF REQ WBC (4.8 - 10.8 /CUMM) 14.4 H 18.0 H RBC (4.70 - 6.10 /CUMM) 3.30 L 3.49 L Hgb (14.0 - 18.0 G/DL) 10.3 L 11.0 L Hct (42 - 52 %) 31.1 L 33.0 L MCV (80.0 - 94.0 FL) 94.3 H 94.7 H MCH (27.0 - 31.0 PG) 31.2 H 31.5 H RDW (11.5 - 14.5 %) 14.7 H 15.1 H Plt Count (130 - 400 /CUMM) 306 288 MPV (7.4 - 10.4 FL) 7.9 8.0 Gran % (42.2 - 75.2 %) 75.0 82.7 H Lymphocytes % (20.5 - 51.1 %) 15.6 L 11.4 L Monocytes % (1.7 - 9.3 %) 6.0 4.5 Eosinophils % (0 - 5 %) 3.1 1.4 Basophils % (0.0 - 2.0 %) 0.3 0 Absolute Granulocytes (1.4 - 6.5 /CUMM) 10.8 H 14.9 H Absolute Lymphocytes (1.2 - 3.4 /CUMM) 2.2 2.0 Absolute Monocytes (0.10 - 0.60 /CUMM) 0.9 H 0.8 H Absolute Eosinophils (0.0 - 0.7 /CUMM) 0.4 0.3 Absolute Basophils (0.0 - 0.2 /CUMM) 0 0 PUBS MCHC (33.0 - 37.0 G/DL) 33.1 33.3 ESR Westergren (0 - 10 MM) 74 H Last 24 Hours of Joseph Results: SPEC #: [id number] HU: 04/21/17 STATUS: RES RECD: 04/22/[address]: Jose Luis Zavala SOURCE: STOOL ENTR: 04/21/[address] [facility] [address]: Murphy ESCOBAR, Addie SPDESC: ORDERED: STOOL CULTURE, C.DIFFICILE EIA COMMENT: Has pt had antimicrobial/antineoplastic rx in past 4-6wks? Y Has pt had abd pain, fever, or constipation? Y Procedure Result > STOOL CULTURE Preliminary 04/23/17-0902 Mixed jaquan after 1 day > C. DIFFICILE TOXIN A & B EIA Final 04/22/17-1246 NEGATIVE FOR CLOSTRIDIUM DIFFICILE TOXINS A & B BY EIA SHIGA TOXIN 1 AKA EHEC - PENDING SHIGA TOXIN 2 AKA EHEC - PENDING Recent Imaging Studies: SERVICE DATE: 04/22/17- EXAM TYPE: CAT - CT LOWER EXT WO IV CONTRAST EXAMINATION: CT LOWER EXTREMITY WITHOUT CONTRAST, LEFT CLINICAL INFORMATION: Left lower limb cellulitis. Presumptive diagnosis: Purulent cellulitis. COMPARISON: CT of the left lower leg 03/27/2017. TECHNIQUE: Helical scanning was performed of the left lower leg from knee to ankle with submillimeter collimation in the axial plane with multiplanar 2-D reconstructions. DLP: 1326.42 mGy-cm FINDINGS: Diffuse subcutaneous edema is again noted. There are 2 new areas of skin ulceration in the medial and posteromedial aspect of the mid lower leg extending toward the distal lower leg. These measure 0.9 cm AP and 0.8 cm craniocaudal medially, and 0.9 cm AP and 1.1 cm craniocaudal posteromedially. These ulcers appear to communicate with a tract of bubbles of air and some higher density material measuring 2.5 x 0.8 x 4.1 cm (CC x TRV x AP). It is unclear what this represents but could represent gauze material packed into a wound. Clinical correlation is recommended. There is a small amount of fluid surrounding this air and higher density material. Some air extends more posteriorly to a third area of skin irregularity and possible ulceration. Moderate to severe tricompartmental osteoarthritis of the left knee is again noted. A small to moderate joint effusion is not significantly changed. 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 IMPRESSION: 1. New skin ulcerations in the medial and posteromedial mid to lower calf. This communicates with a subcutaneous tract that contains air and some higher density material. The higher density material is of uncertain etiology but could represent packing material. Correlate clinically. 2. Diffuse subcutaneous edema. 3. No radiographic evidence of osteomyelitis. 4. Unchanged moderate to severe osteoarthritis of the left knee and Virgen's cyst with multiple loose bodies. DICTATED BY: Glen Rodriguez MD DATE/TIME DICTATED:12/31/17 / 1013 CORNICE UPHOLSTERER:VALERIA DATE/TIME TRANSCRIBED:04/23/171012 Assessment/Plan Impression: 77-year-old man with a history of atrial fibrillation, COPD, obstructive sleep apnea, nephrolithiasis, BPH, osteoarthritis, chronic bilateral lower extremity edema, with recurrent cellulitis of the left leg over the past 6 months, L LE abscess s/p I&D in the OR, most recently 2 days prior to admission, with preliminary cultures positive for Staph aureus and Strep group A, admitted 04/21 after presenting to the emergency room with weakness/diarrhea after taking the Bactrim. Currently diarrhea improving; remains afebrile. Severe leukocytosis on admission; WBC trending down. L LE skin and soft tissue infection (CT L LE on 04/22; results as noted + skin ulcerations in the medial and posteromedial mid to lower calf ). As wound cx form 04/19 + MSSA and Group A strep) currently treated empirically w / iv vancomycin D #3. The left groin and penile rash is suggestive of Emperatriz intertrigo. Abx associated diarrhea; r/o C. difficile infection. Suggestion: 1. D/C contact isolation; local wound care per sx 2. Trend CBC, BMP, call if fever/hypotension. 3. Start Cefazolin 1 gm q 8 h; discontinue Vancomycin 4. Topical antifungal therapy to his groin and penile shaft x 14-21 d
[2017-04-23 14:30] VITALS: BP 108/82
--- NOTE | 2017-04-23 19:44 | PN- Vascular Surgery ---
Subjective Subjective: DRESSING CHANGE (LATE ENTRY) minimal leg pain, no other complaints Objective Vital Signs and I&Os Vital Signs Date Time Temp Pulse Resp B/P B/P Pulse O2 O2 Flow FiO2 Mean Ox Delivery Rate 04/23 1718 102 112/80 04/23 1430 98.2 87 18 108/82 95 04/23 0643 98.3 83 20 120/60 94 Room Air 04/23 0515 101 120/78 04/23 0032 77 96 04/23 0007 88 110/80 04/22 2240 98.6 93 20 128/76 96 Room Air Intake & Output 04/23 1600 04/23 0800 04/23 0000 04/22 1600 04/22 0800 04/22 0000 Intake Total 680 160 824 1207 900 160 Output Total 400 450 350 80 200 Balance 280 -330 680 850 820 -40 Intake, IV 0 600 800 Intake, Oral 680 120 680 600 100 160 Number 0 1 5 Bowel Movements Output, Urine 400 450 350 80 200 Patient 225 lb Weight Weight Reported by Patient Measurement Method Physical Exam: gen- nad card- s1s2 pulm- no audible wheeze EXT: LLE christel removed, +edema, dry peeling skin, 3 open areas of anterior & medial laguna- packing removed. flushed w NS, priobed w sterile cotton swab- all 3 wounds tunnel and communicate with each other. surrounding tissue milked- no additional purlence noted. some fibrin at wound edges. no surrounding erythema , no foul smell. repacked w iodoform and wraped foot to knee w kerlix and christel. pt doron well Assessment/Plan Assessment/Plan A- POD4 sp I&D LLE anterior laguna wounds, with improving leukocytosis on vanco, with wounds improving. P- -medical care per primary team, abx per id -trend wbc -daily packing changes by surgical team- ?eventual wv placement -will dw attending
[2017-04-24 06:00] VITALS: BP 132/68
--- NOTE | 2017-04-24 09:26 | PN- Housestaff ---
Norma ESCOBAR,Kassandra 04/24/17 0926: Subjective Follow-up For: Cellulitis A. fib Complaints: no complaints Tele-Events Since Last Visit: Atrial fibrillation rate 75-100 events Subjective: Patient has no active complaints. No pain and discomfort in his left leg. Review of Systems Constitutional: Reports: no symptoms. EENTM: Reports: no symptoms. Cardiovascular: Reports: no symptoms. Respiratory: Reports: no symptoms. Gastrointestinal: Reports: no symptoms. Genitourinary: Reports: no symptoms. Musculoskeletal: Reports: no symptoms. Skin: Reports: lesions. Neurological/Psychological: Reports: no symptoms. Hematologic/Endocrine: Reports: no symptoms. Immunologic/Allergic: Reports: no symptoms. Objective Last 24 Hrs of Vital Signs/I&O Vital Signs Date Time Temp Pulse Resp B/P B/P Pulse O2 O2 Flow FiO2 Mean Ox Delivery Rate 04/24 1600 Room Air 04/24 1531 98.1 78 20 138/80 96 Room Air 04/24 1218 142/76 04/24 0902 140/74 04/24 0655 84 136/70 04/24 0600 98.2 73 20 132/68 96 04/24 0113 74 98 04/24 0016 89 102/60 Intake & Output 04/24 1600 04/24 0800 04/24 0000 Intake Total 420 200 660 Output Total 1300 200 Balance -880 200 460 Intake, IV 20 20 Intake, Oral 400 200 640 Number 2 0 Bowel Movements Output, Urine 1300 200 Physical Exam General Appearance: Alert, Oriented X3, Cooperative, No Acute Distress Skin: No Rashes Skin Temp/Moisture Exam: Warm/Dry Sepsis Skin Exam (color): Normal for Ethnicity HEENT: Atraumatic, PERRLA Neck: Supple, No JVD Cardiovascular: Normal S1, Normal S2, No Murmurs Lungs: Clear to Auscultation, Normal Air Movement Abdomen: Normal Bowel Sounds, Soft, No Tenderness Neurological: Normal Speech Extremities: No Clubbing, No Cyanosis, Normal Pulses, LEFT EXTREMITY CELLULITIC CHANGES, 3-1 CM WOUNDS WITH PURULENT DRAINAGE. Current Medications: Current Medications Sig/Kacie Start time Last Medication Dose Route Stop Time Status Admin Acetaminophen 975 MG Q8P PRN 04/21 2230 AC 04/23 PO 1708 Apixaban 5 MG BID 04/21 2200 AC 04/24 PO 0902 Bumetanide 2 MG DAILY 04/23 1130 AC 04/24 PO 0902 Cefazolin Sodium 1,000 MG IQ8 04/23 1600 AC 04/24 IV 1628 Clotrimazole 1 KERRI BID 04/21 2200 AC 04/24 TOP 0903 Diltiazem HCl 30 MG Q6 04/21 1800 AC 04/24 PO 1628 Escitalopram Oxalate 20 MG DAILY 04/22 1036 AC 04/24 PO 0902 Finasteride 5 MG DAILY 04/21 1714 AC 04/24 PO 0902 Losartan Potassium 100 MG DAILY 04/22 1011 AC 04/24 PO 0902 Melatonin 10 MG AT BEDTIME 04/21 2230 AC 04/24 PO 0016 Nystatin 1 KERRI BID 04/22 2200 AC 04/24 TOP 0903 Oxycodone HCl 5 MG Q4-6 PRN PRN 04/22 1045 AC 04/24 PO 1632 Oxycodone/ 1 TAB Q4P PRN 04/22 1015 AC Acetaminophen PO Last 24 Hrs of Lab/Joseph Results Last 24 Hrs of Labs/Mics: Laboratory Tests 04/24/17 1730: Vancomycin Trough < 5.0 L 04/24/17 1146: Anion Gap 11, Estimated GFR > 60, BUN/Creatinine Ratio 25.7 H, CBC w Diff NO MAN DIFF REQ, RBC 3.82 L, MCV 94.4 H, MCH 31.3 H, RDW 14.8 H, MPV 7.5, Gran % 68.0, Lymphocytes % 20.2 L, Monocytes % 7.1, Eosinophils % 4.1, Basophils % 0.6, Absolute Granulocytes 9.3 H, Absolute Lymphocytes 2.8, Absolute Monocytes 1.0 H, Absolute Eosinophils 0.6, Absolute Basophils 0.1, PUBS MCHC 33.1 Assessment/Plan Assessment: 77-year-old male with pmh of CHF, A. fib, SANDI on CPAP, osteoarthritis, chronic bilateral lower extremity edema presented with chief complaints of recurrent cellulitis, with generalized weakness, dizziness and diarrhea following a recent antibiotic exposure. He is currently being managed in the telemetry unit for the following issues: - Left leg cellulitis: He had a recent I&D, and culture is growing Staph aureus. - Vancomycin has been discontinued - started on IV Cefazolin 1g q8. - New skin ulcerations in the medial and posteromedial mid to lower calf. - CT scan does not show any radiographic evidence of osteomyelitis, no evidence of collection -Wound culture from OR cultures 04/19 show staph, beta strep group A, no evidence thus yet of MRSA. - Pain management: oxycodone changed to q4-6P from q6P hr -Podiatry will not follow the patient as vascular surgery already is -Questionable need for wound VAC in the future Hypertension - Bumex has been restarted as blood pressure has been stable. Anxiety - continued escitalopram Fungal infection - Tinea cruris treatment with antifungal. A. fib - Continue Diltiazem and Eliquis for afib. SANDI - Continue CPAP for SANDI. Diarrhea UTI No symptoms Cultures positive for Proteus and gram-positive cocci with low colony counts. Continue to watch off antibiotics Full code. Heart heathy diet. DVT ppx: Eliquis. Problem List: 1. Open wound of left lower extremity 2. PVD (peripheral vascular disease) 3. Atrial fibrillation Pain Ratin Pain Location: None Pain Goal: Remain pain free Pain Plan: Pathway [facility] Labs & Rationales: CBC and BEP Radha Barry MD 04/24/17 1128: Attending MD Review Statement Attending Statement Attending MD Statement: examined this patient, discuss w/resident/PA/PROJECT DEVELOPMENT LEADER, agreed w/resident/PA/PROJECT DEVELOPMENT LEADER, reviewed EMR data (avail), reviewed images Attending Assessment/Plan: Appreciate ID follow-up. Given MSSA and strep the antibiotic been changed IV Ancef. CT shows diffuse subcutaneous edema. Surgery is following him and questionable eventual need for wound VAC. Underlying A. fib on Eliquis, chronic congestive heart failure and will follow-up on the white count.
--- NOTE | 2017-04-24 10:07 | PN- Infect Dx ---
Subjective Subjective: No fever; decreased swelling/discomfort L LE. Wound dressing changed this am. No diarrhea. Review of Systems Comments: 12 points reviewed as noted, otherwise negative. Objective Last 24 Hrs of Vital Signs/I&O Vital Signs Date Time Temp Pulse Resp B/P B/P Pulse O2 O2 Flow FiO2 Mean Ox Delivery Rate 04/24 0902 140/74 04/24 0655 84 136/70 04/24 0600 98.2 73 20 132/68 96 04/24 0113 74 98 04/24 0016 89 102/60 04/23 1718 102 112/80 04/23 1430 98.2 87 18 108/82 95 Intake & Output 04/24 1600 04/24 0800 04/24 0000 Intake Total 200 660 Output Total 200 Balance 200 460 Intake, IV 20 Intake, Oral 200 640 Number 0 Bowel Movements Output, Urine 200 Physical Exam Other Physical Findings: Afebrile. He is awake and alert, weak appearing, but in no acute distress. Skin reveals improved candidal rash in the groin, left greater than right. HEENT dry oral mucosa. Neck is supple with no adenopathy. Lungs decreased breath sounds bilateral bases. Heart regular rhythm. Abdomen is soft, nontender with positive bowel sounds. Back no CVA tenderness. Extremities left leg with mild erythema and edema, mildly tender to palpation, with packing/ dressing in place. Neuro is without focality, A&O x3. Results Last 24 Hours of Lab Results: reviewed Last 24 Hours of Joseph Results: SPEC #: [id number] HU: 04/21/17 STATUS: RES RECD: 04/21/[address]: Jose Luis Zavala SOURCE: URINE ROUT ENTR: 04/21/17 [facility] DR: Murphy ESCOBAR, Addie SPDC: UNK URINE ORDERED: URINE CULTURE COMMENT: UC ADDED AT 1413 KD Procedure Result > URINE CULTURE Preliminary 04/23/17 Approx. 10,000 colonies per ml of: PROTEUS MIRABILIS Approx. 20,000 colonies per ml of: GRAM POSITIVE COCCI Identification to follow 1. PROTEUS MIRABILIS RX AB ------ -- AMPICILLIN S CEFAZOLIN S AMOXICILLIN/CLAVULINIC ACID S AMPICILLIN/SULBACTAM S CIPROFLOXACIN S GENTAMICIN S NITROFURANTOIN R TRIMETHOPRIM/SULFAMETHOXAZOLE S Note: Infectious Diseases Society of [place] Guidelines state that asymptomatic bacteriuria is not associated with any increase in morbidity or mortality in most patients and therefore treatment is usually not indicated unless patients are less than five years old, or about to undergo urological procedures. Recent Imaging Studies: CT L LE 04/22 IMPRESSION: 1. New skin ulcerations in the medial and posteromedial mid to lower calf. This communicates with a subcutaneous tract that contains air and some higher density material. The higher density material is of uncertain etiology but could represent packing material. Correlate clinically. 2. Diffuse subcutaneous edema. 3. No radiographic evidence of osteomyelitis. 4. Unchanged moderate to severe osteoarthritis of the left knee and Virgen's cyst with multiple loose bodies. DICTATED BY: Glen Rodriguez MD DATE/TIME DICTATED:04/23/171012 DESKTOP SUPPORT TECHNICIAN:VALERIA DATE/TIME TRANSCRIBED:04/23/171012 Assessment/Plan Impression: 77-year-old man with a history of atrial fibrillation, COPD, obstructive sleep apnea, nephrolithiasis, BPH, osteoarthritis, chronic bilateral lower extremity edema, with recurrent cellulitis of the left leg over the past 6 months, L LE abscess s/p I&D in the OR, most recently 2 days prior to admission, with preliminary cultures positive for Staph aureus and Strep group A, admitted 04/21 after presenting to the emergency room with weakness/diarrhea after taking the Bactrim. Currently diarrhea improving; remains afebrile. Severe leukocytosis on admission; WBC trending down. L LE skin and soft tissue infection (CT L LE on 04/22; results as noted + skin ulcerations in the medial and posteromedial mid to lower calf ). As wound cx form 04/19 + MSSA and Group A strep) treated empirically w/ iv vancomycin until 04/23; abx deescalatedto Cefazolin previous day. L UE swelling The left groin and penile rash is suggestive of Emperatriz intertrigo. Abx associated diarrhea; r/o C. difficile infection. Proteus UTI Suggestion: 1. Local wound care per sx. Keep L UE elevated; consider US r/o DVT 2. CBC, BMP 04/25/17; call if fever/hypotension. 3. Continue D #2 Cefazolin 1 gm q 8 h; once ready for discharge oral Keflex 750 mg po bid in order to complete toal of 10-14 d abx course. 4. Topical antifungal therapy to his groin and penile shaft x 14-21 d
[2017-04-24 12:07] LABS: ABSOLUTE BASOPHIL COUNT 0.1 /CUMM (0.0-0.2); ABSOLUTE EOSINOPHIL COUNT 0.6 /CUMM (0.0-0.7); ABSOLUTE GRANULOCYTE CT 9.3 /CUMM (1.4-6.5); ABSOLUTE LYMPH COUNT 2.8 /CUMM (1.2-3.4); BASOPHIL % 0.6 % (0.0-2.0); EOSINOPHIL % 4.1 % (0-5); MEAN CORPUSCULAR HGB 31.3 PG (27.0-31.0); MEAN CORPUSCULAR HGB CONC 33.1 G/DL (33.0-37.0); MEAN CORPUSCULAR VOLUME 94.4 FL (80.0-94.0); MEAN PLATELET VOLUME 7.5 FL (7.4-10.4); RBC DISTRIBUTION WIDTH 14.8 % (11.5-14.5); RED BLOOD CELL CT 3.82 /CUMM (4.70-6.10); WHITE BLOOD CELL COUNT 13.6 /CUMM (4.8-10.8)
[2017-04-24 12:35] LABS: PLATELET COUNT 380 /CUMM (130-400)
[2017-04-24 15:31] VITALS: BP 138/80
[2017-04-24 22:16] VITALS: BP 106/70
[2017-04-25 06:58] VITALS: BP 150/84
--- NOTE | 2017-04-25 08:02 | PN- Vascular Surgery ---
Subjective Subjective: leg is feeling better, pain is less. no systemic symptoms of infection. Objective Vital Signs and I&Os Vital Signs Date Time Temp Pulse Resp B/P B/P Pulse O2 O2 Flow FiO2 Mean Ox Delivery Rate 04/25 0658 97.9 84 20 150/84 97 CPAP 04/25 0630 100 134/80 04/25 0042 88 112/88 04/25 0015 79 97 04/25 0000 CPAP 04/24 2216 98.3 92 20 106/70 93 04/24 1600 Room Air 04/24 1531 98.1 78 20 138/80 96 Room Air 04/24 1218 142/76 04/24 0902 140/74 Intake & Output 04/25 1600 04/25 0800 04/25 0000 04/24 1600 04/24 0800 04/24 0000 Intake Total 120 480 420 200 660 Output Total 564 417 2795 200 Balance -280 -220 -880 200 460 Intake, IV 20 20 Intake, Oral 120 480 400 200 640 Number 2 0 Bowel Movements Output, Urine 357 417 5080 200 Physical Exam: gen- nad no resp distress aox3 EXT: LLE christel removed, swelling less, erythema less. dry peeling skin, 3 open areas of anterior & medial laguna- packing removed. no additional purlence noted. some fibrin at wound edges. no surrounding erythema, no foul smell. repacked w iodoform and wraped foot to knee w kerlix and christel. pt doron well Assessment/Plan Assessment/Plan A- POD6 sp I&D LLE anterior laguna wounds, on ancef, with wounds improving. P- -medical care per primary team, abx per id -daily packing changes by surgical team, wound healing, less packing needed -elevate
[2017-04-25 08:08] LABS: ABSOLUTE BASOPHIL COUNT 0.1 /CUMM (0.0-0.2); ABSOLUTE EOSINOPHIL COUNT 0.6 /CUMM (0.0-0.7); ABSOLUTE GRANULOCYTE CT 9.9 /CUMM (1.4-6.5); ABSOLUTE LYMPH COUNT 3.8 /CUMM (1.2-3.4); ABSOLUTE MONOCYTE COUNT 1.5 /CUMM (0.10-0.60); BASOPHIL % 0.3 % (0.0-2.0); GRANULOCYTE % 62.4 % (42.2-75.2); HEMATOCRIT 35.9 % (42-52); MEAN CORPUSCULAR HGB 31.2 PG (27.0-31.0); MEAN CORPUSCULAR HGB CONC 33.2 G/DL (33.0-37.0); MEAN CORPUSCULAR VOLUME 94.1 FL (80.0-94.0); MEAN PLATELET VOLUME 7.8 FL (7.4-10.4); PLATELET COUNT 402 /CUMM (130-400); RBC DISTRIBUTION WIDTH 14.8 % (11.5-14.5); RED BLOOD CELL CT 3.81 /CUMM (4.70-6.10); WHITE BLOOD CELL COUNT 15.9 /CUMM (4.8-10.8)
--- NOTE | 2017-04-25 10:33 | PN- Housestaff ---
Norma ESCOBAR,Kassandra 04/25/17 1017: Subjective Follow-up For: left leg cellulitis Tele-Events Since Last Visit: afib 71-84 with pvcs. Subjective: patient states that he is feeling "ok". he still has some pain in the left lower leg, wound is bandaged tightly at the time of interview. She complains of left arm swelling, associated with IV. Review of Systems Constitutional: Reports: no symptoms. EENTM: Reports: no symptoms. Cardiovascular: Reports: no symptoms. Respiratory: Reports: no symptoms. Gastrointestinal: Reports: no symptoms. Genitourinary: Reports: no symptoms. Musculoskeletal: Reports: muscle pain. Skin: Reports: lesions. Neurological/Psychological: Reports: no symptoms. Hematologic/Endocrine: Reports: no symptoms. Immunologic/Allergic: Reports: no symptoms. Objective Last 24 Hrs of Vital Signs/I&O Vital Signs Date Time Temp Pulse Resp B/P B/P Pulse O2 O2 Flow FiO2 Mean Ox Delivery Rate 04/25 0827 94 154/80 04/25 0800 Room Air 04/25 0658 97.9 84 20 150/84 97 CPAP 04/25 0630 100 134/80 04/25 0042 88 112/88 04/25 0015 79 97 04/25 0000 CPAP 04/24 2216 98.3 92 20 106/70 93 04/24 1600 Room Air 04/24 1531 98.1 78 20 138/80 96 Room Air 04/24 1218 142/76 Intake & Output 04/25 1600 04/25 0800 04/25 0000 Intake Total 120 480 Output Total 400 700 Balance -280 -220 Intake, Oral 120 480 Output, Urine 400 700 Physical Exam General Appearance: Alert, Oriented X3, Cooperative, No Acute Distress Skin: No Rashes, left leg purulent draining wounds bandaged tightly Skin Temp/Moisture Exam: Warm/Dry Sepsis Skin Exam (color): Normal for Ethnicity HEENT: Atraumatic, PERRLA Cardiovascular: Normal S1, Normal S2, No Murmurs Lungs: Clear to Auscultation, Normal Air Movement Abdomen: Normal Bowel Sounds, Soft Extremities: No Clubbing, No Cyanosis, Normal Pulses, edema and chronic venous stasis changes bilaterally, increased left side Current Medications: Current Medications Sig/Kacie Start time Last Medication Dose Route Stop Time Status Admin Acetaminophen 975 MG Q8P PRN 04/21 2230 AC 04/23 PO 1708 Apixaban 5 MG BID 04/21 2200 AC 04/25 PO 0827 Bumetanide 2 MG DAILY 04/23 1130 AC 04/25 PO 0827 Cefazolin Sodium 1,000 MG IQ8 04/23 1600 AC 04/25 IV 0823 Clotrimazole 1 KERRI BID 04/21 2200 AC 04/25 TOP 0828 Diltiazem HCl 30 MG Q6 04/21 1800 AC 04/25 PO 0630 Escitalopram Oxalate 20 MG DAILY 04/22 1036 AC 04/25 PO 0827 Finasteride 5 MG DAILY 04/21 1714 AC 04/25 PO 0827 Losartan Potassium 100 MG DAILY 04/22 1011 AC 04/25 PO 0827 Melatonin 10 MG AT BEDTIME 04/21 2230 AC 04/24 PO 2156 Nystatin 1 KERRI BID 04/22 2200 AC 04/25 TOP 0828 Oxycodone HCl 5 MG Q4-6 PRN PRN 04/22 1045 AC 04/24 PO 2156 Oxycodone/ 1 TAB Q4P PRN 04/22 1015 AC 04/25 [place]etaminophen PO 0833 Last 24 Hrs of Lab/Joseph Results Last 24 Hrs of Labs/Mics: Laboratory Tests 04/25/17 0630: Anion Gap 10, Estimated GFR > 60, BUN/Creatinine Ratio 24.3, CBC w Diff NO MAN DIFF REQ, RBC 3.81 L, MCV 94.1 H, MCH 31.2 H, RDW 14.8 H, MPV 7.8, Gran % 62.4, Lymphocytes % 23.7, Monocytes % 9.6 H, Eosinophils % 4.0, Basophils % 0.3 , Absolute Granulocytes 9.9 H, Absolute Lymphocytes 3.8 H, Absolute Monocytes 1.5 H, Absolute Eosinophils 0.6, Absolute Basophils 0.1, PUBS MCHC 33.2 04/24/17 1730: Vancomycin Trough < 5.0 L 04/24/17 1146: Anion Gap 11, Estimated GFR > 60, BUN/Creatinine Ratio 25.7 H, CBC w Diff NO MAN DIFF REQ, RBC 3.82 L, MCV 94.4 H, MCH 31.3 H, RDW 14.8 H, MPV 7.5, Gran % 68.0, Lymphocytes % 20.2 L, Monocytes % 7.1, Eosinophils % 4.1, Basophils % 0.6, Absolute Granulocytes 9.3 H, Absolute Lymphocytes 2.8, Absolute Monocytes 1.0 H, Absolute Eosinophils 0.6, Absolute Basophils 0.1, PUBS MCHC 33.1 Assessment/Plan Assessment: Assessment 77-year-old male with pmh of CHF, A. fib, SANDI on CPAP, osteoarthritis, chronic bilateral lower extremity edema presented with chief complaints of recurrent cellulitis, with generalized weakness, dizziness and diarrhea following a recent antibiotic exposure. As per the sister, she herself is allergic to Bactrim and other sulfa drugs. He is currently being managed in the telemetry unit for the following issues: -Left leg cellulitis: -He had a recent I&D on April 19, and culture is growing Staph aureus and strep, no evidence of MRSA -Patient's WBC count increased overnight from 13.6-15.9. -Vancomycin has been discontinued -As per ID, discontinue Cefazolin and began Unasyn 3 g IV every 6 hours -Ultrasound of the leg shows no evidence of clot -CT scan does not show any radiographic evidence of osteomyelitis, no evidence of collection -Pain management: oxycodone changed to q4-6P from q6P hr -Podiatry will not follow the patient as vascular surgery already is -Questionable need for wound VAC in the future -Follow up wound care notes Left arm swelling -Likely associated with IV line -Most likely represents a thrombophlebitis associated with the line -May be the cause of his increased white blood cell count today -Patient is on Eliquis and thus we will not do ultrasound to rule out DVT Hypertension -Bumex has been restarted as blood pressure has been stable. Anxiety -Continued escitalopram Fungal infection -Tinea cruris treatment with antifungal. A. fib -Continue Diltiazem and Eliquis for afib. SANDI -Continue CPAP for SANDI. Disposition -Patient will go home with home health services UTI -No symptoms -Cultures positive for Proteus and gram-positive cocci with low colony counts. -Ancef given for the patient's cellulitis likely cover UTI although patient is asymptomatic (thus we would not treat) Full code. Heart heathy diet. DVT ppx: Eliquis. Problem List: 1. Open wound of left lower extremity 2. PVD (peripheral vascular disease) 3. CHF (congestive heart failure) 4. Atrial fibrillation Pain Ratin Pain Location: Left lower extremity Pain Goal: Pain 4 or less Pain Plan: Pain pathway Tomorrow's Labs & Rationales: cbc bep Yon Madrigal 04/25/17 1340: Attending MD Review Statement Attending Statement Attending MD Statement: examined this patient, discuss w/resident/PA/BRAND MARKETING SPECIALIST, agreed w/resident/PA/BRAND MARKETING SPECIALIST, reviewed EMR data (avail), discussed with nursing, discussed with case mgmt Attending Assessment/Plan: Pt seen and examined at bedside. Pt had increase in wbc count today so ID has switched his cefazolin to iv unasyn. will monitor on unasyn and repeat wbc tomorrow. D/w pt the care plan.
--- NOTE | 2017-04-25 11:18 | PN- Infect Dx ---
Subjective Subjective: Afebrile. He feels improved with no complaints Objective Last 24 Hrs of Vital Signs/I&O Vital Signs Date Time Temp Pulse Resp B/P B/P Pulse O2 O2 Flow FiO2 Mean Ox Delivery Rate 04/25 08 94 154/80 04/25 0800 Room Air 04/25 0658 97.9 84 20 150/84 97 CPAP 04/25 0630 100 134/80 04/25 0042 88 112/88 04/25 0015 79 97 04/25 0000 CPAP 04/24 2216 98.3 92 20 106/70 93 04/24 1600 Room Air 04/24 1531 98.1 78 20 138/80 96 Room Air 04/24 1218 142/76 Intake & Output 04/25 1600 04/25 0800 04/25 0000 Intake Total 120 480 Output Total 100 400 700 Balance -100 -280 -220 Intake, Oral 120 480 Output, Urine 100 400 700 Physical Exam Other Physical Findings: He appears comfortable in no acute distress Lungs are clear Heart regular rhythm with no murmur Abdomen is soft, nontender with positive bowel sounds Back no CVA tenderness Extremities left leg decreased erythema and edema, with no purulent drainage expressed from any of his incisions; mild erythema and edema of the left forearm , with no tenderness to palpation; marked improvement in his left groin candidal rash improvement in his penile candidal rash Results Last 24 Hours of Lab Results: Laboratory Tests 04/25 04/24 0630 1730 Chemistry Sodium (137 - 145 mmol/L) 140 Potassium (3.5 - 5.1 mmol/L) 4.4 Chloride (98 - 107 mmol/L) 102 Carbon Dioxide (22 - 30 mmol/L) 28 Anion Gap (5 - 16) 10 BUN (9 - 20 mg/dL) 17 Creatinine (0.7 - 1.2 mg/dL) 0.7 Estimated GFR (>60 ml/min) > 60 BUN/Creatinine Ratio (7 - 25 %) 24.3 Hematology CBC w Diff NO MAN DIFF REQ WBC (4.8 - 10.8 /CUMM) 15.9 H RBC (4.70 - 6.10 /CUMM) 3.81 L Hgb (14.0 - 18.0 G/DL) 11.9 L Hct (42 - 52 %) 35.9 L MCV (80.0 - 94.0 FL) 94.1 H MCH (27.0 - 31.0 PG) 31.2 H RDW (11.5 - 14.5 %) 14.8 H Plt Count (130 - 400 /CUMM) 402 H MPV (7.4 - 10.4 FL) 7.8 Gran % (42.2 - 75.2 %) 62.4 Lymphocytes % (20.5 - 51.1 %) 23.7 Monocytes % (1.7 - 9.3 %) 9.6 H Eosinophils % (0 - 5 %) 4.0 Basophils % (0.0 - 2.0 %) 0.3 Absolute Granulocytes (1.4 - 6.5 /CUMM) 9.9 H Absolute Lymphocytes (1.2 - 3.4 /CUMM) 3.8 H Absolute Monocytes (0.10 - 0.60 /CUMM) 1.5 H Absolute Eosinophils (0.0 - 0.7 /CUMM) 0.6 Absolute Basophils (0.0 - 0.2 /CUMM) 0.1 PUBS MCHC (33.0 - 37.0 G/DL) 33.2 Toxicology Vancomycin Trough (10.0 - 20.0 ug/mL) < 5.0 L 04/24 1146 Chemistry Sodium (137 - 145 mmol/L) 140 Potassium (3.5 - 5.1 mmol/L) 4.3 Chloride (98 - 107 mmol/L) 103 Carbon Dioxide (22 - 30 mmol/L) 25 Anion Gap (5 - 16) 11 BUN (9 - 20 mg/dL) 18 Creatinine (0.7 - 1.2 mg/dL) 0.7 Estimated GFR (>60 ml/min) > 60 BUN/Creatinine Ratio (7 - 25 %) 25.7 H Hematology CBC w Diff NO MAN DIFF REQ WBC (4.8 - 10.8 /CUMM) 13.6 H RBC (4.70 - 6.10 /CUMM) 3.82 L Hgb (14.0 - 18.0 G/DL) 11.9 L Hct (42 - 52 %) 36.0 L MCV (80.0 - 94.0 FL) 94.4 H MCH (27.0 - 31.0 PG) 31.3 H RDW (11.5 - 14.5 %) 14.8 H Plt Count (130 - 400 /CUMM) 380 MPV (7.4 - 10.4 FL) 7.5 Gran % (42.2 - 75.2 %) 68.0 Lymphocytes % (20.5 - 51.1 %) 20.2 L Monocytes % (1.7 - 9.3 %) 7.1 Eosinophils % (0 - 5 %) 4.1 Basophils % (0.0 - 2.0 %) 0.6 Absolute Granulocytes (1.4 - 6.5 /CUMM) 9.3 H Absolute Lymphocytes (1.2 - 3.4 /CUMM) 2.8 Absolute Monocytes (0.10 - 0.60 /CUMM) 1.0 H Absolute Eosinophils (0.0 - 0.7 /CUMM) 0.6 Absolute Basophils (0.0 - 0.2 /CUMM) 0.1 PUBS MCHC (33.0 - 37.0 G/DL) 33.1 Last 24 Hours of Joseph Results: Urine culture April 21 approximately 10,000 colonies of Proteus resistant to Nitrofurantoin and approximately 20,000 colonies of Enterococcus sensitive to Ampicillin Assessment/Plan Impression: Overall improved with temperatures remaining normal and white blood cell count decreased, though slightly elevated today, for unclear reasons, now on Cefazolin Day 4 of treatment for a left leg soft tissue infection, with improvement in his left leg inflammation, with no further purulent drainage expressed. He does report some mild left upper extremity inflammation at the site of a recent IV, which has improved, and this could potentially explain the recent increase in his white blood cell count. The positive urine culture is of unclear significance with no urinary symptoms. Suggestion: 1. Further management of his left leg wounds per Vascular Surgery 2. Discontinue Cefazolin 3. Begin Unasyn 3 g IV every 6 hours 4. Continue topical antifungal therapy to his groin and penile shaft
[2017-04-25 14:38] VITALS: BP 110/60
--- NOTE | 2017-04-25 15:16 | PN- Vascular Surgery ---
Surgical Brief Attending Note Brief Attending Note: Left leg wounds healing well. No purulence. CT did not show any evidence of collection Wounds are closing. Now superficial I don't think he'll need wound vac. Adelina from wound center will be changing his daily dressing during the week.
[2017-04-25 22:08] VITALS: BP 152/70
[2017-04-26 07:11] VITALS: BP 140/80
[2017-04-26 08:06] LABS: ABSOLUTE BASOPHIL COUNT 0.1 /CUMM (0.0-0.2); ABSOLUTE EOSINOPHIL COUNT 0.6 /CUMM (0.0-0.7); ABSOLUTE GRANULOCYTE CT 10.7 /CUMM (1.4-6.5); ABSOLUTE LYMPH COUNT 3.1 /CUMM (1.2-3.4); ABSOLUTE MONOCYTE COUNT 1.5 /CUMM (0.10-0.60); BASOPHIL % 0.3 % (0.0-2.0); EOSINOPHIL % 3.5 % (0-5); GRANULOCYTE % 67.2 % (42.2-75.2); HEMATOCRIT 34.5 % (42-52); MEAN CORPUSCULAR HGB 31.3 PG (27.0-31.0); MEAN CORPUSCULAR HGB CONC 33.5 G/DL (33.0-37.0); MEAN CORPUSCULAR VOLUME 93.6 FL (80.0-94.0); MEAN PLATELET VOLUME 7.8 FL (7.4-10.4); PLATELET COUNT 421 /CUMM (130-400); RBC DISTRIBUTION WIDTH 15.2 % (11.5-14.5); RED BLOOD CELL CT 3.69 /CUMM (4.70-6.10); WHITE BLOOD CELL COUNT 15.9 /CUMM (4.8-10.8)
--- NOTE | 2017-04-26 11:18 | PN- Housestaff ---
Norma ESCOBAR,Kassandra 04/26/17 1117: Subjective Follow-up For: left leg skin/ soft tissue infection Subjective: Patient states he is feeling good, has mild pain of the leg, no drainage from wound, wound clean. Review of Systems Constitutional: Reports: no symptoms. EENTM: Reports: no symptoms. Cardiovascular: Reports: no symptoms. Respiratory: Reports: no symptoms. Gastrointestinal: Reports: no symptoms. Genitourinary: Reports: no symptoms. Musculoskeletal: Reports: no symptoms. Skin: Reports: lesions. Neurological/Psychological: Reports: no symptoms. Hematologic/Endocrine: Reports: no symptoms. Immunologic/Allergic: Reports: no symptoms. Objective Last 24 Hrs of Vital Signs/I&O Vital Signs Date Time Temp Pulse Resp B/P B/P Pulse O2 O2 Flow FiO2 Mean Ox Delivery Rate 04/26 1447 98.0 87 20 124/68 97 Room Air 04/26 1209 146/70 04/26 0951 140/82 04/26 0711 98.4 92 20 140/80 96 Room Air 04/26 0549 90 114/78 04/26 0005 98 110/89 04/26 0000 CPAP 04/25 2208 98.0 81 20 152/70 96 Room Air 04/25 1734 86 Intake & Output 04/26 1600 04/26 0800 04/26 0000 Intake Total 500 360 120 Output Total 750 500 700 Balance -250 -140 -580 Intake, IV 100 240 Intake, Oral 400 120 120 Number 2 Bowel Movements Output, Urine 750 500 700 Patient 224 lb Weight Physical Exam General Appearance: Alert, Oriented X3, Cooperative, No Acute Distress Skin: No Rashes, 3 wounds on lower left leg, clean and dry Skin Temp/Moisture Exam: Warm/Dry Sepsis Skin Exam (color): Normal for Ethnicity HEENT: Atraumatic Neck: Supple Cardiovascular: Regular Rate, Normal S1, Normal S2, No Murmurs Abdomen: Normal Bowel Sounds, Soft, No Tenderness Neurological: Normal Speech Extremities: No Clubbing, No Cyanosis, Normal Pulses Current Medications: Current Medications Sig/Kacie Start time Last Medication Dose Route Stop Time Status Admin Acetaminophen 975 MG Q8P PRN 04/21 2230 AC 04/23 PO 1708 Ampicillin Sodium/ 3,000 MG Q6H 04/25 1500 AC 04/26 Sulbactam Sodium IV 1605 Sodium Chloride 100 ML Apixaban 5 MG BID 04/21 2200 AC 04/26 PO 0950 Bumetanide 2 MG DAILY 04/23 1130 AC 04/26 PO 0950 Clotrimazole 1 KERRI BID 04/21 2200 DC 04/25 TOP 2136 Diltiazem HCl 30 MG Q6 04/21 1800 AC 04/26 PO 1606 Escitalopram Oxalate 20 MG DAILY 04/22 1036 AC 04/26 PO 0950 Finasteride 5 MG DAILY 04/21 1714 AC 04/26 PO 0951 Losartan Potassium 100 MG DAILY 04/22 1011 AC 04/26 PO 0951 Melatonin 10 MG AT BEDTIME 04/21 2230 AC 04/25 PO 2136 Nystatin 1 KERRI BID 04/22 2200 AC 04/26 TOP 0951 Oxycodone HCl 5 MG Q4-6 PRN PRN 04/22 1045 AC 04/24 PO 2156 Oxycodone/ 1 TAB Q4P PRN 04/22 1015 AC 04/26 Acetaminophen PO 0950 Last 24 Hrs of Lab/Joseph Results Last 24 Hrs of Labs/Mics: Laboratory Tests 04/26/17 0650: Anion Gap 9, Estimated GFR > 60, BUN/Creatinine Ratio 32.9 H, CBC w Diff NO MAN DIFF REQ, RBC 3.69 L, MCV 93.6, MCH 31.3 H, RDW 15.2 H, MPV 7.8, Gran % 67.2, Lymphocytes % 19.4 L, Monocytes % 9.6 H, Eosinophils % 3.5, Basophils % 0.3, Absolute Granulocytes 10.7 H, Absolute Lymphocytes 3.1, Absolute Monocytes 1.5 H, Absolute Eosinophils 0.6, Absolute Basophils 0.1, PUBS MCHC 33.5 Assessment/Plan Assessment: Assessment 77-year-old male with pmh of CHF, A. fib, SANDI on CPAP, osteoarthritis, chronic venous stasis changes, chronic bilateral lower extremity edema presented with chief complaints of recurrent cellulitis, with generalized weakness, dizziness and diarrhea following a recent antibiotic exposure. As per the sister, she herself is allergic to Bactrim and other sulfa drugs. Patient is feeling good. Wounds are clean and dry and bandaged. Patient had a glucose of 142 on admission. He states that he has no history of diabetes. He is currently being managed in the telemetry unit for the following issues: -Left leg cellulitis: -He had a recent I&D on April 19, and culture is growing Staph aureus and strep, no evidence of MRSA -Patient's WBC count is the same from yesterday, 15.9. -Vancomycin has been discontinued -As per ID, continue Unasyn 3 g IV every 6 hours -Ultrasound of the leg shows no evidence of clot -CT scan does not show any radiographic evidence of osteomyelitis, no evidence of collection -Pain management: oxycodone changed to q4-6P from q6P hr -Podiatry will not follow the patient as vascular surgery already is -Questionable need for wound VAC in the future -Follow up wound care notes Left arm swelling -Likely associated with IV line -Most likely represents a thrombophlebitis associated with the line -May be the cause of his increased white blood cell count today -Patient is on Eliquis and thus we will not do ultrasound to rule out DVT Hypertension -Bumex has been restarted as blood pressure has been stable. Anxiety -Continued escitalopram Fungal infection -Tinea cruris treatment with antifungal. A. fib -Continue Diltiazem and Eliquis for afib. SANDI -Continue CPAP for SANDI. Disposition -Patient will go home with home health services UTI -No symptoms -Cultures positive for Proteus and gram-positive cocci with low colony counts. -Ancef given for the patient's cellulitis likely cover UTI although patient is asymptomatic (thus we would not treat) Elevated glucose -Patient had elevated glucose on intake -Check glucose level tomorrow and from there decide if we will test HbA1c Full code. Heart heathy diet. DVT ppx: Eliquis. Problem List: 1. Open wound of left lower extremity 2. Tinea cruris 3. PVD (peripheral vascular disease) 4. Atrial fibrillation Pain Ratin Pain Location: Left lower leg Pain Goal: Pain 4 or less Pain Plan: As needed Tomorrow's Labs & Rationales: CBC and glucose Yon Madrigal 04/26/17 1510: Attending MD Review Statement Attending Statement Attending MD Statement: examined this patient, discuss w/resident/PA/MUNITIONS HANDLER, agreed w/resident/PA/MUNITIONS HANDLER, reviewed EMR data (avail), discussed with nursing, discussed with case mgmt Attending Assessment/Plan: d/w ID attending the care plan. Will cont on unasyn for now given the persistent elevated wbc. will need to f/u on wbc tomorrow and if staying up will do further workup to evaluate for increased wbc.
--- NOTE | 2017-04-26 13:14 | PN- Infect Dx ---
Subjective Subjective: Afebrile without complaints. He does not report pain in the left leg. Objective Last 24 Hrs of Vital Signs/I&O Vital Signs Date Time Temp Pulse Resp B/P B/P Pulse O2 O2 Flow FiO2 Mean Ox Delivery Rate 04/26 1209 146/70 04/26 0951 140/82 04/26 0711 98.4 92 20 140/80 96 Room Air 04/26 0549 90 114/78 04/26 0005 98 110/89 04/26 0000 CPAP 04/25 2208 98.0 81 20 152/70 96 Room Air 04/25 1734 86 04/25 1600 94 Room Air 04/25 1438 97.2 75 18 110/60 97 Intake & Output 04/26 1600 04/26 0800 04/26 0000 Intake Total 360 120 Output Total 500 700 Balance -140 -580 Intake, IV 240 Intake, Oral 120 120 Output, Urine 500 700 Physical Exam Other Physical Findings: He appears comfortable in no acute distress Skin candidal rash in the groin and penis improved Lungs are clear Heart regular rhythm with no murmur Abdomen is soft, nontender with positive bowel sounds Back no CVA tenderness Extremities left leg dressing intact Results Last 24 Hours of Lab Results: Laboratory Tests 04/26 0650 Chemistry Sodium (137 - 145 mmol/L) 139 Potassium (3.5 - 5.1 mmol/L) 4.3 Chloride (98 - 107 mmol/L) 103 Carbon Dioxide (22 - 30 mmol/L) 27 Anion Gap (5 - 16) 9 BUN (9 - 20 mg/dL) 23 H Creatinine (0.7 - 1.2 mg/dL) 0.7 Estimated GFR (>60 ml/min) > 60 BUN/Creatinine Ratio (7 - 25 %) 32.9 H Hematology CBC w Diff NO MAN DIFF REQ WBC (4.8 - 10.8 /CUMM) 15.9 H RBC (4.70 - 6.10 /CUMM) 3.69 L Hgb (14.0 - 18.0 G/DL) 11.6 L Hct (42 - 52 %) 34.5 L MCV (80.0 - 94.0 FL) 93.6 MCH (27.0 - 31.0 PG) 31.3 H RDW (11.5 - 14.5 %) 15.2 H Plt Count (130 - 400 /CUMM) 421 H MPV (7.4 - 10.4 FL) 7.8 Gran % (42.2 - 75.2 %) 67.2 Lymphocytes % (20.5 - 51.1 %) 19.4 L Monocytes % (1.7 - 9.3 %) 9.6 H Eosinophils % (0 - 5 %) 3.5 Basophils % (0.0 - 2.0 %) 0.3 Absolute Granulocytes (1.4 - 6.5 /CUMM) 10.7 H Absolute Lymphocytes (1.2 - 3.4 /CUMM) 3.1 Absolute Monocytes (0.10 - 0.60 /CUMM) 1.5 H Absolute Eosinophils (0.0 - 0.7 /CUMM) 0.6 Absolute Basophils (0.0 - 0.2 /CUMM) 0.1 PUBS MCHC (33.0 - 37.0 G/DL) 33.5 Last 24 Hours of Joseph Results: No new cultures Assessment/Plan Impression: Doing well, with temperatures remaining normal but with his white blood cell count still elevated, now on Unasyn, Day 5 of treatment for a left leg skin/ soft tissue infection, with improvement in his left leg inflammation. He has no other obvious source of infection but, if his white blood cell count remains elevated, further evaluation may be necessary. Suggestion: 1. Further management of his left leg wounds per Vascular Surgery 2. Continue Unasyn 3. Continue topical antifungal therapy
--- NOTE | 2017-04-26 13:39 | Discharge Summary ---
Hospital Course Allergies: Coded Allergies: No Known Allergies (03/11/17) Discharge Instructions Medications at Discharge Discharge Medications: Stop taking the following medications: Sulfamethoxazole/Trimethoprim (Sulfamethoxazole-Tmp Ds Tablet) 800 MG-160 MG TABLET ORAL TWICE DAILY Qty = 28
[2017-04-26 14:47] VITALS: BP 124/68
[2017-04-26 22:16] VITALS: BP 124/64
[2017-04-27 06:56] VITALS: BP 130/70
[2017-04-27 08:14] LABS: ABSOLUTE BASOPHIL COUNT 0 /CUMM (0.0-0.2); ABSOLUTE EOSINOPHIL COUNT 0.5 /CUMM (0.0-0.7); ABSOLUTE LYMPH COUNT 3.2 /CUMM (1.2-3.4); ABSOLUTE MONOCYTE COUNT 1.3 /CUMM (0.10-0.60); BASOPHIL % 0.3 % (0.0-2.0); EOSINOPHIL % 3.4 % (0-5); GRANULOCYTE % 64.3 % (42.2-75.2); HEMATOCRIT 35.6 % (42-52); MEAN CORPUSCULAR HGB 31.2 PG (27.0-31.0); MEAN CORPUSCULAR HGB CONC 33.2 G/DL (33.0-37.0); MEAN CORPUSCULAR VOLUME 93.9 FL (80.0-94.0); MEAN PLATELET VOLUME 7.6 FL (7.4-10.4); PLATELET COUNT 452 /CUMM (130-400); RBC DISTRIBUTION WIDTH 15.4 % (11.5-14.5); RED BLOOD CELL CT 3.79 /CUMM (4.70-6.10); WHITE BLOOD CELL COUNT 14.1 /CUMM (4.8-10.8)
--- NOTE | 2017-04-27 11:33 | PN- Housestaff ---
Norma ESCOBAR,Kassandra 04/27/17 1132: Subjective Follow-up For: left lower leg cellulitis Tele-Events Since Last Visit: afib 71-85 Subjective: patient feels "ok". has no complaints other than mild pain of the left lower leg. wound is clean and dry. patient also concerned that certain medications that he takes outpatient were not started here. Review of Systems Constitutional: Reports: no symptoms. EENTM: Reports: no symptoms. Cardiovascular: Reports: no symptoms. Respiratory: Reports: no symptoms. Gastrointestinal: Reports: no symptoms. Genitourinary: Reports: no symptoms. Musculoskeletal: Reports: no symptoms. Skin: Reports: lesions. Neurological/Psychological: Reports: no symptoms. Hematologic/Endocrine: Reports: no symptoms. Immunologic/Allergic: Reports: no symptoms. Objective Last 24 Hrs of Vital Signs/I&O Vital Signs Date Time Temp Pulse Resp B/P B/P Pulse O2 O2 Flow FiO2 Mean Ox Delivery Rate 04/27 1128 118/70 04/27 1128 118/70 04/27 0656 97.6 66 20 130/70 95 Room Air 04/27 0010 87 95 04/27 0000 CPAP 04/26 2216 99.0 89 20 124/64 95 04/26 1447 98.0 87 20 124/68 97 Room Air 04/26 1209 146/70 Intake & Output 04/27 1600 04/27 0800 04/27 0000 Intake Total 150 200 Output Total 275 150 Balance -275 150 50 Intake, Oral 150 200 Number 1 Bowel Movements Output, Urine 275 150 Physical Exam General Appearance: Alert, Oriented X3, Cooperative, No Acute Distress Skin: No Rashes, No Breakdown, wound is clean and dry no longer purulent drainage Skin Temp/Moisture Exam: Warm/Dry HEENT: Atraumatic Cardiovascular: Normal S1, Normal S2, No Murmurs Lungs: Clear to Auscultation, Normal Air Movement Abdomen: Normal Bowel Sounds, Soft, No Tenderness Extremities: No Clubbing, No Cyanosis Current Medications: Current Medications Sig/Kacie Start time Last Medication Dose Route Stop Time Status Admin Acetaminophen 975 MG Q8P PRN 04/21 2230 AC 04/23 PO 1708 Ampicillin Sodium/ 3,000 MG Q6H 04/25 1500 AC 04/27 Sulbactam Sodium IV 1124 Sodium Chloride 100 ML Apixaban 5 MG BID 04/21 2200 AC 04/27 PO 1125 Bumetanide 2 MG DAILY 04/23 1130 AC 04/27 PO 1125 Diltiazem HCl 30 MG Q6 04/21 1800 AC 04/27 PO 1128 Escitalopram Oxalate 20 MG DAILY 04/22 1036 AC 04/27 PO 1124 Finasteride 5 MG DAILY 04/21 1714 AC 04/27 PO 1124 Losartan Potassium 100 MG DAILY 04/22 1011 AC 04/27 PO 1128 Melatonin 10 MG AT BEDTIME 04/21 2230 AC 04/26 PO 2157 Nystatin 1 KERRI BID 04/22 2200 DC 04/26 TOP 215 Oxycodone HCl 5 MG Q4-6 PRN PRN 04/22 1045 AC 04/27 PO 113 Oxycodone/ 1 TAB Q4P PRN 04/22 1015 AC 04/26 Acetaminophen PO 220 Patient Medication 1 ED ONE ONE 04/27 1145 Teaching ED 04/27 1146 Last 24 Hrs of Lab/Joseph Results Last 24 Hrs of Labs/Mics: Laboratory Tests 04/27/17 0627: Glucose 105 H, CBC w Diff NO MAN DIFF REQ, RBC 3.79 L, MCV 93.9, MCH 31.2 H, RDW 15.4 H, MPV 7.6, Gran % 64.3, Lymphocytes % 22.9, Monocytes % 9.1, Eosinophils % 3.4, Basophils % 0.3, Absolute Granulocytes 9.0 H, Absolute Lymphocytes 3.2, Absolute Monocytes 1.3 H, Absolute Eosinophils 0.5, Absolute Basophils 0, PUBS MCHC 33.2 Assessment/Plan Assessment: Assessment 77-year-old male with pmh of CHF, A. fib, SANDI on CPAP, osteoarthritis, chronic venous stasis changes, chronic bilateral lower extremity edema presented with chief complaints of recurrent cellulitis, with generalized weakness, dizziness and diarrhea following a recent antibiotic exposure. As per the sister, she herself is allergic to Bactrim and other sulfa drugs. Patient is feeling good. Wounds are clean and dry and bandaged. He is currently being managed in the telemetry unit for the following issues: -Left leg cellulitis: -He had a recent I&D on April 19, and culture is growing Staph aureus and strep, no evidence of MRSA -Patient's WBC count has slightly decreased to 14.1. As it is still high we will keep the antibiotics going for one more day and monitor WBC count tomorrow. -As per ID, continue Unasyn 3 g IV every 6 hours -Ultrasound of the leg shows no evidence of clot -CT scan does not show any radiographic evidence of osteomyelitis, no evidence of collection -Pain management: oxycodone changed to q4-6P from q6P hr -Podiatry will not follow the patient as vascular surgery already is -Questionable need for wound VAC in the future -Follow up wound care notes Left arm swelling persistent. -Likely associated with IV line -Most likely represents a thrombophlebitis associated with the line -May be the cause of his increased white blood cell count today -Patient is on Eliquis and thus we will not do ultrasound to rule out DVT Hypertension -Bumex has been restarted as blood pressure has been stable. Anxiety -Continued escitalopram Fungal infection -Tinea cruris treatment with antifungal. A. fib -Continue Diltiazem and Eliquis for afib. SANDI -Continue CPAP for SANDI. Disposition -Patient will go home with home health services BPH -Patient was not started on Tamsulosin .4mg at admission. Will start now. -Finasteride 5mg UTI -No symptoms -Cultures positive for Proteus and gram-positive cocci with low colony counts. -Unasyn given for the patient's cellulitis likely cover UTI although patient is asymptomatic (thus we would not treat) Elevated glucose -Patient had elevated glucose on intake -Glucose not grossly elevated. Will not follow [facility] HbA1c. Full code. Heart heathy diet. DVT ppx: Eliquis. Problem List: 1. Tinea cruris 2. Open wound of left lower extremity 3. PVD (peripheral vascular disease) Pain Ratin Pain Location: left lower leg Pain Goal: Pain 4 or less Pain Plan: prn Tomorrow's Labs & Rationales: Yon Mcallister 04/27/17 1420: Attending MD Review Statement Attending Statement Attending MD Statement: examined this patient, discuss w/resident/PA/COOPER HELPER, agreed w/resident/PA/COOPER HELPER, reviewed EMR data (avail), discussed with nursing Attending Assessment/Plan: pt seen and examined. d/w him the care plan. spoke with ID and we will keep the patient here for another day and will see how he does as his wbc are trending down. having difficulty urinating, will start back on his home dose of tamsulosin will also restart his lexapro.
[2017-04-27 15:11] VITALS: BP 112/62
[2017-04-27 22:50] VITALS: BP 124/84
[2017-04-28 06:35] VITALS: BP 170/100
[2017-04-28 08:59] LABS: ABSOLUTE BASOPHIL COUNT 0 /CUMM (0.0-0.2); ABSOLUTE EOSINOPHIL COUNT 0.5 /CUMM (0.0-0.7); ABSOLUTE GRANULOCYTE CT 8.3 /CUMM (1.4-6.5); ABSOLUTE LYMPH COUNT 2.9 /CUMM (1.2-3.4); ABSOLUTE MONOCYTE COUNT 1.4 /CUMM (0.10-0.60); BASOPHIL % 0.3 % (0.0-2.0); EOSINOPHIL % 3.5 % (0-5); GRANULOCYTE % 63.4 % (42.2-75.2); MEAN CORPUSCULAR HGB 31.5 PG (27.0-31.0); MEAN CORPUSCULAR HGB CONC 33.6 G/DL (33.0-37.0); MEAN CORPUSCULAR VOLUME 93.8 FL (80.0-94.0); MEAN PLATELET VOLUME 7.5 FL (7.4-10.4); PLATELET COUNT 454 /CUMM (130-400); RBC DISTRIBUTION WIDTH 15.6 % (11.5-14.5); RED BLOOD CELL CT 3.52 /CUMM (4.70-6.10); WHITE BLOOD CELL COUNT 13.1 /CUMM (4.8-10.8)
--- NOTE | 2017-04-28 11:50 | PN- Housestaff ---
Norma ESCOBAR,Kassandra 04/28/17 1150: Subjective Follow-up For: Left leg recurrent cellulitis Fluctuant left foot swelling Subjective: Patient was seen today. He states that he feels okay but notes some increased pain on the dorsum of his left foot where there is a fluctuant swelling. Otherwise the patient is fine and eating breakfast. Review of Systems Constitutional: Reports: no symptoms. Cardiovascular: Reports: no symptoms. Respiratory: Reports: no symptoms. Skin: Reports: lesions. Objective Last 24 Hrs of Vital Signs/I&O Vital Signs Date Time Temp Pulse Resp B/P B/P Pulse O2 O2 Flow FiO2 Mean Ox Delivery Rate 04/28 1733 102 102/62 04/28 1459 97.9 72 20 94/54 94 Room Air 04/28 1257 103 98/52 04/28 0957 65 108/56 04/28 0957 65 108/56 04/28 0635 97.6 104 20 170/100 95 Room Air 04/28 0609 92 170/100 04/28 0000 94 CPAP 04/27 2250 98.4 93 18 124/84 93 Room Air Intake & Output 04/28 1600 04/28 0800 04/28 0000 Intake Total 700 520 520 Output Total 200 450 500 Balance 500 70 20 Intake, IV 100 120 220 Intake, Oral 600 400 300 Number 2 Bowel Movements Output, Urine 200 450 500 Physical Exam General Appearance: Alert, Oriented X3, Cooperative, No Acute Distress Skin: No Rashes, No Breakdown, Left leg clean and dry wounds with no purulent drainage. Left foot dorsum fluctuant swelling. Skin Temp/Moisture Exam: Warm/Dry Cardiovascular: Normal S1, Normal S2, No Murmurs Lungs: Clear to Auscultation, Normal Air Movement Abdomen: Normal Bowel Sounds, Soft, No Tenderness Neurological: Normal Speech Vascular: Normal Pulses, Pulses Symmetrical Current Medications: Current Medications Sig/Kacie Start time Last Medication Dose Route Stop Time Status Admin Acetaminophen 975 MG Q8P PRN 04/21 2230 AC 04/23 PO 1708 Ampicillin Sodium/ 3,000 MG Q6H 04/25 1500 AC 04/28 Sulbactam Sodium IV 1732 Sodium Chloride 100 ML Apixaban 5 MG BID 04/21 2200 AC 04/28 PO 0957 Bumetanide 2 MG DAILY 04/23 1130 AC 04/28 PO 0956 Diltiazem HCl 30 MG Q6 04/21 1800 AC 04/28 PO 1733 Escitalopram Oxalate 20 MG DAILY 04/22 1036 AC 04/28 PO 0957 Finasteride 5 MG DAILY 04/21 1714 AC 04/28 PO 0957 Losartan Potassium 100 MG DAILY 04/22 1011 AC 04/28 PO 0957 Melatonin 10 MG AT BEDTIME 04/21 2230 AC 04/27 PO 1922 Nystatin 1 KERRI BID 04/28 2200 AC TOP Oxycodone HCl 5 MG Q4-6 PRN PRN 04/22 1045 AC 04/28 PO 0945 Oxycodone/ 1 TAB Q4P PRN 04/22 1015 AC 04/28 Acetaminophen PO 1253 Tamsulosin HCl 0.4 MG DAILY 04/27 1253 AC 04/28 PO 0957 Last 24 Hrs of Lab/Joseph Results Last 24 Hrs of Labs/Mics: Laboratory Tests 04/28/17628: CBC w Diff NO MAN DIFF REQ, RBC 3.52 L, MCV 93.8, MCH 31.5 H, RDW 15.6 H, MPV 7.5, Gran % 63.4, Lymphocytes % 22.0, Monocytes % 10.8 H, Eosinophils % 3.5, Basophils % 0.3, Absolute Granulocytes 8.3 H, Absolute Lymphocytes 2.9, Absolute Monocytes 1.4 H, Absolute Eosinophils 0.5, Absolute Basophils 0, PUBS MCHC 33.6 Microbiology 04/28 1649 EXTREMITIE: Culture & Sensitivity - RECD 04/28 1649 EXTREMITIE: Gram Stain - RECD 04/28 1649 BODY FLUID: Body Fluid Culture - CAN Cancelled: WRONG SOURCE ORDER 04/28 1649 BODY FLUID: Gram Stain - CAN Cancelled: WRONG SOURCE ORDER Assessment/Plan Assessment: Assessment 77-year-old male with pmh of CHF, A. fib, SANDI on CPAP, osteoarthritis, chronic venous stasis changes, chronic bilateral lower extremity edema presented with chief complaints of recurrent cellulitis, with generalized weakness, dizziness and diarrhea following a recent antibiotic exposure. As per the sister, she herself is allergic to Bactrim and other sulfa drugs. Patient is feeling good. Wounds are clean and dry and bandaged. However a left foot dorsum fluctuant swelling was noted. The patient states that he has increased pain there when walking and also on rest. He is currently being managed in the telemetry unit for the following issues: -Left leg cellulitis: -He had a recent I&D on April 19, and culture is growing Staph aureus and strep, no evidence of MRSA -Patient's WBC count has decreased to 13.1 from 14.1. As it is still high we will keep the antibiotics going for one more day and monitor WBC count tomorrow. -As per ID, continue Unasyn 3 g IV every 6 hours -Ultrasound of the leg shows no evidence of clot -CT scan does not show any radiographic evidence of osteomyelitis, no evidence of collection -Pain management: oxycodone changed to q4-6P from q6P hr -Vascular surgery today called podiatry for the swelling on the left foot and podiatry has lysed the lesion and removed pertinent material that was sent for culture. -Follow up wound care notes Left arm swelling persistent. -Likely associated with IV line -Most likely represents a thrombophlebitis associated with the line -May be the cause of his increased white blood cell count today -Patient is on Eliquis and thus we will not do ultrasound to rule out DVT Hypertension -Bumex has been restarted as blood pressure has been stable. Anxiety -Continued escitalopram Fungal infection -Tinea cruris treatment with antifungal. A. fib -Continue Diltiazem and Eliquis for afib. SANDI -Continue CPAP for SANDI. Disposition -Patient will go home with home health services BPH -Patient was not started on Tamsulosin .4mg at admission. Will start now. -Finasteride 5mg UTI -No symptoms -Cultures positive for Proteus and gram-positive cocci with low colony counts. -Unasyn given for the patient's cellulitis likely cover UTI although patient is asymptomatic (thus we would not treat) Elevated glucose -Patient had elevated glucose on intake -Glucose not grossly elevated. Will not follow [facility] HbA1c. Full code. Heart heathy diet. DVT ppx: Eliquis. Problem List: 1. Abscess of left foot excluding toes 2. Open wound of left lower extremity 3. PVD (peripheral vascular disease) Pain Ratin Pain Location: Left foot Pain Goal: Pain 4 or less Pain Plan: Pathway Tomorrow's Labs & Rationales: Yon Howard 04/28/17 1643: Attending MD Review Statement Attending Statement Attending MD Statement: examined this patient, discuss w/resident/PA/HUNTER SKIN DIVER, agreed w/resident/PA/HUNTER SKIN DIVER, reviewed EMR data (avail), discussed with nursing, discussed with case mgmt Attending Assessment/Plan: Pt seen and examined at bedside. D/w pt the care plan. Flucutuating area noticed on left foot dorsum. leg wounds healing. Wbc improving 13.1 d/w vascular surgery- no further workup from their side as of now. WOuld get podiatry consult and see if he will need drainage. d/w pt the care plan. ID following. cont on unasyn.
--- NOTE | 2017-04-28 13:14 | PN- Infect Dx ---
Subjective Subjective: Afebrile. He complains of pain in the left foot. Objective Last 24 Hrs of Vital Signs/I&O Vital Signs Date Time Temp Pulse Resp B/P B/P Pulse O2 O2 Flow FiO2 Mean Ox Delivery Rate 04/28 1257 103 98/52 04/28 0957 65 108/56 04/28 0957 65 108/56 04/28 0635 97.6 104 20 170/100 95 Room Air 04/28 0609 92 170/100 04/28 0000 94 CPAP 04/27 2250 98.4 93 18 124/84 93 Room Air 04/27 1722 88 114/68 04/27 1722 87 114/68 04/27 1511 99.3 86 20 112/62 97 Room Air Intake & Output 04/28 1600 04/28 0800 04/28 0000 Intake Total 520 520 Output Total 450 500 Balance 70 20 Intake, IV 120 220 Intake, Oral 400 300 Output, Urine 450 500 Physical Exam Other Physical Findings: He appears comfortable in no acute distress Extremities left foot swelling, erythema and tenderness, with possible fluctuance; left leg with no erythema or tenderness and with no further drainage from the wounds, which are packed Results Last 24 Hours of Lab Results: Laboratory Tests 04/28 628 Hematology CBC w Diff NO MAN DIFF REQ WBC (4.8 - 10.8 /CUMM) 13.1 H RBC (4.70 - 6.10 /CUMM) 3.52 L Hgb (14.0 - 18.0 G/DL) 11.1 L Hct (42 - 52 %) 33.0 L MCV (80.0 - 94.0 FL) 93.8 MCH (27.0 - 31.0 PG) 31.5 H RDW (11.5 - 14.5 %) 15.6 H Plt Count (130 - 400 /CUMM) 454 H MPV (7.4 - 10.4 FL) 7.5 Gran % (42.2 - 75.2 %) 63.4 Lymphocytes % (20.5 - 51.1 %) 22.0 Monocytes % (1.7 - 9.3 %) 10.8 H Eosinophils % (0 - 5 %) 3.5 Basophils % (0.0 - 2.0 %) 0.3 Absolute Granulocytes (1.4 - 6.5 /CUMM) 8.3 H Absolute Lymphocytes (1.2 - 3.4 /CUMM) 2.9 Absolute Monocytes (0.10 - 0.60 /CUMM) 1.4 H Absolute Eosinophils (0.0 - 0.7 /CUMM) 0.5 Absolute Basophils (0.0 - 0.2 /CUMM) 0 PUBS MCHC (33.0 - 37.0 G/DL) 33.6 Last 24 Hours of Joseph Results: No new cultures Assessment/Plan Impression: Left foot inflammation, which was not noted previously and which may explain his persistent, though decreasing, leukocytosis, particularly as his left leg inflammation appears to have resolved, now Day 7 of Unasyn for a purulent cellulitis of the left leg secondary to MSSA and Group A strep, with temperatures remaining normal. Suggestion: 1. Vascular Surgery or Podiatry evaluation of his left foot for possible I&D 2. Continue Unasyn pending above 3. Continue topical antifungal therapy
[2017-04-28 14:59] VITALS: BP 94/54
--- NOTE | 2017-04-28 17:29 | Cons- Podiatry ---
General Information and HPI Consulting Request Date of Consult: 04/28/17 Requested By: Yon Madrigal MD Reason for Consult: Abscess, left foot Source of Information: patient Exam Limitations: no limitations History of Present Illness: This is a 77-year-old male with multiple medical problems who is admitted for generalized weakness of internal medicine team. He is also a patient of Dr. Haley from the vascular surgery service, who recently performed incision and drainage with additional debridements subsequently on multiple deep wounds of the left leg. Dr. Haley contacted me earlier this afternoon requesting consultation on what appears to be a newly developed collection on the dorsum of the left foot during this admission. The patient was seen and evaluated at bedside, in no apparent distress, afebrile, vital signs stable, and he denied fever, chills, nausea, vomiting, diaphoresis, shortness of breath, and chest pain at the time of my examination. He reported 4 out of 10 pain on the dorsum of the left foot. Allergies/Medications Allergies: Coded Allergies: No Known Allergies (03/11/17) Home Med List: Apixaban (Eliquis) 5 MG TABLET 1 TAB PO BID AFIB (Reported) Bumetanide 2 MG TABLET 1 TAB PO DAILY fluid (Reported) Diltiazem HCl (Diltiazem 24HR ER) 120 MG CAP.ER.24H 1 CAP PO DAILY HEART ( Reported) Escitalopram Oxalate 20 MG TABLET 1 TAB PO DAILY MENTAL HEALTH (Reported) Finasteride (Proscar) 5 MG TABLET 1 TAB PO DAILY BPH (Reported) Glucosa Llamas 2KCL/Chondroitin Llamas (Glucosamine & Chondroitin Cap) 500 MG-400 MG CAPSULE 3 TAB PO DAILY PAIN (Reported) Hydrocodone/Acetaminophen (Vicodin 5-300 MG Tablet) 5 MG-300 MG TABLET 1 TAB PO Q4-6 PRN PAIN (Reported) Losartan Potassium 100 MG TABLET 1 TAB PO DAILY BP (Reported) Meloxicam 7.5 MG TABLET 1 TAB PO DAILY PRN PAIN (Reported) Multivitamin W/Iron, Minerals (Spectravite Senior) 1 EACH TABLET 1 TAB PO DAILY SUPPLEMENT (Reported) Nystatin (Nystop) 100,000 UNIT/GRAM POWDER RASH (Reported) Oxycodone HCl 5 MG CAPSULE 1 CAP PO Q6P pain (Reported) Current Medications: Current Medications Sig/Kacie Start time Last Medication Dose Route Stop Time Status Admin Acetaminophen 975 MG Q8P PRN 04/21 2230 AC 04/23 PO 1708 Ampicillin Sodium/ 3,000 MG Q6H 04/25 1500 AC 04/28 Sulbactam Sodium IV 0956 Sodium Chloride 100 ML Apixaban 5 MG BID 04/21 2200 AC 04/28 PO 0957 Bumetanide 2 MG DAILY 04/23 1130 AC 04/28 PO 0956 Diltiazem HCl 30 MG Q6 04/21 1800 AC 04/28 PO 1257 Escitalopram Oxalate 20 MG DAILY 04/22 1036 AC 04/28 PO 0957 Finasteride 5 MG DAILY 04/21 1714 AC 04/28 PO 0957 Losartan Potassium 100 MG DAILY 04/22 1011 AC 04/28 PO 0957 Melatonin 10 MG AT BEDTIME 04/21 2230 AC 04/27 PO 1922 Nystatin 1 KERRI BID 04/28 2200 AC TOP Oxycodone HCl 5 MG Q4-6 PRN PRN 04/22 1045 AC 04/28 PO 0945 Oxycodone/ 1 TAB Q4P PRN 04/22 1015 AC 04/28 Acetaminophen PO 1253 Tamsulosin HCl 0.4 MG DAILY 04/27 1253 AC 04/28 PO 0957 Past History Medical History Blood Transfusion Hx: No Neurological: NONE EENT: NONE Cardiovascular: AFIB, CHF, chronic venous insuff, hypertension Respiratory: COPD, obstructive sleep apnea Gastrointestinal: NONE Hepatic: NONE Renal: benign prost hyperplasia, nephrolithiasis, KIDNEY STONES Musculoskeletal: osteoarthritis Psychiatric: NONE Endocrine: NONE Blood Disorders: NONE Cancer(s): NONE COMMERCIAL ANALYST/Reproductive: NONE Surgical History Pertinent Surgical History: RT KNEE SX HERNIA REPAIR ROTATOR CUFF LEFT KIDNEY STONE REMOVED LIGAMENT REPAIR BILAT ARM ULNAR NERVE SX Family History Relations & Conditions If Any: FATHER FH: emphysema MOTHER Bone cancer FH: breast cancer Psychosocial History Where Do You Live? Home Smoking Status: Former Smoker Review of Systems Review of Systems: A 14 point review of systems was performed, and was found to be negative apart from the patient's complaints described above in the history of present illness. Review of Systems Constitutional: Denies: see HPI. EENTM: Denies: see HPI. Cardiovascular: Denies: see HPI. Respiratory: Denies: see HPI. GI: Denies: see HPI. Genitourinary: Denies: see HPI. Musculoskeletal: Denies: see HPI. Skin: Denies: see HPI. Neurological/Psychological: Denies: see HPI. Hematologic/Endocrine: Denies: see HPI. Immunologic/Allergic: Denies: see HPI. All Other Systems: Reviewed and Negative Exam & Diagnostic Data Vital Signs and I&O Vital Signs Date Time Temp Pulse Resp B/P B/P Pulse O2 O2 Flow FiO2 Mean Ox Delivery Rate 04/28 1459 97.9 72 20 94/54 94 Room Air 04/28 1257 103 98/52 04/28 0957 65 108/56 04/28 0957 65 108/56 04/28 0635 97.6 104 20 170/100 95 Room Air 04/28 0609 92 170/100 / 0000 94 CPAP 04/27 2250 98.4 93 18 124/84 93 Room Air 04/27 1722 88 114/68 04/27 1722 87 114/68 Intake & Output 04/28 1600 04/28 0800 04/28 0000 04/27 1600 04/27 0800 04/27 0000 Intake Total 520 520 840 150 200 Output Total 176 848 3516 150 Balance 70 20 -910 150 50 Intake, IV 120 220 Intake, Oral 400 300 840 150 200 Number 2 Bowel Movements Output, Urine 682 010 9213 150 Physical Exam: The patient is generalized lymphedema of the entire left side of his body, with +3 pitting edema of the left lower extremity, +1 on the right side. His dorsalis pedis and posterior tibial pulses are weakly palpable, there is total loss of hair growth on both lower extremities, loss of skin turgor on both lower extremities, normal temperature gradient in the right lower extremity, and a decreased temperature gradient of the left lower extremity with diffuse calor from the distal tips of the toes to a few centimeters above the ankle. Capillary refill time is 3 seconds in all 10 toes. Patient has grossly intact sensation. The patient has semirigid hammertoe deformities of the second third fourth and fifth toes bilaterally. The patient has extensive xerosis of both feet. Upon examination there are multiple small surgical wounds on the anterior aspect of the left leg with intact packing and no active drainage upon examination. Upon palpation of the dorsum of the left forefoot at the level of the third and fourth rays near the metatarsal heads, there is a 1.5 cm x 1.3 cm fluctuant mass that is exquisitely painful upon palpation causing the patient to withdraw. Assessment/Plan Assessment/Plan 77-year-old male with multiple medical problems and mixed vascular insufficiency status post incision and drainage of multiple soft tissue abscesses of the left leg, with a new small superficial abscess of the dorsal left forefoot. The patient was seen and evaluated at bedside. A bedside incision and drainage was performed on the new abscess on the dorsum of the left foot, and this will be described in detail and a minor procedure note to be dictated separately. Continue directed antibiotic therapy as before, at this may simply be a manifestation of localization with successful antibiotic therapy. Cultures were taken from the collection after it was drained, and these will be sent for Gram stain and culture and sensitivity. Management of his peripheral vascular conditions will be deferred to the vascular surgery team already on board. And I will follow up on this patient on a daily basis for irrigation and packing until he is no longer draining, at which point outpatient wound care instructions will be formulated. Problem List: 1. Cellulitis of left lower extremity 2. Abscess of left foot excluding toes Other Findings/Comments: Copies To: Eyal Haley MD Consult Acknowledgment - Thank you for your consult request.
--- NOTE | 2017-04-28 17:38 | Procedure ---
Minor Surgical Procedure Note Date of Procedure: 04/28/17 Procedure Note: Bedside procedure note Surgeon: Marcus Pacheco DPM Preprocedure diagnosis: Abscess of left foot Postprocedure diagnosis: Abscess of left foot Procedure: Incision and drainage of left foot under local anesthesia Specimens: Culture and sensitivity and Gram stain taken from left foot using a swab Anesthesia: 12 mL 1% lidocaine plain Hemostasis: None Estimated blood loss: 5 mL Materials: Half-inch plain packing implanted into the stab incision Complications: None Upon signing informed consent at bedside with a witness from the nursing staff, and after proper procedural timeout, the left foot was prepped with a Betadine scrub obtained from the operating room, and using sterile technique 12 mL of 1% lidocaine plain was injected in the form of a V block around the point of maximal tenderness and maximal fluctuance of the abscess on palpation. Using several chucks, the leg was draped out of the field to protect the surgical bandage. Using an 11 blade, a 1 cm stab incision was made parallel to the skin lines over the area of maximal fluctuance, an approximately 6 mL of purulent drainage was found. This was cultured using a swab and sent for culture and sensitivity as well as Gram stain. The connective tissue planes were then expressed in the direction of the stab wounds and an additional 1-2 mL of purulence was also found. A sterile hemostat was also used to spread the incision, and the stab wound was then irrigated with 200 mL of normal saline using a 10 mL syringe and a 20-gauge Angiocath. The wound was impacted using half-inch plain packing. Any associated bleeding during the procedure was easily ceased with manual compression and some sponge gauze. The surgical wound was dressed with sponge gauze, and AVD pad, a roll of Kerlix, and the foot and ankle were dressed gently with a 6 inch Jan bandage. The patient tolerated the procedure well and reported no pain.
--- NOTE | 2017-04-28 18:51 | Patient Discharge Instructions ---
Discharge Instructions General Discharge Information You were seen/treated for: cellulitis groin rash Special Instructions: 1. please follow up with your primary care doctor in 1 week. 2. please follow up in the [facility] wound care center where podiatry/ vascular will follow the wounds. Diet Continue normal diet: Yes Activity Full Activity/No Limits: Yes (as tolerated) Acute Coronary Syndrome Inclusion Criteria At DC or during hospital stay patient has or had the following: ACS DIAGNOSIS No Discharge Core Measures Meds if any: Prescribed or Continued at Discharge Meds if any: NOT Prescribed or Continued at Discharge Congestive Heart Failure Inclusion Criteria At DC or during hospital stay patient has or had the following: CHF DIAGNOSIS No Discharge Core Measures Meds if any: Prescribed or Continued at Discharge Meds if any: NOT Prescribed or Continued at Discharge Cerebrovascular accident Inclusion Criteria At DC or during hospital stay patient has or had the following: CVA/TIA Diagnosis No Discharge Core Measures Meds if any: Prescribed or Continued at Discharge Meds if any: NOT Prescribed or Continued at Discharge Venous thromboembolism Inclusion Criteria VTE Diagnosis No VTE Type NONE VTE Confirmed by (Test) NONE Discharge Core Measures - Per Current guidelines, there needs to be overlap - treatment for the first 5 days of Warfarin therapy. - If discharged on Warfarin prior to 5 days of - overlap therapy, the patient will need to be - assessed for post discharge needs including - *Post discharge parental anticoagulation - *Warfarin and/or parental anticoagulation education - *Follow up date to check INR post discharge At least 5 days overlap therapy as Inpatient No Meds if any: Prescribed or Continued at Discharge Note: Overlap Therapy is Warfarin and Anticoagulant Meds if any: NOT Prescribed or Continued at Discharge
[2017-04-28 22:34] VITALS: BP 110/70
[2017-04-29 07:42] VITALS: BP 102/70
[2017-04-29 08:13] LABS: ABSOLUTE BASOPHIL COUNT 0 /CUMM (0.0-0.2); ABSOLUTE EOSINOPHIL COUNT 0.3 /CUMM (0.0-0.7); ABSOLUTE GRANULOCYTE CT 7.1 /CUMM (1.4-6.5); ABSOLUTE LYMPH COUNT 2.9 /CUMM (1.2-3.4); ABSOLUTE MONOCYTE COUNT 1.5 /CUMM (0.10-0.60); BASOPHIL % 0.4 % (0.0-2.0); EOSINOPHIL % 2.5 % (0-5); GRANULOCYTE % 60.1 % (42.2-75.2); HEMATOCRIT 32.2 % (42-52); MEAN CORPUSCULAR HGB CONC 33.2 G/DL (33.0-37.0); MEAN CORPUSCULAR VOLUME 93.2 FL (80.0-94.0); MEAN PLATELET VOLUME 7.5 FL (7.4-10.4); PLATELET COUNT 418 /CUMM (130-400); RBC DISTRIBUTION WIDTH 14.9 % (11.5-14.5); RED BLOOD CELL CT 3.46 /CUMM (4.70-6.10); WHITE BLOOD CELL COUNT 11.8 /CUMM (4.8-10.8)
--- NOTE | 2017-04-29 08:36 | PN- Housestaff ---
See Addendum Subjective Follow-up For: Left leg recurrent cellulitis Fluctuant left foot swelling Tele-Events Since Last Visit: No overnight acute events. Subjective: Patient is seen and examined. Resting comfortably. Offers no complaints. Denies pain, shortness of breath chest pain fevers and chills. Review of Systems Constitutional: Reports: see HPI. Objective Last 24 Hrs of Vital Signs/I&O Vital Signs Date Time Temp Pulse Resp B/P B/P Pulse O2 O2 Flow FiO2 Mean Ox Delivery Rate 04/29 1126 110/62 / 0935 76 102/70 / 0742 97.6 76 20 102/70 93 / 0623 86 110/78 / 0043 97 134/76 04/29 0000 CPAP 04/28 2234 98.7 88 20 110/70 95 04/28 1733 102 102/62 04/28 1459 97.9 72 20 94/54 94 Room Air 04/28 1257 103 98/52 Intake & Output 04/29 1600 04/29 0800 04/29 0000 Intake Total 320 860 Output Total 500 400 Balance -180 460 Intake, IV 200 Intake, Oral 120 860 Number 1 Bowel Movements Output, Urine 500 400 Physical Exam General Appearance: Alert, Oriented X3 Extremities: left leg wrapped in dressing, s/p i&D Current Medications: Current Medications Sig/Kacie Start time Last Medication Dose Route Stop Time Status Admin Acetaminophen 975 MG Q8P PRN 04/21 2230 AC 04/23 PO 1708 Ampicillin Sodium/ 3,000 MG Q6H 04/25 1500 AC 04/29 Sulbactam Sodium IV 0936 Sodium Chloride 100 ML Apixaban 5 MG BID 04/21 2200 AC 04/29 PO 0934 Bumetanide 2 MG DAILY 04/23 1130 AC 04/29 PO 0935 Diltiazem HCl 30 MG Q6 04/21 1800 AC 04/29 PO 0623 Escitalopram Oxalate 20 MG DAILY 04/22 1036 AC 04/29 PO 0934 Finasteride 5 MG DAILY 04/21 1714 AC 04/29 PO 0934 Losartan Potassium 100 MG DAILY 04/22 1011 AC 04/28 PO 0957 Melatonin 10 MG AT BEDTIME 04/21 2230 AC 04/29 PO 0042 Nystatin 1 KERRI BID 04/28 2200 AC 04/29 TOP 0935 Oxycodone HCl 5 MG Q4-6 PRN PRN 04/22 1045 AC 04/29 PO 0935 Oxycodone/ 1 TAB Q4P PRN 04/22 1015 AC 04/29 Acetaminophen PO 0225 Tamsulosin HCl 0.4 MG DAILY 04/27 1253 AC 04/29 PO 0935 Last 24 Hrs of Lab/Joseph Results Last 24 Hrs of Labs/Mics: Laboratory Tests 04/29/17626: CBC w Diff NO MAN DIFF REQ, RBC 3.46 L, MCV 93.2, MCH 31.0, RDW 14.9 H, MPV 7.5, Gran % 60.1, Lymphocytes % 24.6, Monocytes % 12.4 H, Eosinophils % 2.5, Basophils % 0.4, Absolute Granulocytes 7.1 H, Absolute Lymphocytes 2.9, Absolute Monocytes 1.5 H, Absolute Eosinophils 0.3, Absolute Basophils 0, PUBS MCHC 33.2 Microbiology 04/28 1649 EXTREMITIE: Culture & Sensitivity - RES 04/28 1649 EXTREMITIE: Gram Stain - RES 04/28 1649 BODY FLUID: Body Fluid Culture - CAN Cancelled: WRONG SOURCE ORDER 04/28 1649 BODY FLUID: Gram Stain - CAN Cancelled: WRONG SOURCE ORDER Assessment/Plan Assessment: Assessment 77-year-old male with pmh of CHF, A. fib, SANDI on CPAP, osteoarthritis, chronic venous stasis changes, chronic bilateral lower extremity edema presented with chief complaints of recurrent cellulitis, with generalized weakness, dizziness and diarrhea following a recent antibiotic exposure. As per the sister, she herself is allergic to Bactrim and other sulfa drugs. Patient is feeling good. Wounds are clean and dry and bandaged. However a left foot dorsum fluctuant swelling was noted. The patient states that he has increased pain there when walking and also on rest. He is currently being managed in the telemetry unit for the following issues: -Left leg cellulitis: Patient remained afebrile with white count trending down. Patient is status post incision and drainage performed on the new abscess on the dorsum of the left foot Cultures were taken from the collection * Follow up cultures no growth so far * Continue Unasyn * Irrigation and packing until no drainge as per podiatry * Pain management: oxycodone changed to q4-6P from q6P hr Left arm swelling persistent. -Likely associated with IV line -Most likely represents a thrombophlebitis associated with the line -May be the cause of his increased white blood cell count today -Patient is on Eliquis and thus we will not do ultrasound to rule out DVT Hypertension -Bumex has been restarted as blood pressure has been stable. Anxiety -Continued escitalopram Fungal infection -Tinea cruris treatment with antifungal. A. fib -Continue Diltiazem and Eliquis for afib. SANDI -Continue CPAP for SANDI. Disposition -Patient will go home with home health services BPH -Patient was not started on Tamsulosin .4mg at admission. Will start now. -Finasteride 5mg UTI -No symptoms -Cultures positive for Proteus and gram-positive cocci with low colony counts. -Unasyn given for the patient's cellulitis likely cover UTI although patient is asymptomatic (thus we would not treat) Elevated glucose -Patient had elevated glucose on intake -Glucose not grossly elevated. Will not follow [facility] HbA1c. Full code. Heart heathy diet. DVT ppx: Eliquis. Problem List: 1. Abscess of left foot excluding toes Pain Ratin Pain Location: left foot Pain Goal: Pain 4 or less Pain Plan: prn Tomorrow's Labs & Rationales: cbc bep
[2017-04-29 11:26] VITALS: BP 110/62
[2017-04-29 15:26] VITALS: BP 102/60
--- NOTE | 2017-04-29 17:49 | PN- Podiatry ---
Subjective Subjective: 77-year-old male with multiple medical problems seen and evaluated at bedside postprocedure day 1 bedside incision and drainage of the left foot to drain an abscess. Patient reports moderate pain at the site, but only intermittently and reports that his current pain medication alleviates it without incident. Patient denies fever, chills, nausea, vomiting, diaphoresis, shortness of breath , and chest pain at the time of my examination. Review of Systems: A 14 point review of systems was performed, and was found to be negative apart from the patient's complaints described above in the history of present illness. Objective Vital Signs and I&Os Vital Signs Date Time Temp Pulse Resp B/P B/P Pulse O2 O2 Flow FiO2 Mean Ox Delivery Rate 04/29 1530 95 102/60 04/29 1526 98.1 86 20 102/60 94 Room Air 04/29 1126 110/62 04/29 1000 76 102/70 04/29 0935 76 102/70 04/29 0742 97.6 76 20 102/70 93 04/29 0623 86 110/78 04/29 0043 97 134/76 04/29 0000 CPAP 04/28 2234 98.7 88 20 110/70 95 Intake & Output 04/29 1600 04/29 0800 04/29 0000 04/28 1600 04/28 0800 04/28 0000 Intake Total 1160 320 860 700 520 520 Output Total 1500 500 400 200 450 500 Balance -340 -180 460 500 70 20 Intake, IV 200 200 100 120 220 Intake, Oral 960 120 860 600 400 300 Number 4 2 Bowel Movements Output, Urine 1500 500 400 200 450 500 Physical Exam: The procedure site is clean dry and intact, with scant purulence and serous drainage upon expression. The surrounding erythema has significantly decreased, and the focal edema is nearly resolved with return of skin lines. The remainder of his foot examination is unchanged from yesterday's initial exam. Assessment/Plan Assessment/Plan 77-year-old male with multiple medical problems doing well status post bedside incision and drainage of the left foot to drain a superficial abscess. The patient was seen and evaluated at bedside. The procedure site was irrigated with 100 mL of normal saline and a sterile syringe, and packed again with half- inch plain packing. The patient tolerated this with mild transient pain and no complaints. We will follow-up the cultures taken during yesterday's procedure. He has no weightbearing restrictions from a podiatry standpoint, and I see no need to alter his antibiotic therapy at this time. Patient appears to be incrementally improving both with the surgical management by the vascular surgery team as well as my own beginning yesterday. I will visit the patient again Monday, and if he is no longer draining I will cease packing the wound and formulate final wound care recommendations upon discharge. I'm available for further discussion on this consultation at .
[2017-04-29 22:17] VITALS: BP 110/60
[2017-04-30 07:06] VITALS: BP 116/74
--- NOTE | 2017-04-30 07:10 | RADIOLOGY REPORT ---
EXAMINATION: XR FOOT, LEFT CLINICAL INFORMATION: Superficial abscess. Question osteomyelitis. COMPARISON: July 22, 2014 TECHNIQUE: AP, lateral, and oblique views of the left foot. FINDINGS: There is soft tissue swelling about the dorsum of the metatarsals with some gas within the soft tissues. No radiopaque foreign body. No acute fracture is evident. There is some degree of osteopenia about the lateral aspect of the fourth metatarsal head with ill-defined cortex. The joint space is maintained. There is also question of osteopenia with poorly seen cortex involving the medial head of the distal fifth metatarsal. Metatarsophalangeal joint is maintained. No definite periostitis is appreciated. There is questionable old healed distal fifth metatarsal fracture. Vascular calcifications are present. Calcaneal plantar spur seen. IMPRESSION: No acute fracture identified. Large amount of soft tissue swelling seen overlying the dorsum of the metatarsals. Osteopenia with some erosive change involving the fourth and fifth metatarsal heads. Osteomyelitis not excluded. MRI may be of help in further evaluation if clinically indicated.
[2017-04-30 07:48] LABS: ABSOLUTE BASOPHIL COUNT 0 /CUMM (0.0-0.2); ABSOLUTE EOSINOPHIL COUNT 0.2 /CUMM (0.0-0.7); ABSOLUTE GRANULOCYTE CT 8.4 /CUMM (1.4-6.5); ABSOLUTE LYMPH COUNT 2.8 /CUMM (1.2-3.4); ABSOLUTE MONOCYTE COUNT 1.7 /CUMM (0.10-0.60); BASOPHIL % 0.4 % (0.0-2.0); EOSINOPHIL % 1.5 % (0-5); HEMATOCRIT 32.7 % (42-52); MEAN CORPUSCULAR HGB 31.5 PG (27.0-31.0); MEAN CORPUSCULAR HGB CONC 33.7 G/DL (33.0-37.0); MEAN CORPUSCULAR VOLUME 93.5 FL (80.0-94.0); MEAN PLATELET VOLUME 7.5 FL (7.4-10.4); PLATELET COUNT 410 /CUMM (130-400); RBC DISTRIBUTION WIDTH 14.8 % (11.5-14.5); WHITE BLOOD CELL COUNT 13.2 /CUMM (4.8-10.8)
--- NOTE | 2017-04-30 09:11 | PN- Infect Dx ---
Subjective Subjective: Afebrile. He feels improved with no complaints of pain in the left foot or left leg. Objective Last 24 Hrs of Vital Signs/I&O Vital Signs Date Time Temp Pulse Resp B/P B/P Pulse O2 O2 Flow FiO2 Mean Ox Delivery Rate 04/30 07 98.0 91 18 116/74 95 Room Air 04/30 0639 110 110/60 04/30 0118 103 92 04/30 0107 86 110/60 04/30 0000 Room Air 04/29 2330 114 96 04/29 2217 98.0 74 18 110/60 95 04/29 1530 95 102/60 04/29 1526 98.1 86 20 102/60 94 Room Air 04/29 1126 110/62 04/29 1000 76 102/70 04/29 0935 76 102/70 Intake & Output 04/30 1600 04/30 0800 04/30 0000 Intake Total 440 700 Output Total 650 1275 Balance -210 -575 Intake, IV 140 100 Intake, Oral 300 600 Output, Urine 650 1275 Physical Exam Other Physical Findings: He appears comfortable in no acute distress Extremities left foot and leg dressing intact Results Last 24 Hours of Lab Results: Laboratory Tests 04/30 639 Chemistry Sodium (137 - 145 mmol/L) 134 L Potassium (3.5 - 5.1 mmol/L) 4.1 Chloride (98 - 107 mmol/L) 98 Carbon Dioxide (22 - 30 mmol/L) 28 Anion Gap (5 - 16) 8 BUN (9 - 20 mg/dL) 20 Creatinine (0.7 - 1.2 mg/dL) 0.8 Estimated GFR (>60 ml/min) > 60 BUN/Creatinine Ratio (7 - 25 %) 25.0 Hematology CBC w Diff NO MAN DIFF REQ WBC (4.8 - 10.8 /CUMM) 13.2 H RBC (4.70 - 6.10 /CUMM) 3.50 L Hgb (14.0 - 18.0 G/DL) 11.0 L Hct (42 - 52 %) 32.7 L MCV (80.0 - 94.0 FL) 93.5 MCH (27.0 - 31.0 PG) 31.5 H RDW (11.5 - 14.5 %) 14.8 H Plt Count (130 - 400 /CUMM) 410 H MPV (7.4 - 10.4 FL) 7.5 Gran % (42.2 - 75.2 %) 64.0 Lymphocytes % (20.5 - 51.1 %) 21.5 Monocytes % (1.7 - 9.3 %) 12.6 H Eosinophils % (0 - 5 %) 1.5 Basophils % (0.0 - 2.0 %) 0.4 Absolute Granulocytes (1.4 - 6.5 /CUMM) 8.4 H Absolute Lymphocytes (1.2 - 3.4 /CUMM) 2.8 Absolute Monocytes (0.10 - 0.60 /CUMM) 1.7 H Absolute Eosinophils (0.0 - 0.7 /CUMM) 0.2 Absolute Basophils (0.0 - 0.2 /CUMM) 0 PUBS MCHC (33.0 - 37.0 G/DL) 33.7 Last 24 Hours of Jospeh Results: Left foot culture April 28 no growth, with gram stain revealing many white blood cells and few gram-positive cocci Recent Imaging Studies: X-ray of the left foot April 29 reveals a large amount of soft tissue swelling; osteopenia with some erosive changes involving the fourth and fifth metatarsal heads Assessment/Plan Impression: Improved, with temperatures remaining normal and with decreased pain in the left foot and leg status post I&D of an abscess over the dorsum of the left foot 2 days ago, but his white blood cell count has increased compared to yesterday for unclear reasons. He remains on Unasyn now Day 9 of treatment for a purulent cellulitis of the left leg secondary to MSSA and Group A strep. The x-ray changes involving the fourth and fifth metatarsal heads are of unclear significance, with osteomyelitis possible but unlikely. Suggestion: 1. Further management of his left foot wound per Podiatry 2. Continue Unasyn
--- NOTE | 2017-04-30 11:18 | PN- Housestaff ---
Norma ESCOBAR,Kassandra 04/30/17 1118: Subjective Follow-up For: Left leg recurrent cellulitis Subjective: Patient was seen and examined. He states that his left leg pain has decreased. He is eager to go home. He notes a mild occipital headache. Review of Systems Constitutional: Reports: no symptoms. Cardiovascular: Reports: no symptoms. Respiratory: Reports: no symptoms. Gastrointestinal: Reports: no symptoms. Musculoskeletal: Reports: back pain. Objective Last 24 Hrs of Vital Signs/I&O Vital Signs Date Time Temp Pulse Resp B/P B/P Pulse O2 O2 Flow FiO2 Mean Ox Delivery Rate 04/30 1415 90 98/60 04/30 1400 98.8 110 20 100/60 94 04/30 0950 90 116/74 04/30 0950 90 116/74 04/30 0918 Room Air 04/30 0706 98.0 91 18 116/74 95 Room Air 04/30 0639 110 110/60 04/30 0118 103 92 04/30 0107 86 110/60 04/30 0000 Room Air 04/29 2330 114 96 04/29 2217 98.0 74 18 110/60 95 Intake & Output 04/30 1600 04/30 0800 04/30 0000 Intake Total 500 440 700 Output Total 650 1275 Balance 500 -210 -575 Intake, IV 140 100 Intake, Oral 500 300 600 Number 1 Bowel Movements Output, Urine 650 1275 Physical Exam General Appearance: Alert, Oriented X3, Cooperative, No Acute Distress Skin: No Rashes Skin Temp/Moisture Exam: Warm/Dry Cardiovascular: Normal S1, Normal S2, No Murmurs Lungs: Clear to Auscultation, Normal Air Movement Abdomen: Normal Bowel Sounds, Soft, No Tenderness Neurological: Normal Speech Extremities: No Clubbing, No Cyanosis, Normal Pulses Current Medications: Current Medications Sig/Kacie Start time Last Medication Dose Route Stop Time Status Admin Acetaminophen 975 MG Q8P PRN 04/21 2230 AC 04/23 PO 1708 Ampicillin Sodium/ 3,000 MG Q6H 04/25 1500 AC 04/30 Sulbactam Sodium IV 1628 Sodium Chloride 100 ML Apixaban 5 MG BID 04/21 2200 AC 04/30 PO 0950 Bumetanide 2 MG DAILY 04/23 1130 AC 04/30 PO 0949 Diltiazem HCl 30 MG Q6 04/21 1800 AC 04/30 PO 1415 Escitalopram Oxalate 20 MG DAILY 04/22 1036 AC 04/30 PO 0950 Finasteride 5 MG DAILY 04/21 1714 AC 04/30 PO 0950 Losartan Potassium 100 MG DAILY 04/22 1011 AC 04/30 PO 0950 Melatonin 10 MG AT BEDTIME 04/21 2230 AC 04/29 PO 2113 Nystatin 1 KERRI BID 04/28 2200 AC 04/30 TOP 0950 Oxycodone HCl 5 MG Q4-6 PRN PRN 04/22 1045 AC 04/30 PO 1628 Oxycodone/ 1 TAB Q4P PRN 04/22 1015 AC 04/30 Acetaminophen PO 1423 Tamsulosin HCl 0.4 MG DAILY 04/27 1253 AC 04/30 PO 0950 Last 24 Hrs of Lab/Joseph Results Last 24 Hrs of Labs/Mics: Laboratory Tests 04/30/17 0640: Anion Gap 8, Estimated GFR > 60, BUN/Creatinine Ratio 25.0, CBC w Diff NO MAN DIFF REQ, RBC 3.50 L, MCV 93.5, MCH 31.5 H, RDW 14.8 H, MPV 7.5, Gran % 64.0, Lymphocytes % 21.5, Monocytes % 12.6 H, Eosinophils % 1.5, Basophils % 0.4, Absolute Granulocytes 8.4 H, Absolute Lymphocytes 2.8, Absolute Monocytes 1.7 H, Absolute Eosinophils 0.2, Absolute Basophils 0, PUBS MCHC 33.7 Assessment/Plan Assessment: Assessment 77-year-old male with pmh of CHF, A. fib, SANDI on CPAP, osteoarthritis, chronic venous stasis changes, chronic bilateral lower extremity edema presented with chief complaints of recurrent cellulitis, with generalized weakness, dizziness and diarrhea following a recent antibiotic exposure. As per the sister, she herself is allergic to Bactrim and other sulfa drugs. Patient is feeling good. Wounds are clean and dry and bandaged. Patient is status post incision and drainage performed on the new abscess on the dorsum of the left foot Cultures were taken from the collection. He is currently being managed in the telemetry unit for the following issues: -Left leg cellulitis: Patient remained afebrile with white count trending down. Patient is status post incision and drainage performed on the new abscess on the dorsum of the left foot Cultures were taken from the collection. * Follow up cultures no growth so far * Continue Unasyn * Continue wound care * White blood cell count increased from 11.8-13.2 today. We will continue to follow. * Pain management: oxycodone changed to q4-6P from q6P hr Left arm swelling persistent. -Likely associated with IV line -Most likely represents a thrombophlebitis associated with the line -May be the cause of his increased white blood cell count today -Patient is on Eliquis and thus we will not do ultrasound to rule out DVT Hypertension -Bumex has been restarted as blood pressure has been stable. Anxiety -Continued escitalopram Fungal infection -Tinea cruris treatment with antifungal. A. fib -Continue Diltiazem and Eliquis for afib. SANDI -Continue CPAP for SANDI. Disposition -Patient will go home with home health services BPH -Patient was not started on Tamsulosin .4mg at admission. Will start now. -Finasteride 5mg UTI -No symptoms -Cultures positive for Proteus and gram-positive cocci with low colony counts. -Unasyn given for the patient's cellulitis likely cover UTI although patient is asymptomatic (thus we would not treat) Elevated glucose -Patient had elevated glucose on intake -Glucose not grossly elevated. Will not follow [facility] HbA1c. Full code. Heart heathy diet. DVT ppx: Eliquis. Problem List: 1. Abscess of left foot excluding toes 2. Weakness 3. Tinea cruris 4. Open wound of left lower extremity 5. PVD (peripheral vascular disease) 6. CHF (congestive heart failure) 7. Atrial fibrillation Pain Ratin Pain Location: Lower left foot Pain Goal: Pain 4 or less Pain Plan: Pathway Tomorrow's Labs & Rationales: ELIZABETH Robin Tubbs 04/30/17 1347: Attending MD Review Statement Attending Statement Attending MD Statement: examined this patient, discuss w/resident/PA/TELECOMMUNICATIONS ADMINISTRATOR, agreed w/resident/PA/TELECOMMUNICATIONS ADMINISTRATOR, discussed with family, reviewed EMR data (avail), discussed with nursing, discussed with case mgmt, reviewed images, amended to note Attending Assessment/Plan: Pt seen and examined at bedside. No new complaints, patient had bedside incision and drainage by podiatry. leg wounds healing. Wbc noted. d/w vascular surgery- no further workup from their side as of now. d/w pt the care plan. ID following. cont on unasyn. f/u podiatry and wound cultures. cont current care.. follow podiatry and ID for dc planning.
[2017-04-30 14:00] VITALS: BP 100/60
[2017-04-30 22:38] VITALS: BP 94/58
[2017-05-01 06:26] VITALS: BP 100/70
[2017-05-01 08:04] LABS: ABSOLUTE BASOPHIL COUNT 0.1 /CUMM (0.0-0.2); ABSOLUTE EOSINOPHIL COUNT 0.3 /CUMM (0.0-0.7); ABSOLUTE GRANULOCYTE CT 9.4 /CUMM (1.4-6.5); ABSOLUTE LYMPH COUNT 3.1 /CUMM (1.2-3.4); ABSOLUTE MONOCYTE COUNT 1.6 /CUMM (0.10-0.60); BASOPHIL % 0.4 % (0.0-2.0); EOSINOPHIL % 1.8 % (0-5); GRANULOCYTE % 65.2 % (42.2-75.2); MEAN CORPUSCULAR HGB 31.2 PG (27.0-31.0); MEAN CORPUSCULAR HGB CONC 33.5 G/DL (33.0-37.0); MEAN CORPUSCULAR VOLUME 93.3 FL (80.0-94.0); MEAN PLATELET VOLUME 7.5 FL (7.4-10.4); PLATELET COUNT 430 /CUMM (130-400); RBC DISTRIBUTION WIDTH 15.3 % (11.5-14.5); RED BLOOD CELL CT 3.53 /CUMM (4.70-6.10); WHITE BLOOD CELL COUNT 14.4 /CUMM (4.8-10.8)
--- NOTE | 2017-05-01 10:24 | PN- Housestaff ---
Kassandra Green MD 05/01/17 1024: Subjective Follow-up For: Left leg recurrent cellulitis Tele-Events Since Last Visit: Lon bridges/Jovita flutter -88 Subjective: Patient seen and examined. He states that he is feeling the same as yesterday. He continues to have pain in his left foot. He had abscess drainage on Monday. Review of Systems Constitutional: Reports: weakness. EENTM: Reports: no symptoms. Cardiovascular: Reports: no symptoms. Respiratory: Reports: no symptoms. Gastrointestinal: Reports: no symptoms. Genitourinary: Reports: no symptoms. Musculoskeletal: Reports: no symptoms. Skin: Reports: lesions. Neurological/Psychological: Reports: no symptoms. Hematologic/Endocrine: Reports: no symptoms. Immunologic/Allergic: Reports: no symptoms. Objective Last 24 Hrs of Vital Signs/I&O Vital Signs Date Time Temp Pulse Resp B/P B/P Pulse O2 O2 Flow FiO2 Mean Ox Delivery Rate 05/01 1501 98.8 80 20 104/66 93 Room Air 05/01 1204 89 100/70 05/01 0900 Room Air 05/01 0856 89 100/70 05/01 0854 89 100/70 05/01 0626 98.3 89 20 100/70 93 Room Air 05/01 0539 81 100/70 05/01 0232 81 93 05/01 0000 Room Air 04/30 2345 88 102/60 04/30 2238 99.3 80 20 94/58 94 Room Air 04/30 2203 96 95 04/30 1910 81 100/68 Intake & Output 05/01 1600 08 0800 05/01 0000 Intake Total 700 370 370 Output Total 1000 300 150 Balance -300 70 220 Intake, IV 100 130 130 Intake, Oral 600 240 240 Number 2 0 1 Bowel Movements Output, Urine 1000 300 150 Physical Exam General Appearance: Alert, Oriented X3, Cooperative, No Acute Distress Skin: No Rashes, left foot and laguna wounds, clean and dry and bandaged Skin Temp/Moisture Exam: Warm/Dry Sepsis Skin Exam (color): Normal for Ethnicity HEENT: Atraumatic Neck: Supple, No JVD Cardiovascular: Normal S1, Normal S2, No Murmurs Lungs: Clear to Auscultation, Normal Air Movement Abdomen: Normal Bowel Sounds Neurological: Normal Speech Extremities: No Clubbing, No Cyanosis, Normal Pulses Vascular: Normal Pulses, Pulses Symmetrical Current Medications: Current Medications Sig/Kacie Start time Last Medication Dose Route Stop Time Status Admin Acetaminophen 975 MG Q8P PRN 04/21 2230 AC 04/23 PO 1708 Ampicillin Sodium/ 3,000 MG Q6H 04/25 1500 AC 05/01 Sulbactam Sodium IV 0852 Sodium Chloride 100 ML Apixaban 5 MG BID 04/21 2200 AC 05/01 PO 0857 Bumetanide 2 MG DAILY 04/23 1130 AC 05/01 PO 0852 Diltiazem HCl 30 MG Q6 04/21 1800 AC 05/01 PO 1204 Escitalopram Oxalate 20 MG DAILY 04/22 1036 AC 05/01 PO 0853 Finasteride 5 MG DAILY 04/21 1714 AC 05/01 PO 0854 Losartan Potassium 100 MG DAILY 04/22 1011 AC 05/01 PO 0854 Melatonin 10 MG AT BEDTIME 04/21 2230 AC 04/30 PO 2104 Nystatin 1 KERRI BID 04/28 2200 AC 04/30 TOP 2104 Oxycodone HCl 5 MG Q4-6 PRN PRN 04/22 1045 AC 04/30 PO 2104 Oxycodone/ 1 TAB Q4P PRN 04/22 1015 AC 05/01 Acetaminophen PO 1204 Tamsulosin HCl 0.4 MG DAILY 04/27 1253 AC 05/01 PO 0856 Last 24 Hrs of Lab/Joseph Results Last 24 Hrs of Labs/Mics: Laboratory Tests 05/01/17 0605: CBC w Diff NO MAN DIFF REQ, RBC 3.53 L, MCV 93.3, MCH 31.2 H, RDW 15.3 H, MPV 7.5, Gran % 65.2, Lymphocytes % 21.2, Monocytes % 11.4 H, Eosinophils % 1.8, Basophils % 0.4, Absolute Granulocytes 9.4 H, Absolute Lymphocytes 3.1, Absolute Monocytes 1.6 H, Absolute Eosinophils 0.3, Absolute Basophils 0.1, PUBS MCHC 33.5 Assessment/Plan Assessment: Assessment 77-year-old male with pmh of CHF, A. fib, SANDI on CPAP, osteoarthritis, chronic venous stasis changes, chronic bilateral lower extremity edema presented with chief complaints of recurrent cellulitis, with generalized weakness, dizziness and diarrhea following a recent antibiotic exposure. As per the sister, she herself is allergic to Bactrim and other sulfa drugs. Patient is feeling good. Wounds are clean and dry and bandaged. Patient is status post incision and drainage performed on the new abscess on the dorsum of the left foot Cultures were taken from the collection. He is currently being managed in the telemetry unit for the following issues: -Left leg cellulitis and persistently elevated white blood cell count: Patient remained afebrile with white count trending down. Patient is status post incision and drainage performed on the new abscess on the dorsum of the left foot. Cultures were taken from the collection. Surgical cultures from April 19 before his admission showed positive MSSA and strep. * Cultures from Monday abscess drainage showed many white blood cells and gram- positive cocci with no growth in the culture most likely secondary to antibiotic coverage. * Continue Unasyn * Continue wound care * White blood cell count increased from 11.8-14.4 over the last 2 days. We will continue to follow. * Pain management: oxycodone changed to q4-6P from q6P hr * Foot x-ray from April 29 showed a large amount of tissue swelling seen overlying the dorsum of the metatarsals. It could not exclude osteomyelitis which would require MRI. * As per infectious disease, the patient has had no urinary symptoms and no flank pain or tenderness to suggest a urinary source; nevertheless given his history of nephrolithiasis and persistent leukocytosis, further evaluation for a urologic process may need to be considered. * Ordered a CT of the abdomen and pelvis with contrast. * Consider MRI of the left foot to rule out osteomyelitis. Left arm swelling, mostly resolved -Likely associated with IV line -Most likely represents a thrombophlebitis associated with the line -May be the cause of his increased white blood cell count today -Patient is on Eliquis and thus we will not do ultrasound to rule out DVT Hypertension -Bumex has been restarted as blood pressure has been stable. Anxiety -Continued escitalopram Fungal infection -Tinea cruris treatment with antifungal. A. fib -Continue Diltiazem and Eliquis for afib. SANDI -Continue CPAP for SANDI. Disposition -Patient will go home with home health services BPH -Patient was not started on Tamsulosin .4mg at admission. Will start now. -Finasteride 5mg UTI -No symptoms -Cultures positive for Proteus and gram-positive cocci with low colony counts. -Unasyn given for the patient's cellulitis likely cover UTI although patient is asymptomatic (thus we would not treat) Full code. Heart heathy diet. DVT ppx: Eliquis. Problem List: 1. Abscess of left foot excluding toes 2. Weakness 3. Open wound of left lower extremity 4. PVD (peripheral vascular disease) 5. CHF (congestive heart failure) 6. Tinea cruris Pain Ratin Pain Location: Left foot and laguna Pain Goal: Pain 4 or less Pain Plan: As needed Tomorrow's Labs & Rationales: CBC and BEP MadrigalCollins watsonlouisa 05/01/17 1524: Attending MD Review Statement Attending Statement Attending MD Statement: examined this patient, discuss w/resident/PA/CORE COMPOSER FEEDER, agreed w/resident/PA/CORE COMPOSER FEEDER, reviewed EMR data (avail), discussed with nursing, discussed with case mgmt Attending Assessment/Plan: Pt seen and examined. Left leg cellulitis/ abscess s/p I & D. Left foot collection/ abscess s/p I & D- cont on iv unasyn per ID recommendations. WBC persistently mildly high. ID recommending getting CT abdomen and pelvis to r/o any other causes for high wbc count. If negative. will consider getting MRI of the left feet to r/ o osteomyelitis d/w pt the care plan.
--- NOTE | 2017-05-01 12:07 | PN- Infect Dx ---
Subjective Subjective: Afebrile. He feels improved with minimal pain in the left foot and leg. Objective Last 24 Hrs of Vital Signs/I&O Vital Signs Date Time Temp Pulse Resp B/P B/P Pulse O2 O2 Flow FiO2 Mean Ox Delivery Rate 05/01 0856 89 100/70 05/01 0854 89 100/70 05/01 0626 98.3 89 20 100/70 93 Room Air 05/01 0539 81 100/70 05/01 0232 81 93 05/01 0000 Room Air 04/30 2345 88 102/60 04/30 2238 99.3 80 20 94/58 94 Room Air 04/30 2203 96 95 04/30 1910 81 100/68 04/30 1415 90 98/60 04/30 1400 98.8 110 20 100/60 94 Intake & Output 05/01 1600 05/01 0800 05/01 0000 Intake Total 370 370 Output Total 300 150 Balance 70 220 Intake, IV 130 130 Intake, Oral 240 240 Number 0 1 Bowel Movements Output, Urine 300 150 Physical Exam Other Physical Findings: He appears comfortable in no acute distress Lungs are clear Heart regular rhythm with no murmur Abdomen is soft, nontender with positive bowel sounds Back no CVA tenderness Extremities left leg with minimal erythema; wounds with packing in place with no purulent drainage; left foot with decreased swelling, erythema and tenderness, with no drainage expressible from his wound; left knee swelling unchanged Results Last 24 Hours of Lab Results: Laboratory Tests 05/01 604 Hematology CBC w Diff NO MAN DIFF REQ WBC (4.8 - 10.8 /CUMM) 14.4 H RBC (4.70 - 6.10 /CUMM) 3.53 L Hgb (14.0 - 18.0 G/DL) 11.0 L Hct (42 - 52 %) 33.0 L MCV (80.0 - 94.0 FL) 93.3 MCH (27.0 - 31.0 PG) 31.2 H RDW (11.5 - 14.5 %) 15.3 H Plt Count (130 - 400 /CUMM) 430 H MPV (7.4 - 10.4 FL) 7.5 Gran % (42.2 - 75.2 %) 65.2 Lymphocytes % (20.5 - 51.1 %) 21.2 Monocytes % (1.7 - 9.3 %) 11.4 H Eosinophils % (0 - 5 %) 1.8 Basophils % (0.0 - 2.0 %) 0.4 Absolute Granulocytes (1.4 - 6.5 /CUMM) 9.4 H Absolute Lymphocytes (1.2 - 3.4 /CUMM) 3.1 Absolute Monocytes (0.10 - 0.60 /CUMM) 1.6 H Absolute Eosinophils (0.0 - 0.7 /CUMM) 0.3 Absolute Basophils (0.0 - 0.2 /CUMM) 0.1 PUBS MCHC (33.0 - 37.0 G/DL) 33.5 Last 24 Hours of Joseph Results: Left foot wound culture April 28 negative Assessment/Plan Impression: Overall improved, with minimal residual inflammation of the left foot and left leg status post I&D of an abscess over the dorsum of his left foot 3 days ago and I&D of several abscesses in his left leg 12 days ago, with temperatures remaining normal but with a persistent, though mild, leukocytosis despite continued treatment with Unasyn now Day 10 of treatment for MSSA and Group A strep isolated from his recent OR culture. He has no other obvious source of infection to explain the leukocytosis. He did have a positive urine culture for Enterococcus and Proteus on admission, which was felt to be asymptomatic, but which was covered by the Unasyn. He has had no urinary symptoms and no flank pain or tenderness to suggest a urinary source; nevertheless given his history of nephrolithiasis and persistent leukocytosis, further evaluation for a urologic process may need to be considered. Suggestion: 1. CT of the abdomen and pelvis with contrast 2. Continue Unasyn pending above
--- NOTE | 2017-05-01 12:34 | PN- Podiatry ---
Subjective Subjective: 77-year-old male with multiple medical problems seen and evaluated at bedside postprocedure day 3 bedside incision and drainage of the left foot to drain an abscess. Patient reports mild pain at the site. The patient was seen and examined in tandem with the infectious disease team. Patient denies fever, chills, nausea, vomiting, diaphoresis, shortness of breath, and chest pain at the time of my examination. Review of Systems: A 14 point review of systems was performed, and was found to be negative apart from the patient's complaints described above in the history of present illness. Objective Vital Signs and I&Os Vital Signs Date Time Temp Pulse Resp B/P B/P Pulse O2 O2 Flow FiO2 Mean Ox Delivery Rate 05/01 1204 89 100/70 05/01 0900 Room Air 05/01 0856 89 100/70 05/01 0854 89 100/70 05/01 0626 98.3 89 20 100/70 93 Room Air 05/01 0539 81 100/70 05/01 0232 81 93 05/01 0000 Room Air 04/30 2345 88 102/60 04/30 2238 99.3 80 20 94/58 94 Room Air 04/30 2203 96 95 04/30 1910 81 100/68 04/30 1415 90 98/60 04/30 1400 98.8 110 20 100/60 94 Intake & Output 05/01 1600 05/01 0000 04/30 1600 04/30 0000 Intake Total 370 370 500 440 700 Output Total 300 483 052 2649 Balance 70 220 500 -210 -575 Intake, IV 130 130 140 100 Intake, Oral 240 240 500 300 600 Number 0 1 1 Bowel Movements Output, Urine 300 267 088 8303 Physical Exam: The procedure site is clean dry and intact, without purulence and serous drainage upon expression. The surrounding edema and erythema have almost completely resolved with return of skin lines. Musculoskeletal, neurological, vascular examinations are unchanged. Current Medications: Current Medications Sig/Kacie Start time Last Medication Dose Route Stop Time Status Admin Acetaminophen 975 MG Q8P PRN 04/21 2230 AC 04/23 PO 1708 Ampicillin Sodium/ 3,000 MG Q6H 04/25 1500 AC 05/01 Sulbactam Sodium IV 0852 Sodium Chloride 100 ML Apixaban 5 MG BID 04/21 2200 AC 05/01 PO 0857 Bumetanide 2 MG DAILY 04/23 1130 AC 05/01 PO 0852 Diltiazem HCl 30 MG Q6 04/21 1800 AC 05/01 PO 1204 Escitalopram Oxalate 20 MG DAILY 04/22 1036 AC 05/01 PO 0853 Finasteride 5 MG DAILY 04/21 1714 AC 05/01 PO 0854 Losartan Potassium 100 MG DAILY 04/22 1011 AC 05/01 PO 0854 Melatonin 10 MG AT BEDTIME 04/21 2230 AC 04/30 PO 2104 Nystatin 1 KERRI BID 04/28 2200 AC 04/30 TOP 2104 Oxycodone HCl 5 MG Q4-6 PRN PRN 04/22 1045 AC 04/30 PO 2104 Oxycodone/ 1 TAB Q4P PRN 04/22 1015 AC 05/01 Acetaminophen PO 1204 Tamsulosin HCl 0.4 MG DAILY 04/27 1253 AC 05/01 PO 0856 Results Last 48 Hours of Labs: Laboratory Tests 05/01 04/30 0605 0640 Chemistry Sodium (137 - 145 mmol/L) 134 L Potassium (3.5 - 5.1 mmol/L) 4.1 Chloride (98 - 107 mmol/L) 98 Carbon Dioxide (22 - 30 mmol/L) 28 Anion Gap (5 - 16) 8 BUN (9 - 20 mg/dL) 20 Creatinine (0.7 - 1.2 mg/dL) 0.8 Estimated GFR (>60 ml/min) > 60 BUN/Creatinine Ratio (7 - 25 %) 25.0 Hematology CBC w Diff NO MAN DIFF REQ NO MAN DIFF REQ WBC (4.8 - 10.8 /CUMM) 14.4 H 13.2 H RBC (4.70 - 6.10 /CUMM) 3.53 L 3.50 L Hgb (14.0 - 18.0 G/DL) 11.0 L 11.0 L Hct (42 - 52 %) 33.0 L 32.7 L MCV (80.0 - 94.0 FL) 93.3 93.5 MCH (27.0 - 31.0 PG) 31.2 H 31.5 H RDW (11.5 - 14.5 %) 15.3 H 14.8 H Plt Count (130 - 400 /CUMM) 430 H 410 H MPV (7.4 - 10.4 FL) 7.5 7.5 Gran % (42.2 - 75.2 %) 65.2 64.0 Lymphocytes % (20.5 - 51.1 %) 21.2 21.5 Monocytes % (1.7 - 9.3 %) 11.4 H 12.6 H Eosinophils % (0 - 5 %) 1.8 1.5 Basophils % (0.0 - 2.0 %) 0.4 0.4 Absolute Granulocytes (1.4 - 6.5 /CUMM) 9.4 H 8.4 H Absolute Lymphocytes (1.2 - 3.4 /CUMM) 3.1 2.8 Absolute Monocytes (0.10 - 0.60 /CUMM) 1.6 H 1.7 H Absolute Eosinophils (0.0 - 0.7 /CUMM) 0.3 0.2 Absolute Basophils (0.0 - 0.2 /CUMM) 0.1 0 PUBS MCHC (33.0 - 37.0 G/DL) 33.5 33.7 Recent Imaging Studies: EXAMINATION: XR FOOT, LEFT CLINICAL INFORMATION: Superficial abscess. Question osteomyelitis. COMPARISON: July 22, 2014 TECHNIQUE: AP, lateral, and oblique views of the left foot. FINDINGS: There is soft tissue swelling about the dorsum of the metatarsals with some gas within the soft tissues. No radiopaque foreign body. No acute fracture is evident. There is some degree of osteopenia about the lateral aspect of the fourth metatarsal head with ill-defined cortex. The joint space is maintained. There is also question of osteopenia with poorly seen cortex involving the medial head of the distal fifth metatarsal. Metatarsophalangeal joint is maintained. No definite periostitis is appreciated. There is questionable old healed distal fifth metatarsal fracture. Vascular calcifications are present. Calcaneal plantar spur seen. IMPRESSION: No acute fracture identified. Large amount of soft tissue swelling seen overlying the dorsum of the metatarsals. Osteopenia with some erosive change involving the fourth and fifth metatarsal heads. Osteomyelitis not excluded. MRI may be of help in further evaluation if clinically indicated. Assessment/Plan Assessment/Plan 77-year-old male with multiple medical problems, type 2 diabetes, morbid obesity , and chronic venous insufficiency of both lower extremities, improving clinically 3 days post bedside incision and drainage of the left forefoot abscess. The patient was seen and evaluated at bedside in tandem with the infectious disease team. The patient's radiographs are reviewed, and I agree with the finding. There is no clinical or radiographic evidence to suggest acute osteomyelitis at this time , and the patient has substantially clinically improved after incision and drainage. We will follow up continued recommendations from the infectious disease team, as his leukocytosis has trended up over the past 2 days despite significant and incremental clinical improvement status post incision and drainage of both the leg and the foot. From my standpoint, he has no weightbearing restrictions. A member of the nursing team from the wound care center will change the dressing tomorrow, and if it continues not to drain, the wound will be provisionally closed with a Steri-Strip. If the patient is clear for discharge, he is to follow up in the [facility] wound care center, where I will continue to follow it and eventually perform a simple delayed primary closure. I will follow up on this patient Monday morning if he is still admitted.
[2017-05-01 15:01] VITALS: BP 104/66
--- NOTE | 2017-05-01 18:36 | CT SCAN REPORT ---
EXAMINATION: CT ABDOMEN AND PELVIS WITH CONTRAST CLINICAL INFORMATION: Persistent leukocytosis. COMPARISON: CT abdomen and pelvis 02/29/2016 TECHNIQUE: Multidetector volumetric imaging was performed of the abdomen and pelvis following IV administration of 94 mL of Optiray 320 intravenous contrast. Sagittal and coronal reformatted images were obtained on the technologist's workstation. DLP: 1382 mGy-cm FINDINGS: LUNG BASES: Left lower lobe atelectasis. No consolidation or effusion. LIVER, GALLBLADDER, AND BILIARY TREE: The liver is normal in size, shape, and attenuation. No focal hepatic lesion or biliary ductal dilatation is present. The gallbladder is unremarkable with no evidence of radiopaque gallstones, gallbladder wall thickening, or obvious pericholecystic inflammatory changes. PANCREAS: Unremarkable. SPLEEN: The spleen enhances homogeneously. A small enhancing nodule anterior to the spleen is consistent with a splenule. ADRENAL GLANDS: Unremarkable. KIDNEYS AND URETERS: The kidneys enhance symmetrically. The left kidney is relatively atrophic compared to the right. A staghorn calculus is evident in the lower pole of the left kidney. At the calculus measures up to 2.3 cm in greatest diameter. There is no hydronephrosis. No right renal radiodense stones. BLADDER: The bladder is abnormal in appearance. There is some enhancement of the urothelium of the bladder. Innumerable diverticula are scattered around the bladder. At least one of the direct vascular demonstrates hyperenhancement of the wall possibly suggesting superinfection and inflammation (image 70, series 2). GASTROINTESTINAL TRACT: There are no dilated loops of small or large bowel. No intra-abdominal free air or free fluid. ABDOMINAL WALL: There is a small left anterior abdominal wall hernia containing a tiny loop of small bowel (image 66, series 2). There are no inflammatory changes associated with this fascial defect. Small right-sided fat-containing inguinal hernia. LYMPH NODES: Normal. VASCULAR: Mild to moderate calcific atherosclerotic disease involving the abdominal aorta and branches. PELVIC VISCERA: Prostate is normal in size. Seminal vesicles are symmetric. OSSEOUS STRUCTURES: Extensive multilevel degenerative changes involving the lower thoracic lumbar spine. There is partial fusion of L2 and L3. Diffuse vacuum disc phenomena involving the entire lumbar spine and the inferior thoracic spine. Extensive facet arthropathy. There is grade 1 spondylolisthesis at the L5-S1 level as well. IMPRESSION: 1. Mild hyperenhancement of the urothelium of the bladder which may reflect underlying infection. Correlation with urinalysis is suggested. 2. Small staghorn calculus involving the lower pole of the left kidney. No acute renal obstruction. 3. No other acute intra-abdominal or pelvic findings. Small left anterior abdominal wall hernia containing a loop of small bowel.
[2017-05-01 22:05] VITALS: BP 100/58
[2017-05-02 07:06] VITALS: BP 96/60
[2017-05-02 07:58] LABS: ABSOLUTE BASOPHIL COUNT 0.1 /CUMM (0.0-0.2); ABSOLUTE EOSINOPHIL COUNT 0.3 /CUMM (0.0-0.7); ABSOLUTE GRANULOCYTE CT 7.4 /CUMM (1.4-6.5); ABSOLUTE LYMPH COUNT 2.8 /CUMM (1.2-3.4); ABSOLUTE MONOCYTE COUNT 1.3 /CUMM (0.10-0.60); BASOPHIL % 0.6 % (0.0-2.0); EOSINOPHIL % 2.7 % (0-5); GRANULOCYTE % 62.5 % (42.2-75.2); HEMATOCRIT 31.2 % (42-52); MEAN CORPUSCULAR HGB 31.5 PG (27.0-31.0); MEAN CORPUSCULAR HGB CONC 33.8 G/DL (33.0-37.0); MEAN CORPUSCULAR VOLUME 93.1 FL (80.0-94.0); MEAN PLATELET VOLUME 7.5 FL (7.4-10.4); PLATELET COUNT 426 /CUMM (130-400); RBC DISTRIBUTION WIDTH 15.1 % (11.5-14.5); RED BLOOD CELL CT 3.35 /CUMM (4.70-6.10); WHITE BLOOD CELL COUNT 11.9 /CUMM (4.8-10.8)
--- NOTE | 2017-05-02 09:07 | PN- Housestaff ---
See Addendum Subjective Follow-up For: recurrent left leg cellulitis Complaints: pain scale (0-10) Subjective: patient states he is feeling good. is eager to leave. Review of Systems Constitutional: Reports: no symptoms. Musculoskeletal: Reports: back pain. Objective Last 24 Hrs of Vital Signs/I&O Vital Signs Date Time Temp Pulse Resp B/P B/P Pulse O2 O2 Flow FiO2 Mean Ox Delivery Rate 05/02 1235 80 98/50 05/02 0907 78 96/60 05/02 0906 78 96/60 05/02 0706 97.9 78 20 96/60 95 Room Air 05/02 0602 66 104/70 05/02 0014 76 104/60 05/02 0000 96 Room Air 05/01 2205 98.2 76 20 100/58 94 Room Air 05/01 2109 82 102/64 05/01 1501 98.8 80 20 104/66 93 Room Air Intake & Output 05/02 1600 05/02 0800 05/02 0000 Intake Total 310 525 Output Total 425 150 Balance -115 375 Intake, IV 110 125 Intake, Oral 200 400 Number 0 Bowel Movements Output, Urine 425 150 Physical Exam General Appearance: Alert, Oriented X3, Cooperative, No Acute Distress Skin: bandaged left foot, as per wound care, wound is clean and dry Current Medications: Current Medications Sig/Kacie Start time Last Medication Dose Route Stop Time Status Admin Acetaminophen 975 MG Q8P PRN 04/21 2230 AC 04/23 PO 1708 Ampicillin Sodium/ 3,000 MG Q6H 04/25 1500 AC 05/02 Sulbactam Sodium IV 0906 Sodium Chloride 100 ML Apixaban 5 MG BID 04/21 2200 AC 05/02 PO 0906 Bumetanide 2 MG DAILY 04/23 1130 AC 05/02 PO 0907 Diltiazem HCl 30 MG Q6 04/21 1800 AC 05/02 PO 1235 Escitalopram Oxalate 20 MG DAILY 04/22 1036 AC 05/02 PO 0907 Finasteride 5 MG DAILY 04/21 1714 AC 05/02 PO 0907 Losartan Potassium 100 MG DAILY 04/22 1011 AC 05/02 PO 0906 Melatonin 10 MG AT BEDTIME 04/21 2230 AC 05/01 PO 2104 Nystatin 1 KERRI BID 04/28 2200 AC 05/02 TOP 0915 Oxycodone HCl 5 MG Q4-6 PRN PRN 04/22 1045 AC 04/30 PO 210 Oxycodone/ 1 TAB Q4P PRN 04/22 1015 AC 05/02 Acetaminophen PO 09 Tamsulosin HCl 0.4 MG DAILY 04/27 1253 AC 05/02 PO 0907 Last 24 Hrs of Lab/Joseph Results Last 24 Hrs of Labs/Mics: Laboratory Tests 05/02/17 0615: CBC w Diff NO MAN DIFF REQ, RBC 3.35 L, MCV 93.1, MCH 31.5 H, RDW 15.1 H, MPV 7.5, Gran % 62.5, Lymphocytes % 23.3, Monocytes % 10.9 H, Eosinophils % 2.7, Basophils % 0.6, Absolute Granulocytes 7.4 H, Absolute Lymphocytes 2.8, Absolute Monocytes 1.3 H, Absolute Eosinophils 0.3, Absolute Basophils 0.1, PUBS MCHC 33.8 05/01/17 2200: Urine Color YEL, Urine Clarity CLEAR, Urine pH 6.0, Ur Specific [place] 1.010, Urine Protein NEG, Urine Ketones NEG, Urine Nitrite NEG, Urine Bilirubin NEG, Urine Urobilinogen 0.2, Ur Leukocyte Esterase NEG, Ur Microscopic SEDIMENT EXAMINED, Urine RBC RARE, Urine WBC RARE, Ur Epithelial Cells RARE, Hyaline Casts RARE H, Urine Mucus RARE, Urine Hemoglobin TRACE-INTACT H, Urine Glucose NEG Assessment/Plan Assessment: Assessment 77-year-old male with pmh of CHF, A. fib, SANDI on CPAP, osteoarthritis, chronic venous stasis changes, chronic bilateral lower extremity edema presented with chief complaints of recurrent cellulitis, with generalized weakness, dizziness and diarrhea following a recent antibiotic exposure. As per the sister, she herself is allergic to Bactrim and other sulfa drugs. Patient is feeling good. Wounds are clean and dry and bandaged. Patient is status post incision and drainage performed on the new abscess on the dorsum of the left foot Cultures were taken from the collection. He is currently being managed in the telemetry unit for the following issues: -Left leg cellulitis and persistently elevated white blood cell count: Patient remained afebrile with white count trending down. Patient is status post incision and drainage performed on the new abscess on the dorsum of the left foot. Cultures were taken from the collection. Surgical cultures from April 19 before his admission showed positive MSSA and strep. * Cultures from Monday abscess drainage showed many white blood cells and gram- positive cocci with no growth in the culture most likely secondary to antibiotic coverage. * Convert unasyn to augmentin for 3 more days. * Continue wound care * White blood cell count today to 11.9. * Foot x-ray from April 29 showed a large amount of tissue swelling seen overlying the dorsum of the metatarsals. It could not exclude osteomyelitis which would require MRI. * As per infectious disease, the patient has had no urinary symptoms and no flank pain or tenderness to suggest a urinary source; nevertheless given his history of nephrolithiasis and persistent leukocytosis, further evaluation for a urologic process may need to be considered. * Ordered a CT of the abdomen and pelvis with contrast yesterday to look for continuous infectious process showed bladder diverticuli and staghorn renal calculi without hydronephrosis. * patient is to be discharged today with instruction to follow up with wound center where he will see podiatry and vascular on may 09 1:30pm Left arm swelling, resolved -Likely associated with IV line -Most likely represents a thrombophlebitis associated with the line -May be the cause of his increased white blood cell count today -Patient is on Eliquis and thus we will not do ultrasound to rule out DVT Hypertension -Bumex has been restarted as blood pressure has been stable. Anxiety -Continued escitalopram Fungal infection -Tinea cruris treatment with antifungal. A. fib -Continue Diltiazem and Eliquis for afib. SANDI -Continue CPAP for SANDI. Disposition -Patient will go home with home health services BPH -Continue Tamsulosin .4mg outpatient -Finasteride 5mg UTI -No symptoms -Cultures positive for Proteus and gram-positive cocci with low colony counts. -Unasyn given for the patient's cellulitis likely cover UTI although patient is asymptomatic (thus we would not treat) Full code. Heart heathy diet. DVT ppx: Eliquis. Problem List: 1. Abscess of foot 2. Recurrent cellulitis of lower extremity 3. Open wound of left lower extremity 4. PVD (peripheral vascular disease) 5. CHF (congestive heart failure) Pain Ratin Pain Location: na Pain Goal: Remain pain free Pain Plan: na Tomorrow's Labs & Rationales: na
--- NOTE | 2017-05-02 10:49 | PN- Infect Dx ---
Subjective Subjective: Afebrile without complaints Objective Last 24 Hrs of Vital Signs/I&O Vital Signs Date Time Temp Pulse Resp B/P B/P Pulse O2 O2 Flow FiO2 Mean Ox Delivery Rate 05/02 906 78 96/60 05/02 09 78 96/60 05/02 0706 97.9 78 20 96/60 95 Room Air 05/02 0602 66 104/70 05/02 0014 76 104/60 05/02 0000 96 Room Air 05/01 2205 98.2 76 20 100/58 94 Room Air 05/01 2109 82 102/64 05/01 1501 98.8 80 20 104/66 93 Room Air 05/01 1204 89 100/70 Intake & Output 05/02 1600 05/02 0800 05/02 0000 Intake Total 310 525 Output Total 425 150 Balance -115 375 Intake, IV 110 125 Intake, Oral 200 400 Number 0 Bowel Movements Output, Urine 425 150 Physical Exam Other Physical Findings: He appears comfortable in no acute distress Lungs are clear Heart regular rhythm with no murmur Extremities left leg dressing intact Results Last 24 Hours of Lab Results: Laboratory Tests 05/02 05/01 0615 2200 Hematology CBC w Diff NO MAN DIFF REQ WBC (4.8 - 10.8 /CUMM) 11.9 H RBC (4.70 - 6.10 /CUMM) 3.35 L Hgb (14.0 - 18.0 G/DL) 10.5 L Hct (42 - 52 %) 31.2 L MCV (80.0 - 94.0 FL) 93.1 MCH (27.0 - 31.0 PG) 31.5 H RDW (11.5 - 14.5 %) 15.1 H Plt Count (130 - 400 /CUMM) 426 H MPV (7.4 - 10.4 FL) 7.5 Gran % (42.2 - 75.2 %) 62.5 Lymphocytes % (20.5 - 51.1 %) 23.3 Monocytes % (1.7 - 9.3 %) 10.9 H Eosinophils % (0 - 5 %) 2.7 Basophils % (0.0 - 2.0 %) 0.6 Absolute Granulocytes (1.4 - 6.5 /CUMM) 7.4 H Absolute Lymphocytes (1.2 - 3.4 /CUMM) 2.8 Absolute Monocytes (0.10 - 0.60 /CUMM) 1.3 H Absolute Eosinophils (0.0 - 0.7 /CUMM) 0.3 Absolute Basophils (0.0 - 0.2 /CUMM) 0.1 PUBS MCHC (33.0 - 37.0 G/DL) 33.8 Urines Urine Color (YEL,AMB,STR) YEL Urine Clarity (CLEAR) CLEAR Urine pH (5.0 - 8.0) 6.0 Ur Specific [place] (1.001 - 1.035) 1.010 Urine Protein (NEG,<30 MG/DL) NEG Urine Ketones (NEG) NEG Urine Nitrite (NEG) NEG Urine Bilirubin (NEG) NEG Urine Urobilinogen (0.1 - 1.0 EU/dl) 0.2 Ur Leukocyte Esterase (NEG) NEG Ur Microscopic SEDIMENT EXAMINED Urine RBC (0 - 5 /HPF) RARE Urine WBC (0 - 2 /HPF) RARE Ur Epithelial Cells (NONE,FEW) RARE Hyaline Casts (0/LPF) RARE H Urine Mucus (FEW,NONE) RARE Urine Hemoglobin (NEG) TRACE-INTACT H Urine Glucose (N MG/DL) NEG Last 24 Hours of Joseph Results: No new cultures Recent Imaging Studies: CT of the abdomen and pelvis May 01 revealed mild hyperenhancement of the urothelium of the bladder; small staghorn calculus involving the lower pole of the left kidney with no obstruction; no other acute intra-abdominal or pelvic findings Assessment/Plan Impression: Overall improved, with near resolution of the inflammation of the left foot and left leg status post I&D of an abscess over the dorsum of his left foot 4 days ago and I&D of several abscesses in his left leg 13 days ago. He remains afebrile and his white blood cell count has decreased today on Unasyn now Day 11 of treatment for MSSA and Group A strep isolated from the OR cultures. The CT findings regarding the urinary tract are noted but do not appear to be acute and are unlikely to explain his leukocytosis. In the absence of any other obvious source of infection, feel that, at this time, he can be switched to an oral regimen to complete his course of antibiotics. Suggestion: 1. Discontinue Unasyn 2. Begin Augmentin 875 mg p.o. every 12 hours for 3 more days
[2017-05-02] MEDS ORDERED: AUGMENTIN 875-1 EACH PO (11:41)
[2017-05-02] MEDS ORDERED: TAMSULOSIN HCL0.4 M1 PO (11:41)
[2017-05-02 12:35] VITALS: BP 98/50
[2017-05-02] MEDS ORDERED: SULFAMETHOXAZO1 EAC1 PO (13:34)
== END 2017-05-02 14:15 | disposition home health service (06) | DRG 580 ==
LOC: ERH 11:03 → ERHI 16:42 → ENRESERV 17:14 → EDBEDREQ 19:10 → ENTRNSPT 19:54 → EDTRNSPT 20:04 → EDTRNSPTSTS 20:04 → EDTRNSPT 20:40 → 1NO 20:47 → CMPTRNSPT 21:00 → 1NO 04-22 13:04 → ENPENDDIS 05-02 12:29 → ENTRNSPT 05-02 13:59 → EDTRNSPT 05-02 14:04 → EDTRNSPTSTS 05-02 14:04 → CMPTRNSPT 05-02 14:10 → 1NO 05-02 14:15
PROVIDERS: Internal Medicine; Internal Medicine Adolescent Medicine; Physician Assistant Medical; Student in an Organized Health Care Education/Training Program
PROC: 0J9R0ZZ Drainage of Left Foot Subcutaneous Tissue and Fascia, Open Approach (ICD-10-PCS; principal; 2017-04-28)
DX: L03.116 Cellulitis of left lower limb (principal); B37.49 Other urogenital candidiasis; I48.2 Chronic atrial fibrillation; L02.612 Cutaneous abscess of left foot; E66.01 Morbid (severe) obesity due to excess calories; I11.0 Hypertensive heart disease with heart failure; I50.9 Heart failure, unspecified; B35.6 Tinea cruris; F17.210 Nicotine dependence, cigarettes, uncomplicated; I80.8 Phlebitis and thrombophlebitis of other sites; Z68.41 Body mass index [BMI] 40.0-44.9, adult; T80.1XXA Vascular complications following infusion, transfusion and therapeutic injection, initial encounter; J44.9 Chronic obstructive pulmonary disease, unspecified; B95.0 Streptococcus, group A, as the cause of diseases classified elsewhere; B95.61 Methicillin susceptible Staphylococcus aureus infection as the cause of diseases classified elsewhere; G47.33 Obstructive sleep apnea (adult) (pediatric); I73.9 Peripheral vascular disease, unspecified; I87.2 Venous insufficiency (chronic) (peripheral); Y84.8 Other medical procedures as the cause of abnormal reaction of the patient, or of later complication, without mention of misadventure at the time of the procedure; F41.9 Anxiety disorder, unspecified; Y92.239 Unspecified place in hospital as the place of occurrence of the external cause; N40.0 Benign prostatic hyperplasia without lower urinary tract symptoms
CPT/HCPCS: 1NP; 87075; 36415; 73630-LT; 74177; 81001; 82436; 87040; 87045; 87070; 87086; 87147; 87328; 87329; 87449; 87450; 93005; 93010; 93970; 96374; J0131; J0690; J3370; J3490; J7040

== ENCOUNTER 2017-05-14 21:53 | Inpatient (IN) | payer OTHER ==
[~2017-05-14] VITALS: Ht 157.5 cm; Wt 98.4 kg
[~2017-05-14 21:53] MED LIST changes: +NYSTOP60 GM; +SULFAMETHOXAZO1 EAC1 PO; +TAMSULOSIN HCL0.4 M1 PO; +VICODIN 5-3001 EACH PO
--- NOTE | 2017-05-14 21:56 | ED GENERAL ADULT ---
History of Present Illness General Chief Complaint: General Adult Stated Complaint: BIBA WITH FEVER, SHAKEY Source: patient Exam Limitations: no limitations Vital Signs & Intake/Output Vital Signs & Intake/Output Vital Signs Date Time Temp Pulse Resp B/P B/P Pulse O2 O2 Flow FiO2 Mean Ox Delivery Rate 05/141 102.0 05/149 101.7 05/14 2310 92 05/14 2202 101.7 102 20 139/80 92 Room Air ED Intake and Output 05/15 0000 05/14 1200 Intake Total 250 Output Total 300 Balance -50 Intake, IV 250 Output, Urine 300 Allergies Coded Allergies: No Known Allergies (03/11/17) Reconcile Medications Amoxicillin/Potassium Clav (Augmentin 875-125 Tablet) 875 MG-125 MG TABLET 1 TAB PO BID infection Apixaban (Eliquis) 5 MG TABLET 1 TAB PO BID AFIB (Reported) Bumetanide 2 MG TABLET 1 TAB PO DAILY fluid (Reported) Diltiazem HCl (Diltiazem 24HR ER) 120 MG CAP.ER.24H 1 CAP PO DAILY HEART ( Reported) Escitalopram Oxalate 20 MG TABLET 1 TAB PO DAILY MENTAL HEALTH (Reported) Finasteride (Proscar) 5 MG TABLET 1 TAB PO DAILY BPH (Reported) Glucosa [place] 2KCL/Chondroitin [place] (Glucosamine & Chondroitin Cap) 500 MG-400 MG CAPSULE 3 TAB PO DAILY PAIN (Reported) Hydrocodone/Acetaminophen (Vicodin 5-300 MG Tablet) 5 MG-300 MG TABLET 1 TAB PO Q4-6 PRN PAIN (Reported) Losartan Potassium 100 MG TABLET 1 TAB PO DAILY BP (Reported) Meloxicam 7.5 MG TABLET 1 TAB PO DAILY PRN PAIN (Reported) Multivitamin W/Iron, Minerals (Spectravite Senior) 1 EACH TABLET 1 TAB PO DAILY SUPPLEMENT (Reported) Nystatin (Nystop) 100,000 UNIT/GRAM POWDER RASH (Reported) Oxycodone HCl 5 MG CAPSULE 1 CAP PO Q6P pain (Reported) Tamsulosin HCl 0.4 MG CAP.ER.24H 1 CAP PO DAILY bph Triage Nurses Notes Reviewed? yes Onset: Gradual Duration: day(s): Timing: recent history Injury Environment: home Severity: moderate Modifying Factors: Improves With: rest. Associated Symptoms: left leg redness HPI: 77 yo gentleman h/o cellulitis discharged on may 02, presents with left leg redness and tenderness and a fever of 101.2. He also note mild dyspnea, withou phlegm or wheeze. He is otherwise well, without chest pain, headache, nausea, vomiting, diarrhea. Past History Travel History Traveled to [place] past 21 day No Medical History Any Pertinent Medical History? 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 No Review of Systems Review of Systems Constitutional: Reports: no symptoms. EENTM: Reports: no symptoms. Respiratory: Reports: no symptoms. Cardiovascular: Reports: no symptoms. GI: Reports: no symptoms. Genitourinary: Reports: no symptoms. Musculoskeletal: Reports: no symptoms. Skin: Reports: no symptoms. Neurological/Psychological: Reports: no symptoms. Hematologic/Endocrine: Reports: no symptoms. Immunologic/Allergic: Reports: no symptoms. All Other Systems: Reviewed and Negative Physical Exam Physical Exam General Appearance: well developed/nourished, mild distress Head: atraumatic, normal appearance Eyes: Bilateral: normal appearance. Ears, Nose, Throat: normal pharynx, normal ENT inspection Neck: normal inspection, supple, full range of motion Respiratory: chest non-tender, no respiratory distress, diminished breath sounds at bases Gastrointestinal: normal bowel sounds, soft, non-tender Extremities: left leg with 4 open ulcerations, without discharge. warmth, redness, tenderness extending from ankle to knee. no joint effusion. 3-4+ edema, right leg with 3-4+ edema without infection Neurologic/Psych: no motor/sensory deficits, awake, alert, oriented x 3 Skin: intact, normal color, warm/dry Core Measures ACS in differential dx? No CVA/TIA Diagnosis: No Sepsis Present: Yes Sepsis Focused Exam Completed? Yes Progress Differential Diagnoses I considered the following diagnoses in my evaluation of the patient: CELLULITIS VS OSTEO VS OTHER. Plan of Care: Orders Procedure Date/time Status Nothing by Mouth 05/15 B Active LACTIC ACID 05/15 015 Active Saline Lock 05/15 131 Active Misc Message 05/15 131 Active ED Holding Orders 05/15 131 Active Vital Signs 05/15 131 Active Code Status 05/15 131 Active Admit to inpatient 05/15 130 Active WESTERGREN SED RATE 05/14 233 Active B-TYPE NATRIURETIC PEP (BNP) 05/14 233 Complete LACTIC ACID 05/14 225 Complete CULTURE,URINE 05/14 225 Active BLOOD CULTURE 05/14 2239 Active BLOOD CULTURE 05/14 2234 Active EKG 05/14 2227 Active RAPID VIRAL INFLUENZA A 05/14 2201 Complete D-DIMER 05/14 2201 Complete URINALYSIS 05/14 2155 Complete TROPONIN LEVEL 05/14 2155 Complete LIPASE 05/14 2155 Complete HEPATIC FUNCTION PANEL 05/14 2155 Complete CBC WITHOUT DIFFERENTIAL 05/14 2155 Active BASIC METABOLIC PANEL 05/14 2155 Complete AMYLASE 05/14 2155 Complete EKG 05/14 2155 Active Laboratory Tests 05/14/17 2339: Lactic Acid 1.2 05/14/172338: Anion Gap 13, Estimated GFR 45 L, BUN/Creatinine Ratio 42.7 H, Glucose 126 H, Calcium 8.7, Total Bilirubin 0.7, Direct Bilirubin 0.5 H, AST 18, ALT 27, Alkaline Phosphatase 76, Troponin I 0.02, [id number]-Hqbovmkhjev Pept 1390 H, Total Protein 6.4, Albumin 3.5, Amylase 53, Lipase 42, D-Dimer High Sensitivty 281 H, CBC w Diff MAN DIFF ORDERED, RBC 3.71 L, MCV 92.1, MCH 30.5, RDW 16.3 H, MPV 7.6, Gran % 92.3 H, Lymphocytes % 3.1 L, Monocytes % 3.8, Eosinophils % 0.4, Basophils % 0.4, Absolute Granulocytes 20.3 H, Segmented Neutrophils 93 H, Band Neutrophils 3, Absolute Lymphocytes 0.7 L, Lymphocytes 3 L, Monocytes 1 L, Absolute Monocytes 0.8 H, Absolute Eosinophils 0.1, Absolute Basophils 0.1, Platelet Estimate ADEQUATE, Polychromasia 1+, Anisocytosis 1+, Stomatocytes 1+, [place]field Cells FEW, Elliptocytes 1+, PUBS MCHC 33.1, ESR Westergren Pending 05/14/172299: Urine Color YEL, Urine Clarity CLEAR, Urine pH 6.0, Ur Specific [place] 1.015, Urine Protein NEG, Urine Ketones NEG, Urine Nitrite NEG, Urine Bilirubin NEG, Urine Urobilinogen 0.2, Ur Leukocyte Esterase TRACE H, Ur Microscopic SEDIMENT EXAMINED, Urine RBC 5-10 H, Urine WBC 1-3 H, Ur Epithelial Cells RARE, Urine Crystals 1+ CA OX H, Urine Bacteria RARE H, Hyaline Casts RARE H, Urine Hemoglobin MOD H, Urine Glucose NEG 05/14/172204: [id number]-Ilxjzoqibyf Pept Cancelled 05/14/172201: ESR Westergren Cancelled Microbiology 05/14 2338 BLOOD: Blood Culture - RECD 05/14 2334 BLOOD: Blood Culture - RECD 05/14 2299 URINE ROUT: Urine Culture - RECD 05/14 2229 NASOPHARYN: Influenza Virus A & B Rapid Smear - COMP Diagnostic Imaging: Viewed by Me: Radiology Read. Discussed w/RAD: Radiology Read. CXR Impression: no acute abnormality, no infiltrates, normal size heart, normal mediastinum, PATIENT: LINDSAY WANG PRESENT AGE: 77 PATIENT ACCOUNT NO: [id number] : 38 LOCATION: [facility] ORDERING PHYSICIAN: Cb Allan MD SERVICE DATE: 05/14/17 EXAM TYPE: RAD - XRY- PORTABLE CHEST XRAY EXAMINATION: XR PORTABLE CHEST CLINICAL INFORMATION: Dyspnea and hypoxia. COMPARISON: Chest radiograph 04/21/2017. TECHNIQUE: Portable frontal view of the chest was obtained. FINDINGS: Stable minimal elevation of the left hemidiaphragm with a prominent pericardial fat pad. Stable minimal blunting of the left costophrenic angle, likely due to scarring. The lungs are clear. No pleural effusion. The cardiac silhouette is at the upper limits of normal but appears unchanged. Pulmonary vasculature is within normal limits. No acute osseous findings. IMPRESSION: No acute cardiopulmonary disease. Stable appearance of the chest. DICTATED BY: Grayson Goodwin MD DATE/TIME DICTATED:2334 CHAMBER WORKER:VALERIA DATE/TIME TRANSCRIBED:05/14/17 / 2338 CONFIDENTIAL, DO NOT COPY WITHOUT APPROPRIATE AUTHORIZATION. <Electronically signed in Other Vendor System> SIGNED BY: Grayson Goodwin MD 05/14/17 3960 Initial ED EKG: afib, no change from prior Departure Departure Disposition: STILL A PATIENT Condition: Stable Clinical Impression Primary Impression: Cellulitis Secondary Impressions: Edema, Sepsis Referrals: Addie Arrington MD (PCP/Family) Departure Forms: Customer Survey General Discharge Information Comments pt hypoxic to 90% upon arrival. Admission Note Spoke With: Harpal Queen MD Documentation of Exam: Documentation of any treatments & extenuating circumstances including Concerns Regarding Discharge (functional status, medication knowledge or non-compliance, living conditions, etc.) that warrant an admission rather than observation: Pt with sepsis, due most likely to cellulitis vs osteo of left leg... pt merits iv abx due to recalcitrance of his infection. Would consider MRI to assess for osteo. Critical Care Note Critical Care Note Critical Care Time: 30-74 min
--- NOTE | 2017-05-14 23:41 | RADIOLOGY REPORT ---
EXAMINATION: XR PORTABLE CHEST CLINICAL INFORMATION: Dyspnea and hypoxia. COMPARISON: Chest radiograph 04/21/2017. TECHNIQUE: Portable frontal view of the chest was obtained. FINDINGS: Stable minimal elevation of the left hemidiaphragm with a prominent pericardial fat pad. Stable minimal blunting of the left costophrenic angle, likely due to scarring. The lungs are clear. No pleural effusion. The cardiac silhouette is at the upper limits of normal but appears unchanged. Pulmonary vasculature is within normal limits. No acute osseous findings. IMPRESSION: No acute cardiopulmonary disease. Stable appearance of the chest.
[2017-05-14 23:55] LABS: ABSOLUTE BASOPHIL COUNT 0.1 /CUMM (0.0-0.2); ABSOLUTE EOSINOPHIL COUNT 0.1 /CUMM (0.0-0.7); ABSOLUTE GRANULOCYTE CT 20.3 /CUMM (1.4-6.5); ABSOLUTE LYMPH COUNT 0.7 /CUMM (1.2-3.4); ABSOLUTE MONOCYTE COUNT 0.8 /CUMM (0.10-0.60); BASOPHIL % 0.4 % (0.0-2.0); EOSINOPHIL % 0.4 % (0-5); GRANULOCYTE % 92.3 % (42.2-75.2); HEMATOCRIT 34.2 % (42-52); MEAN CORPUSCULAR HGB 30.5 PG (27.0-31.0); MEAN CORPUSCULAR HGB CONC 33.1 G/DL (33.0-37.0); MEAN CORPUSCULAR VOLUME 92.1 FL (80.0-94.0); MEAN PLATELET VOLUME 7.6 FL (7.4-10.4); PLATELET COUNT 263 /CUMM (130-400); RBC DISTRIBUTION WIDTH 16.3 % (11.5-14.5); RED BLOOD CELL CT 3.71 /CUMM (4.70-6.10)
--- NOTE | 2017-05-15 01:50 | History & Physical ---
Steven ESCOBAR,[facility] 05/15/17 0149: General Information and HPI MD Statement: I have seen and personally examined LINDSAY WANG and documented this H&P. The patient is a 77 year old M who presented with a patient stated chief complaint of [weakness and fever]. Source of Information: patient, old records Exam Limitations: no limitations History of Present Illness: The patient is 77-year-old gentleman with past medical history of atrial fibrillation on Eliquis, COPD, SANDI, nephrolithiasis, BPH, osteoarthritis, chronic bilateral lower extremity edema with recurrent cellulitis of left leg numerous times. The patient was most recently discharged from [facility] on 05/02 after being treated for cellulitis of left leg. In the beginning of March patient underwent I&D on left leg by vascular surgery, cultures were not sent at that time, patient was started on IV Unasyn and later shifted to Augmentin to complete 10 day course. On 04/19 patient underwent another I&D; cultures were positive for staph aureus (MSSA) and Group A strep, and the patient was started on Bactrim. Patient presented to [place] ED on 04/21 diarrhea, left groin erythema and rash, generalized weakness and persistent purulent drainage from the left leg. Patient was again treated for cellulitis initially started on Vanco later shifted to cefazolin and then to Unasyn. There was no clinical or radiographic evidence of osteomyelitis. Patient also underwent CT abdomen and pelvis with IV contrast for evaluation of persistent leukocytosis which showed small staghorn calculus on lower pole of left kidney without any acute intra-abdominal or pelvic findings. Patient underwent I&D of left foot abscess (dorsum of the metatarsals) on April 29 by podiatry. Following that patient remained afebrile and white cell count trending down. The culture from the foot abscess did not show any growth after 3 days but was positive for few gram-positive cocci likely secondary to antibiotic use. Patient was discharged on Augmentin to complete a 14 day course. He followed up with Dr. Dhillon podiatry and Dr. Haley vascular 1 week ago. Patient reports feeling fine ever since, he reports using walker to ambulate and has been elevating his legs. Today around 5 PM patient started feeling chills and weakness. He reports some cough with sputum production and rhinorrhea. Recorded fever of 102 at home. Other than that review of system is negative. Patient denies chest pain palpitations, change in bowel habits or any urinary symptoms. He denies any pain in his left extremity, reports swelling. Groin rash has resolved. No sick contacts Allergies/Medications Allergies: Coded Allergies: No Known Allergies (03/11/17) Home Med list Apixaban (Eliquis) 5 MG TABLET 1 TAB PO BID AFIB (Reported) Bumetanide 2 MG TABLET 1 TAB PO DAILY fluid (Reported) Cephalexin (Keflex) 500 MG CAPSULE 1 CAP PO SEE ADMIN CRITERIA skin and soft tissue infection take 4 per day till 05/23 start taking 2X a day from 05/24/17 indefinitly Diltiazem HCl (Diltiazem 24HR ER) 120 MG CAP.ER.24H 1 CAP PO DAILY HEART ( Reported) Escitalopram Oxalate 20 MG TABLET 1 TAB PO DAILY MENTAL HEALTH (Reported) Finasteride (Proscar) 5 MG TABLET 1 TAB PO DAILY BPH (Reported) Glucosa Llamas 2KCL/Chondroitin Llamas (Glucosamine & Chondroitin Cap) 500 MG-400 MG CAPSULE 3 TAB PO DAILY PAIN (Reported) Lactobacillus Acidophilus (Probiotic) 10 BILLION CELL CAPSULE 1 CAP PO TID gut Losartan Potassium 100 MG TABLET 1 TAB PO DAILY BP (Reported) Meloxicam 7.5 MG TABLET 1 TAB PO DAILY PRN PAIN (Reported) Multivitamin W/Iron, Minerals (Spectravite Senior) 1 EACH TABLET 1 TAB PO DAILY SUPPLEMENT (Reported) Nystatin (Nystop) 100,000 UNIT/GRAM POWDER RASH (Reported) Oxycodone HCl 5 MG CAPSULE 1 CAP PO Q6P pain (Reported) Tamsulosin HCl 0.4 MG CAP.ER.24H 1 CAP PO DAILY bph Compliance With Home Meds: GOOD Past History Travel History Traveled to [place] past 21 day No Medical History Neurological: NONE EENT: NONE Cardiovascular: AFIB, CHF, chronic venous insuff, hypertension Respiratory: COPD, obstructive sleep apnea Gastrointestinal: NONE Hepatic: NONE Renal: benign prost hyperplasia, nephrolithiasis Musculoskeletal: osteoarthritis Psychiatric: NONE Endocrine: NONE Blood Disorders: NONE Cancer(s): NONE HEREDITARY CANCER PROGRAM COORDINATOR/Reproductive: NONE History of MRSA: No History of VRE: No History of CDIFF: No Influenza Vaccine: 03/23/17 Surgical History Surgical History: RT KNEE SX, HERNIA REPAIR, ROTATOR CUFF, LEFT KIDNEY STONE REMOVED, LIGAMENT REPAIR, BILAT ARM ULNAR NERVE SX Past Family/Social History Family History Relations & Conditions if any FATHER FH: emphysema MOTHER Bone cancer FH: breast cancer Psychosocial History Where do you live? Home Who Do You Live With? spouse Services at Home: Nursing Primary Language: Slovak Smoking Status: Former Smoker ETOH Use: denies use Illicit Drug Use: denies illicit drug use Functional Ability ADLs Independent: dressing, eating, toileting, bathing. Ambulation: walker IADLs Independent: shopping, housework, finances, food prep, telephone, transportation , medication admin. Review of Systems Review of Systems Constitutional: Reports: chills, fever, weakness. EENTM: Reports: no symptoms. Cardiovascular: Reports: no symptoms. Respiratory: Reports: cough. GI: Reports: no symptoms. Genitourinary: Reports: no symptoms. Musculoskeletal: Reports: no symptoms. Skin: Reports: erythema. Exam & Diagnostic Data Last 24 Hrs of Vital Signs/I&O Vital Signs Date Time Temp Pulse Resp B/P B/P Pulse O2 O2 Flow FiO2 Mean Ox Delivery Rate 05/14 2320 102.0 05/14 2318 101.7 05/14 2310 92 05/14 220 101.7 102 20 139/80 92 Room Air Intake & Output 05/15 0800 05/15 0000 05/14 1600 Intake Total 250 Output Total 300 Balance -50 Intake, IV 250 Output, Urine 300 Physical Exam General Appearance Alert, Oriented X3, Cooperative, No Acute Distress Skin Temp/Moisture Exam: Warm/Dry HEENT Atraumatic, PERRLA, EOMI, Mucous Membr. moist/pink Neck Supple, No thryomegaly, No LAD Lymphatic Cervical nl Cardiovascular Normal S1, Normal S2, No Murmurs, distant heart sounds Lungs Clear to Auscultation, Normal Air Movement Abdomen Normal Bowel Sounds, Soft, No Tenderness, No Hepatospenomegaly, No Masses Neurological Normal Speech Extremities b/l lower extremity edema Body Front and Back (Adult) 1) somewhat erytheamtous, edematous 3 wounds s/p I and D donot appear to be infected, in diff stages of healing 2) healed wound on left foot s/p 1&D Last 24 Hrs of Labs/Joseph: Laboratory Tests 05/14/172338: Lactic Acid 1.2 05/14/172338: Anion Gap 13, Estimated GFR 45 L, BUN/Creatinine Ratio 42.7 H, Glucose 126 H, Calcium 8.7, Total Bilirubin 0.7, Direct Bilirubin 0.5 H, AST 18, ALT 27, Alkaline Phosphatase 76, Troponin I 0.02, Rtw-F-Xfmmzquvggd Pept 1390 H, Total Protein 6.4, Albumin 3.5, Amylase 53, Lipase 42, D-Dimer High Sensitivty 281 H, CBC w Diff MAN DIFF ORDERED, RBC 3.71 L, MCV 92.1, MCH 30.5, RDW 16.3 H, MPV 7.6, Gran % 92.3 H, Lymphocytes % 3.1 L, Monocytes % 3.8, Eosinophils % 0.4, Basophils % 0.4, Absolute Granulocytes 20.3 H, Segmented Neutrophils 93 H, Band Neutrophils 3, Absolute Lymphocytes 0.7 L, Lymphocytes 3 L, Monocytes 1 L, Absolute Monocytes 0.8 H, Absolute Eosinophils 0.1, Absolute Basophils 0.1, Platelet Estimate ADEQUATE, Polychromasia 1+, Anisocytosis 1+, Stomatocytes 1+, Franklin Cells FEW, Elliptocytes 1+, PUBS MCHC 33.1, ESR Westergren Pending 05/14/170: Urine Color YEL, Urine Clarity CLEAR, Urine pH 6.0, Ur Specific [place] 1.015, Urine Protein NEG, Urine Ketones NEG, Urine Nitrite NEG, Urine Bilirubin NEG, Urine Urobilinogen 0.2, Ur Leukocyte Esterase TRACE H, Ur Microscopic SEDIMENT EXAMINED, Urine RBC 5-10 H, Urine WBC 1-3 H, Ur Epithelial Cells RARE, Urine Crystals 1+ CA OX H, Urine Bacteria RARE H, Hyaline Casts RARE H, Urine Hemoglobin MOD H, Urine Glucose NEG 05/14/17 2205: Xrc-T-Nxpbxiixvoy Pept Cancelled 05/14/17 2202: ESR Westergren Cancelled Microbiology 05/14 2339 BLOOD: Blood Culture - RECD 05/14 233 BLOOD: Blood Culture - RECD 05/14 2299 URINE ROUT: Urine Culture - RECD 05/14 2229 NASOPHARYN: Influenza Virus A & B Rapid Smear - COMP Diagnostic Data CXR Results negative for any acute process Assessment/Plan Assessment: The patient is 77-year-old gentleman with past medical history of atrial fibrillation on Eliquis, COPD, SANDI, nephrolithiasis, BPH, osteoarthritis, chronic bilateral lower extremity edema with recurrent cellulitis of left leg numerous times. The patient was most recently discharged from [facility] on 05/02 after being treated for cellulitis of left leg. Now coming again with fever chills and left extremity swelling. -VS Tmax 102, HR 102, RR 20, BP 139/80 and oxygen saturation 92% RA -Pertinent labs H/H 11.3/34.0 stable, WBC count 22 , no bands, BUN 64 creatinine 1.5 baseline 0.8. BNP 1390 FLU negative In ED patient received 1 dose of vancomycin, Lasix, Toradol and Tylenol blood cultures was also sent. Patient is being admitted to general medicine floor and is being treated and evaluated for following conditions #Sepsis suspected source left lower extremity cellulitis Patient has history of recurrent lower left lower extremity cellulitis, previous cultures growing MSSA. Patient has been treated with IV Unasyn and Augmentin in the past. He is presenting today after a recent discharge on 05/02 with fever, chills and left lower extremity swelling somewhat erythematous, warm, no tenderness, I&D sites on left leg do not appear to be infected, no drainage, in stages of healing. I&D site on left foot healed had no signs of infection. Lungs clear, chest x-ray unremarkable, no urinary symptoms, groin rash resolved. Other possibility can be flu,though flu test negative (sensitivity abt 70%) patient is presenting with weakness and fever. -Monitor fever and WBC curve -Follow blood cultures -Follow-up lower respiratory sputum culture (gives history of cough with sputum today) -CT scan of left lower extremity to rule out abscess -Leg elevation -We will start the patient on IV Unasyn for now given her with past history of MSSA -ID consult -Podiatry consult #LOGAN Patient is presenting with creatinine of 1.5 baseline 0.8 it likely secondary to dehydration he reports poor oral intake. -Gentle IVF -Monitor creatinine curve -Avoid Nephrotoxins #Chronic medical conditions depression, BPH, atrial fibrillation, hypertension continue escitalopram, finasteride, Eliquis, diltiazem, Flomax, losartan #FC/heart healthy diet/DVT prophylaxis with subcutaneous heparin As Ranked By This Provider Problem List: 1. Leukocytosis 2. Cellulitis of left lower extremity Core Measures/Misc (01/08) Acute Coronary Syndrome ACS Diagnosis: No Congestive Heart Failure Congestive Heart Failure Diagnosis No Cerebrovascular Accident CVA/TIA Diagnosis: No VTE (View Protocol) VTE Risk Factors Age>40 No Mechanical VTE Prophylaxis d/t N/A MechProphylax Ordered No VTE Pharm Prophylaxis d/t NA PharmProphylax ordered Sepsis (View protocol) Sepsis Present: Yes Laura Gasca 05/15/17 0337: Resident Review Statement Resident Statement: discussed with campus recruiting intern Other Findings: 77-year-old man with past medical history of atrial fibrillation on Eliquis, COPD, type 2 diabetes, chronic venous insufficiency of both lower extremities, obstructive sleep apnea, nephrolithiasis, BPH, osteoarthritis, chronic bilateral lower extremity edema with recurrent cellulitis of left leg most recent admission on 04/21 after incision and drainage and washout of left leg wound on 04/19 by vascular surgeon with OR culture growing MSSA and Group A strep treated with IV antibiotics (vanco---cefazolin---unasyn) initially. During this visit he was also seen by podiatry and had a bedside incision and drainage of abscess of left foot on 04/28. There was no clinical or radiographic evidence to suggest acute osteomyelitis at that time. He improved clinically with time and got discharged on 05/02 on Augmentin. He also had a CT abdomen and pelvis with IV contrast due to persistent leukocytosis and it did not show any acute intra- abdominal or pelvic findings except mild hyperenhancement of urothelium of bladder and staghorn calculus in the left kidney. Hew saw vascular and podiatry about a week ago and according to patient everything was okay. This time he came in with complaint of extreme weakness, fever 102F at home, productive cough and runny nose. His symptoms started in afternoon. He denies any chest pain or discomfort, palpitations, breathing difficulty, nausea, vomiting, diarrhea or constipation, abdominal pain and urinary symptoms. He also complains of swelling of legs but denies any pain. According to patient he was eating drinking okay and taking his meds regularly. Vitals on admission: Temperature 101.7, pulse 102, respiratory rate 20, blood pressure 139/18 oxygen saturation 92% on room air. Pertinent physical exam findings: HEENT normal. Heart is regular. Lungs are clear. No rash on his body. Abdominal exam normal. Bilateral lower extremity swelling 1+. Left lower extremity is wam with mild erythema without any tenderness. 2 healed wounds on the anterior side of leg. no discharge. Pertinent labs: WBC count 22 NO bands, BUN 64, creatinine 1.5, proBNP 1390. UA normal EKG: Afib, no acute ST t wave changes CXR: Unremarkable In ER he got Lasix, vancomycin, Tylenol and Toradol. Rapid flu negative. Blood cultures 2 and urine cultures were sent. Assessment and plan 77-year-old man with history of recurrent cellulitis of left lower extremity status post I&D's and most recent cultures growing MSSA and group A strep treated with antibiotics coming to the hospital with fever, cough and runny nose , bilateral lower extremity swelling and generalized weakness. He was found to be in sepsis and source of infection is likely cellulitis of left lower extremity again. Review of systems negative other than mentioned above. No other obvious source of infection. Chest x-ray unremarkable. UA negative. He received 1 dose of vancomycin in ER. We will get CT scan of left lower extremity to rule out any collection or abscess. Monitor vitals closely. Follow-up cultures. ID and podiatry consult in a.m. Will start him on Unasyn for now. Leg elevation. LOGAN so avoid nephrotoxins. Repeat kidney functions in a.m. We'll continue all his home medications. DVT prophylaxis. Pain management pathway. Full code. Harpal Queen 05/15/17 0600: Attending MD Review Statement Attending Statement Attending MD Statement: examined this patient, discuss w/resident/PA/SENIOR MEDIA PLANNER, agreed w/resident/PA/SENIOR MEDIA PLANNER, reviewed EMR data (avail), reviewed images, amended to note Attending Assessment/Plan: CC: Fever PMH: COPD, SANDI, A. fib, nephrolithiasis Patient came to ER for 1 day duration of fever, lethargy, weakness and left lower extremity pain. Patient has been in hospital several times for left lower extremity cellulitis since February, treated with Augmentin, underwent I&D. Patient was apparently all right since his previous discharge completed his antibiotics but started to notice fever, chills, lethargy and left lower extremity pain all of a sudden this afternoon. Patient had mild nasal congestion and cough which is much better now, denies any flulike symptoms, myalgia, urinary symptoms. Patient had significant fever spike of 102, tachycardic, hemodynamically stable in ER, examination unremarkable except mild increased temperature and redness left lower extremity with 3 open ulcers with chronic healing stage. No discharge or crepitation. Patient found to have significant leukocytosis, elevated creatinine, otherwise Unremarkable. I suspect another cellulitis episode of left lower extremity, no other source of infection identified, influenza negative. Patient does have history of staghorn calculus but currently denies any urinary frequency, burning or irritation. We will admit for suspected cellulitis left lower extremity, obtain ID and podiatry opinion. Patient had a dose of vancomycin in ER + Suspected left lower extremity cellulitis + History of COPD, SANDI, A. fib, nephrolithiasis - Admit to general medicine - Continue IV Unasyn - CT left lower extremity - Blood cultures - Gentle IV fluids - ID consult in a.m., podiatry consult in AM - Continue all his home medications - Repeat labs in a.m.
--- NOTE | 2017-05-15 04:24 | CT SCAN REPORT ---
EXAMINATION: CT LOWER EXTREMITY WITHOUT CONTRAST, LEFT CLINICAL INFORMATION: Left lower extremity cellulitis COMPARISON: 04/22/2017 TECHNIQUE: No intravenous contrast was utilized. Multidetector helical imaging was performed through the left lower extremity from the distal femur through the foot. Coronal and sagittal reformatted images were created. DLP: 1034.16 mGy-cm FINDINGS: There is moderate to severe tricompartmental degenerative change in the knee with joint space narrowing and spurring. A small knee effusion is present. Articular alignment throughout the left lower extremity appears preserved. No acute fracture is seen. There are chronic appearing soft tissue calcifications in the region of the popliteal fossa. There is subcutaneous edema throughout the left lower extremity with associated skin thickening, most severe distally. There is suggestion of superficial ulcers along the medial aspect of the mid to lower leg. No discrete fluid collection is seen. There are scattered vascular calcifications in the calf vessels. IMPRESSION: 1. Subcutaneous edema throughout the left lower extremity. This is nonspecific though could reflect cellulitis in the proper clinical setting. No discrete fluid collection identified. 2. Suggestion of superficial ulcers along the medial mid to lower leg; clinical correlation is recommended. 3. No acute osseous findings identified. Moderate to severe degenerative changes of the knee. 4. Small knee effusion.
[2017-05-15 04:45] VITALS: BP 110/50
--- NOTE | 2017-05-15 06:01 | Admission Certification ---
Admission Certification Certification Statement - As attending physician, I certify that at the time of - admission, based on clinical presentation, severity of - symptoms, need for further diagnostic testing and - therapeutic interventions, and risk of adverse outcomes - without in-hospital treatment, in my clinical assessment, - this patient requires an acute hospital stay for a minimum - of two nights or longer. I have also considered psychsocial - factors such as support system, advanced age, financial - issues, cognitive issues, and failed out-patient treatments, - past re-admission history, safety of patient, and lack of - compliance as applicable. Specific rationale supporting this admission is: Suspected left lower extremity cellulitis
[2017-05-15 10:31] LABS: ABSOLUTE BASOPHIL COUNT 0 /CUMM (0.0-0.2); ABSOLUTE EOSINOPHIL COUNT 0 /CUMM (0.0-0.7); ABSOLUTE GRANULOCYTE CT 24.6 /CUMM (1.4-6.5); ABSOLUTE LYMPH COUNT 0.9 /CUMM (1.2-3.4); ABSOLUTE MONOCYTE COUNT 0.7 /CUMM (0.10-0.60); BASOPHIL % 0 % (0.0-2.0); EOSINOPHIL % 0.1 % (0-5); HEMATOCRIT 32.1 % (42-52); MEAN CORPUSCULAR HGB 30.9 PG (27.0-31.0); MEAN CORPUSCULAR HGB CONC 33.5 G/DL (33.0-37.0); MEAN CORPUSCULAR VOLUME 92.3 FL (80.0-94.0); MEAN PLATELET VOLUME 7.8 FL (7.4-10.4); PLATELET COUNT 224 /CUMM (130-400); RBC DISTRIBUTION WIDTH 16.2 % (11.5-14.5); RED BLOOD CELL CT 3.48 /CUMM (4.70-6.10); WHITE BLOOD CELL COUNT 26.2 /CUMM (4.8-10.8)
--- NOTE | 2017-05-15 11:17 | PN- Housestaff ---
Norma ESCOBAR,Kassandra 05/15/17 1117: Subjective Follow-up For: FEVER OF [place] Subjective: patient states that he has mild left leg pain on palpation. otherwise he feels ok. he is anxious that he is back in the hospital. he has chronic knee pain. no other complaints, no urinary symptoms. Review of Systems Constitutional: Reports: chills, fever. EENTM: Reports: no symptoms. Cardiovascular: Reports: no symptoms. Respiratory: Reports: no symptoms. Gastrointestinal: Reports: no symptoms. Genitourinary: Reports: no symptoms. Musculoskeletal: Reports: joint pain. Skin: Reports: no symptoms. Neurological/Psychological: Reports: no symptoms. Objective Last 24 Hrs of Vital Signs/I&O Vital Signs Date Time Temp Pulse Resp B/P B/P Pulse O2 O2 Flow FiO2 Mean Ox Delivery Rate 05/15 1105 98/54 05/15 0445 98.0 81 20 110/50 93 Room Air 05/15 0314 99.4 77 22 171/79 93 Room Air 05/14 2321 102.0 05/14 2319 101.7 05/14 2310 92 05/14 2202 101.7 102 20 139/80 92 Room Air Intake & Output 05/15 1600 05/15 0800 05/15 0000 Intake Total 100 250 Output Total 200 425 300 Balance -200 -325 -50 Intake, IV 250 Intake, Oral 100 Output, Urine 200 425 300 Patient 217 lb Weight Weight Bed scale Measurement Method Physical Exam General Appearance: Alert, Oriented X3, Cooperative, No Acute Distress Skin: left leg has 3 healing wounds from his previous cellulitis admission. his right leg is more edematous and very slightly erythematous. Skin Temp/Moisture Exam: Warm/Dry Sepsis Skin Exam (color): Normal for Ethnicity HEENT: Atraumatic, PERRLA, EOMI, Mucous Membr. moist/pink Neck: Supple, No JVD Cardiovascular: Normal S1, Normal S2, No Murmurs Lungs: Clear to Auscultation, Normal Air Movement Abdomen: Normal Bowel Sounds, Soft, No Tenderness Extremities: No Clubbing, No Cyanosis, Normal Pulses Current Medications: Current Medications Sig/Kacie Start time Last Medication Dose Route Stop Time Status Admin Acetaminophen 650 MG Q8 05/15 0600 AC 05/15 PO 0636 Acetaminophen 650 MG Q8 05/15 0600 CAN PO Acetaminophen 1,000 MG ONCE ONE 05/14 2315 DC 05/14 N/A 1 UNIT IV 05/14 2329 2319 Acetaminophen 0 .STK-MED ONE 05/14 2300 DC IV Ampicillin Sodium/ 3,000 MG Q6 05/15 0300 AC 05/15 Sulbactam Sodium IV 0356 Sodium Chloride 100 ML Apixaban 5 MG BID 05/15 1000 AC 05/15 PO 1105 Bumetanide 2 MG DAILY 05/15 1000 AC 05/15 PO 1108 Diltiazem HCl 120 MG DAILY 05/15 1000 AC 05/15 PO 1106 Escitalopram Oxalate 20 MG DAILY 05/15 1000 AC 05/15 PO 1105 Finasteride 5 MG DAILY 05/15 1000 AC 05/15 PO 1105 Furosemide 0 .STK-MED ONE 05/14 2357 DC IV Furosemide 40 MG ONCE ONE 05/14 2215 DC 05/15 IV 05/14 2216 0007 Ketorolac 0 .STK-MED ONE 05/14 2359 DC Tromethamine .ROUTE Ketorolac 30 MG ONCE ONE 05/14 2345 DC 05/15 Tromethamine IV 05/14 2346 0007 Losartan Potassium 100 MG DAILY 05/15 1000 AC PO Oxycodone HCl 5 MG Q6 PRN 05/15 1115 AC 05/15 PO 1129 Tamsulosin HCl 0.4 MG DAILY 05/15 1000 AC 05/15 PO 1105 Vancomycin HCl 1,000 MG DAILY 05/15 1000 CAN Sodium Chloride 250 ML IV Vancomycin HCl 1,000 MG ONCE ONE 05/145 DC 05/15 Sodium Chloride 250 ML IV 05/14 2314 0008 Last 24 Hrs of Lab/Joseph Results Last 24 Hrs of Labs/Mics: Laboratory Tests 05/15/17 0905: Lactic Acid 1.1 05/15/17 0905: Anion Gap 15, Estimated GFR 49 L, BUN/Creatinine Ratio 45.0 H, CBC w Diff Pending, WBC Pending, RBC Pending, Hgb Pending, Hct Pending, MCV Pending, MCH Pending, RDW Pending, Plt Count Pending, MPV Pending, Gran % Pending, Lymphocytes % Pending, Monocytes % Pending, Eosinophils % Pending, Basophils % Pending, Absolute Granulocytes Pending, Absolute Lymphocytes Pending, Absolute Monocytes Pending, Absolute Eosinophils Pending, Absolute Basophils Pending, PUBS MCHC Pending 05/14/17 2339: Lactic Acid 1.2 05/14/172338: Anion Gap 13, Estimated GFR 45 L, BUN/Creatinine Ratio 42.7 H, Glucose 126 H, Calcium 8.7, Total Bilirubin 0.7, Direct Bilirubin 0.5 H, AST 18, ALT 27, Alkaline Phosphatase 76, Troponin I 0.02, Ilz-I-Wekeaeholed Pept 1390 H, Total Protein 6.4, Albumin 3.5, Amylase 53, Lipase 42, D-Dimer High Sensitivty 281 H, CBC w Diff MAN DIFF ORDERED, RBC 3.71 L, MCV 92.1, MCH 30.5, RDW 16.3 H, MPV 7.6, Gran % 92.3 H, Lymphocytes % 3.1 L, Monocytes % 3.8, Eosinophils % 0.4, Basophils % 0.4, Absolute Granulocytes 20.3 H, Segmented Neutrophils 93 H, Band Neutrophils 3, Absolute Lymphocytes 0.7 L, Lymphocytes 3 L, Monocytes 1 L, Absolute Monocytes 0.8 H, Absolute Eosinophils 0.1, Absolute Basophils 0.1, Platelet Estimate ADEQUATE, Polychromasia 1+, Anisocytosis 1+, Stomatocytes 1+, [place] Cells FEW, Elliptocytes 1+, PUBS MCHC 33.1, ESR Westergren 42 H 05/14/172299: Urine Color YEL, Urine Clarity CLEAR, Urine pH 6.0, Ur Specific [place] 1.015, Urine Protein NEG, Urine Ketones NEG, Urine Nitrite NEG, Urine Bilirubin NEG, Urine Urobilinogen 0.2, Ur Leukocyte Esterase TRACE H, Ur Microscopic SEDIMENT EXAMINED, Urine RBC 5-10 H, Urine WBC 1-3 H, Ur Epithelial Cells RARE, Urine Crystals 1+ CA OX H, Urine Bacteria RARE H, Hyaline Casts RARE H, Urine Hemoglobin MOD H, Urine Glucose NEG 05/14/17 223: Virus Culture Pending 05/14/172204: Pfm-J-Jiwzgcwmpit Pept Cancelled 05/14/17 2202: ESR Westergren Cancelled Microbiology 05/15 328 LOWER RESP: Respiratory Culture - COLB 05/15 328 LOWER RESP: Gram Stain - COLB 05/14 2338 BLOOD: Blood Culture - RECD 05/14 2334 BLOOD: Blood Culture - RECD 05/14 2299 URINE ROUT: Urine Culture - RECD 05/14 2229 NASOPHARYN: Influenza Virus A & B Rapid Smear - COMP Assessment/Plan Assessment: The patient is 77-year-old gentleman with past medical history of atrial fibrillation on Eliquis, COPD, SANDI, nephrolithiasis, BPH, osteoarthritis, chronic bilateral lower extremity edema with recurrent cellulitis of left leg numerous times. The patient was most recently discharged from [facility] on 05/02 after being treated for cellulitis of left leg. Now coming again with fever chills and left extremity swelling. patient states he was complaint with meds and did take full dose. RR 20, BP 139/80 and oxygen saturation 92% RA -Pertinent labs H/H 11.3/34.0 stable, WBC count 22 , no bands, BUN 64 creatinine 1.5 baseline 0.8. BNP 1390 FLU negative In ED patient received 1 dose of vancomycin, Lasix, Toradol and Tylenol blood cultures was also sent. Patient was admitted to general medicine floor and is being treated and evaluated for following conditions #Sepsis suspected source left lower extremity cellulitis? urine? Patient has history of recurrent lower left lower extremity cellulitis, previous cultures growing MSSA. Patient has been treated with IV Unasyn and Augmentin in the past. He is presenting today after a recent discharge on 05/02 with fever, chills and left lower extremity swelling somewhat erythematous, warm, no tenderness, I&D sites on left leg do not appear to be infected, no drainage, in stages of healing. I&D site on left foot healed had no signs of infection. Lungs clear, chest x-ray unremarkable, no urinary symptoms, groin rash resolved. Other possibility can be flu,though flu test negative (sensitivity abt 70%) patient is presenting with weakness and fever. -Monitor fever and WBC curve -Follow blood cultures -Follow-up lower respiratory sputum culture (gives history of cough with sputum today) -FOLLOW URINE CULTURES PATIENT WAS POSITIVE FOR PROTEUS AND ENTEROCOCCUS ON LAST ADMISSION, NO SYMPTOMS EVER HOWEVER. -CT scan of left lower extremity to rule out abscess SHOWED -Leg elevation -We will CONTINUE the patient on IV Unasyn for now given her with past history of MSSA -ID consult- DR. JACKSON WILL SEE -Podiatry consult PLACED -VASCULAR CONSULT PLACED #LOGAN Patient is presenting with creatinine of 1.5 baseline 0.8 it likely secondary to dehydration he reports poor oral intake. -Gentle IVF -Monitor creatinine curve -Avoid Nephrotoxins #HYPERTENSION -Patient hypotensive this morning 96/54 -On losartan - hold for now -patient also on tamsulosin and diltiazem that can effect blood pressure. #Chronic medical conditions depression, BPH, atrial fibrillation, continue escitalopram, finasteride, Eliquis, diltiazem, Flomax, OXYCODONE FOR CHRONIC KNEE PAIN #FC/heart healthy diet/DVT prophylaxis with subcutaneous heparin Problem List: 1. Sepsis Pain Ratin Pain Location: left lower foot on palpation and knees Pain Goal: Pain 4 or less Pain Plan: oxycodone and tylenol Tomorrow's Labs & Rationales: cbc bep Robin Tubbs 05/15/17 1409: Attending MD Review Statement Attending Statement Attending MD Statement: examined this patient, discuss w/resident/PA/SALES WAREHOUSE DRIVER, agreed w/resident/PA/SALES WAREHOUSE DRIVER, discussed with family, reviewed EMR data (avail), discussed with nursing, discussed with case mgmt, reviewed images, amended to note Attending Assessment/Plan: 77-year-old male past medical history of COPD, CHF, atrial fibrillation, chronic left lower extremity wound is admitted to hospital for recurrent cellulitis , worsening leukocytosis and fever 102 meeting sepsis with LA 1.1. Labs wbc 22.8 >>26 VITALS Max temp 102 HR 81 BP 98/54 95 RA. Imaging Chest xray no acute abnormality. CT leg with subcutaneous edema throughot lower extremity. No discrete fluid collection. Patient admitted sepsis 2/2 recurrent left lower extremity cellulitis. Patient started on iv unasyn, IVF, chage to broad spectrum abx, f/u blood cultures x 2 sets, Consult ID (abx as per ID), Podiatry. c/w eliquis and cardizem. Monitor CBC and bmp. Vascular surgery consulted and recommend no active intervention. gi /dvt prophyalxis full code.
--- NOTE | 2017-05-15 13:01 | Cons- Vascular Surgery ---
General Information and HPI Consulting Request Date of Consult: 05/15/17 Requested By: Robin Tubbs MD History of Present Illness: 77-year-old gentleman well known to me was admitted to the hospital with weakness and fever. Was found to have leukocytosis. He was recently hospitalized and underwent left foot incision and drainage by podiatry for an abscess. His other pertinent history is infected left leg wound. These were opened and drained. The wounds are healing well and there nearly healed. There is no tenderness or fluctuance on the left leg or foot. Intraoperative cultures on April 19 during the incision and drainage of the left leg showed strep group A and staph aureus. The patient was treated with antibiotics. Vascular surgery was consulted regarding possible left leg source of infection. Allergies/Medications Allergies: Coded Allergies: No Known Allergies (03/11/17) Home Med List: Apixaban (Eliquis) 5 MG TABLET 1 TAB PO BID AFIB (Reported) Bumetanide 2 MG TABLET 1 TAB PO DAILY fluid (Reported) Diltiazem HCl (Diltiazem 24HR ER) 120 MG CAP.ER.24H 1 CAP PO DAILY HEART ( Reported) Escitalopram Oxalate 20 MG TABLET 1 TAB PO DAILY MENTAL HEALTH (Reported) Finasteride (Proscar) 5 MG TABLET 1 TAB PO DAILY BPH (Reported) Glucosa [place] 2KCL/Chondroitin [place] (Glucosamine & Chondroitin Cap) 500 MG-400 MG CAPSULE 3 TAB PO DAILY PAIN (Reported) Losartan Potassium 100 MG TABLET 1 TAB PO DAILY BP (Reported) Meloxicam 7.5 MG TABLET 1 TAB PO DAILY PRN PAIN (Reported) Multivitamin W/Iron, Minerals (Spectravite Senior) 1 EACH TABLET 1 TAB PO DAILY SUPPLEMENT (Reported) Nystatin (Nystop) 100,000 UNIT/GRAM POWDER RASH (Reported) Oxycodone HCl 5 MG CAPSULE 1 CAP PO Q6P pain (Reported) Tamsulosin HCl 0.4 MG CAP.ER.24H 1 CAP PO DAILY bph Past History Medical History Neurological: NONE EENT: NONE Cardiovascular: AFIB, CHF, chronic venous insuff, hypertension Respiratory: COPD, obstructive sleep apnea Gastrointestinal: NONE Hepatic: NONE Renal: benign prost hyperplasia, nephrolithiasis Musculoskeletal: osteoarthritis Psychiatric: NONE Endocrine: NONE Blood Disorders: NONE Cancer(s): NONE LABORER ELECTROPLATING/Reproductive: NONE Surgical History Pertinent Surgical History: RT KNEE SX, HERNIA REPAIR, ROTATOR CUFF, LEFT KIDNEY STONE REMOVED, LIGAMENT REPAIR, BILAT ARM ULNAR NERVE SX Family History Relations & Conditions If Any: FATHER FH: emphysema MOTHER Bone cancer FH: breast cancer Psychosocial History Where Do You Live? Home Who Do You Live With? spouse Services at Home: Nursing Primary Language: Hebrew Smoking Status: Former Smoker ETOH Use: denies use Illicit Drug Use: denies illicit drug use Functional Ability ADLs Independent: dressing, eating, toileting, bathing. Ambulation: walker IADLs Independent: shopping, housework, finances, food prep, telephone, transportation , medication admin. Review of Systems Review of Systems: Patient denies headache, dizziness, cough, palpitation, diarrhea or constipation Exam & Diagnostic Data Vital Signs and I&O Vital Signs Date Time Temp Pulse Resp B/P B/P Pulse O2 O2 Flow FiO2 Mean Ox Delivery Rate 05/15 1105 98/54 05/15 0445 98.0 81 20 110/50 93 Room Air 05/15 0314 99.4 77 22 171/79 93 Room Air 05/14 2321 102.0 05/14 2319 101.7 05/14 2310 92 05/14 2202 101.7 102 20 139/80 92 Room Air Intake & Output 05/15 1600 05/15 0800 05/15 0000 05/14 1600 05/14 0800 05/14 0000 Intake Total 100 250 Output Total 200 425 300 Balance -200 -325 -50 Intake, IV 250 Intake, Oral 100 Output, Urine 200 425 300 Patient 217 lb Weight Weight Bed scale Measurement Method Physical Exam: Patient is alert and oriented 3 Lungs: Clear to auscultation bilaterally Heart: Regular rate and rhythm Abdomen: Obese, nontender nondistended Left leg has diffuse discoloration which is quite of chronic venous insufficiency. There is no fluctuance or purulence. There is no tenderness. Assessment/Plan Assessment/Plan 77-year-old man with multiple medical issues who recently underwent incision and drainage of the left leg abscess with intraoperative cultures showing group A strep and staph aureus. He was treated with antibiotics. The left leg wounds have nearly completely healed. Mother is no clinical evidence of left leg infection. Nor do I believe there is evidence of cellulitis of the left leg. Left foot also appears to be without evidence of abscess or other etiology causing his leukocytosis. Cultures are pending. Recommend infectious disease consultation as well as podiatry consultation. At this time, there is no vascular intervention necessary. Thank you for asking me to be involved in the care of this patient. Consult Acknowledgment - Thank you for your consult request. Attending MD Review Statement Attending Statement Attending MD Statement: examined this patient, discuss w/resident/PA/ELECTRIC TRUCK OPERATOR
[2017-05-15 14:15] VITALS: BP 110/70
--- NOTE | 2017-05-15 17:20 | Cons- Infect Disease ---
General Information and HPI Consulting Request Date of Consult: 05/15/17 Requested By: Suly ESCOBAR,Robin Reason for Consult: Fever/leukocytosis Source of Information: patient, old records History of Present Illness: This is a 77-year-old man with a history of atrial fibrillation, maintained on Eliquis, COPD, obstructive sleep apnea, nephrolithiasis, BPH, osteoarthritis, chronic bilateral lower extremity edema, with a recurrent cellulitis of the left leg over the past 7 months, hospitalized 3 weeks prior to admission, 2 days after an I&D of a purulent cellulitis in the OR, with cultures growing MSSA and Group A strep, treated with Unasyn, with his hospital course complicated by an abscess over the dorsum of his left foot, requiring an I&D at the bedside, discharged on Augmentin to complete a two-week course of treatment, admitted on May 14 after returning to the emergency room with the acute onset of chills and weakness. On admission he was febrile to 102. Laboratory data revealed a white blood cell count of 22,000, BUN/creatinine 64 and 1.5, with normal liver enzymes, Urinalysis 5-10 RBCs/1-3 WBCs. Chest x-ray was negative. CT of the left lower extremity revealed subcutaneous edema throughout the leg but no discrete fluid collection and a small left knee effusion. He was given a dose of Vancomycin and begun on Unasyn. He defervesced overnight and feels somewhat improved today with no further chills. He reports no complaints of pain in his leg. He has had a mild cough, with no shortness of breath or chest pain. He denies any GI or symptoms. Allergies/Medications Allergies: Coded Allergies: No Known Allergies (03/11/17) Home Med List: Apixaban (Eliquis) 5 MG TABLET 1 TAB PO BID AFIB (Reported) Bumetanide 2 MG TABLET 1 TAB PO DAILY fluid (Reported) Diltiazem HCl (Diltiazem 24HR ER) 120 MG CAP.ER.24H 1 CAP PO DAILY HEART ( Reported) Escitalopram Oxalate 20 MG TABLET 1 TAB PO DAILY MENTAL HEALTH (Reported) Finasteride (Proscar) 5 MG TABLET 1 TAB PO DAILY BPH (Reported) Glucosa Llamas 2KCL/Chondroitin Llamas (Glucosamine & Chondroitin Cap) 500 MG-400 MG CAPSULE 3 TAB PO DAILY PAIN (Reported) Losartan Potassium 100 MG TABLET 1 TAB PO DAILY BP (Reported) Meloxicam 7.5 MG TABLET 1 TAB PO DAILY PRN PAIN (Reported) Multivitamin W/Iron, Minerals (Spectravite Senior) 1 EACH TABLET 1 TAB PO DAILY SUPPLEMENT (Reported) Nystatin (Nystop) 100,000 UNIT/GRAM POWDER RASH (Reported) Oxycodone HCl 5 MG CAPSULE 1 CAP PO Q6P pain (Reported) Tamsulosin HCl 0.4 MG CAP.ER.24H 1 CAP PO DAILY bph Past History Travel History Traveled to [place] past 21 day No Medical History Neurological: NONE EENT: NONE Cardiovascular: AFIB, CHF, chronic venous insuff, hypertension Respiratory: COPD, obstructive sleep apnea Gastrointestinal: NONE Hepatic: NONE Renal: NONE (history of), benign prost hyperplasia, nephrolithiasis Musculoskeletal: osteoarthritis Psychiatric: NONE Endocrine: NONE Blood Disorders: NONE Cancer(s): NONE 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 Home Who Do You Live With? spouse Services at Home: Nursing Primary Language: Georgian Smoking Status: Former Smoker ETOH Use: denies use Illicit Drug Use: denies illicit drug use Functional Ability ADLs Independent: dressing, eating, toileting, bathing. Ambulation: walker IADLs Independent: shopping, housework, finances, food prep, telephone, transportation , medication admin. Review of Systems Review of Systems All Other Systems: Reviewed and Negative Exam & Diagnostic Data Last 24 Hrs of Vital Signs/I&O Vital Signs Date Time Temp Pulse Resp B/P B/P Pulse O2 O2 Flow FiO2 Mean Ox Delivery Rate 05/15 1415 97.6 72 20 110/70 94 Room Air 05/15 1105 98/54 05/15 0445 98.0 81 20 110/50 93 Room Air 05/15 0314 99.4 77 22 171/79 93 Room Air 05/14 2321 102.0 05/14 2319 101.7 05/14 2310 92 05/14 2202 101.7 102 20 139/80 92 Room Air Intake & Output 05/15 1600 05/15 0800 05/15 0000 Intake Total 800 100 250 Output Total 800 425 300 Balance 0 -325 -50 Intake, IV 250 Intake, Oral 800 100 Number 1 Bowel Movements Output, Urine 800 425 300 Patient 217 lb Weight Weight Bed scale Measurement Method Physical Exam Other Physical Findings: MAXIMUM TEMPERATURE 102. He is awake and alert in no acute distress. Skin reveals no rash. HEENT negative. Neck is supple with no adenopathy. Lungs crackles at the left base. Heart irregular rhythm with no murmur. Abdomen is soft, nontender with positive bowel sounds. Back no CVA tenderness. Extremities healing wounds on the left leg, with left leg erythema, extending to the lateral aspect of his left thigh, with no tenderness on palpation; bilateral lower extremity edema, left greater than right, with mild venous stasis changes; pulses decreased bilaterally. Neuro without focality. Last 24 Hours of Lab Results: Laboratory Tests 05/15 05/15 05/14 0905 0905 2339 Chemistry Sodium (137 - 145 mmol/L) 137 Potassium (3.5 - 5.1 mmol/L) 3.9 Chloride (98 - 107 mmol/L) 98 Carbon Dioxide (22 - 30 mmol/L) 24 Anion Gap (5 - 16) 15 BUN (9 - 20 mg/dL) 63 H Creatinine (0.7 - 1.2 mg/dL) 1.4 H Estimated GFR (>60 ml/min) 49 L BUN/Creatinine Ratio (7 - 25 %) 45.0 H Lactic Acid (0.7 - 2.1 mmol/L) 1.1 1.2 Hematology CBC w Diff MAN DIFF ORDERED WBC (4.8 - 10.8 /CUMM) 26.2 H RBC (4.70 - 6.10 /CUMM) 3.48 L Hgb (14.0 - 18.0 G/DL) 10.8 L Hct (42 - 52 %) 32.1 L MCV (80.0 - 94.0 FL) 92.3 MCH (27.0 - 31.0 PG) 30.9 RDW (11.5 - 14.5 %) 16.2 H Plt Count (130 - 400 /CUMM) 224 MPV (7.4 - 10.4 FL) 7.8 Gran % (42.2 - 75.2 %) 94.0 H Lymphocytes % (20.5 - 51.1 %) 3.4 L Monocytes % (1.7 - 9.3 %) 2.5 Eosinophils % (0 - 5 %) 0.1 Basophils % (0.0 - 2.0 %) 0 Absolute Granulocytes (1.4 - 6.5 /CUMM) 24.6 H Segmented Neutrophils (42.2 - 75.2 %) 82 H Band Neutrophils (0.0 - 5.0 %) 12 H Absolute Lymphocytes (1.2 - 3.4 /CUMM) 0.9 L Lymphocytes (20.5 - 51.1 %) 2 L Monocytes (1.7 - 9.3 %) 4 Absolute Monocytes (0.10 - 0.60 /CUMM) 0.7 H Absolute Eosinophils (0.0 - 0.7 /CUMM) 0 Absolute Basophils (0.0 - 0.2 /CUMM) 0 Platelet Estimate (ADEQUATE) VERIFIED BY SMEAR Anisocytosis 1+ PUBS MCHC (33.0 - 37.0 G/DL) 33.5 05/14 05/14 2339 2300 Chemistry Sodium (137 - 145 mmol/L) 140 Potassium (3.5 - 5.1 mmol/L) 4.2 Chloride (98 - 107 mmol/L) 98 Carbon Dioxide (22 - 30 mmol/L) 29 Anion Gap (5 - 16) 13 BUN (9 - 20 mg/dL) 64 H Creatinine (0.7 - 1.2 mg/dL) 1.5 H Estimated GFR (>60 ml/min) 45 L BUN/Creatinine Ratio (7 - 25 %) 42.7 H Glucose (65 - 99 mg/dL) 126 H Calcium (8.4 - 10.2 mg/dL) 8.7 Total Bilirubin (0.2 - 1.3 mg/dL) 0.7 Direct Bilirubin (< 0.4 mg/dL) 0.5 H AST (17 - 59 U/L) 18 ALT (21 - 72 U/L) 27 Alkaline Phosphatase (< 127 U/L) 76 Troponin I (<0.11 ng/ml) 0.02 Ifv-F-Lryvzcmvoxd Pept (<125 pg/mL) 1390 H Total Protein (6.3 - 8.2 g/dL) 6.4 Albumin (3.5 - 5.0 g/dL) 3.5 Amylase (30 - 110 U/L) 53 Lipase (23 - 300 U/L) 42 Coagulation D-Dimer High Sensitivty (0 - 243 ng/ml) 281 H Hematology CBC w Diff MAN DIFF ORDERED WBC (4.8 - 10.8 /CUMM) 22.0 H RBC (4.70 - 6.10 /CUMM) 3.71 L Hgb (14.0 - 18.0 G/DL) 11.3 L Hct (42 - 52 %) 34.2 L MCV (80.0 - 94.0 FL) 92.1 MCH (27.0 - 31.0 PG) 30.5 RDW (11.5 - 14.5 %) 16.3 H Plt Count (130 - 400 /CUMM) 263 MPV (7.4 - 10.4 FL) 7.6 Gran % (42.2 - 75.2 %) 92.3 H Lymphocytes % (20.5 - 51.1 %) 3.1 L Monocytes % (1.7 - 9.3 %) 3.8 Eosinophils % (0 - 5 %) 0.4 Basophils % (0.0 - 2.0 %) 0.4 Absolute Granulocytes (1.4 - 6.5 /CUMM) 20.3 H Segmented Neutrophils (42.2 - 75.2 %) 93 H Band Neutrophils (0.0 - 5.0 %) 3 Absolute Lymphocytes (1.2 - 3.4 /CUMM) 0.7 L Lymphocytes (20.5 - 51.1 %) 3 L Monocytes (1.7 - 9.3 %) 1 L Absolute Monocytes (0.10 - 0.60 /CUMM) 0.8 H Absolute Eosinophils (0.0 - 0.7 /CUMM) 0.1 Absolute Basophils (0.0 - 0.2 /CUMM) 0.1 Platelet Estimate (ADEQUATE) ADEQUATE Polychromasia 1+ Anisocytosis 1+ Stomatocytes 1+ Browning Cells FEW Elliptocytes 1+ PUBS MCHC (33.0 - 37.0 G/DL) 33.1 ESR Westergren (0 - 10 MM) 42 H Urines Urine Color (YEL,AMB,STR) YEL Urine Clarity (CLEAR) CLEAR Urine pH (5.0 - 8.0) 6.0 Ur Specific [place] (1.001 - 1.035) 1.015 Urine Protein (NEG,<30 MG/DL) NEG Urine Ketones (NEG) NEG Urine Nitrite (NEG) NEG Urine Bilirubin (NEG) NEG Urine Urobilinogen (0.1 - 1.0 EU/dl) 0.2 Ur Leukocyte Esterase (NEG) TRACE H Ur Microscopic SEDIMENT EXAMINED Urine RBC (0 - 5 /HPF) 5-10 H Urine WBC (0 - 2 /HPF) 1-3 H Ur Epithelial Cells (NONE,FEW) RARE Urine Crystals 1+ CA OX H Urine Bacteria (NEG/NONE) RARE H Hyaline Casts (0/LPF) RARE H Urine Hemoglobin (NEG) MOD H Urine Glucose (N MG/DL) NEG 05/14 05/14 05/14 2230 2205 2202 Chemistry Sad-B-Nkwlqlizcth Pept Cancelled Hematology ESR Westergren Cancelled Serology Virus Culture Pending Last 24 Hours of Joseph Results: Blood cultures 2 May 14 negative Urine culture May 14 pending Rapid flu swab May 14 negative Diagnostic Data Recent Imaging Findings: Chest x-ray May [address] of the left lower extremity revealed subcutaneous edema throughout the leg, with no discrete fluid collection and a small left knee effusion. Assessment/Plan Assessment/Plan Impression: This is a 77-year-old man with a history of atrial fibrillation, maintained on Eliquis, COPD, obstructive sleep apnea, nephrolithiasis, BPH, osteoarthritis, chronic bilateral lower extremity edema, with a recurrent cellulitis of the left leg over the past 7 months, most recently 3 weeks prior to admission when he was admitted for treatment of a purulent cellulitis following an I&D in the OR, with cultures growing MSSA and Group A strep, admitted on May 14 with the acute onset of chills and weakness, found to be febrile with a leukocytosis, with evidence on exam of a left lower extremity cellulitis. It appears that he has a recurrent cellulitis, possibly secondary to the small wounds on his left leg, which have mostly resolved. He has underlying venous insufficiency and may benefit from compression stockings and possible venous ligation. Given his frequent recurrences it may be necessary to consider antibiotic suppression for an indefinite period of time and this can be discussed further. His renal insufficiency may be multifactorial secondary to dehydration and/or sepsis. Suggestion: 1. Elevation of the left leg 2. Further management of his venous insufficiency per Vascular Surgery 3. Discontinue Unasyn 4. Begin Cefazolin 2 g IV every 8 hours Consult Acknowledgment - Thank you for your consult request.
--- NOTE | 2017-05-15 17:36 | Cons- Podiatry ---
General Information and HPI Consulting Request Date of Consult: 05/15/17 Requested By: Robin Tubbs MD History of Present Illness: Roberto Carlos is a 77-year-old male with a significant past medical history including peripheral vascular disease, status post bedside I&D of left foot abscess. The patient presented to the ER last night after developing fever and chills and generalized weakness. Patient was noted to be afebrile any ER with a white count of 22,000. Allergies/Medications Allergies: Coded Allergies: No Known Allergies (03/11/17) Home Med List: Apixaban (Eliquis) 5 MG TABLET 1 TAB PO BID AFIB (Reported) Bumetanide 2 MG TABLET 1 TAB PO DAILY fluid (Reported) Diltiazem HCl (Diltiazem 24HR ER) 120 MG CAP.ER.24H 1 CAP PO DAILY HEART ( Reported) Escitalopram Oxalate 20 MG TABLET 1 TAB PO DAILY MENTAL HEALTH (Reported) Finasteride (Proscar) 5 MG TABLET 1 TAB PO DAILY BPH (Reported) Glucosa Llamas 2KCL/Chondroitin Llamas (Glucosamine & Chondroitin Cap) 500 MG-400 MG CAPSULE 3 TAB PO DAILY PAIN (Reported) Losartan Potassium 100 MG TABLET 1 TAB PO DAILY BP (Reported) Meloxicam 7.5 MG TABLET 1 TAB PO DAILY PRN PAIN (Reported) Multivitamin W/Iron, Minerals (Spectravite Senior) 1 EACH TABLET 1 TAB PO DAILY SUPPLEMENT (Reported) Nystatin (Nystop) 100,000 UNIT/GRAM POWDER RASH (Reported) Oxycodone HCl 5 MG CAPSULE 1 CAP PO Q6P pain (Reported) Tamsulosin HCl 0.4 MG CAP.ER.24H 1 CAP PO DAILY bph Past History Medical History Neurological: NONE EENT: NONE Cardiovascular: AFIB, CHF, chronic venous insuff, hypertension Respiratory: COPD, obstructive sleep apnea Gastrointestinal: NONE Hepatic: NONE Renal: NONE (history of), benign prost hyperplasia, nephrolithiasis Musculoskeletal: osteoarthritis Psychiatric: NONE Endocrine: NONE Blood Disorders: NONE Cancer(s): NONE 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 Home Who Do You Live With? spouse Services at Home: Nursing Primary Language: Mongolian Smoking Status: Former Smoker ETOH Use: denies use Illicit Drug Use: denies illicit drug use Functional Ability ADLs Independent: dressing, eating, toileting, bathing. Ambulation: walker IADLs Independent: shopping, housework, finances, food prep, telephone, transportation , medication admin. Review of Systems Review of Systems: Unremarkable except noted in history of present illness Exam & Diagnostic Data Vital Signs and I&O Vital Signs Date Time Temp Pulse Resp B/P B/P Pulse O2 O2 Flow FiO2 Mean Ox Delivery Rate 05/15 1415 97.6 72 20 110/70 94 Room Air 05/15 1105 98/54 05/15 0445 98.0 81 20 110/50 93 Room Air 05/15 0314 99.4 77 22 171/79 93 Room Air 05/14 2321 102.0 05/14 2319 101.7 05/14 2310 92 05/14 2202 101.7 102 20 139/80 92 Room Air Intake & Output 05/15 1600 05/15 0800 05/15 0000 05/14 1600 05/14 0800 05/14 0000 Intake Total 800 100 250 Output Total 800 425 300 Balance 0 -325 -50 Intake, IV 250 Intake, Oral 800 100 Number 1 Bowel Movements Output, Urine 800 425 300 Patient 217 lb Weight Weight Bed scale Measurement Method Physical Exam: 3 discrete venous ulcers identified at the distal medial left leg. Granular wound bed with superficial layer of overlying slough. No probing or undermining identified. No fluctuance noted. Minimal serous crusting identified. Assessment/Plan Assessment/Plan Left lower extremity cellulitis. Consider wound care consisting of Xeroform and dry sterile dressing to the open wounds left leg. For now continue IV antibiotics per ID recommendations. Patient may follow-up as an outpatient in the wound center as needed. Consult Acknowledgment - Thank you for your consult request. Attending MD Review Statement Attending Statement Attending MD Statement: examined this patient
[2017-05-15 23:38] VITALS: BP 130/60
[2017-05-16 06:00] VITALS: BP 122/74
--- NOTE | 2017-05-16 07:39 | PN- Housestaff ---
Norma ESCOBAR,Kassandra 05/16/17 0739: Subjective Follow-up For: FEVER OF UNKNOWN ORIGIN Subjective: PATIENT STATES HE IS FEELING GOOD. HAS NO COMPLAINTS. NO WEAKNESS OR FEVER OR CHILLS. MINIMAL PAIN IN THE FOOT. Review of Systems Constitutional: Reports: no symptoms. Objective Last 24 Hrs of Vital Signs/I&O Vital Signs Date Time Temp Pulse Resp B/P B/P Pulse O2 O2 Flow FiO2 Mean Ox Delivery Rate 05/16 1408 98.0 62 18 114/70 96 Room Air 05/16 0906 74 124/74 05/16 0905 74 124/74 05/16 0600 98.3 74 18 122/74 95 Room Air 05/15 2338 97.9 84 20 130/60 98 Room Air 05/15 1600 Room Air Intake & Output 05/16 1600 05/16 0800 05/16 0000 Intake Total 600 410 Output Total 650 750 550 Balance -650 -150 -140 Intake, IV 130 Intake, Oral 600 280 Output, Urine 650 750 550 Physical Exam General Appearance: Alert, Oriented X3, Cooperative, No Acute Distress Skin: No Rashes, LEFT FOOT HEALED WOUNDS. MILD EDEMA OF BOTH FEET. HEENT: Atraumatic, PERRLA Cardiovascular: Normal S1, Normal S2, No Murmurs Lungs: Normal Air Movement Abdomen: Normal Bowel Sounds, Soft, No Tenderness, No Hepatospenomegaly, No Masses Neurological: Normal Speech Extremities: No Clubbing, No Cyanosis, Normal Pulses Current Medications: Current Medications Sig/Kacie Start time Last Medication Dose Route Stop Time Status Admin Acetaminophen 650 MG .STK-MED ONE 05/16 0521 DC PO 05/16 05 Acetaminophen 650 MG Q8 05/15 0600 AC 05/16 PO 1318 Ampicillin Sodium/ 3,000 MG Q6 05/15 0300 DC 05/15 Sulbactam Sodium IV 1827 Sodium Chloride 100 ML Apixaban 5 MG BID 05/15 1000 AC 05/16 PO 0905 Bumetanide 2 MG DAILY 05/15 1000 AC 05/16 PO 09 Cefazolin Sodium 2 GM IQ8 05/16 0000 AC 05/16 N/A 1 UNIT IV 0801 Diltiazem HCl 120 MG DAILY 05/15 1000 AC 05/16 PO 09 Escitalopram Oxalate 20 MG DAILY 05/15 1000 AC 05/16 PO 09 Finasteride 5 MG DAILY 05/15 1000 AC 05/16 PO 0905 Glucosamine/ 0 DAILY 05/16 1000 AC 05/16 Chondroitin PO 0903 Losartan Potassium 100 MG DAILY 05/15 1000 AC 05/16 PO 0906 Melatonin 10 MG .STK-MED ONE 05/16 0002 DC PO 05/16 0003 Melatonin 10 MG ONCE ONE 05/15 1845 DC 05/16 PO 05/15 1846 0006 Oxycodone HCl 5 MG Q6 PRN 05/15 1115 AC 05/16 PO 1318 Tamsulosin HCl 0.4 MG DAILY 05/15 1000 AC 05/16 PO 0905 Last 24 Hrs of Lab/Joseph Results Last 24 Hrs of Labs/Mics: Laboratory Tests 05/16/17 0857: Anion Gap 13, Estimated GFR > 60, BUN/Creatinine Ratio 43.0 H, CBC w Diff NO MAN DIFF REQ, RBC 3.52 L, MCV 92.9, MCH 30.9, RDW 16.3 H, MPV 8.1, Gran % 76.0 H, Lymphocytes % 15.0 L, Monocytes % 7.0, Eosinophils % 1.8, Basophils % 0.2, Absolute Granulocytes 8.3 H, Absolute Lymphocytes 1.6, Absolute Monocytes 0.8 H, Absolute Eosinophils 0.2, Absolute Basophils 0, PUBS MCHC 33.3 Assessment/Plan Assessment: The patient is 77-year-old gentleman with past medical history of atrial fibrillation on Eliquis, COPD, SANDI, nephrolithiasis, BPH, osteoarthritis, chronic bilateral lower extremity edema with recurrent cellulitis of left leg numerous times. The patient was most recently discharged from [facility] on 05/02 after being treated for cellulitis of left leg. Now coming again with fever chills and left extremity swelling. patient states he was complaint with meds and did take full dose. RR 20, BP 139/80 and oxygen saturation 92% RA -Pertinent labs H/H 11.3/34.0 stable, WBC count 22 , no bands, BUN 64 creatinine 1.5 baseline 0.8. BNP 1390 FLU negative In ED patient received 1 dose of vancomycin, Lasix, Toradol and Tylenol blood cultures was also sent. Patient was admitted to general medicine floor and is being treated and evaluated for following conditions #Sepsis suspected source left lower extremity cellulitis? urine? -VITALS 98.3 HR 74 AND BP 122/74. -WBCS DOWN TO 11 FROM 26. Patient has history of recurrent lower left lower extremity cellulitis, previous cultures growing MSSA. Patient has been treated with IV Unasyn and Augmentin in the past. He is presenting after a recent discharge on 05/02 with fever, chills and left lower extremity swelling somewhat erythematous, warm, no tenderness, I& D sites on left leg do not appear to be infected, no drainage, in stages of healing. I&D site on left foot healed had no signs of infection. Lungs clear, chest x-ray unremarkable, no urinary symptoms, groin rash resolved. Other possibility can be flu,though flu test negative (sensitivity abt 70%) patient is presenting with weakness and fever. -Monitor fever and WBC curve -Follow blood cultures NEGATIVE OF NOW -Follow-up lower respiratory sputum culture (gives history of cough with sputum) NEGATIVE OF NOW -URINE CULTURES POSITIVE FOR GNRS. PATIENT WAS POSITIVE FOR PROTEUS AND ENTEROCOCCUS ON LAST ADMISSION, NO SYMPTOMS EVER HOWEVER. -CT scan of left lower extremity to rule out abscess SHOWED Subcutaneous edema throughout the left lower extremity. This is nonspecific though could reflect cellulitis in the proper clinical setting. No discrete fluid collection identified. NO OSSEUS CHANGES. -Leg elevation -We will SWITCH THE PATIENT FROM UNASYN TO IV CEFAZOLIN. PER ID HE MAY NEED CHRONIC ABX THERAPY FOR RECURRENT INFECTION. -Podiatry SAYS OUTPATIENT FOLLOW UP -VASCULAR SAYS NO INTERVENTION FROM THEIR SIDE #LOGAN Patient is presenting with creatinine of 1.5, baseline 0.8 - it likely secondary to dehydration he reports poor oral intake. -TODAY CR IS BACK DOWN TO 1.0 -DC FLUIDS -Avoid Nephrotoxins #HYPERTENSION -On losartan -patient also on tamsulosin and diltiazem that can effect blood pressure. -HOLD PRN #Chronic medical conditions depression, BPH, atrial fibrillation, continue escitalopram, finasteride, Eliquis, diltiazem, Flomax, OXYCODONE FOR CHRONIC KNEE PAIN #FC/heart healthy diet/DVT prophylaxis with subcutaneous heparin Problem List: 1. Sepsis Pain Ratin Pain Location: LEFT FOOT Pain Goal: Pain 4 or less Pain Plan: PRN Tomorrow's Labs & Rationales: CBC BEP SulyRobin mederos 05/16/17 1206: Attending MD Review Statement Attending Statement Attending MD Statement: examined this patient, discuss w/resident/PA/ANGLE SHEAR OPERATOR, agreed w/resident/PA/ANGLE SHEAR OPERATOR, discussed with family, reviewed EMR data (avail), discussed with nursing, discussed with case mgmt, reviewed images, amended to note Attending Assessment/Plan: 77-year-old male past medical history of COPD, CHF, atrial fibrillation, chronic left lower extremity wound is admitted to hospital for recurrent cellulitis , worsening leukocytosis and fever 102 meeting sepsis with LA 1.1. Patient feels much better today. Labs wbc 22.8 >>26>>11 VITALS afebrile , stable. Imaging Chest xray no acute abnormality. CT leg with subcutaneous edema throughot lower extremity. No discrete fluid collection. Patient admitted sepsis 2/2 recurrent left lower extremity cellulitis. Patient changed on iv antibiotic to cefazolin, f/u cultures, f/u ID (abx as per ID), f/u Podiatry. c/w eliquis and cardizem. Monitor CBC and bmp. Vascular surgery consulted and recommend no active intervention. gi/dvt prophyalxis full code.
[2017-05-16 09:38] LABS: ABSOLUTE BASOPHIL COUNT 0 /CUMM (0.0-0.2); ABSOLUTE EOSINOPHIL COUNT 0.2 /CUMM (0.0-0.7); ABSOLUTE GRANULOCYTE CT 8.3 /CUMM (1.4-6.5); ABSOLUTE LYMPH COUNT 1.6 /CUMM (1.2-3.4); ABSOLUTE MONOCYTE COUNT 0.8 /CUMM (0.10-0.60); BASOPHIL % 0.2 % (0.0-2.0); EOSINOPHIL % 1.8 % (0-5); HEMATOCRIT 32.7 % (42-52); MEAN CORPUSCULAR HGB 30.9 PG (27.0-31.0); MEAN CORPUSCULAR HGB CONC 33.3 G/DL (33.0-37.0); MEAN CORPUSCULAR VOLUME 92.9 FL (80.0-94.0); MEAN PLATELET VOLUME 8.1 FL (7.4-10.4); PLATELET COUNT 207 /CUMM (130-400); RBC DISTRIBUTION WIDTH 16.3 % (11.5-14.5); RED BLOOD CELL CT 3.52 /CUMM (4.70-6.10)
[2017-05-16 14:08] VITALS: BP 114/70
--- NOTE | 2017-05-16 14:49 | Patient Discharge Instructions ---
Discharge Instructions General Discharge Information You were seen/treated for: CELLULITIS asymptomatic uti, untreated Special Instructions: 1. PLEASE FOLLOW UP WITH PCP IN ONE WEEK 2. WOUND CARE IN ONE WEEK 3. Please follow up with vascular surgery as outpatient - Diet Continue normal diet: Yes Activity Full Activity/No Limits: Yes Acute Coronary Syndrome Inclusion Criteria At DC or during hospital stay patient has or had the following: ACS DIAGNOSIS No Discharge Core Measures Meds if any: Prescribed or Continued at Discharge Meds if any: NOT Prescribed or Continued at Discharge Congestive Heart Failure Inclusion Criteria At DC or during hospital stay patient has or had the following: CHF DIAGNOSIS No Discharge Core Measures Meds if any: Prescribed or Continued at Discharge Meds if any: NOT Prescribed or Continued at Discharge Cerebrovascular accident Inclusion Criteria At DC or during hospital stay patient has or had the following: CVA/TIA Diagnosis No Discharge Core Measures Meds if any: Prescribed or Continued at Discharge Meds if any: NOT Prescribed or Continued at Discharge Venous thromboembolism Inclusion Criteria VTE Diagnosis No VTE Type NONE VTE Confirmed by (Test) NONE Discharge Core Measures - Per Current guidelines, there needs to be overlap - treatment for the first 5 days of Warfarin therapy. - If discharged on Warfarin prior to 5 days of - overlap therapy, the patient will need to be - assessed for post discharge needs including - *Post discharge parental anticoagulation - *Warfarin and/or parental anticoagulation education - *Follow up date to check INR post discharge At least 5 days overlap therapy as Inpatient No Meds if any: Prescribed or Continued at Discharge Note: Overlap Therapy is Warfarin and Anticoagulant Meds if any: NOT Prescribed or Continued at Discharge
--- NOTE | 2017-05-16 15:41 | PN- Infect Dx ---
Subjective Subjective: Afebrile. He feels improved with no complaints Objective Last 24 Hrs of Vital Signs/I&O Vital Signs Date Time Temp Pulse Resp B/P B/P Pulse O2 O2 Flow FiO2 Mean Ox Delivery Rate 05/16 1408 98.0 62 18 114/70 96 Room Air 05/16 0906 74 124/74 05/16 0905 74 124/74 05/16 0600 98.3 74 18 122/74 95 Room Air 05/15 2338 97.9 84 20 130/60 98 Room Air 05/15 1600 Room Air Intake & Output 05/16 1600 05/16 0800 05/16 0000 Intake Total 600 410 Output Total 650 750 550 Balance -650 -150 -140 Intake, IV 130 Intake, Oral 600 280 Output, Urine 650 750 550 Physical Exam Other Physical Findings: He appears comfortable in no acute distress Extremities decreased erythema of the left thigh; bilateral lower extremity edema, left greater than right, with chronic venous stasis changes Results Last 24 Hours of Lab Results: Laboratory Tests 05/16 0857 Chemistry Sodium (137 - 145 mmol/L) 141 Potassium (3.5 - 5.1 mmol/L) 3.7 Chloride (98 - 107 mmol/L) 101 Carbon Dioxide (22 - 30 mmol/L) 27 Anion Gap (5 - 16) 13 BUN (9 - 20 mg/dL) 43 H Creatinine (0.7 - 1.2 mg/dL) 1.0 Estimated GFR (>60 ml/min) > 60 BUN/Creatinine Ratio (7 - 25 %) 43.0 H Hematology CBC w Diff NO MAN DIFF REQ WBC (4.8 - 10.8 /CUMM) 11.0 H RBC (4.70 - 6.10 /CUMM) 3.52 L Hgb (14.0 - 18.0 G/DL) 10.9 L Hct (42 - 52 %) 32.7 L MCV (80.0 - 94.0 FL) 92.9 MCH (27.0 - 31.0 PG) 30.9 RDW (11.5 - 14.5 %) 16.3 H Plt Count (130 - 400 /CUMM) 207 MPV (7.4 - 10.4 FL) 8.1 Gran % (42.2 - 75.2 %) 76.0 H Lymphocytes % (20.5 - 51.1 %) 15.0 L Monocytes % (1.7 - 9.3 %) 7.0 Eosinophils % (0 - 5 %) 1.8 Basophils % (0.0 - 2.0 %) 0.2 Absolute Granulocytes (1.4 - 6.5 /CUMM) 8.3 H Absolute Lymphocytes (1.2 - 3.4 /CUMM) 1.6 Absolute Monocytes (0.10 - 0.60 /CUMM) 0.8 H Absolute Eosinophils (0.0 - 0.7 /CUMM) 0.2 Absolute Basophils (0.0 - 0.2 /CUMM) 0 PUBS MCHC (33.0 - 37.0 G/DL) 33.3 Last 24 Hours of Joseph Results: Blood cultures May 14 negative Urine culture May 14 approximately 10,000 colonies of gram-negative rods Assessment/Plan Impression: Improving, with no further fevers and white blood cell count markedly decreased, now on Cefazolin Day 2 of treatment for a recurrent left leg cellulitis. As previously noted and discussed efforts at prevention include compression stockings and possible venous ligation but, given his frequent recurrences, it may be reasonable to suppress him with a low dose of antibiotics (for example Keflex) indefinitely. Suggestion: 1. Elevation of the left leg 2. Would recommend compression stockings and consider venous ligation per Vascular Surgery 3. Continue Cefazolin
[2017-05-16 22:34] VITALS: BP 112/60
[2017-05-17 06:00] VITALS: BP 140/70
[2017-05-17 09:00] LABS: ABSOLUTE BASOPHIL COUNT 0 /CUMM (0.0-0.2); ABSOLUTE EOSINOPHIL COUNT 0.4 /CUMM (0.0-0.7); ABSOLUTE GRANULOCYTE CT 5.4 /CUMM (1.4-6.5); ABSOLUTE LYMPH COUNT 2.6 /CUMM (1.2-3.4); ABSOLUTE MONOCYTE COUNT 0.9 /CUMM (0.10-0.60); BASOPHIL % 0.4 % (0.0-2.0); EOSINOPHIL % 3.9 % (0-5); GRANULOCYTE % 57.8 % (42.2-75.2); HEMATOCRIT 34.1 % (42-52); MEAN CORPUSCULAR HGB 31.1 PG (27.0-31.0); MEAN CORPUSCULAR HGB CONC 33.1 G/DL (33.0-37.0); MEAN PLATELET VOLUME 7.9 FL (7.4-10.4); PLATELET COUNT 219 /CUMM (130-400); RED BLOOD CELL CT 3.63 /CUMM (4.70-6.10); WHITE BLOOD CELL COUNT 9.3 /CUMM (4.8-10.8)
--- NOTE | 2017-05-17 10:10 | PN- Housestaff ---
Norma ESCOBAR,Kassandra 05/17/17 1009: Subjective Follow-up For: SEPSIS SECONDARY TO CELLULITIS/UTI Complaints: pain scale (0-10) Subjective: PATIENT NOTES ONLY MINIMAL PAIN IN THE LEFT LEG. NO URINARY SYMPTOMS STILL. AFEBRILE OVERNIGHT. Review of Systems Constitutional: Reports: no symptoms. Musculoskeletal: Reports: joint pain, muscle pain. Skin: Reports: lesions. Objective Last 24 Hrs of Vital Signs/I&O Vital Signs Date Time Temp Pulse Resp B/P B/P Pulse O2 O2 Flow FiO2 Mean Ox Delivery Rate 05/17 1044 70 140/70 05/17 1043 70 140/70 05/17 0600 98.1 76 18 140/70 96 Room Air 05/16 2234 98.3 68 20 112/60 96 Room Air 05/16 1408 98.0 62 18 114/70 96 Room Air Intake & Output 05/17 1600 05/17 0800 05/17 0000 Intake Total 550 450 Output Total 550 150 Balance 0 300 Intake, IV 150 150 Intake, Oral 400 300 Output, Urine 550 150 Physical Exam General Appearance: Alert, Oriented X3, Cooperative, No Acute Distress Skin: No Rashes, No Breakdown, ERYTHEMA OF LEFT LEG. RESOLVED SWELLING OF RIGHT LEG. Skin Temp/Moisture Exam: Warm/Dry Sepsis Skin Exam (color): Normal for Ethnicity Cardiovascular: Normal S1, Normal S2, No Murmurs Lungs: Clear to Auscultation, Normal Air Movement Abdomen: Normal Bowel Sounds, Soft, No Tenderness, No Hepatospenomegaly Neurological: Normal Speech Extremities: No Clubbing, No Cyanosis, No Edema, Normal Pulses Current Medications: Current Medications Sig/Kacie Start time Last Medication Dose Route Stop Time Status Admin Acetaminophen 650 MG .STK-MED ONE 05/16 2038 DC PO 05/16 2039 Acetaminophen 650 MG .STK-MED ONE 05/16 1257 DC PO 05/16 1258 Acetaminophen 650 MG Q8 05/15 0600 AC 05/17 PO 0515 Apixaban 5 MG BID 05/15 1000 AC 05/17 PO 1043 Bumetanide 2 MG DAILY 05/15 1000 AC 05/17 PO 1041 Cefazolin Sodium 2 GM IQ8 05/16 0000 AC 05/17 N/A 1 UNIT IV 0816 Diltiazem HCl 120 MG DAILY 05/15 1000 AC 05/17 PO 1045 Escitalopram Oxalate 20 MG DAILY 05/15 1000 AC 05/17 PO 1044 Finasteride 5 MG DAILY 05/15 1000 AC 05/17 PO 1043 Glucosamine/ 0 DAILY 05/16 1000 AC 05/17 Chondroitin PO 1042 Lactobacillus 1 CAP DAILY 05/17 1006 AC Acidophilus PO Losartan Potassium 100 MG DAILY 05/15 1000 AC 05/17 PO 1043 Oxycodone HCl 5 MG Q6 PRN 05/15 1115 AC 05/17 PO 1042 Patient Medication 1 ED ONE ONE 05/17 1100 [facility] ED 05/17 1101 Tamsulosin HCl 0.4 MG DAILY 05/15 1000 AC 05/17 PO 1044 Last 24 Hrs of Lab/Joseph Results Last 24 Hrs of Labs/Mics: Laboratory Tests 05/17/17 0825: Anion Gap 13, Estimated GFR > 60, BUN/Creatinine Ratio 38.9 H, CBC w Diff NO MAN DIFF REQ, RBC 3.63 L, MCV 94.0, MCH 31.1 H, RDW 16.0 H, MPV 7.9, Gran % 57.8, Lymphocytes % 28.2, Monocytes % 9.7 H, Eosinophils % 3.9, Basophils % 0.4 , Absolute Granulocytes 5.4, Absolute Lymphocytes 2.6, Absolute Monocytes 0.9 H , Absolute Eosinophils 0.4, Absolute Basophils 0, PUBS MCHC 33.1 Assessment/Plan Assessment: The patient is 77-year-old gentleman with past medical history of atrial fibrillation on Eliquis, COPD, SANDI, nephrolithiasis, BPH, osteoarthritis, chronic bilateral lower extremity edema with recurrent cellulitis of left leg numerous times. The patient was most recently discharged from [facility] on 05/[facility] after being treated for cellulitis of left leg. Now coming again with fever chills and left extremity swelling. patient states he was complaint with meds and did take full dose. RR 20, BP 139/80 and oxygen saturation 92% RA -Pertinent labs H/H 11.3/34.0 stable, WBC count 22 , no bands, BUN 64 creatinine 1.5 baseline 0.8. BNP 1390 FLU negative In ED patient received 1 dose of vancomycin, Lasix, Toradol and Tylenol blood cultures was also sent. Patient was admitted to general medicine floor and is being treated and evaluated for following conditions #SEPSIS 2/2 left lower extremity cellulitis? ASYMPTOMATIC UTI? -TEMP TODAY 98.1 -WBCS DOWN TO 9.3 FROM 26. Patient has history of recurrent lower left lower extremity cellulitis, previous cultures growing MSSA. Patient has been treated with IV Unasyn and Augmentin in the past. He is presenting after a recent discharge on 05/02 with fever, chills and left lower extremity swelling somewhat erythematous, warm, no tenderness, I& D sites on left leg do not appear to be infected, no drainage, in stages of healing. I&D site on left foot healed had no signs of infection. Lungs clear, chest x-ray unremarkable, no urinary symptoms, groin rash resolved. Other possibility can be flu, though flu test negative (sensitivity abt 70%) patient is presenting with weakness and fever. -Monitor fever and WBC curve -Follow blood cultures STILL NEGATIVE -Follow-up lower respiratory sputum culture: NOW SAWS NO SAMPLE COLLECTED. PATIENT NO LONGER HAS COUGH TO COLLECT SPUTUM. -URINE CULTURES POSITIVE FOR GNRS FOUND TO BE PROTEUS MIRABILIS. PATIENT WAS POSITIVE FOR PROTEUS AND ENTEROCOCCUS ON LAST ADMISSION, NO SYMPTOMS EVER. CONTINUE TO FOLLOW OFF ANTIBIOTICS FOR UTI. -CT scan of left lower extremity to rule out abscess SHOWED Subcutaneous edema throughout the left lower extremity. This is nonspecific though could reflect cellulitis in the proper clinical setting. No discrete fluid collection identified. NO OSSEUS CHANGES. - CELLULITIS IS A CLINICAL DIAGNOSIS AND CT SCAN SHOWS POSSIBLE EVIDENCE OF IT IN A PATIENT WITH PREVIOUS CONFIRMED INFECTION AND SEVERAL RECURRENCES, THIS IS OUR WORKING DIAGNOSIS. -Leg elevation -We switched THE PATIENT FROM UNASYN TO IV CEFAZOLIN yesterday and will switch patient to KEFLEX 500MG Q6 FOR ONE WEEK STARTING FROM TODAY UNTIL 05/23 AND THEN 500MG BID FROM THE INDEFINITELY. WE GOT A CALL FROM PHARMACY THAT THE PTS CREATININE CLEARANCE WAS SUCH THAT HE COULD NOT GET 2G KEFLEX PER DAY BUT INSTEAD A MAX OF 1G. WE SPOKE WITH DR. JACKSON AND HE SAID THIS SHOULD BE OK AND IF THERE NEEDS TO BE ANY CHANGES HE WOULD LET US KNOW. -Podiatry SAYS OUTPATIENT FOLLOW UP -VASCULAR SAYS NO INTERVENTION FROM THEIR SIDE -I WILL ORDER TEDS COMPRESSION STOCKINGS TODAY. #LOGAN Patient is presenting with creatinine of 1.5, baseline 0.8 - it likely secondary to dehydration he reports poor oral intake. -TODAY CR IS BACK DOWN TO NORMAL BASELINE -Avoid Nephrotoxins #HYPERTENSION -On losartan -patient also on tamsulosin and diltiazem that can effect blood pressure. -HOLD PRN #Chronic medical conditions depression, BPH, atrial fibrillation, continue escitalopram, finasteride, Eliquis, diltiazem, Flomax, OXYCODONE FOR CHRONIC KNEE PAIN #FC/heart healthy diet/DVT prophylaxis with subcutaneous heparin Problem List: 1. Sepsis 2. Recurrent cellulitis of lower extremity 3. Urinary tract infection Pain Ratin Pain Location: LEFT LOWER LEG Pain Goal: Pain 4 or less Pain Plan: PRN Tomorrow's Labs & Rationales: CBC BEP Robin Tubbs 05/17/17 1230: Attending MD Review Statement Attending Statement Attending MD Statement: examined this patient, discuss w/resident/PA/ASSEMBLER CHASSIS, agreed w/resident/PA/ASSEMBLER CHASSIS, discussed with family, reviewed EMR data (avail), discussed with nursing, discussed with case mgmt, reviewed images, amended to note Attending Assessment/Plan: Patient seen/examined bedside. Patient feels much better. He is able to ambualte with walker to bathroom. His pain is getting better. Patient admitted sepsis 2/2 recurrent left lower extremity cellulitis. Patient continued on iv antibiotic cefazolin, f/u cultures, f/u ID (abx as per ID), f/u Podiatry. c/w eliquis and cardizem. Monitor CBC and bmp. Vascular surgery consulted and recommend no active intervention. gi/dvt prophyalxis full code.
--- NOTE | 2017-05-17 13:27 | PN- Infect Dx ---
Subjective Subjective: Afebrile without complaints Objective Last 24 Hrs of Vital Signs/I&O Vital Signs Date Time Temp Pulse Resp B/P B/P Pulse O2 O2 Flow FiO2 Mean Ox Delivery Rate 05/17 1044 70 140/70 05/17 1043 70 140/70 05/17 0600 98.1 76 18 140/70 96 Room Air 05/16 2234 98.3 68 20 112/60 96 Room Air 05/16 1408 98.0 62 18 114/70 96 Room Air Intake & Output 05/17 1600 05/17 0800 05/17 0000 Intake Total 550 450 Output Total 785 550 150 Balance -785 0 300 Intake, IV 150 150 Intake, Oral 400 300 Number 2 Bowel Movements Output, Urine 785 550 150 Physical Exam Other Physical Findings: He appears comfortable in no acute distress Extremities no further erythema of the left leg; bilateral lower extremity edema , left greater than right, with venous stasis changes Results Last 24 Hours of Lab Results: Laboratory Tests 05/17 0825 Chemistry Sodium (137 - 145 mmol/L) 142 Potassium (3.5 - 5.1 mmol/L) 3.7 Chloride (98 - 107 mmol/L) 100 Carbon Dioxide (22 - 30 mmol/L) 30 Anion Gap (5 - 16) 13 BUN (9 - 20 mg/dL) 35 H Creatinine (0.7 - 1.2 mg/dL) 0.9 Estimated GFR (>60 ml/min) > 60 BUN/Creatinine Ratio (7 - 25 %) 38.9 H Hematology CBC w Diff NO MAN DIFF REQ WBC (4.8 - 10.8 /CUMM) 9.3 RBC (4.70 - 6.10 /CUMM) 3.63 L Hgb (14.0 - 18.0 G/DL) 11.3 L Hct (42 - 52 %) 34.1 L MCV (80.0 - 94.0 FL) 94.0 MCH (27.0 - 31.0 PG) 31.1 H RDW (11.5 - 14.5 %) 16.0 H Plt Count (130 - 400 /CUMM) 219 MPV (7.4 - 10.4 FL) 7.9 Gran % (42.2 - 75.2 %) 57.8 Lymphocytes % (20.5 - 51.1 %) 28.2 Monocytes % (1.7 - 9.3 %) 9.7 H Eosinophils % (0 - 5 %) 3.9 Basophils % (0.0 - 2.0 %) 0.4 Absolute Granulocytes (1.4 - 6.5 /CUMM) 5.4 Absolute Lymphocytes (1.2 - 3.4 /CUMM) 2.6 Absolute Monocytes (0.10 - 0.60 /CUMM) 0.9 H Absolute Eosinophils (0.0 - 0.7 /CUMM) 0.4 Absolute Basophils (0.0 - 0.2 /CUMM) 0 PUBS MCHC (33.0 - 37.0 G/DL) 33.1 Last 24 Hours of Joseph Results: Blood cultures May 14 negative Urine culture May 14 approximately 10,000 colonies of Proteus Assessment/Plan Impression: Markedly improved, with temperatures and white blood cell count now normal, on Cefazolin Day 3 of treatment for a recurrent left leg cellulitis. As previously noted and discussed, efforts at prevention include compression stockings and possible venous ligation but, given his frequent recurrences, it may be reasonable to suppress him with a low dose of antibiotics (for example Keflex) indefinitely. Suggestion: 1. Will need vascular surgery follow-up as an outpatient for compression stockings and possible venous ligation 2. Discontinue Cefazolin and begin Keflex 500 mg po every 6 hours for 1 week, followed by indefinite suppression with Keflex 500 mg po every 12 hours.
[2017-05-17] MEDS ORDERED: KEFLEX500 M1 PO ×3 (13:42→14:14)
[2017-05-17] MEDS ORDERED: PROBIOTIC1 EACH PO (14:14)
[2017-05-17 14:19] VITALS: BP 120/64
[2017-05-17 22:22] VITALS: BP 118/70
[2017-05-18 06:17] VITALS: BP 120/60
[2017-05-18 08:41] VITALS: BP 120/72
--- NOTE | 2017-05-19 09:56 | Discharge Summary ---
Visit Information Visit Dates Admission Date: 05/15/17 Discharge Date: 05/18/17 Hospital Course Course Attending Physician: Robin Tubbs MD Primary Care Physician: Murphy ESCOBAR,[facility] Course: The patient is 77-year-old gentleman with past medical history of atrial fibrillation on Eliquis, COPD, SANDI, nephrolithiasis, BPH, osteoarthritis, chronic bilateral lower extremity edema with recurrent cellulitis of left leg numerous times. The patient was most recently discharged from [facility] on 05/02 after being treated for cellulitis of left leg. In the beginning of March patient underwent I&D on left leg by vascular surgery, cultures were not sent at that time, patient was started on IV Unasyn and later shifted to Augmentin to complete 10 day course. On 04/19 patient underwent another I&D; cultures were positive for staph aureus (MSSA) and Group A strep, and the patient was started on Bactrim. Patient presented to [facility] ED on 04/21 diarrhea, left groin erythema and rash, generalized weakness and persistent purulent drainage from the left leg. Patient was again treated for cellulitis initially started on Vanco later shifted to cefazolin and then to Unasyn. There was no clinical or radiographic evidence of osteomyelitis. Patient also underwent CT abdomen and pelvis with IV contrast for evaluation of persistent leukocytosis which showed small staghorn calculus on lower pole of left kidney without any acute intra-abdominal or pelvic findings. Patient underwent I&D of left foot abscess (dorsum of the metatarsals) on April 29 by podiatry. Following that patient remained afebrile and white cell count trending down. The culture from the foot abscess did not show any growth after 3 days but was positive for few gram-positive cocci likely secondary to antibiotic use. Patient was discharged on Augmentin to complete a 14 day course. He followed up with Dr. Mcdonough podiatry and Dr. Haley vascular 1 week ago. Patient reports feeling fine ever since, he reports using walker to ambulate and has been elevating his legs. Today around 5 PM patient started feeling chills and weakness. He reports some cough with sputum production and rhinorrhea. Recorded fever of 102 at home. Other than that review of system is negative. Patient denies chest pain palpitations, change in bowel habits or any urinary symptoms. He denies any pain in his left extremity, reports swelling. Groin rash has resolved. No sick contacts. IN THE ED: -VS Tmax 102, HR 102, RR 20, BP 139/80 and oxygen saturation 92% RA -Pertinent labs H/H 11.3/34.0 stable, WBC count 22 , no bands, BUN 64 creatinine 1.5 baseline 0.8. BNP 1390 FLU negative. ELEVATED TEMP, HEART RATE, WBC. -Patient received 1 dose of vancomycin, Lasix, Toradol and Tylenol blood, cultures also sent. Patient is being admitted to general medicine floor and is being treated and evaluated for following conditions: #SEPSIS 2/2 left lower extremity cellulitis WITH POSSIBLE CONTRIBUTION OF ASYMPTOMATIC BACTIURIA and COUGH (INFECTIOUS LUNG PROCESS) -TEMP 102 ON ADMISSION LABS RESOLVING TO NORMAL TEMPERATURES ON THE -WBCS 22 on admission, down to 9.3 on discharge after patient treated with antibiotics. -Left leg is erythematous, warm, no tenderness, I&D sites on left leg do not appear to be infected, no drainage, in stages of healing. I&D site on left foot healed had no signs of infection. Lungs clear, chest x-ray unremarkable, no urinary symptoms, groin rash resolved. Other possibility can be flu, though flu test negative (sensitivity abt 70%) patient is presenting with weakness and fever. -We followed blood cultures which turned out to be NEGATIVE -We did lower respiratory sputum culture for the patient's cough: PATIENT NO LONGER HAS COUGH TO COLLECT SPUTUM. -URINE CULTURES POSITIVE FOR GNRS FOUND TO BE PROTEUS MIRABILIS. PATIENT WAS POSITIVE FOR PROTEUS AND ENTEROCOCCUS ON LAST ADMISSION, NO SYMPTOMS EVER. CONTINUE TO FOLLOW OFF ANTIBIOTICS FOR UTI. -CT scan of left lower extremity to rule out abscess SHOWED subcutaneous edema throughout the left lower extremity. This is nonspecific though could reflect cellulitis in the proper clinical setting. No discrete fluid collection identified. NO OSSEUS CHANGES. - CELLULITIS IS A CLINICAL DIAGNOSIS AND CT SCAN SHOWS POSSIBLE EVIDENCE OF IT IN A PATIENT WITH PREVIOUS CONFIRMED INFECTION AND SEVERAL RECURRENCES, THIS WAS OUR WORKING DIAGNOSIS. -Leg elevation -As per infectious disese, we switched THE PATIENT FROM UNASYN TO IV CEFAZOLIN and then to KEFLEX 500MG Q6 FOR ONE WEEK AND THEN 500MG BID FROM THE INDEFINITELY. WE GOT A CALL FROM PHARMACY THAT THE PTS CREATININE CLEARANCE WAS SUCH THAT HE COULD NOT GET 2G KEFLEX PER DAY BUT INSTEAD A MAX OF 1G. WE SPOKE WITH DR. JACKSON AND HE SAID THIS SHOULD BE OK AND IF THERE NEEDS TO BE ANY CHANGES HE WOULD LET US KNOW. -Podiatry SAYS OUTPATIENT FOLLOW UP -VASCULAR SAYS NO INTERVENTION FROM THEIR SIDE -We also ordered TEDS COMPRESSION STOCKINGS -Patient will need vascular surgery follow-up as an outpatient for compression stockings and possible venous ligation, as per ID. #LOGAN Patient is presenting with creatinine of 1.5, baseline 0.8 - it likely secondary to dehydration he reports poor oral intake. -CR RETURNED TO NORMAL BASELINE -Avoid Nephrotoxins #HYPERTENSION -On losartan -patient also on tamsulosin and diltiazem that can effect blood pressure. -HOLD PRN #Chronic medical conditions depression, BPH, atrial fibrillation, continue escitalopram, finasteride, Eliquis, diltiazem, Flomax, OXYCODONE FOR CHRONIC KNEE PAIN Allergies: Coded Allergies: No Known Allergies (03/11/17) Disposition Summary Disposition Principal Diagnosis: cellulitis Additional Diagnosis: logan Discharge Disposition: home health services Discharge Instructions General Discharge Information Code Status: Full Code Patient's Diet: regular Patient's Activity: as tolerated Follow-Up Instructions/Appts: 1. PLEASE FOLLOW UP WITH PCP IN ONE WEEK 2. WOUND CARE IN ONE WEEK 3. Please follow up with vascular surgery as outpatient - Medications at Discharge Discharge Medications: Continue taking these medications: Meloxicam (Meloxicam) 7.5 MG TABLET 1 Tablet ORAL DAILY as needed for PAIN Comments: NOT GIVEN IN HOSPITAL Finasteride (Proscar) 5 MG TABLET 1 Tablet ORAL DAILY Comments: Last Taken: 05/18/17 Time: 8:40 AM Glucosa Llamas 2KCL/Chondroitin Llamas (Glucosamine & Chondroitin Cap) 500 MG-400 MG CAPSULE 3 Tablet ORAL DAILY Comments: Last Taken: 05/18/17 Time: 8:40 AM Apixaban (Eliquis) 5 MG TABLET 1 Tablet ORAL TWICE DAILY Comments: Last Taken: 05/18/17 Time: 8:40 AM Escitalopram Oxalate (Escitalopram Oxalate) 20 MG TABLET 1 Tablet ORAL DAILY Qty = 90 Comments: Last Taken: 05/18/17 Time: 8:40 AM Multivitamin W/Iron, Minerals (Spectravite Senior) 1 EACH TABLET 1 Tablet ORAL DAILY Comments: NOT GIVEN IN HOSPITAL. Losartan Potassium (Losartan Potassium) 100 MG TABLET 1 Tablet ORAL DAILY Qty = 90 Comments: Last Taken: 05/18/17 Time: 8:40 AM Diltiazem HCl (Diltiazem 24HR ER) 120 MG CAP.ER.24H 1 Capsule ORAL DAILY Comments: Last Taken: 05/18/17 Time: 8:40 AM Bumetanide (Bumetanide) 2 MG TABLET 1 Tablet ORAL DAILY Comments: Last Taken: 05/18/17 Time: 8:40 AM Oxycodone HCl (Oxycodone HCl) 5 MG CAPSULE 1 Capsule ORAL EVERY SIX HOURS NEEDED Comments: Last Taken: 05/18/17 Time: 8:45 AM Nystatin (Nystop) 100,000 UNIT/GRAM POWDER Qty = 60 Comments: NOT GIVEN IN HOSPITAL Tamsulosin HCl (Tamsulosin HCl) 0.4 MG CAP.ER.24H 1 Capsule ORAL DAILY Qty = 30 Comments: Last Taken: 05/18/17 Time: 8:40 AM Start taking the following new medications: Cephalexin (Keflex) 500 MG CAPSULE 1 Capsule ORAL SEE INSTRUCTIONS Qty = 90 No Refills Instructions: take 4 per day till 05/23 start taking 2X a day from 05/24/17 indefinitly Comments: Last Taken: 05/18/17 Time: 11:00 AM Lactobacillus Acidophilus (Probiotic) 10 BILLION CELL CAPSULE 1 Capsule ORAL THREE TIMES DAILY Qty = 90 No Refills Comments: Last Taken: 05/18/17 Time: 8:40 AM Copies To: Sina Shaver DPM; Murphy ESCOBAR,Addie; Tera ESCOBAR,Eyal Attending MD Review Statement Documenting Attending: Suly ESCOBAR,Robin Other Findings: Patient admitted sepsis 2/2 recurrent left lower extremity cellulitis. Patient continued on iv antibiotic cefazolin and changed to PO at discharge as per ID ( abx as per ID). Patient on bumex for possibel chronic venous stasis doubt chf. c /w eliquis and cardizem for afib rate controlled. Vascular surgery consulted and recommend no active intervention. Patient clinically condition improved with improvement in redness and pain at discharge. follow up pcp in 5-7 days of discharge Vascualr surgery in 2 weeks of discharge Cardiology as scheduled appointment.
== END 2017-05-18 13:16 | disposition home health service (06) | DRG 872 ==
LOC: ERH 21:53 → ERHI 05-15 01:31 → 2NA 05-15 01:31 → ENRESERV 05-15 02:59 → 2NA 05-15 04:03 → ENPENDDIS 05-18 09:25 → ENTRNSPT 05-18 12:56 → EDTRNSPTSTS 05-18 13:09 → EDTRNSPT 05-18 13:09 → 2NA 05-18 13:16 → CMPTRNSPT 05-18 13:23
PROVIDERS: Internal Medicine; Pediatrics; Student in an Organized Health Care Education/Training Program
DX: A41.9 Sepsis, unspecified organism (principal); N17.9 Acute kidney failure, unspecified; I48.2 Chronic atrial fibrillation; I50.9 Heart failure, unspecified; L97.929 Non-pressure chronic ulcer of unspecified part of left lower leg with unspecified severity; E86.0 Dehydration; L03.116 Cellulitis of left lower limb; E11.9 Type 2 diabetes mellitus without complications; I11.0 Hypertensive heart disease with heart failure; G47.33 Obstructive sleep apnea (adult) (pediatric); G89.29 Other chronic pain; I73.9 Peripheral vascular disease, unspecified; Z79.01 Long term (current) use of anticoagulants; B96.4 Proteus (mirabilis) (morganii) as the cause of diseases classified elsewhere; N40.0 Benign prostatic hyperplasia without lower urinary tract symptoms; J44.9 Chronic obstructive pulmonary disease, unspecified; N20.0 Calculus of kidney; M25.569 Pain in unspecified knee; Z87.891 Personal history of nicotine dependence; I87.2 Venous insufficiency (chronic) (peripheral)
CPT/HCPCS: 2NASP; 36415; 71045; 81001; 82436; 87040; 87070; 87086; 87804; 87804-59; 93005; 93010; 96374; 96375; 99291; J0131; J0690; J1885; J1940; J3370; J3490; J7040

== ENCOUNTER 2017-11-22 12:50 | Emergency (ER) | payer OTHER ==
[~2017-11-22] VITALS: Ht 162.6 cm; Wt 97.5 kg
[~2017-11-22 12:50] MED LIST changes: +KEFLEX500 M1 PO; +PROBIOTIC1 EACH PO
[2017-11-22 13:21] LABS: ABSOLUTE BASOPHIL COUNT 0.1 /CUMM (0.0-0.2); ABSOLUTE EOSINOPHIL COUNT 0.4 /CUMM (0.0-0.7); ABSOLUTE GRANULOCYTE CT 4.7 /CUMM (1.4-6.5); ABSOLUTE LYMPH COUNT 1.9 /CUMM (1.2-3.4); ABSOLUTE MONOCYTE COUNT 0.7 /CUMM (0.10-0.60); BASOPHIL % 1.2 % (0.0-2.0); EOSINOPHIL % 4.9 % (0-5); GRANULOCYTE % 60.3 % (42.2-75.2); HEMATOCRIT 36.2 % (42-52); MEAN CORPUSCULAR HGB 31.8 PG (27.0-31.0); MEAN CORPUSCULAR HGB CONC 33.7 G/DL (33.0-37.0); MEAN CORPUSCULAR VOLUME 94.4 FL (80.0-94.0); MEAN PLATELET VOLUME 7.5 FL (7.4-10.4); PLATELET COUNT 211 /CUMM (130-400); RBC DISTRIBUTION WIDTH 14.6 % (11.5-14.5); RED BLOOD CELL CT 3.84 /CUMM (4.70-6.10); WHITE BLOOD CELL COUNT 7.8 /CUMM (4.8-10.8)
--- NOTE | 2017-11-22 14:18 | ED GENERAL ADULT ---
History of Present Illness General Chief Complaint: General Adult Stated Complaint: RIB PAIN Source: patient Exam Limitations: no limitations Allergies Coded Allergies: No Known Allergies (03/11/17) Reconcile Medications Apixaban (Eliquis) 5 MG TABLET 1 TAB PO BID AFIB (Reported) Bumetanide 2 MG TABLET 1 TAB PO DAILY fluid (Reported) Cephalexin (Keflex) 500 MG CAPSULE 1 CAP PO SEE ADMIN CRITERIA skin and soft tissue infection take 4 per day till 05/23 start taking 2X a day from 05/24/17 indefinitly Diltiazem HCl (Diltiazem 24HR ER) 120 MG CAP.ER.24H 1 CAP PO DAILY HEART ( Reported) Escitalopram Oxalate 20 MG TABLET 1 TAB PO DAILY MENTAL HEALTH (Reported) Finasteride (Proscar) 5 MG TABLET 1 TAB PO DAILY BPH (Reported) Glucosa Llamas 2KCL/Chondroitin Llamas (Glucosamine & Chondroitin Cap) 500 MG-400 MG CAPSULE 3 TAB PO DAILY PAIN (Reported) Lactobacillus Acidophilus (Probiotic) 10 BILLION CELL CAPSULE 1 CAP PO TID gut Lidocaine (Lidoderm) 5 % ADH..PATCH 1 PAT TOP DAILY PRN pain may wear up to 12 hours Losartan Potassium 100 MG TABLET 1 TAB PO DAILY BP (Reported) Meloxicam 7.5 MG TABLET 1 TAB PO DAILY PRN PAIN (Reported) Multivitamin W/Iron, Minerals (Spectravite Senior) 1 EACH TABLET 1 TAB PO DAILY SUPPLEMENT (Reported) Omeprazole 20 MG CAPSULE.DR 1 CAP PO DAILY GI (Reported) Oxycodone HCl 5 MG CAPSULE 1 CAP PO Q6P pain (Reported) Tamsulosin HCl 0.4 MG CAP.ER.24H 1 CAP PO DAILY bph Triage Note: PT COMPLAINS OF L SIDE RIB PAIN FOR THE PAST WEEK, PAIN INCREASES WITH MOVEMENT AND COUGHING, STATES THAT HE BROKE L SIDE RIBS LAST YEAR AFTER A FALL Triage Nurses Notes Reviewed? yes Onset: Gradual Duration: day(s): Timing: constant HPI: 77-year-old male with a history of A. fib, CHF, hypertension, COPD, BPH, osteoarthritis presenting with atraumatic left lateral chest pain 1 week. Patient reports that he had several rib fractures in that area 1-2 years ago from a fall. Reports that his current pain feels similar to his prior rib fractures, but there was no acute injury. Pain is worse with movement, inspiration, and coughing. Is on oxycodone for chronic pain, and has been using without relief. Denies shortness of breath, nausea, vomiting, diaphoresis, lightheadedness, dizziness. (Beatriz Jacobo) Vital Signs & Intake/Output Vital Signs & Intake/Output Vital Signs Date Time Temp Pulse Resp B/P B/P Pulse O2 O2 Flow FiO2 Mean Ox Delivery Rate 11/22 1536 96 Room Air 11/22 1527 98.0 65 18 119/69 96 Room Air 11/22 1255 98.1 76 18 138/80 95 Room Air (Cecille ESCOBAR,Rl Odell) Past History Travel History Traveled to [place] past 21 day No Medical History Any Pertinent Medical History? see below for history Neurological: NONE EENT: NONE Cardiovascular: AFIB, CHF, chronic venous insuff, hypertension Respiratory: COPD, obstructive sleep apnea Gastrointestinal: NONE Hepatic: NONE Renal: NONE (history of), benign prost hyperplasia, nephrolithiasis Musculoskeletal: osteoarthritis Psychiatric: NONE Endocrine: NONE Blood Disorders: NONE Cancer(s): NONE SHOCK ABSORPTION FLOOR LAYER/Reproductive: NONE History of MRSA: No History of VRE: No History of CDIFF: No Influenza Vaccine: 01/22/17 Surgical History Surgical History: N RT KNEE SX, HERNIA REPAIR, ROTATOR CUFF, LEFT KIDNEY STONE REMOVED, LIGAMENT REPAIR, BILAT ARM ULNAR NERVE SX (radiosurgery) Psychosocial History Who do you live with Significant Other Services at Home Nursing What is your primary language Occitan Tobacco Use: Never used ETOH Use: denies use Illicit Drug Use: denies illicit drug use Family History Family History, If Any: FATHER FH: emphysema MOTHER Bone cancer FH: breast cancer Hx Contributory? No (Beatriz Jacobo) Review of Systems Review of Systems Constitutional: Reports: no symptoms. EENTM: Reports: no symptoms. Respiratory: Reports: no symptoms. Cardiovascular: Reports: see HPI. GI: Reports: no symptoms. Genitourinary: Reports: no symptoms. Musculoskeletal: Reports: no symptoms. Skin: Reports: no symptoms. Neurological/Psychological: Reports: no symptoms. Hematologic/Endocrine: Reports: no symptoms. Immunologic/Allergic: Reports: no symptoms. All Other Systems: Reviewed and Negative (Beatriz Jacobo) Physical Exam Physical Exam General Appearance: well developed/nourished, no apparent distress, alert, awake , comfortable Head: atraumatic, normal appearance Eyes: Bilateral: normal appearance. Neck: normal inspection Respiratory: normal breath sounds, lungs clear, tenderness to palpation over the left lateral chest wall over multiple levels, there is also tenderness to palpation over the intercostal muscles, no ecchymosis, abrasions, or other signs of trauma. Cardiovascular: regular rate/rhythm Gastrointestinal: soft, non-tender Back: normal inspection Extremities: normal inspection Neurologic/Psych: awake, alert, oriented x 3, normal gait, normal mood/affect Skin: intact, normal color, warm/dry Core Measures ACS in differential dx? No CVA/TIA Diagnosis: No Sepsis Present: No Sepsis Focused Exam Completed? No (Monique ELLIS,Beatriz) Progress Differential Diagnoses I considered the following diagnoses in my evaluation of the patient: [Muscle strain versus rib fracture, low concern for ACS versus PE versus aortic dissection versus temp not versus Boerhaave's versus renal stone] Initial ED EKG: AFIB, no ST T wave changes (Monique ELLIS,Beatriz) Plan of Care: Orders Procedure Date/time Status TROPONIN LEVEL 11/22 1258 Complete COMPREHENSIVE METABOLIC PANEL 11/22 1258 Complete CBC WITHOUT DIFFERENTIAL 11/22 1258 Complete EKG 11/22 1258 Active Laboratory Tests 11/22/17 1312: Anion Gap 7, Estimated GFR > 60, BUN/Creatinine Ratio 29.0 H, Glucose 105 H, Calcium 8.8, Total Bilirubin 0.6, AST 19, ALT 23, Alkaline Phosphatase 71, Troponin I < 0.01, Total Protein 6.0 L, Albumin 3.4 L, Globulin 2.6, Albumin/ Globulin Ratio 1.3, CBC w Diff NO MAN DIFF REQ, RBC 3.84 L, MCV 94.4 H, MCH 31.8 H, MCHC 33.7, RDW 14.6 H, MPV 7.5, Gran % 60.3, Lymphocytes % 24.4, Monocytes % 9.2, Eosinophils % 4.9, Basophils % 1.2, Absolute Granulocytes 4.7, Absolute Lymphocytes 1.9, Absolute Monocytes 0.7 H, Absolute Eosinophils 0.4, Absolute Basophils 0.1 EKG is nonischemic Labs unremarkable including normal troponin CT chest 1. Subtle healing fracture deformities of the left anterolateral seventh and eighth ribs and probably sixth rib are noted. No other rib fractures seen. 2. No left-sided pneumothorax or pleural effusion. 3. Atelectatic changes in the mid and lower lungs bilaterally. 4. Four-chamber enlargement of the heart. 5. Moderate coronary artery calcifications. 6. Bilateral nonobstructing renal calculi. 7. Atrophic pancreas. Given the patient's pain began a week ago and he has no shortness of breath with normal vital signs there is no indication for admission and respiratory monitoring at this time. Given Rx lidocaine patches for pain. Counseled on supportive care and will follow up with his PMD for reevaluation. (Beatriz Jacobo) (Cecille ESCOBAR,Rl Odell) Departure Departure Disposition: HOME OR SELF CARE Condition: Stable Clinical Impression Primary Impression: Left rib fracture Referrals: Addie Arrington MD (PCP/Family) Additional Instructions: Use lidocaine patches as needed for pain. Follow-up with your primary care provider for reevaluation. Return to the emergency department for any new or worsening symptoms. Departure Forms: Customer Survey General Discharge Information Prescriptions: Current Visit Scripts Lidocaine (Lidoderm) 1 PAT TOP DAILY PRN pain #30 PAT may wear up to 12 hours (Beatriz Jacobo) PA/DISASSEMBLER Co-Sign Statement Statement: ED Attending supervision documentation- [X] I saw and evaluated the patient. I have also reviewed all the pertinent lab results and diagnostic results. I agree with the findings and the plan of care as documented in the PA's/DISASSEMBLER's documentation. Patient presents for evaluation of left chest pain that began 4-5 days ago without known injury. Patient states he had multiple rib fractures previously that had given him a similar pain. Physical examination reveals some tenderness over the left chest but otherwise the patient appears to have relatively mild discomfort in a good chest excursion. [] I have reviewed the ED Record and agree with the PA's/DISASSEMBLER's documentation. [] Additions or exceptions (if any) to the PAs/DISASSEMBLER's note and plan are summarized below: [] (Cecille ESCOBAR,Rl Odell) Critical Care Note Critical Care Note Critical Care Time: non-applicable (Beatriz Jacobo)
--- NOTE | 2017-11-22 14:36 | CT SCAN REPORT ---
EXAMINATION: CT CHEST WITHOUT CONTRAST CLINICAL INFORMATION: Left lateral rib pain. Presumptive diagnosis of rib fracture. COMPARISON: Chest x-ray dated 05/14/2017. CT scan of the chest dated 01/30/2009. TECHNIQUE: Multidetector volumetric CT imaging of the chest was obtained noncontrast. Sagittal and coronal reformations were obtained. DLP: 621.74 mGy-cm. FINDINGS: LUNGS: Mild atelectatic changes as seen in the lower lobes and lingula and to a lesser extent in the right middle lobe. No focal lung nodule or mass. No effusion or pneumothorax. Central airways patent. LYMPHOVASCULAR STRUCTURES: Aortic size normal. Four-chamber enlargement of the heart is seen. Moderate coronary artery calcifications are noted. No pericardial effusion. No mediastinal, hilar or axillary adenopathy or free fluid collection. THYROID GLAND: Unremarkable to the extent included. UPPER ABDOMEN: There is a nonobstructing 0.3 cm calcification in the mid right kidney and a 0.2 cm nonobstructing calcification in the mid left kidney. No hydronephrosis. Colonic interposition of the right colon between the right hemidiaphragm and the liver is seen. Pancreas is atrophic. Accessory splenule is seen along the anterior inferior margin of the spleen. BONES: There is a subtle irregularity and cortical offset seen along the anterolateral left seventh and eighth ribs (series 4, image 39 and 44), suggestive of subacute healing fracture deformities. There may also be a subtle stress injury to the contralateral left sixth rib (series 4, image 32). No other definite fractures are seen. There is diffuse osteopenia. Mild S-shaped thoracal lumbar scoliosis and prominent diffuse degenerative disc disease and vertebral spondylosis noted. No suspicious focal findings. IMPRESSION: 1. Subtle healing fracture deformities of the left anterolateral seventh and eighth ribs and probably sixth rib are noted. No other rib fractures seen. 2. No left-sided pneumothorax or pleural effusion. 3. Atelectatic changes in the mid and lower lungs bilaterally. 4. Four-chamber enlargement of the heart. 5. Moderate coronary artery calcifications. 6. Bilateral nonobstructing renal calculi. 7. Atrophic pancreas.
[2017-11-22] MEDS ORDERED: OMEPRAZOLE20 M2 PO (14:58)
[2017-11-22 15:27] VITALS: BP 119/69
[2017-11-22] MEDS ORDERED: LIDODERM1 EACH TOP (15:40)
== END 2017-11-22 15:53 ==
LOC: ERH 12:50
PROVIDERS: Physician Assistant Medical
DX: M84.48XA Pathological fracture, other site, initial encounter for fracture (principal); R07.81 Pleurodynia
CPT/HCPCS: 93005; 93010